=== PATIENT | male | born 1950 | race American Indian/Alaskan Native ===

== ENCOUNTER 2016-08-15 10:45 | Outpatient (CLI) | payer MEDICAID ==
[2016-08-15] MEDS ORDERED: XYLOCAINE TOPICAL 2% TP ONE ×2 (11:12→14:16)
[2016-08-15] MEDS ORDERED: DAKIN'S FULL STRENGTH ONE (11:12)
[2016-08-15] MEDS ORDERED: AD OINTMENT TP ONE (12:04)
[2016-08-15] MEDS ORDERED: DAKIN'S FULL STRENGTH TP ONE (14:17)
[2016-08-16] MEDS ORDERED: AD OINTMENT TP SCH (10:00)
== END 2016-08-15 10:46 | disposition home or self-care (01) ==
LOC: WOUND 10:45
PROVIDERS: ATTEND Orthopaedic Surgery
DX: I87.313 Chronic venous hypertension (idiopathic) with ulcer of bilateral lower extremity (principal); L97.912 Non-pressure chronic ulcer of unspecified part of right lower leg with fat layer exposed; L97.922 Non-pressure chronic ulcer of unspecified part of left lower leg with fat layer exposed; I89.0 Lymphedema, not elsewhere classified; I87.2 Venous insufficiency (chronic) (peripheral); I10 Essential (primary) hypertension; Z86.718 Personal history of other venous thrombosis and embolism; Z87.891 Personal history of nicotine dependence
CPT/HCPCS: 29581; 87075; 87116; A6250

== ENCOUNTER 2016-08-25 10:57 | Outpatient (CLI) | payer MEDICAID | END 2016-08-25 10:58 | disposition home or self-care (01) | LOC: WOUND 10:57 | PROVIDERS: ATTEND Orthopaedic Surgery | DX: I87.313 Chronic venous hypertension (idiopathic) with ulcer of bilateral lower extremity (principal); L97.912 Non-pressure chronic ulcer of unspecified part of right lower leg with fat layer exposed; L97.922 Non-pressure chronic ulcer of unspecified part of left lower leg with fat layer exposed; G62.9 Polyneuropathy, unspecified; Z86.718 Personal history of other venous thrombosis and embolism; Z87.891 Personal history of nicotine dependence ==

== ENCOUNTER 2016-08-30 11:59 | Outpatient (CLI) | payer MEDICAID | END 2016-08-30 12:00 | disposition home or self-care (01) | LOC: WOUND 11:59 | PROVIDERS: ATTEND Podiatrist | DX: I89.0 Lymphedema, not elsewhere classified (principal); I87.2 Venous insufficiency (chronic) (peripheral); I10 Essential (primary) hypertension; G62.9 Polyneuropathy, unspecified; Z86.718 Personal history of other venous thrombosis and embolism; Z87.891 Personal history of nicotine dependence | CPT/HCPCS: 29581 ==

== ENCOUNTER 2016-09-20 10:53 | Outpatient (CLI) | payer MEDICAID ==
[~2016-09-20 10:53] MED LIST: XYLOCAINE TOPICAL 4% TP ONE
[2016-09-20] MEDS ORDERED: AD OINTMENT TP ONE (12:08)
[2016-09-20] MEDS ORDERED: XYLOCAINE TOPICAL 4% TP ONE (14:48)
[2016-09-21] MEDS ORDERED: AD OINTMENT TP SCH (10:00)
== END 2016-09-20 10:54 | disposition home or self-care (01) ==
LOC: WOUND 10:53
PROVIDERS: ATTEND Podiatrist
DX: I87.313 Chronic venous hypertension (idiopathic) with ulcer of bilateral lower extremity (principal); L97.812 Non-pressure chronic ulcer of other part of right lower leg with fat layer exposed; L97.822 Non-pressure chronic ulcer of other part of left lower leg with fat layer exposed; I89.0 Lymphedema, not elsewhere classified; G62.9 Polyneuropathy, unspecified; Z86.718 Personal history of other venous thrombosis and embolism; Z87.891 Personal history of nicotine dependence
CPT/HCPCS: A6250

== ENCOUNTER 2016-09-27 13:03 | Outpatient (CLI) | payer MEDICAID ==
[2016-09-27] MEDS ORDERED: XYLOCAINE TOPICAL 4% TP ONE (13:47)
[2016-09-29] MEDS ORDERED: XYLOCAINE TOPICAL 4% TP ONE (08:48)
== END 2016-09-27 13:04 | disposition home or self-care (01) ==
LOC: WOUND 13:03
PROVIDERS: ATTEND Podiatrist
DX: I87.311 Chronic venous hypertension (idiopathic) with ulcer of right lower extremity (principal); L97.811 Non-pressure chronic ulcer of other part of right lower leg limited to breakdown of skin; I89.0 Lymphedema, not elsewhere classified; G62.9 Polyneuropathy, unspecified; Z86.718 Personal history of other venous thrombosis and embolism; Z87.891 Personal history of nicotine dependence
CPT/HCPCS: 87075; 87116; 97605

== ENCOUNTER 2016-10-06 12:00 | Outpatient (CLI) | payer MEDICARE ==
[2016-10-06] MEDS ORDERED: DAKIN'S FULL STRENGTH ONE (13:22)
[2016-10-06] MEDS ORDERED: DAKIN'S HALF STRENGTH TP SCH (14:00)
[2016-10-06] MEDS ORDERED: DAKIN'S FULL STRENGTH TP ONE (16:13)
== END 2016-10-06 12:01 | disposition home or self-care (01) ==
LOC: WOUND 12:00
PROVIDERS: ATTEND Nurse Practitioner
DX: I87.311 Chronic venous hypertension (idiopathic) with ulcer of right lower extremity (principal); L97.911 Non-pressure chronic ulcer of unspecified part of right lower leg limited to breakdown of skin; E66.01 Morbid (severe) obesity due to excess calories; I89.0 Lymphedema, not elsewhere classified; I10 Essential (primary) hypertension; Z86.718 Personal history of other venous thrombosis and embolism; Z87.891 Personal history of nicotine dependence
CPT/HCPCS: 29581; A6260

== ENCOUNTER 2016-11-15 11:06 | Outpatient (CLI) | payer MEDICARE | END 2016-11-15 11:07 | disposition home or self-care (01) | LOC: WOUND 11:06 | PROVIDERS: ATTEND Podiatrist | DX: I87.313 Chronic venous hypertension (idiopathic) with ulcer of bilateral lower extremity (principal); L97.811 Non-pressure chronic ulcer of other part of right lower leg limited to breakdown of skin; L97.821 Non-pressure chronic ulcer of other part of left lower leg limited to breakdown of skin; I89.0 Lymphedema, not elsewhere classified; L03.115 Cellulitis of right lower limb; Z86.718 Personal history of other venous thrombosis and embolism; Z87.891 Personal history of nicotine dependence | CPT/HCPCS: 87075; 87076; 87116; 87186 ==

== ENCOUNTER 2016-12-07 13:21 | Outpatient (CLI) | payer MEDICARE | END 2016-12-07 13:22 | disposition home or self-care (01) | LOC: WOUND 13:21 | PROVIDERS: ATTEND Internal Medicine | DX: I87.313 Chronic venous hypertension (idiopathic) with ulcer of bilateral lower extremity (principal); L97.821 Non-pressure chronic ulcer of other part of left lower leg limited to breakdown of skin; L97.813 Non-pressure chronic ulcer of other part of right lower leg with necrosis of muscle; I89.0 Lymphedema, not elsewhere classified; G62.9 Polyneuropathy, unspecified; K21.9 Gastro-esophageal reflux disease without esophagitis; I10 Essential (primary) hypertension; Z86.718 Personal history of other venous thrombosis and embolism; Z87.891 Personal history of nicotine dependence | CPT/HCPCS: 99215; G0463 ==

== ENCOUNTER 2016-12-07 14:38 | Inpatient (IN) | payer MEDICAID, MEDICARE ==
[2016-12-07] MEDS ORDERED: ROXICODONE PO PRN (23:26)
--- NOTE | 2016-12-07 23:26 | Event Note ---
Date: 12/07/16 See H/p in reports Fabian LE Cellulitis Sepsis Htn
[2016-12-07] MEDS ORDERED: ZOFRAN IV PRN ×2 (23:31→23:32)
[2016-12-07] MEDS ORDERED: MILK OF MAGNESIA PO PRN (23:31)
[2016-12-07] MEDS ORDERED: DULCOLAX PR PRN (23:31)
[2016-12-07] MEDS ORDERED: TYLENOL PO PRN (23:31)
[2016-12-07] MEDS ORDERED: DILAUDID IV PRN (23:31)
[2016-12-07] MEDS: NEURONTIN PO SCH (23:41)
[2016-12-07] MEDS: PERCOCET 5/325 PO PRN (23:41)
[2016-12-07] MEDS ORDERED: VANCOMYCIN 2,000 MG in NACL 0.9% 500 ML 500 ML IV ONE (23:45)
[2016-12-07] MEDS ORDERED: VANCOMYCIN PHARMACY TO DOSE IV SCH (23:45)
[2016-12-08 00:22] LABS: Basophils % (Auto) 0.6 % (0.0-1.8); Eosinophils % (Auto) 2.8 % (0.0-4.3); Hematocrit 26.6 % (35.5-45.6); Hemoglobin 9.1 gm/dl (11.8-15.2); Mean Corpuscular HGB Conc 34 % (32-34); Mean Corpuscular Hemoglobin 34 pg (28-32); Mean Corpuscular Volume 98 fl (84-94); Red Blood Count 2.73 M/mm3 (3.65-5.03); White Blood Count 4.1 K/mm3 (4.5-11.0)
[2016-12-08 00:33] LABS: Alanine Aminotransferase 23 units/L (7-56); Albumin 2.2 g/dL (3.9-5); Albumin/Globulin Ratio 0.4 %; Alkaline Phosphatase 63 units/L (35-129); Anion Gap 17 mmol/L; BUN/Creatinine Ratio 8.18; Blood Urea Nitrogen 9 mg/dL (9-20); Calcium 7.9 mg/dL (8.4-10.2); Carbon Dioxide 21 mmol/L (22-30); Glucose 109 mg/dL (75-100); Potassium 3.7 mmol/L (3.6-5.0); Sodium 138 mmol/L (137-145); Total Protein 7.3 g/dL (6.3-8.2)
[2016-12-08 01:04] LABS: Platelet Count 115 K/mm3 (140-440)
--- NOTE | 2016-12-08 01:32 | History and Physical Report ---
CHIEF COMPLAINT: Foul smelling wounds on the right lower extremity and also left lower extremity. HISTORY OF PRESENT ILLNESS: This is a 66-year-old -Italian man with a history of lipodermatosclerosis and chronic lymphedema and open ulcers for the last 3 to 5 months, sent by Dr. Mayorga, wound care physician from [facility] [place] for direct admission. The patient apparently has been having foul smelling ulcerative wounds on the right lower extremity for the last 3 to 5 months and not healing with foul smelling drainage present in the wounds. The patient is not responding to wound care as outpatient. The patient has chronic lymphedema and lipodermatosclerosis. PAST MEDICAL HISTORY: Significant for hypertension, peripheral neuropathy, history of DVTs, chronic lymphedema, chronic venous insufficiency. PAST SURGICAL HISTORY: The patient has extra toe removal from the left foot in 1951, Spring filter in 1979. PERSONAL HISTORY: The patient is a poor historian and does not want to answer the questions. FAMILY HISTORY: Significant for hypertension. REVIEW OF SYSTEMS: CONSTITUTIONAL: No weight loss, no weight gain. HEENT: No sore throat. No postnasal drip. CARDIOVASCULAR AND RESPIRATORY: No shortness of breath, no cough. No chest pain. GASTROINTESTINAL: No nausea, no vomiting, no diarrhea. GENITOURINARY: No dysuria. No flank pain. MUSCULOSKELETAL: Has swollen both lower extremities, hyperpigmented and chronic ulcers on the right lower extremity. CENTRAL NERVOUS SYSTEM: No syncope, no seizures. SKIN: Hyperpigmented and ulcers. Description to following the exam. PHYSICAL EXAMINATION: GENERAL: Elderly male lying in bed complaining of pain in both lower extremities. VITAL SIGNS: Blood pressure is 138/70, respirations are 20. Temperature is 98.8, pulse is 80. HEENT: Unremarkable. Pupils equal and reactive. NECK: Supple. No lymphadenopathy. No thyromegaly. LUNGS: Clear to auscultation and percussion. Good air entry. CARDIOVASCULAR: S1, S2 heard. No gallop, no murmur, no rub. Apical impulse in left fifth intercostal space and midclavicular line. ABDOMEN: Soft and benign. No hepatosplenomegaly. No guarding, no rigidity. Hernial orifices are normal. EXTREMITIES: Both lower extremities are hyperpigmented, severe swelling up to the inguinal region. Irregular skin. Full thickness lymphedema. A 6.5 x 4 x 1.7 cm depth with an area of 29.25 cm2 wound and volume of 49.725 cubic cm wound on the right lower extremity between the knee and leg noted. No sinus tract has been noted. No undermining has been noted. There is a moderate amount of green drainage noted which has a strong odor. The wound is deteriorating. The periwound skin moisture is normal. CENTRAL NERVOUS SYSTEM: Alert and oriented x 4. Nonfocal exam. LABORATORY DATA: His labs are pending. ASSESSMENT AND PLAN: 1. Right leg deep ulcer. May need debridement. Infectious Disease consult and Vascular Surgery consult requested. Also, arterial duplex scan ordered. Broad-spectrum IV antibiotics in the form of Zosyn and vancomycin have started. The patient may end up losing both the legs. We will defer to Vascular and Infectious Disease. Foul smelling drainage from both lower extremities present. 2. Hypertension. Continue lisinopril 20 mg daily. 3. Peripheral neuropathy. Continue gabapentin 600 mg 3 times a day. 4. History of DVT. Continue, Lovenox 40 mg subcutaneous daily. 5. Chronic venous insufficiency. The patient's both legs still swollen and and elevation may help though unlikely. 6. Very poor prognosis. 7. Surgical consult, Vascular Surgery consult and ID consult to be followed. In summary, the patient started on vancomycin, IV Zosyn. Wound care consultation is also requested. JOB# [id number] DUANE/LULY RONQUILLO
[2016-12-08] MEDS ORDERED: ZOSYN/NS 4.5GM/100ML 4.5 GM/100 ML VIAL IV SCH (02:00)
--- NOTE | 2016-12-08 09:18 | Admit Criteria Form ---
Admission Criteria Documentation: CELLULITIS Clinical Indications for Admission to Inpatient Care (Place 'X' for any and all applicable criteria): Admission is indicated for ANY ONE of the following(1)(2)(3)(4)(5): [X ]I. Limb-threatening infection [ ]II. High-risk comorbid condition as indicated by ANY ONE of the following: [ ]a) Uncontrolled diabetes (eg, HbA1c greater than 10% (0.1)) [ ]b) Cirrhosis [ ]c) Neutropenia [ ]d) Asplenia [ ]e) Immunosuppression [ ]f) Symptomatic heart failure [ ]III. Failure of outpatient therapy as indicated by ALL of the following: [ ]a) Progression or no improvement after adequate trial (minimum of 48 hours, with longer period for stable lower extremity infection) [ ]b) Adequate antibiotic regimen as indicated by use of ANY ONE of the following: [ ]i) First-generation cephalosporin (e.g., cephalexin) [ ]ii) Antistaphylococcal penicillin (e.g., dicloxacillin) [ ]iii) Penicillin-allergic patient regimen (clindamycin, extended-spectrum fluoroquinolone, or doxycycline) [ ]iv) Resistant organism (eg, methicillin-resistant Staphylococcus aureus) regimen (6) [ ]c) Outpatient intravenous therapy regimen is not appropriate due to ANY ONE of the following. (7)(8)(9)(10): [ ]i) It was tried and was not successful (eg, progression of infection). [ ]ii) It is not available or cannot be arranged in a clinically appropriate time frame (e.g., the next day). [ ]iii) Clinical presentation (eg, acuity of infection, rapidity of progression, confirmed or suspected bacteremia) is judged to require ALL of the following: [ ]1) Immediate initiation of intravenous therapy ( eg, cannot wait for next day) [ ]2) Intensity of patient monitoring and observation (eg, vital sign measurement, checks for infection progression) that cannot be provided at other than inpatient level of care [ ]IV. Mental status changes [ ]V. Bacteremia [ ]. Hemodynamic instability [ ]VII. Suspected necrotizing soft tissue infection (e.g., gas in tissue)(11)( 12) [ ]VIII. Orbital infection (13)(14) [ ]IX. Associated surgical procedure (e.g., abscess drainage, debridement) not amenable to outpatient, emergency department, or observation care [ ]X. Cutaneous gangrene [ ]XI. High fever (temperature greater than 39.5 degrees C (103.1 degrees F) (oral)) not responsive to outpatient, emergency department, or observation care therapy [ ]XIII. Inpatient admission required rather than observation care (Also use Cellulitis: Observation Care as appropriate) because of ANY ONE of the following : [ ]a) Periorbital or perineal infection that is severe or worsening [ ]b) Severe pain requiring acute inpatient management [ ]c) IV fluid to replace significant ongoing (e.g., for over 24 hours) losses (greater than 3L/m2 per day) [ ]d) Compartment syndrome monitoring (17) [ ]e) Strict or protective (eg, laminar flow) isolation [ ]f) Urgent debridement or skin grafting [ ]g) Bone or joint debridement [ ]h) Immediate inpatient surgery [ ]i) Other condition, treatment or monitoring requiring inpatient admission Extended stay beyond goal length of stay may be needed for (1)(18): [ ]a) Necrotizing soft tissue infection or fasciitis [ ]b) Gram-negative infection [ ]c) Methicillin-resistant Staphylococcal aureus (MRSA) infection [ ]d) Peripheral venous insufficiency with cellulitis [ ]e) Extensive edema [ ]f) Sepsis or continued Hemodynamic instability [ ]g) Continued high fever or mental status change [ ]h) Bacteremia [ ]i) Active serious comorbid conditions ( eg, heart failure, renal insufficiency) The original [employer] content created by [employer] has been revised. The portions of the content which have been revised are identified through the use of italic text or in bold, and [facility] has neither reviewed nor approved the modified material. All other unmodified content is copyright [facility] [employer] Please see references footnoted in the original [facility] [employer] edition 2016 Admission Criteria Met: Yes
[2016-12-08] MEDS: NEURONTIN PO SCH (09:23)
[2016-12-08] MEDS: ZESTRIL PO SCH (10:17)
[2016-12-08] MEDS: VANCOMYCIN 1,750 MG in NACL 0.9% 500 ML 500 ML IV SCH (10:49)
[2016-12-08] MEDS: ZOSYN/NS 4.5GM/100ML 4.5 GM/100 ML VIAL IV SCH ×2 (11:00→14:00)
--- NOTE | 2016-12-08 12:31 | Progress Note ---
Assessment and Plan Assessment and plan: Sepsis. Patient is criteria given the leukopenia and diagnosis of cellulitis. Place patient on the sepsis pathway and follow-up blood cultures and trend lactic acid levels. Right lower extremity abscess/cellulitis. Continue wound care and follow-up on cultures. ID and vascular consultation pending. Continue IV antibiotics. Hypertension. Resume antihypertensive medications of lisinopril. Peripheral neuropathy. Continue gabapentin 3 times a day. History of DVT. Continue prophylactic dose Lovenox daily. Chronic venous insufficiency. Continue supportive care and wound care. History Interval history: No new issues overnight. Hospitalist Physical - Constitutional Vitals: Temp Pulse Resp BP Pulse Ox 99.2 F 66 20 113/55 97 12/08/16 08:00 12/08/16 10:12/08/16 08:00 12/08/16:12/08/16 08:00 General appearance: Present: no acute distress, well-nourished - EENT Eyes: Present: PERRL, EOM intact ENT: hearing intact, clear oral mucosa, dentition normal - Neck Neck: Present: supple, normal ROM - Respiratory Respiratory effort: normal Respiratory: bilateral: CTA - Cardiovascular Rhythm: regular Heart Sounds: Present: S1 & S2. Absent: gallop, rub - Extremities Extremity abnormal: other (both lower extremities are hyperpigmented, severe swelling to the inguinal region. Patient with full thickness lymphedema. 6.5 x 4 x 1.7 cm ulcer wound on the right lower extremity. Moderate green purulent drainage with a strong odor.) - Abdominal General gastrointestinal: soft, non-tender, non-distended, normal bowel sounds - Integumentary Integumentary: Present: clear, warm, dry - Neurologic Neurologic: CNII-XII intact, moves all extremities Results - Labs CBC & Chem 7: 12/07/16 22:52 12/07/16 22:52 Labs: Laboratory Last Values WBC 4.1 K/mm3 (4.5-11.0) L 12/07/16 22:52 RBC 2.73 M/mm3 (3.65-5.03) L 12/07/16 22:52 Hgb 9.1 gm/dl (11.8-15.2) L 12/07/16 22:52 Hct 26.6 % (35.5-45.6) L 12/07/16 22:52 MCV 98 fl (84-94) H 12/07/16 22:52 MCH 34 pg (28-32) H 12/07/16 22:52 MCHC 34 % (32-34) 12/07/16 22:52 RDW 16.0 % (13.2-15.2) H 12/07/16 22:52 Plt Count 115 K/mm3 (140-440) L 12/07/16 22:52 Lymph % (Auto) 27.5 % (13.4-35.0) 12/07/16 22:52 [place] % (Auto) 9.7 % (0.0-7.3) H 12/07/16 22:52 Eos % (Auto) 2.8 % (0.0-4.3) 12/07/16 22:52 Baso % (Auto) 0.6 % (0.0-1.8) 12/07/16 22:52 Lymph # 1.1 K/mm3 (1.2-5.4) L 12/07/16 22:52 [place] # 0.4 K/mm3 (0.0-0.8) 12/07/16 22:52 Eos # 0.1 K/mm3 (0.0-0.4) 12/07/16 22:52 Baso # 0.0 K/mm3 (0.0-0.1) 12/07/16 22:52 Seg Neutrophils % 59.4 % (40.0-70.0) 12/07/16 22:52 Seg Neutrophils # 2.4 K/mm3 (1.8-7.7) 12/07/16 22:52 Sodium 138 mmol/L (137-145) 12/07/16 22:52 Potassium 3.7 mmol/L (3.6-5.0) 12/07/16 22:52 Chloride 104.0 mmol/L (98-107) 12/07/16 22:52 Carbon Dioxide 21 mmol/L (22-30) L 12/07/16 22:52 Anion Gap 17 mmol/L 12/07/16 22:52 BUN 9 mg/dL (9-20) 12/07/16 22:52 Creatinine 1.1 mg/dL (0.8-1.5) 12/07/16 22:52 Estimated GFR > 60 ml/min 12/07/16 22:52 BUN/Creatinine Ratio 8.18 % 12/07/16 22:52 Glucose 109 mg/dL (75-100) H 12/07/16 22:52 Calcium 7.9 mg/dL (8.4-10.2) L 12/07/16 22:52 Total Bilirubin 2.60 mg/dL (0.1-1.2) H 12/07/16 22:52 AST 65 units/L (5-40) H 12/07/16 22:52 ALT 23 units/L (7-56) 12/07/16 22:52 Alkaline Phosphatase 63 units/L (35-129) 12/07/16 22:52 Total Protein 7.3 g/dL (6.3-8.2) 12/07/16 22:52 Albumin 2.2 g/dL (3.9-5) L 12/07/16 22:52 Albumin/Globulin Ratio 0.4 % 12/07/16 22:52
--- NOTE | 2016-12-08 13:11 | Consultation ---
History of Present Illness - History of Present Illness Mr. Matos presented to the hospital yesterday with sequela of sepsis. The most likely source of sepsis was a malodorous, weeping wound in the right lower extremity. Antibiotics were initiated. The patient is very drowsy and a poor historian. He states that his legs have been swollen for the last 10-11 months, but is unable to tell me any other history regarding prior blood clots, venous interventions, edema, or any coagulation Medications and Allergies Allergies Allergy/AdvReac Type Severity Reaction Status Date / Time No Known Allergies Allergy Verified 05/07/15 04:31 Home Medications Medication Instructions Recorded Confirmed Last Taken Type Gabapentin [Neurontin] 600 mg PO BID 03/07/15 07/15/15 07/06/15 History Lisinopril [Zestril TAB] 20 mg PO QDAY 04/06/15 07/15/15 07/04/15 History Oxycodone HCl/Acetaminophen 1 each PO Q8HR PRN #60 tablet 05/19/15 07/15/1512/12 Rx [Percocet 10/325 mg] Active Meds: Active Medications Acetaminophen (Tylenol) 650 mg PO Q4H PRN PRN Reason: Pain MILD(1-3)/Fever >100.5/RUIZ Bisacodyl (Dulcolax) 10 mg [place] QDAY PRN PRN Reason: Constipation unrelieved by MOM Gabapentin (Neurontin) 600 mg PO BID [facility] Last Admin: 12/08/16 09:23 Dose: 600 mg Hydromorphone HCl (Dilaudid) 1 mg IV Q3H PRN PRN Reason: Pain , Severe (7-10) Vancomycin HCl 1,750 mg/ (Sodium Chloride) 535 mls @ 333.333 mls/hr IV Q12HR [facility] Last Admin: 12/08/16 10:49 Dose: 333.333 mls/hr Piperacillin Sod/Tazobactam Sod (Zosyn/Ns 4.5gm/100ml) 4.5 gm in 100 mls @ 200 mls/hr IV Q8HR [facility] Lisinopril (Zestril) 20 mg PO QDAY [facility] Last Admin: 12/08/16 10:17 Dose: 20 mg Magnesium Hydroxide (Milk Of Magnesia) 30 ml PO Q4H PRN PRN Reason: Constipation Ondansetron HCl (Zofran) 4 mg IV Q3H PRN PRN Reason: Nausea And Vomiting Oxycodone HCl (Roxicodone) 5 mg PO Q8H PRN PRN Reason: Pain Last Admin: 12/07/16 23:42 Dose: 5 mg Oxycodone/Acetaminophen (Percocet 5/325) 1 tab PO Q8H PRN PRN Reason: Pain, Moderate (4-6) Last Admin: 12/07/16 23:41 Dose: 1 tab Vancomycin HCl (Vancomycin Pharmacy To Dose) 1 each IV PKCONSULT [place]SCAR PRN Reason: Protocol Exam - Constitutional Vitals: Temp Pulse Resp BP Pulse Ox 99.2 F 66 20 113/55 97 12/08/16 08:00 12/08/16 10:12/08/16 08:00 12/08/16 10:12/08/16 08:00 General appearance: Present: other (drowsy) - Extremities Extremity abnormal: edema, ulceration Results - Labs CBC & Chem 7: 12/07/16 22:52 12/07/16 22:52 Labs: Abnormal lab results 12/07/16 12/07/16 Range/Units 22:52 22:52 WBC 4.1 L (4.5-11.0) K/mm3 RBC 2.73 L (3.65-5.03) M/mm3 Hgb 9.1 L (11.8-15.2) gm/dl Hct 26.6 L (35.5-45.6) % MCV 98 H (84-94) fl MCH 34 H (28-32) pg RDW 16.0 H (13.2-15.2) % Plt Count 115 L (140-440) K/mm3 [place] % (Auto) 9.7 H (0.0-7.3) % Lymph # 1.1 L (1.2-5.4) K/mm3 Carbon Dioxide 21 L (22-30) mmol/L Glucose 109 H (75-100) mg/dL Calcium 7.9 L (8.4-10.2) mg/dL Total Bilirubin 2.60 H (0.1-1.2) mg/dL AST 65 H (5-40) units/L Albumin 2.2 L (3.9-5) g/dL Assessment and Plan Mr. Matos was admitted with what is most likely infected wounds related to venous stasis. His legs have the appearance of brawny edema. Both legs have been recently dressed by the wound care team. If surgical debridement is necessary, a general surgery consult can be obtained. Otherwise an ultrasound to rule out deep vein thrombosis is recommended. Should the DVT study be negative, he can follow-up with me as an outpatient to evaluate for both peripheral and central venous insufficiency. In the meantime, continue antibiotics, supportive care, and wound care.
[2016-12-09] MEDS: NEURONTIN PO SCH ×2 (00:48→09:48)
[2016-12-09] MEDS: VANCOMYCIN 1,750 MG in NACL 0.9% 500 ML 500 ML IV SCH (01:10)
[2016-12-09] MEDS: ZOSYN/NS 4.5GM/100ML 4.5 GM/100 ML VIAL IV SCH ×2 (01:11→06:25)
--- NOTE | 2016-12-09 06:46 | Vascular Lab Report ---
LOWER EXTREMITY ARTERIAL DUPLEX: REASON FOR EXAM: Peripheral arterial disease. COMMENTS ON THE RIGHT: Monophasic waveforms are seen proximally. Monophasic waveforms are seen distally. No significant velocity gradients are identified. No focal significant plaque is identified. Findings are consistent with abnormal perfusion. Findings are inconclusive with the ability to heal distal wounds. COMMENTS ON THE LEFT: Monophasic waveforms are seen proximally. Monophasic waveforms are seen distally. No significant velocity gradients are identified. No focal significant plaque is identified. Findings are consistent with abnormal perfusion. Findings are inconclusive with the ability to heal distal wounds. IMPRESSION: RIGHT: No evidence of arterial occlusive disease in the arteries examined.. LEFT:No evidence of arterial occlusive disease in arteries examined. The monophasic waveforms throughout the extremities suggest a higher level inflow stenosis. Clinical correlation recommended..
[2016-12-09 07:32] LABS: Anion Gap 17 mmol/L; BUN/Creatinine Ratio 9.09; Blood Urea Nitrogen 10 mg/dL (9-20); Calcium 7.6 mg/dL (8.4-10.2); Carbon Dioxide 21 mmol/L (22-30); Chloride 105.2 mmol/L (98-107); Glucose 118 mg/dL (75-100); Sodium 139 mmol/L (137-145)
--- NOTE | 2016-12-09 08:03 | Consultation ---
History of Present Illness - Reason for Consult Consult date: 12/09/16 Infected Leg Ulcers Requesting physician: CIRA MATHUR - History of Present Illness Mr. Matos is a 66-year-old man with peripheral vascular disease complicated by bilateral lipodermatosclerosis who was directly admitted from the wound clinic for evaluation and possible treatment of infected leg ulcers. He has chronic bilateral lymphedema and has been having malodorous drainage more recently. He describes no other new systemic issue other than chronic pain in both legs. He is started empirically on Vancomycin and Zosyn. ID is consulted for further treatment recommendations. Past History Past Medical History: hypertension, other (chronic lymphedema bilaterally; obesity) Social history: , lives with family Family history: hypertension Medications and Allergies Allergies Allergy/AdvReac Type Severity Reaction Status Date / Time No Known Allergies Allergy Verified 05/07/15 04:31 Home Medications Medication Instructions Recorded Confirmed Last Taken Type Gabapentin [Neurontin] 600 mg PO BID #60 tablet 12/09/16 Unknown Rx HYDROmorphone [Dilaudid] 1 mg PO Q4HR #10 tablet 12/09/16 Unknown Rx Lisinopril [Zestril TAB] 20 mg PO QDAY #30 tablet 12/09/16 Unknown Rx Neomy/Baci/Polymyx Oint [Triple 10 applic TP BID #1 tube 12/09/16 Unknown Rx Antibiotic] Oxycodone HCl/Acetaminophen 1 each PO Q8HR PRN #60 tablet 12/09/16 Unknown Rx [Percocet 10/325 mg] Active Meds: Active Medications Acetaminophen (Tylenol) 650 mg PO Q4H PRN PRN Reason: Pain MILD(1-3)/Fever >100.5/RUIZ Bisacodyl (Dulcolax) 10 mg [place] QDAY PRN PRN Reason: Constipation unrelieved by MOM Gabapentin (Neurontin) 600 mg PO BID [facility] Last Admin: 12/09/16 00:48 Dose: 600 mg Hydromorphone HCl (Dilaudid) 1 mg IV Q3H PRN PRN Reason: Pain , Severe (7-10) Vancomycin HCl 1,750 mg/ (Sodium Chloride) 535 mls @ 333.333 mls/hr IV Q12HR [facility] Last Admin: 12/09/16 01:10 Dose: Not Given Piperacillin Sod/Tazobactam Sod (Zosyn/Ns 4.5gm/100ml) 4.5 gm in 100 mls @ 200 mls/hr IV Q8HR [facility] Last Admin: 12/09/16 06:25 Dose: Not Given Lisinopril (Zestril) 20 mg PO QDAY [facility] Last Admin: 12/08/16 10:17 Dose: 20 mg Magnesium Hydroxide (Milk Of Magnesia) 30 ml PO Q4H PRN PRN Reason: Constipation Ondansetron HCl (Zofran) 4 mg IV Q3H PRN PRN Reason: Nausea And Vomiting Oxycodone HCl (Roxicodone) 5 mg PO Q8H PRN PRN Reason: Pain Last Admin: 12/07/16 23:42 Dose: 5 mg Oxycodone/Acetaminophen (Percocet 5/325) 1 tab PO Q8H PRN PRN Reason: Pain, Moderate (4-6) Last Admin: 12/07/16 23:41 Dose: 1 tab Vancomycin HCl (Vancomycin Pharmacy To Dose) 1 each IV PKCONSULT [facility] PRN Reason: Protocol Review of Systems All systems: negative ((except as noted below):) Constitutional: no fever, no chills, no sweats Cardiovascular: no chest pain Respiratory: no cough Gastrointestinal: constipation, no abdominal pain, no nausea, no vomiting, no diarrhea Musculoskeletal: shooting leg pain Integumentary: sores, darkening of skin, no rash Hematologic/Lymphatic: lymphedema (bilateral) Physical Examination - Constitutional Vitals: Vital Signs Temp Pulse Resp BP Pulse Ox 97.6 F 72 16 102/60 97 12/08/16 20:00 12/08/16 20:00 12/08/16 22:00 12/08/16 20:00 12/08/16 08:00 Temperature -Last 24 Hours Temperature 97.6 F General appearance: Present: no acute distress, obese - Neck Neck: Present: supple - Respiratory Respiratory effort: normal Respiratory: bilateral: CTA, negative: rales - Cardiovascular Rhythm: regular Heart Sounds: Present: S1 & S2 - Extremities Extremity abnormal: edema (marked bilateral edema with a shallow, clean-based ulcer at posterior right calf; drainage with no significant open wound left leg) , other (extensive lymphedema and sclerotic changes; malodorous serous discharge from left > right leg) - Abdominal General gastrointestinal: Present: soft, non-distended - Integumentary Integumentary: Absent: rash - Neurologic Neurologic: no focal deficits, moves all extremities Results - Labs CBC & Chem 7: 12/09/16 09:05 12/09/16 05:34 Labs: Abnormal lab results 12/09/16 Range/Units 05:34 Carbon Dioxide 21 L (22-30) mmol/L Glucose 118 H (75-100) mg/dL Calcium 7.6 L (8.4-10.2) mg/dL Microbiology 12/07/16 04:00 Leg - Right Wound Culture - Preliminary Assessment and Plan - Patient Problems (1) Lymphedema of both lower extremities Current Visit: Yes Status: Acute Plan to address problem: 1. Open wound is clean-based with no signs of infection. Gram stain showed no active inflammation. 2. Recommend continued local wound care without systemic antibiotics. 3. May apply topical antibiotic to open wounds/ skin breakdown with frequent wound/ leg cleaning.
[2016-12-09 09:26] LABS: Hematocrit 24.5 % (35.5-45.6); Hemoglobin 8.2 gm/dl (11.8-15.2); Mean Corpuscular HGB Conc 34 % (32-34); Mean Corpuscular Hemoglobin 32 pg (28-32); Mean Corpuscular Volume 96 fl (84-94); Red Blood Count 2.56 M/mm3 (3.65-5.03); Red Cell Distribution Width 15.9 % (13.2-15.2); White Blood Count 2.9 K/mm3 (4.5-11.0)
[2016-12-09 09:36] LABS: Platelet Count 43 K/mm3 (140-440)
[2016-12-09] MEDS: PERCOCET 5/325 PO PRN (09:48)
[2016-12-09] MEDS: ZESTRIL PO SCH (09:49)
[2016-12-09 09:50] VITALS: BP 112/56
--- NOTE | 2016-12-09 10:08 | Discharge Summary ---
Providers - Providers Date of Admission: 12/07/16 18:35 Date of discharge: 12/09/16 Attending physician: SANDIE PASTRANA 12/07/16 23:33 Consult to Physician [CONS] Routine Consulting Provider: RAZIA MALDONADO Reason For Exam: cellulitis both lower extremities Place consult to:: Dr Maldonado Notified:: yes Phone number called:: [phone] Was contact made?: Yes Consult to Wound/ET Nurse [CONS] Routine Reason For Exam: wound eval 12/07/16 23:34 Consult to Physician [CONS] Routine Consulting Provider: ROLF PETIT Reason For Exam: Pad Place consult to:: yes Notified:: yes Phone number called:: [phone] Was contact made?: Yes Time called:: 11:16 12/08/16 11:22 Consult to PICC Line RN [CONS] Routine Reason For Exam: Unable to get iv access Type Line:: PICC Primary care physician: IGOR ARBOLEDA Hospitalization Reason for admission: infected leg wounds Hospital course: Mr. Matos is a 66-year-old man with peripheral vascular disease complicated by bilateral lipodermatosclerosis who was directly admitted from the wound clinic for treatment of infected leg ulcers. He has been having malodorous drainage. He was started empirically on Vancomycin and Zosyn. Patient underwent bilateral lower extremity arterial duplex which was technically difficult due to lower extremity edema and bandages but revealed monophasic waveforms. I D saw the patient in consultation and felt that there was no evidence of infection or abscess or need of IV or by mouth antibiotics. ID felt the patient could be treated with topical antibiotics. Patient is felt to proceed maximal hospital benefit. Therefore, patient will be discharged home. Dedicated discharge time 31 minutes. Disposition: DISCHARGED TO HOME OR SELFCARE Time spent for discharge: 31 - Discharge Diagnoses (1) Cellulitis Status: Acute Qualifiers: Site of cellulitis: S Site of cellulitis of extremity: lower extremity Site of cellulitis of trunk: S Laterality: right Qualified Code(s): L03.115 - Cellulitis of right lower limb (2) Chronic leg pain Status: Acute Qualifiers: Laterality: L (3) Peripheral vascular disease Status: Acute (4) HTN (hypertension), benign Status: Chronic (5) Neuropathy Status: Chronic (6) Sepsis Status: Acute Qualifiers: Sepsis type: S Core Measure Documentation - Palliative Care Palliative Care/ Comfort Measures: Not Applicable - Core Measures Any of the following diagnoses?: none Exam - Constitutional Vitals: Temp Pulse Resp BP Pulse Ox 99.7 F H 71 18 112/56 97 12/09/16 09:01 12/09/16 09:49 12/09/16 09:01 12/09/16 09:49 12/08/16 08:00 General appearance: Present: no acute distress, well-nourished - EENT Eyes: Present: PERRL ENT: hearing intact, clear oral mucosa - Neck Neck: Present: supple, normal ROM - Respiratory Respiratory effort: normal Respiratory: bilateral: CTA - Cardiovascular Heart Sounds: Present: S1 & S2. Absent: rub, click - Extremities Extremities: pulses symmetrical, No edema Peripheral Pulses: within normal limits - Abdominal General gastrointestinal: Present: soft, non-tender, non-distended, normal bowel sounds Male genitourinary: Present: normal - Integumentary Integumentary: Present: clear, warm, dry - Musculoskeletal Musculoskeletal: gait normal, strength equal bilaterally - Psychiatric Psychiatric: appropriate mood/affect, intact judgment & insight - Neurologic Neurologic: CNII-XII intact, moves all extremities Plan Activity: no restrictions Weight Bearing Status: Full Weight Bearing Diet: regular Follow up with: IGOR ARBOLEDA MD [Primary Care Provider] - 7 Days RAZIA MALDONADO MD [Staff Physician] - 7 Days Prescriptions: Gabapentin [Neurontin] 600 mg PO BID #60 tablet HYDROmorphone [Dilaudid] 1 mg PO Q4HR #10 tablet Lisinopril [Zestril TAB] 20 mg PO QDAY #30 tablet Neomy/Baci/Polymyx Oint [Triple Antibiotic] 10 applic TP BID #1 tube Oxycodone HCl/Acetaminophen [Percocet 10/325 mg] 1 each PO Q8HR PRN #60 tablet PRN Reason: Pain
[2016-12-09 11:37] LABS: Blastocytes % (Manual) 0 %
[2016-12-09 11:38] LABS: Anisocytosis 1+; Diff Status Complete; Platelet Estimate Appe; Smudge Cells Few
== END 2016-12-09 16:44 | disposition home health service (06) | DRG 872 ==
LOC: UNDOADMIN 14:38 → 3A 14:38 → CC2 18:35
PROVIDERS: ADMIT Internal Medicine; ATTEND Hospitalist
DX: A41.9 Sepsis, unspecified organism (principal); L97.919 Non-pressure chronic ulcer of unspecified part of right lower leg with unspecified severity; I10 Essential (primary) hypertension; G62.9 Polyneuropathy, unspecified; L03.115 Cellulitis of right lower limb; I89.0 Lymphedema, not elsewhere classified; Z82.49 Family history of ischemic heart disease and other diseases of the circulatory system
CPT/HCPCS: 36415; 80048; 80053; 82140; 85007; 85025; 87076; 87116; 87186; 93925; J2543; J3370; J7040

== ENCOUNTER 2016-12-13 13:45 | Outpatient (CLI) | payer MEDICAID, MEDICARE ==
[2016-12-13] MEDS ORDERED: XYLOCAINE TOPICAL 4% TP ONE ×2 (14:09→15:00)
[2016-12-13] MEDS ORDERED: DAKIN'S FULL STRENGTH ONE (14:28)
[2016-12-13] MEDS ORDERED: DAKIN'S HALF STRENGTH TP PRN (14:58)
== END 2016-12-13 13:46 | disposition home or self-care (01) ==
LOC: WOUND 13:45
PROVIDERS: ATTEND Surgery
DX: I87.313 Chronic venous hypertension (idiopathic) with ulcer of bilateral lower extremity (principal); L97.813 Non-pressure chronic ulcer of other part of right lower leg with necrosis of muscle; I89.0 Lymphedema, not elsewhere classified; Z86.718 Personal history of other venous thrombosis and embolism; Z87.891 Personal history of nicotine dependence
CPT/HCPCS: A6260

== ENCOUNTER 2016-12-20 13:29 | Outpatient (CLI) | payer MEDICARE ==
[2016-12-20] MEDS ORDERED: XYLOCAINE TOPICAL 4% TP ONE (13:52)
[2016-12-20] MEDS ORDERED: DAKIN'S FULL STRENGTH TP ONE (14:00)
== END 2016-12-20 13:30 | disposition home or self-care (01) ==
LOC: WOUND 13:29
PROVIDERS: ATTEND Surgery
DX: I87.313 Chronic venous hypertension (idiopathic) with ulcer of bilateral lower extremity (principal); L97.813 Non-pressure chronic ulcer of other part of right lower leg with necrosis of muscle; L97.821 Non-pressure chronic ulcer of other part of left lower leg limited to breakdown of skin; I89.0 Lymphedema, not elsewhere classified; I87.2 Venous insufficiency (chronic) (peripheral); G62.9 Polyneuropathy, unspecified; Z86.718 Personal history of other venous thrombosis and embolism; Z87.891 Personal history of nicotine dependence

== ENCOUNTER 2017-03-30 12:31 | Outpatient (CLI) | payer MEDICARE ==
[~2017-03-30 12:31] MED LIST changes: +NACL 0.9% 1000 ML 1,000 ML ONE; -XYLOCAINE TOPICAL 4% TP ONE
[2017-03-30] MEDS ORDERED: XYLOCAINE TOPICAL 4% TP ONE (13:36)
== END 2017-03-30 12:32 | disposition home or self-care (01) ==
LOC: WOUND 12:31
PROVIDERS: ATTEND Nurse Practitioner
DX: I87.313 Chronic venous hypertension (idiopathic) with ulcer of bilateral lower extremity (principal); L97.821 Non-pressure chronic ulcer of other part of left lower leg limited to breakdown of skin; L97.811 Non-pressure chronic ulcer of other part of right lower leg limited to breakdown of skin; Q82.0 Hereditary lymphedema; I89.0 Lymphedema, not elsewhere classified; G62.9 Polyneuropathy, unspecified; K21.9 Gastro-esophageal reflux disease without esophagitis; Z86.718 Personal history of other venous thrombosis and embolism; Z87.891 Personal history of nicotine dependence
CPT/HCPCS: J7030

== ENCOUNTER 2017-05-18 09:44 | Outpatient (CLI) | payer MEDICARE ==
[~2017-05-18 09:44] MED LIST changes: -NACL 0.9% 1000 ML 1,000 ML ONE; +XYLOCAINE TOPICAL 4% TP ONE
[2017-05-18] MEDS ORDERED: XYLOCAINE TOPICAL 4% TP ONE (09:49)
== END 2017-05-18 09:45 | disposition home or self-care (01) ==
LOC: WOUND 09:44
PROVIDERS: ATTEND Surgery
DX: I87.313 Chronic venous hypertension (idiopathic) with ulcer of bilateral lower extremity (principal); L97.821 Non-pressure chronic ulcer of other part of left lower leg limited to breakdown of skin; L97.811 Non-pressure chronic ulcer of other part of right lower leg limited to breakdown of skin; B35.1 Tinea unguium; Q82.0 Hereditary lymphedema; I89.0 Lymphedema, not elsewhere classified; G62.9 Polyneuropathy, unspecified; Z86.718 Personal history of other venous thrombosis and embolism; Z87.891 Personal history of nicotine dependence

== ENCOUNTER 2017-06-15 12:53 | Outpatient (CLI) | payer MEDICARE ==
[2017-06-15] MEDS ORDERED: XYLOCAINE TOPICAL 4% TP ONE (13:06)
== END 2017-06-15 12:54 | disposition home or self-care (01) ==
LOC: WOUND 12:53
PROVIDERS: ATTEND Nurse Practitioner
DX: I87.313 Chronic venous hypertension (idiopathic) with ulcer of bilateral lower extremity (principal); E11.40 Type 2 diabetes mellitus with diabetic neuropathy, unspecified; L97.821 Non-pressure chronic ulcer of other part of left lower leg limited to breakdown of skin; L97.811 Non-pressure chronic ulcer of other part of right lower leg limited to breakdown of skin; Q82.0 Hereditary lymphedema; K21.9 Gastro-esophageal reflux disease without esophagitis; L84 Corns and callosities; Z86.718 Personal history of other venous thrombosis and embolism; Z87.891 Personal history of nicotine dependence
CPT/HCPCS: 11055

== ENCOUNTER 2017-07-06 11:43 | Outpatient (CLI) | payer MEDICARE ==
[2017-07-06] MEDS ORDERED: XYLOCAINE TOPICAL 4% TP ONE (13:14)
== END 2017-07-06 11:44 | disposition home or self-care (01) ==
LOC: WOUND 11:43
PROVIDERS: ATTEND Podiatrist
DX: I87.313 Chronic venous hypertension (idiopathic) with ulcer of bilateral lower extremity (principal); L97.812 Non-pressure chronic ulcer of other part of right lower leg with fat layer exposed; L97.822 Non-pressure chronic ulcer of other part of left lower leg with fat layer exposed; E11.40 Type 2 diabetes mellitus with diabetic neuropathy, unspecified; I89.0 Lymphedema, not elsewhere classified; Q82.0 Hereditary lymphedema; Z86.718 Personal history of other venous thrombosis and embolism; Z87.891 Personal history of nicotine dependence

== ENCOUNTER 2017-07-20 13:05 | Outpatient (CLI) | payer MEDICARE | END 2017-07-20 13:06 | disposition home or self-care (01) | LOC: WOUND 13:05 | PROVIDERS: ATTEND Nurse Practitioner | DX: I87.313 Chronic venous hypertension (idiopathic) with ulcer of bilateral lower extremity (principal); L97.822 Non-pressure chronic ulcer of other part of left lower leg with fat layer exposed; L97.812 Non-pressure chronic ulcer of other part of right lower leg with fat layer exposed; G62.9 Polyneuropathy, unspecified; Q82.0 Hereditary lymphedema; Z86.718 Personal history of other venous thrombosis and embolism; Z87.891 Personal history of nicotine dependence | CPT/HCPCS: 99214; G0463 ==

== ENCOUNTER 2017-07-20 13:37 | Inpatient (IN) | payer MEDICARE, MEDICAID ==
[2017-07-20] MEDS ORDERED: ZOFRAN IV PRN (16:01)
[2017-07-20] MEDS ORDERED: PROVENTIL IH PRN (16:01)
[2017-07-20] MEDS ORDERED: VANCOMYCIN/NS 1 GM/250 ML 1 GM/250 ML BAG IV ONE (16:11)
--- NOTE | 2017-07-20 16:12 | History and Physical Report ---
History of Present Illness Date of admission: 07/20/17 15:12 Chief complaint: They said my leg was infected History of present illness: 66 YO Male with Lymphedema, HTN, Neuropathy, Chronic Pain, PVD, History of DVT S /P IVC Filter Placment admitted directly to hospitalist service from the wound clinic for LLE cellulitis. Pt seen and evaluated upon arrival. Pt denies fever, chills, CP, Palpitation, NVD, Syncope, recent ill contacts. Pt seen and evaluated upon arrival and found to be in no acute distress. Pt acknowledges chronic pain, but no acute changes. Pt treated with empiric antibiotics, CT scan of LLE ordered. Past History Past Medical History: DVT, hypertension Past Surgical History: Other (IVC Filter) Social history: , lives with family. denies: smoking, alcohol abuse, prescription drug abuse Family history: hypertension Medications and Allergies Allergies Allergy/AdvReac Type Severity Reaction Status Date / Time No Known Allergies Allergy Verified 05/07/15 04:31 Home Medications Medication Instructions Recorded Confirmed Last Taken Type Gabapentin [Neurontin] 600 mg PO BID #60 tablet 12/09/16 07/20/17 07/20/17 Rx Lisinopril 10 mg PO QDAY 07/20/17 07/20/17 07/19/17 History Oxycodone HCl/Acetaminophen 2 each PO Q4HR PRN 07/20/17 07/20/17 07/20/17 History [Percocet 10/325 mg] Active Meds: Active Medications Albuterol (Proventil) 2.5 mg IH Q4HRT PRN PRN Reason: Shortness Of Breath Hydromorphone HCl (Dilaudid) 1 mg PO Q4HR OSCAR Sodium Chloride (Nacl 0.45%) 500 mls @ 50 mls/hr IV DIRECT OSCAR Vancomycin HCl (Vancomycin/Ns 1 Gm/250 Ml) 1 gm in 250 mls @ 167.007 mls/hr IV ONCE ONE PRN Reason: Protocol Stop: 07/20/17 17:40 Lisinopril (Zestril) 20 mg PO QDAY OSCAR Miscellaneous Medication (Gabapentin [Neurontin]) 600 mg PO BID OSCAR Neomycin/Polymyxin/Bacitracin (Triple Antibiotic) 10 applic TP BID OSCAR Ondansetron HCl (Zofran) 4 mg IV Q8H PRN PRN Reason: N/V unrelieved by Reglan Oxycodone/Acetaminophen (Percocet 5/325) 1 tab PO Q6H PRN PRN Reason: Pain, Moderate (4-6) Review of Systems Constitutional: no weight loss, no weight gain, no fever, no chills Ears, nose, mouth and throat: no ear pain, no ear discharge, no tinnitis, no decreased hearing Cardiovascular: no chest pain, no orthopnea, no palpitations, no rapid/ irregular heart beat, no edema Respiratory: no cough, no cough with sputum, no excessive sputum, no hemoptysis Gastrointestinal: no abdominal pain, no nausea, no vomiting, no diarrhea Genitourinary Male: no dysuria, no hematuria, no flank pain, no discharge, no urinary frequency Rectal: no pain, no incontinence Musculoskeletal: no neck stiffness, no neck pain, no shooting arm pain, no arm numbness/tingling Integumentary: redness, sores, wounds, no rash, no pruritis Neurological: no head injury, no transient paralysis, no paralysis, no weakness , no parathesias, no numbness Psychiatric: no anxiety, no memory loss, no change in sleep habits, no sleep disturbances Endocrine: no cold intolerance, no heat intolerance, no polyphagia, no excessive thirst Hematologic/Lymphatic: no easy bruising, no easy bleeding Allergic/Immunologic: no urticaria, no allergic rhinitis, no wheezing Exam - Constitutional General appearance: Present: mild distress - EENT Eyes: Present: PERRL ENT: hearing intact, clear oral mucosa - Neck Neck: Present: supple, normal ROM - Respiratory Respiratory effort: normal Respiratory: bilateral: CTA - Cardiovascular Heart Sounds: Present: S1 & S2. Absent: rub, click - Extremities Extremity abnormal: ulceration, pulses diminished, tenderness Peripheral Pulses: within normal limits - Abdominal General gastrointestinal: Present: soft, non-tender, non-distended, normal bowel sounds Male genitourinary: Present: normal - Integumentary Integumentary: Present: clear, warm, dry - Musculoskeletal Musculoskeletal: gait normal, strength equal bilaterally - Psychiatric Psychiatric: appropriate mood/affect, intact judgment & insight - Neurologic Neurologic: CNII-XII intact, moves all extremities Results - Labs CBC & Chem 7: 07/20/17 16:16 07/20/17 16:16 Assessment and Plan - Patient Problems (1) Cellulitis of left lower extremity Current Visit: Yes Status: Acute Plan to address problem: IV abx, CT LLE, wound care, CBC, CMP, blood cultures, wound cultures (2) Lymphedema of both lower extremities Current Visit: No Status: Acute (3) Peripheral vascular disease Current Visit: No Status: Chronic Plan to address problem: Elevate BLE, wound care, treat cellulitis (4) HTN (hypertension), benign Current Visit: No Status: Chronic Plan to address problem: monitor bp q shift, continue medical management. (5) DVT prophylaxis Current Visit: No Status: Acute
[2017-07-20 16:47] LABS: Basophils % (Auto) 0.3 % (0.0-1.8); Eosinophils % (Auto) 0.5 % (0.0-4.3); Hematocrit 26.4 % (35.5-45.6); Hemoglobin 8.7 gm/dl (11.8-15.2); Mean Corpuscular HGB Conc 33 % (32-34); Mean Corpuscular Hemoglobin 28 pg (28-32); Mean Corpuscular Volume 85 fl (84-94); Red Blood Count 3.12 M/mm3 (3.65-5.03); Red Cell Distribution Width 18.7 % (13.2-15.2); White Blood Count 5.4 K/mm3 (4.5-11.0)
[2017-07-20 16:53] LABS: Alanine Aminotransferase 15 units/L (7-56); Albumin 1.7 g/dL (3.9-5); Albumin/Globulin Ratio 0.3 %; BUN/Creatinine Ratio 14; Blood Urea Nitrogen 14 mg/dL (9-20); Calcium 7.4 mg/dL (8.4-10.2); Carbon Dioxide 21 mmol/L (22-30); Cholesterol 81 mg/dL (50-199); Glucose 105 mg/dL (75-100); Total Protein 7.4 g/dL (6.3-8.2); Triglycerides 71 mg/dL (2-149)
[2017-07-20 16:54] LABS: Alkaline Phosphatase 50 units/L (35-129); Anion Gap 16 mmol/L; Chloride 103.7 mmol/L (98-107); HDL Cholesterol 14 mg/dL (40-59); LDL Cholesterol,Direct 53 mg/dL (50-130); Potassium 3.9 mmol/L (3.6-5.0); Sodium 137 mmol/L (137-145)
[2017-07-20] MEDS ORDERED: NACL 0.45% 500 ML IV SCH (17:00)
[2017-07-20] MEDS: DILAUDID PO SCH ×3 (17:30→23:07)
[2017-07-20] MEDS ORDERED: VANCOMYCIN 2,000 MG in NACL 0.9% 500 ML 500 ML IV ONE (17:30)
[2017-07-20 17:39] LABS: Platelet Count 61 K/mm3 (140-440)
--- NOTE | 2017-07-20 17:58 | Cat Scan Report ---
FINAL REPORT EXAM: CT LOWER EXTREMITY LT WO CON HISTORY: leg pain, visible ulcers on his legs TECHNIQUE: CT examination of the left leg PRIORS: None. FINDINGS: Nonspecific diffuse skin thickening and subcutaneous fat stranding may reflect edema, inflammation, or infection from cellulitis. Small pretibial skin defects may correspond with history of ulcers. Degenerative change of the knee, ankle, and foot. There is no bone rarefaction, periosteal elevation, focal medullary sclerosis, or cortical erosion to suggest CT evidence of osteomyelitis. No definite acute fracture or dislocation. IMPRESSION: No acute skeletal pathology or definite CT evidence of osteomyelitis Diffuse skin thickening and subcutaneous fat stranding may reflect cellulitis Pretibial skin defects may correspond with history of ulcers
--- NOTE | 2017-07-20 18:37 | XRay Report ---
FINAL REPORT PROCEDURE: XR CHEST 1V AP TECHNIQUE: Chest radiograph anteroposterior view. CPT 40861 HISTORY: dypsnea COMPARISON: No prior studies are available for comparison. FINDINGS: Heart: Normal. Mediastinum/Vessels: Normal. Lungs/Pleural space: Mild diffuse COPD. No infiltrate effusion or pneumothorax. Bony thorax: No acute osseous abnormality. Life support devices: None. IMPRESSION: No acute cardiopulmonary abnormality.
[2017-07-20] MEDS ORDERED: VANCOMYCIN 1,750 MG in NACL 0.9% 500 ML 500 ML IV SCH (22:00)
[2017-07-20] MEDS ORDERED: NON-FORMULARY (Gabapentin [Neurontin] 600 MG) PO SCH (22:00)
[2017-07-20] MEDS ORDERED: LEVAQUIN PO NR (22:00)
[2017-07-20] MEDS: TRIPLE ANTIBIOTIC TP SCH (23:06)
[2017-07-20] MEDS: NEURONTIN PO SCH (23:06)
[2017-07-20 23:29] LABS: Bacteria,Urine 4+ /HPF (Negative); Bilirubin,Urine NEG (Negative); Blood,Urine SM (Negative); Ketones,Urine NEG (Negative); Leukocyte Esterase,Urine MOD (Negative); Mucus,Urine FEW /HPF; Nitrite,Urine POS (Negative); Protein,Urine <15 mg/dL mg/dL (Negative)
[2017-07-21] MEDS: DILAUDID PO SCH ×8 (01:20→22:31)
[2017-07-21] MEDS: PERCOCET 5/325 PO PRN ×3 (02:51→16:42)
[2017-07-21] MEDS: ZESTRIL PO SCH (09:02)
[2017-07-21] MEDS: NEURONTIN PO SCH ×2 (09:02→22:31)
[2017-07-21] MEDS: TRIPLE ANTIBIOTIC TP SCH ×2 (09:04→23:34)
--- NOTE | 2017-07-21 14:20 | Progress Note ---
<BETSEY DECKER - Last Filed: 07/21/17 14:14> Assessment and Plan Assessment and plan: 66 YO Male with Lymphedema, HTN, Neuropathy, Chronic Pain, PVD, History of DVT S /P IVC Filter Placement admitted directly to hospitalist service from the wound clinic for LLE cellulitis. Pt seen and evaluated upon arrival. Pt denies fever, chills, CP, Palpitation, NVD, Syncope, recent ill contacts. Pt seen and evaluated upon arrival and found to be in no acute distress. Pt acknowledges chronic pain, but no acute changes. Cellulitis of left lower extremity CT LLE negative for osteomyelitis Wound care and Dr Aponte consulted Blood cultures ordered, IV Zosyn and Levaquin initiated Lymphedema of both lower extremities Chronic Peripheral vascular disease Elevate BLE, wound care, Abx for cellulitis HTN (hypertension), benign monitor bp q shift, continue medical management. UTI Pt on Levaquin Urine cultures ordered Malnutrition Consult Nutrition Anemia Likely of chronic disease Will monitor, if <7 will transfuse Bicytopenia Chronic DVT prophylaxis SCDs History Interval history: Patient was seen and examined. He was very drowsy and only mumbled responses to questions asked. Hospitalist Physical - Constitutional Vitals: Temp Pulse Resp BP Pulse Ox 98.8 F 62 16 116/66 95 07/21/17 07:26 07/21/17 09:02 07/21/17 10:00 07/21/17 09:02 07/21/17 14:06 General appearance: Present: no acute distress - EENT Eyes: Present: PERRL, EOM intact ENT: hearing intact, clear oral mucosa - Neck Neck: Present: supple, normal ROM - Respiratory Respiratory effort: normal Respiratory: bilateral: CTA - Cardiovascular Rhythm: regular Heart Sounds: Present: S1 & S2 - Extremities Extremities: No edema Extremity abnormal: edema, ulceration, pulses diminished, tenderness, other ( cellulitis) - Abdominal General gastrointestinal: soft, non-tender - Integumentary Integumentary: Present: warm, dry - Neurologic Neurologic: CNII-XII intact - Allied Health Allied health notes reviewed: nursing Results - Labs CBC & Chem 7: 07/20/17 16:16 07/20/17 16:16 Labs: Laboratory Last Values WBC 5.4 K/mm3 (4.5-11.0) 07/20/17 16:16 RBC 3.12 M/mm3 (3.65-5.03) L 07/20/17 16:16 Hgb 8.7 gm/dl (11.8-15.2) L 07/20/17 16:16 Hct 26.4 % (35.5-45.6) L 07/20/17 16:16 MCV 85 fl (84-94) 07/20/17 16:16 MCH 28 pg (28-32) 07/20/17 16:16 MCHC 33 % (32-34) 07/20/17 16:16 RDW 18.7 % (13.2-15.2) H 07/20/17 16:16 Plt Count 61 K/mm3 (140-440) L 07/20/17 16:16 Lymph % (Auto) 12.5 % (13.4-35.0) L 07/20/17 16:16 [place] % (Auto) 5.9 % (0.0-7.3) 07/20/17 16:16 Eos % (Auto) 0.5 % (0.0-4.3) 07/20/17 16:16 Baso % (Auto) 0.3 % (0.0-1.8) 07/20/17 16:16 Lymph # 0.7 K/mm3 (1.2-5.4) L 07/20/17 16:16 [place] # 0.3 K/mm3 (0.0-0.8) 07/20/17 16:16 Eos # 0.0 K/mm3 (0.0-0.4) 07/20/17 16:16 Baso # 0.0 K/mm3 (0.0-0.1) 07/20/17 16:16 Seg Neutrophils % 80.8 % (40.0-70.0) H 07/20/17 16:16 Seg Neutrophils # 4.4 K/mm3 (1.8-7.7) 07/20/17 16:16 Sodium 137 mmol/L (137-145) 07/20/17 16:16 Potassium 3.9 mmol/L (3.6-5.0) 07/20/17 16:16 Chloride 103.7 mmol/L (98-107) 07/20/17 16:16 Carbon Dioxide 21 mmol/L (22-30) L 07/20/17 16:16 Anion Gap 16 mmol/L 07/20/17 16:16 BUN 14 mg/dL (9-20) 07/20/17 16:16 Creatinine 1.0 mg/dL (0.8-1.5) 07/20/17 16:16 Estimated GFR > 60 ml/min 07/20/17 16:16 BUN/Creatinine Ratio 14 % 07/20/17 16:16 Glucose 105 mg/dL (75-100) H 07/20/17 16:16 Calcium 7.4 mg/dL (8.4-10.2) L 07/20/17 16:16 Total Bilirubin 1.60 mg/dL (0.1-1.2) H 07/20/17 16:16 AST 45 units/L (5-40) H 07/20/17 16:16 ALT 15 units/L (7-56) 07/20/17 16:16 Alkaline Phosphatase 50 units/L (35-129) 07/20/17 16:16 Total Protein 7.4 g/dL (6.3-8.2) 07/20/17 16:16 Albumin 1.7 g/dL (3.9-5) L 07/20/17 16:16 Albumin/Globulin Ratio 0.3 % 07/20/17 16:16 Triglycerides 71 mg/dL (2-149) 07/20/17 16:16 Cholesterol 81 mg/dL (50-199) 07/20/17 16:16 LDL Cholesterol Direct 53 mg/dL (50-130) 07/20/17 16:16 HDL Cholesterol 14 mg/dL (40-59) L 07/20/17 16:16 Cholesterol/HDL Ratio 5.78 % 07/20/17 16:16 Urine Color [place] (Yellow) 07/20/17 Unknown Urine Turbidity Clear (Clear) 07/20/17 Unknown Urine pH 5.0 (5.0-7.0) 07/20/17 Unknown Ur Specific [place] 1.020 (1.003-1.030) 07/20/17 Unknown Urine Protein <15 mg/dl mg/dL (Negative) 07/20/17 Unknown Urine Glucose (UA) Neg mg/dL (Negative) 07/20/17 Unknown Urine Ketones Neg mg/dL (Negative) 07/20/17 Unknown Urine Blood Sm (Negative) 07/20/17 Unknown Urine Nitrite Pos (Negative) 07/20/17 Unknown Urine Bilirubin Neg (Negative) 07/20/17 Unknown Urine Urobilinogen 4.0 mg/dL (<2.0) 07/20/17 Unknown Ur Leukocyte Esterase Mod (Negative) 07/20/17 Unknown Urine WBC (Auto) 78.0 /HPF (0.0-6.0) H 07/20/17 Unknown Urine RBC (Auto) 4.0 /HPF (0.0-6.0) 07/20/17 Unknown U Epithel Cells (Auto) < 1.0 /HPF (0-13.0) 07/20/17 Unknown Urine Bacteria (Auto) 4+ /HPF (Negative) 07/20/17 Unknown Amorphous Crystals 2+ 07/20/17 Unknown Hyaline Casts 1 /LPF 07/20/17 Unknown Urine Mucus Few /HPF 07/20/17 Unknown - Imaging and Cardiology Chest x-ray: report reviewed Imaging and Cardiology: Reviewed lower extremity CT no evidence of osteomyelitis <IGOR GIRON O - Last Filed: 07/21/17 22:22> Assessment and Plan Assessment and plan: I saw and evaluated the patient. I agree with the findings and the plan of care as documented in the Nurse Practitioner's~note, with the following corrections and additions. Patient with lower extremity chronic ulcer, cellulitis. Consult Dr. Aponte Hospitalist Physical - Constitutional Vitals: Temp Pulse Resp BP Pulse Ox 98.8 F 66 20 122/67 100 07/21/17 15:12 07/21/17 15:12 07/21/17 15:12 07/21/17 15:12 07/21/17 15:12 Results - Labs CBC & Chem 7: 07/20/17 16:16 07/20/17 16:16 Labs: Laboratory Last Values WBC 5.4 K/mm3 (4.5-11.0) 07/20/17 16:16 RBC 3.12 M/mm3 (3.65-5.03) L 07/20/17 16:16 Hgb 8.7 gm/dl (11.8-15.2) L 07/20/17 16:16 Hct 26.4 % (35.5-45.6) L 07/20/17 16:16 MCV 85 fl (84-94) 07/20/17 16:16 MCH 28 pg (28-32) 07/20/17 16:16 MCHC 33 % (32-34) 07/20/17 16:16 RDW 18.7 % (13.2-15.2) H 07/20/17 16:16 Plt Count 61 K/mm3 (140-440) L 07/20/17 16:16 Lymph % (Auto) 12.5 % (13.4-35.0) L 07/20/17 16:16 [place] % (Auto) 5.9 % (0.0-7.3) 07/20/17 16:16 Eos % (Auto) 0.5 % (0.0-4.3) 07/20/17 16:16 Baso % (Auto) 0.3 % (0.0-1.8) 07/20/17 16:16 Lymph # 0.7 K/mm3 (1.2-5.4) L 07/20/17 16:16 [place] # 0.3 K/mm3 (0.0-0.8) 07/20/17 16:16 Eos # 0.0 K/mm3 (0.0-0.4) 07/20/17 16:16 Baso # 0.0 K/mm3 (0.0-0.1) 07/20/17 16:16 Seg Neutrophils % 80.8 % (40.0-70.0) H 07/20/17 16:16 Seg Neutrophils # 4.4 K/mm3 (1.8-7.7) 07/20/17 16:16 Sodium 137 mmol/L (137-145) 07/20/17 16:16 Potassium 3.9 mmol/L (3.6-5.0) 07/20/17 16:16 Chloride 103.7 mmol/L (98-107) 07/20/17 16:16 Carbon Dioxide 21 mmol/L (22-30) L 07/20/17 16:16 Anion Gap 16 mmol/L 07/20/17 16:16 BUN 14 mg/dL (9-20) 07/20/17 16:16 Creatinine 1.0 mg/dL (0.8-1.5) 07/20/17 16:16 Estimated GFR > 60 ml/min 07/20/17 16:16 BUN/Creatinine Ratio 14 % 07/20/17 16:16 Glucose 105 mg/dL (75-100) H 07/20/17 16:16 Calcium 7.4 mg/dL (8.4-10.2) L 07/20/17 16:16 Total Bilirubin 1.60 mg/dL (0.1-1.2) H 07/20/17 16:16 AST 45 units/L (5-40) H 07/20/17 16:16 ALT 15 units/L (7-56) 07/20/17 16:16 Alkaline Phosphatase 50 units/L (35-129) 07/20/17 16:16 Total Protein 7.4 g/dL (6.3-8.2) 07/20/17 16:16 Albumin 1.7 g/dL (3.9-5) L 07/20/17 16:16 Albumin/Globulin Ratio 0.3 % 07/20/17 16:16 Triglycerides 71 mg/dL (2-149) 07/20/17 16:16 Cholesterol 81 mg/dL (50-199) 07/20/17 16:16 LDL Cholesterol Direct 53 mg/dL (50-130) 07/20/17 16:16 HDL Cholesterol 14 mg/dL (40-59) L 07/20/17 16:16 Cholesterol/HDL Ratio 5.78 % 07/20/17 16:16 Urine Color [place] (Yellow) 07/20/17 Unknown Urine Turbidity Clear (Clear) 07/20/17 Unknown Urine pH 5.0 (5.0-7.0) 07/20/17 Unknown Ur Specific [place] 1.020 (1.003-1.030) 07/20/17 Unknown Urine Protein <15 mg/dl mg/dL (Negative) 07/20/17 Unknown Urine Glucose (UA) Neg mg/dL (Negative) 07/20/17 Unknown Urine Ketones Neg mg/dL (Negative) 07/20/17 Unknown Urine Blood Sm (Negative) 07/20/17 Unknown Urine Nitrite Pos (Negative) 07/20/17 Unknown Urine Bilirubin Neg (Negative) 07/20/17 Unknown Urine Urobilinogen 4.0 mg/dL (<2.0) 07/20/17 Unknown Ur Leukocyte Esterase Mod (Negative) 07/20/17 Unknown Urine WBC (Auto) 78.0 /HPF (0.0-6.0) H 07/20/17 Unknown Urine RBC (Auto) 4.0 /HPF (0.0-6.0) 07/20/17 Unknown U Epithel Cells (Auto) < 1.0 /HPF (0-13.0) 07/20/17 Unknown Urine Bacteria (Auto) 4+ /HPF (Negative) 07/20/17 Unknown Amorphous Crystals 2+ 07/20/17 Unknown Hyaline Casts 1 /LPF 07/20/17 Unknown Urine Mucus Few /HPF 07/20/17 Unknown
[2017-07-21] MEDS ORDERED: VANCOMYCIN 2,000 MG in NACL 0.9% 500 ML 500 ML IV ONE (14:45)
[2017-07-21] MEDS: LEVAQUIN 750MG/150ML 750 MG/150 ML BAG IV SCH (14:58)
[2017-07-21] MEDS ORDERED: VANCOMYCIN 2,000 MG in NACL 0.9% 500 ML 500 ML IV NR ×2 (15:00→18:00)
[2017-07-21] MEDS ORDERED: VANCOMYCIN PHARMACY TO DOSE IV SCH (15:00)
[2017-07-22] MEDS: DILAUDID PO SCH ×6 (03:21→22:31)
[2017-07-22 08:15] LABS: Hematocrit 24.3 % (35.5-45.6); Mean Corpuscular HGB Conc 33 % (32-34); Mean Corpuscular Hemoglobin 28 pg (28-32); Mean Corpuscular Volume 84 fl (84-94); Red Blood Count 2.88 M/mm3 (3.65-5.03); Red Cell Distribution Width 18.5 % (13.2-15.2); White Blood Count 3.2 K/mm3 (4.5-11.0)
[2017-07-22 08:16] LABS: Platelet Count 66 K/mm3 (140-440)
[2017-07-22] MEDS: VANCOMYCIN 1,500 MG in NACL 0.9% 500 ML 500 ML IV SCH (08:32)
[2017-07-22] MEDS: NEURONTIN PO SCH ×2 (09:40→22:29)
[2017-07-22] MEDS: ZESTRIL PO SCH (09:40)
[2017-07-22 10:47] LABS: Anion Gap 13 mmol/L; BUN/Creatinine Ratio 13; Blood Urea Nitrogen 12 mg/dL (9-20); Carbon Dioxide 21 mmol/L (22-30); Glucose 112 mg/dL (75-100); Potassium 3.8 mmol/L (3.6-5.0); Sodium 136 mmol/L (137-145)
--- NOTE | 2017-07-22 12:00 | Consultation ---
History of Present Illness - Reason for Consult Consult date: 07/22/17 legs wound infection Requesting physician: IGOR GIRON - History of Present Illness 66 years old male with history of bilateral leg lymphedema, HTN, Neuropathy, Chronic Pain, PVD, History of DVT S/P IVC Filter Placement, admitted directly on 07/22/17 from the wound clinic for LLE cellulitis from chronic wounds. Patient reports bilateral leg wounds have been on / off for last 5 years. He has been seeing the Wound Care Clinic and last visit it was noted to have purulence for the left leg crater-type wounds. Denies fever, chills, N/V/D. In the emergency room, initial temperature was 98.7, heart rate 82, blood pressure 127/66. Initial white count 5.4. Hemoglobin 8.7. Platelets 61. Creat 1. UA showed 78 white blood cells and moderate leukocyte esterase. CT of the leg showed diffuse skin thickening and subcutaneous fat stranding in the pretibial area with skin defects. Microbiology: none Current Antimicrobials: levaquin Vancomycin Previous Antimicrobials: Past History Past Medical History: DVT, hypertension Past Surgical History: Other (IVC Filter) Social history: , lives with family. denies: smoking, alcohol abuse, prescription drug abuse Family history: hypertension Medications and Allergies Allergies Allergy/AdvReac Type Severity Reaction Status Date / Time No Known Allergies Allergy Verified 05/07/15 04:31 Home Medications Medication Instructions Recorded Confirmed Last Taken Type Gabapentin [Neurontin] 600 mg PO BID #60 tablet 12/09/16 07/20/17 07/20/17 Rx Lisinopril 10 mg PO QDAY 07/20/17 07/20/17 07/19/17 History Oxycodone HCl/Acetaminophen 2 each PO Q4HR PRN 07/20/17 07/20/17 07/20/17 History [Percocet 10/325 mg] Active Meds: Active Medications Albuterol (Proventil) 2.5 mg IH Q4HRT PRN PRN Reason: Shortness Of Breath Gabapentin (Neurontin) 600 mg PO BID [facility] Last Admin: 07/22/17 09:40 Dose: 600 mg Hydromorphone HCl (Dilaudid) 1 mg PO Q4HR [facility] Last Admin: 07/22/17 03:21 Dose: 1 mg Sodium Chloride (Nacl 0.45%) 500 mls @ 50 mls/hr IV DIRECT OSCAR Levofloxacin/Dextrose (Levaquin 750mg/150ml) 750 mg in 150 mls @ 100 mls/hr IV Q24HR OSCAR PRN Reason: Protocol Last Admin: 07/21/17 14:58 Dose: 100 mls/hr Vancomycin HCl 1,500 mg/ (Sodium Chloride) 515 mls @ 333.333 mls/hr IV Q12H [facility] Last Admin: 07/22/17 08:32 Dose: 333.333 mls/hr Lisinopril (Zestril) 20 mg PO QDAY [facility] Last Admin: 07/22/17 09:40 Dose: 20 mg Neomycin/Polymyxin/Bacitracin (Triple Antibiotic) 10 applic TP BID [facility] Last Admin: 07/21/17 23:34 Dose: 10 applic Ondansetron HCl (Zofran) 4 mg IV Q8H PRN PRN Reason: N/V unrelieved by Reglan Oxycodone/Acetaminophen (Percocet 5/325) 1 tab PO Q6H PRN PRN Reason: Pain, Moderate (4-6) Last Admin: 07/21/17 16:42 Dose: 1 tab Vancomycin HCl (Vancomycin Pharmacy To Dose) 1 each IV PKCONSULT OSCAR PRN Reason: Protocol Review of Systems All systems: negative (as per HPI rest neg) Physical Examination - Physical Exam Narrative exam: General appearance: Alert in NAD, conversant Eyes: anicteric sclerae, moist conjunctivae; no lid-lag; PERRLA HENT: Atraumatic; oropharynx clear Neck: Trachea midline; supple, no thyromegaly or lymphadenopathy Lungs: CTA, with normal respiratory effort and no intercostal retractions CV: RRR Abdomen: Soft, non-tender; no masses or hepatosplenomegaly Extremities: +marked bilateral chronic indurated calf edema with multiple skin tears and LLL crates like ulcers with purulence. Skin: Normal temperature, turgor and texture; no rash, ulcers or subcutaneous nodules Psych: Appropriate affect, alert and oriented to person, place and time. Neuro: alert and oriented x 3. Moving all extermities Lines: No CVL / PICC - Constitutional Vitals: Vital Signs Temp Pulse Resp BP Pulse Ox 98.5 F 69 20 120/63 100 07/22/17 07:58 07/22/17 09:40 07/22/17 07:58 07/22/17 09:40 07/22/17 07:58 Temperature -Last 24 Hours Temperature 98.5 F Temperature 98.2 F Temperature 98.5 F Temperature 98.8 F Results - Labs CBC & Chem 7: 07/22/17 07:46 07/22/17 07:46 Labs: Abnormal lab results 07/22/17 07/22/17 Range/Units 07:46 07:46 WBC 3.2 L (4.5-11.0) K/mm3 RBC 2.88 L (3.65-5.03) M/mm3 Hgb 8.0 L (11.8-15.2) gm/dl Hct 24.3 L (35.5-45.6) % RDW 18.5 H (13.2-15.2) % Plt Count 66 L (140-440) K/mm3 Sodium 136 L (137-145) mmol/L Carbon Dioxide 21 L (22-30) mmol/L Glucose 112 H (75-100) mg/dL Calcium 7.0 L (8.4-10.2) mg/dL Assessment and Plan Assessment: 1) LLL venous stasis infected ulcers: CT of the leg showed diffuse skin thickening and subcutaneous fat stranding in the pretibial area with skin defects. 2) Bilateral leg lymphedema 3) UTI 4) Thrombocytopenia ? Plan: -obtain deep cultures or tissue cultures -obtain C-reactive protein (CRP) -viral hepatitis panel -continue levaquin and vancomycin -contact precautions until MRSA is r/o -Wound doctor consult Thank you Dr Giron for your consultation, will follow up with you. Tina Maciel MD Infectious Diseases Specialist [facility] ([facility] M [phone] O [phone]
[2017-07-22] MEDS: PERCOCET 5/325 PO PRN ×2 (12:54→18:51)
--- NOTE | 2017-07-22 12:54 | Progress Note ---
Assessment and Plan Assessment and plan: 66 YO Male with Lymphedema, HTN, Neuropathy, Chronic Pain, PVD, History of DVT S /P IVC Filter Placement admitted directly to hospitalist service from the wound clinic for LLE cellulitis. Cellulitis of left lower extremity CT LLE negative for osteomyelitis Wound care and Dr Aponte consulted Blood cultures ordered, IV Zosyn and Levaquin initiated Lymphedema of both lower extremities Chronic Peripheral vascular disease Elevate BLE, wound care, Abx for cellulitis HTN (hypertension), benign monitor bp q shift, continue medical management. UTI Pt on Levaquin Urine cultures ordered Malnutrition Consult Nutrition Anemia Likely of chronic disease Will monitor, if <7 will transfuse ThromBicytopenia Chronic DVT prophylaxis with SCDs only because of thrombocytopenia. Addendum: was later called by Nurse that patient lost iv access and they could not get after multiple attempts. I asked Dr. Landry, ED Physician nd he could not get a line in. Discussed with Dr. Garcia, ID Physician and she recommends oral Levaquin and Doxycycline until iv access restored. History Interval history: Leg ulcers with infection no fever Hospitalist Physical - Physical exam Narrative exam: GEN APPEARANCE : Not in acute distress, HEENT: Normocephalic, atraumatic NECK : supple, no JVD LUNGS: Clear to auscultation bilaterally, no rales, no wheeze HEART: S1 and S2 regular, no murmurs, rubs or gallop, ABD: Soft, non tender, non distended, normal bowel sounds EXT: Bilateral leg lymphedema, infected ulcers left leg NEURO: Awake,alert, oriented x 3, no facial asymmetry,no focal signs - Constitutional Vitals: Temp Pulse Resp BP Pulse Ox 98.5 F 69 20 120/63 100 07/22/17 07:58 07/22/17 09:40 07/22/17 07:58 07/22/17 09:40 07/22/17 07:58 Results - Labs CBC & Chem 7: 07/22/17 07:46 07/22/17 07:46 Labs: Laboratory Last Values WBC 3.2 K/mm3 (4.5-11.0) L 07/22/17 07:46 RBC 2.88 M/mm3 (3.65-5.03) L 07/22/17 07:46 Hgb 8.0 gm/dl (11.8-15.2) L 07/22/17 07:46 Hct 24.3 % (35.5-45.6) L 07/22/17 07:46 MCV 84 fl (84-94) 07/22/17 07:46 MCH 28 pg (28-32) 07/22/17 07:46 MCHC 33 % (32-34) 07/22/17 07:46 RDW 18.5 % (13.2-15.2) H 07/22/17 07:46 Plt Count 66 K/mm3 (140-440) L 07/22/17 07:46 Lymph % (Auto) 12.5 % (13.4-35.0) L 07/20/17 16:16 [place] % (Auto) 5.9 % (0.0-7.3) 07/20/17 16:16 Eos % (Auto) 0.5 % (0.0-4.3) 07/20/17 16:16 Baso % (Auto) 0.3 % (0.0-1.8) 07/20/17 16:16 Lymph # 0.7 K/mm3 (1.2-5.4) L 07/20/17 16:16 [place] # 0.3 K/mm3 (0.0-0.8) 07/20/17 16:16 Eos # 0.0 K/mm3 (0.0-0.4) 07/20/17 16:16 Baso # 0.0 K/mm3 (0.0-0.1) 07/20/17 16:16 Seg Neutrophils % 80.8 % (40.0-70.0) H 07/20/17 16:16 Seg Neutrophils # 4.4 K/mm3 (1.8-7.7) 07/20/17 16:16 Sodium 136 mmol/L (137-145) L 07/22/17 07:46 Potassium 3.8 mmol/L (3.6-5.0) 07/22/17 07:46 Chloride 106.0 mmol/L (98-107) 07/22/17 07:46 Carbon Dioxide 21 mmol/L (22-30) L 07/22/17 07:46 Anion Gap 13 mmol/L 07/22/17 07:46 BUN 12 mg/dL (9-20) 07/22/17 07:46 Creatinine 0.9 mg/dL (0.8-1.5) 07/22/17 07:46 Estimated GFR > 60 ml/min 07/22/17 07:46 BUN/Creatinine Ratio 13 % 07/22/17 07:46 Glucose 112 mg/dL (75-100) H 07/22/17 07:46 Calcium 7.0 mg/dL (8.4-10.2) L 07/22/17 07:46 Total Bilirubin 1.60 mg/dL (0.1-1.2) H 07/20/17 16:16 AST 45 units/L (5-40) H 07/20/17 16:16 ALT 15 units/L (7-56) 07/20/17 16:16 Alkaline Phosphatase 50 units/L (35-129) 07/20/17 16:16 Total Protein 7.4 g/dL (6.3-8.2) 07/20/17 16:16 Albumin 1.7 g/dL (3.9-5) L 07/20/17 16:16 Albumin/Globulin Ratio 0.3 % 07/20/17 16:16 Triglycerides 71 mg/dL (2-149) 07/20/17 16:16 Cholesterol 81 mg/dL (50-199) 07/20/17 16:16 LDL Cholesterol Direct 53 mg/dL (50-130) 07/20/17 16:16 HDL Cholesterol 14 mg/dL (40-59) L 07/20/17 16:16 Cholesterol/HDL Ratio 5.78 % 07/20/17 16:16 Urine Color Marcy (Yellow) 07/20/17 Unknown Urine Turbidity Clear (Clear) 07/20/17 Unknown Urine pH 5.0 (5.0-7.0) 07/20/17 Unknown Ur Specific [place] 1.020 (1.003-1.030) 07/20/17 Unknown Urine Protein <15 mg/dl mg/dL (Negative) 07/20/17 Unknown Urine Glucose (UA) Neg mg/dL (Negative) 07/20/17 Unknown Urine Ketones Neg mg/dL (Negative) 07/20/17 Unknown Urine Blood Sm (Negative) 07/20/17 Unknown Urine Nitrite Pos (Negative) 07/20/17 Unknown Urine Bilirubin Neg (Negative) 07/20/17 Unknown Urine Urobilinogen 4.0 mg/dL (<2.0) 07/20/17 Unknown Ur Leukocyte Esterase Mod (Negative) 07/20/17 Unknown Urine WBC (Auto) 78.0 /HPF (0.0-6.0) H 07/20/17 Unknown Urine RBC (Auto) 4.0 /HPF (0.0-6.0) 07/20/17 Unknown U Epithel Cells (Auto) < 1.0 /HPF (0-13.0) 07/20/17 Unknown Urine Bacteria (Auto) 4+ /HPF (Negative) 07/20/17 Unknown Amorphous Crystals 2+ 07/20/17 Unknown Hyaline Casts 1 /LPF 07/20/17 Unknown Urine Mucus Few /HPF 07/20/17 Unknown
[2017-07-22] MEDS: LEVAQUIN 750MG/150ML 750 MG/150 ML BAG IV SCH (16:22)
[2017-07-22] MEDS: TRIPLE ANTIBIOTIC TP SCH (18:53)
--- NOTE | 2017-07-22 18:54 | Consultation ---
History of Present Illness Consult date: 07/22/17 Reason for consult: other (Left leg wound/infection) - History of present illness History of present illness: Followed in Wound Clinic. Admitted for treatment of left leg wounds/infection. He is not diabetic. Past History Past Medical History: DVT, hypertension Past Surgical History: Other (IVC Filter) Social history: , lives with family. denies: smoking, alcohol abuse, prescription drug abuse Family history: hypertension Medications and Allergies Allergies Allergy/AdvReac Type Severity Reaction Status Date / Time No Known Allergies Allergy Verified 05/07/15 04:31 Home Medications Medication Instructions Recorded Confirmed Last Taken Type Gabapentin [Neurontin] 600 mg PO BID #60 tablet 12/09/16 07/20/17 07/20/17 Rx Lisinopril 10 mg PO QDAY 07/20/17 07/20/17 07/19/17 History Oxycodone HCl/Acetaminophen 2 each PO Q4HR PRN 07/20/17 07/20/17 07/20/17 History [Percocet 10/325 mg] Active Meds: Active Medications Albuterol (Proventil) 2.5 mg IH Q4HRT PRN PRN Reason: Shortness Of Breath Doxycycline Hyclate (Vibramycin) 100 mg PO BID [facility] Gabapentin (Neurontin) 600 mg PO BID [facility] Last Admin: 07/22/17 09:40 Dose: 600 mg Hydromorphone HCl (Dilaudid) 1 mg PO Q4HR [facility] Last Admin: 07/22/17 16:52 Dose: Not Given Sodium Chloride (Nacl 0.45%) 500 mls @ 50 mls/hr IV DIRECT [facility] Levofloxacin (Levaquin) 750 mg PO Q24H [facility] Lisinopril (Zestril) 20 mg PO QDAY [facility] Last Admin: 07/22/17 09:40 Dose: 20 mg Ondansetron HCl (Zofran) 4 mg IV Q8H PRN PRN Reason: N/V unrelieved by Reglan Oxycodone/Acetaminophen (Percocet 5/325) 1 tab PO Q6H PRN PRN Reason: Pain, Moderate (4-6) Last Admin: 07/22/17 12:54 Dose: 1 tab Vancomycin HCl (Vancomycin Pharmacy To Dose) 1 each IV PKCONSULT [facility] PRN Reason: Protocol Review of Systems All systems: negative Exam Vital Signs Temp Pulse Resp BP Pulse Ox 98.7 F 82 20 127/66 100 07/20/17 15:41 07/20/17 15:41 07/20/17 15:41 07/20/17 15:41 07/20/17 15:41 - Extremities Extremities: abnormal (The anterior left leg has several 5-9 mm open wounds which are draining only a minimal amount of slightly purulent fluid. There is no obvious abscess.) Results - Labs 07/22/17 07:46 07/22/17 07:46 Abnormal lab results 07/22/17 07/22/17 07/22/17 Range/Units 07:46 07:46 07:46 WBC 3.2 L (4.5-11.0) K/mm3 RBC 2.88 L (3.65-5.03) M/mm3 Hgb 8.0 L (11.8-15.2) gm/dl Hct 24.3 L (35.5-45.6) % RDW 18.5 H (13.2-15.2) % Plt Count 66 L (140-440) K/mm3 Sodium 136 L (137-145) mmol/L Carbon Dioxide 21 L (22-30) mmol/L Glucose 112 H (75-100) mg/dL Calcium 7.0 L (8.4-10.2) mg/dL C-Reactive Protein 3.60 H (0.00-1.30) mg/dL Hepatitis C Antibody (NonReactive) 07/22/17 Range/Units 17:29 WBC (4.5-11.0) K/mm3 RBC (3.65-5.03) M/mm3 Hgb (11.8-15.2) gm/dl Hct (35.5-45.6) % RDW (13.2-15.2) % Plt Count (140-440) K/mm3 Sodium (137-145) mmol/L Carbon Dioxide (22-30) mmol/L Glucose (75-100) mg/dL Calcium (8.4-10.2) mg/dL C-Reactive Protein (0.00-1.30) mg/dL Hepatitis C Antibody Reactive A (NonReactive) Diabetes panel 07/22/17 Range/Units 07:46 Sodium 136 L (137-145) mmol/L Potassium 3.8 (3.6-5.0) mmol/L Chloride 106.0 (98-107) mmol/L Carbon Dioxide 21 L (22-30) mmol/L BUN 12 (9-20) mg/dL Creatinine 0.9 (0.8-1.5) mg/dL Glucose 112 H (75-100) mg/dL Calcium 7.0 L (8.4-10.2) mg/dL Calcium panel 07/22/17 Range/Units 07:46 Calcium 7.0 L (8.4-10.2) mg/dL Pituitary panel 07/22/17 Range/Units 07:46 Sodium 136 L (137-145) mmol/L Potassium 3.8 (3.6-5.0) mmol/L Chloride 106.0 (98-107) mmol/L Carbon Dioxide 21 L (22-30) mmol/L BUN 12 (9-20) mg/dL Creatinine 0.9 (0.8-1.5) mg/dL Glucose 112 H (75-100) mg/dL Calcium 7.0 L (8.4-10.2) mg/dL Adrenal panel 07/22/17 Range/Units 07:46 Sodium 136 L (137-145) mmol/L Potassium 3.8 (3.6-5.0) mmol/L Chloride 106.0 (98-107) mmol/L Carbon Dioxide 21 L (22-30) mmol/L BUN 12 (9-20) mg/dL Creatinine 0.9 (0.8-1.5) mg/dL Glucose 112 H (75-100) mg/dL Calcium 7.0 L (8.4-10.2) mg/dL Assessment and Plan - Patient Problems (1) Cellulitis of left lower extremity Current Visit: Yes Status: Acute Plan to address problem: 1) Keep left leg elevated at all times 2) Continue antibiotics 3) Operative intervention is not indicated.
[2017-07-22] MEDS ORDERED: LEVAQUIN PO SCH ×2 (19:00→22:00)
[2017-07-22] MEDS: LEVAQUIN PO SCH (20:00)
[2017-07-22] MEDS ORDERED: VIBRAMYCIN PO SCH (22:00)
[2017-07-22] MEDS: VIBRAMYCIN PO SCH (22:29)
[2017-07-23] MEDS: VIBRAMYCIN PO SCH ×4 (01:05→22:00)
[2017-07-23] MEDS: VANCOMYCIN 1,500 MG in NACL 0.9% 500 ML 500 ML IV SCH (01:06)
[2017-07-23] MEDS: DILAUDID PO SCH ×7 (03:31→22:01)
[2017-07-23] MEDS: ZESTRIL PO SCH ×2 (10:16→10:23)
[2017-07-23] MEDS: NEURONTIN PO SCH ×2 (10:17→22:00)
--- NOTE | 2017-07-23 14:17 | Progress Note ---
Assessment and Plan Assessment and plan: Cellulitis of left lower extremity CT LLE negative for osteomyelitis Wound care and Dr Aponte consulted Blood cultures NGTD cont. levaquin and doxycycline PO due to lack of IV access for PICC line on monday Lymphedema of both lower extremities Chronic Peripheral vascular disease Elevate BLE, wound care, Abx for cellulitis HTN (hypertension), benign monitor bp q shift, continue medical management. UTI Pt on Levaquin Urine cultures positive for gram-negative rods Isolation and sensitivity results pending Malnutrition Consult Nutrition Anemia Likely of chronic disease Will monitor, if <7 will transfuse Thrombocytopenia: Likely secondary to chronic hepatitis C Chronic Chronic pain: Continue pain control Hepatitis C: Results reviewed DVT prophylaxis with SCDs only because of thrombocytopenia. Subjective Date of service: 07/23/17 Interval history: Resting in bed Alert and oriented Not in any distress Complains of pain in the legs- which is chronic Denies any chest pain nausea or vomitings or abdominal pain Objective - Constitutional Vitals: Vital Signs - 12hr 07/23/17 07/23/17 07/23/17 03:40 04:38 04:40 Temperature 98.6 F Pulse Rate 65 Respiratory 16 20 16 Rate Respiratory 20 Rate [B/L Legs] Blood Pressure 121/66 O2 Sat by Pulse 100 100 Oximetry 07/23/17 07/23/17 07/23/17 07:34 07:47 08:34 Temperature 98.5 F Pulse Rate 65 Respiratory 16 20 18 Rate Respiratory Rate [B/L Legs] Blood Pressure 130/76 O2 Sat by Pulse 100 100 Oximetry 07/23/17 07/23/17 10:00 10:23 Temperature Pulse Rate 65 Respiratory Rate Respiratory 18 Rate [B/L Legs] Blood Pressure 130/76 O2 Sat by Pulse Oximetry General appearance: Present: no acute distress - EENT Eyes: PERRL, EOM intact ENT: hearing intact, clear oral mucosa - Neck Neck: supple, normal ROM - Respiratory Respiratory effort: normal Respiratory: bilateral: CTA - Cardiovascular Rhythm: regular Heart Sounds: Present: S1 & S2 Extremities: abnormal (both legs covered with dressings chronic skin changes) Extremity abnormal: edema (chronic bilateral lymphedema lower extremities) - Gastrointestinal General gastrointestinal: Present: soft, non-tender Rectal Exam: deferred - Musculoskeletal Musculoskeletal: strength equal bilaterally - Neurologic Neurologic: CNII-XII intact, no focal deficits, moves all extremities - Labs CBC & Chem 7: 07/22/17 07:46 07/22/17 07:46 Labs: Abnormal lab results 07/22/17 07/22/17 Range/Units 07:46 17:29 C-Reactive Protein 3.60 H (0.00-1.30) mg/dL Hepatitis C Antibody Reactive A (NonReactive)
[2017-07-23] MEDS: LEVAQUIN PO SCH (22:01)
[2017-07-24] MEDS: DILAUDID PO SCH ×2 (01:40→06:23)
[2017-07-24] MEDS: PERCOCET 5/325 PO PRN ×4 (02:52→23:53)
--- NOTE | 2017-07-24 09:27 | Progress Note ---
Assessment and Plan Assessment and plan: Cellulitis of left lower extremity CT LLE negative for osteomyelitis Wound care and Dr Aponte consulted Blood cultures NGTD cont. levaquin and doxycycline PO due to lack of IV access for PICC line on monday Lymphedema of both lower extremities Chronic Peripheral vascular disease Elevate BLE, wound care, Abx for cellulitis HTN (hypertension), benign monitor bp q shift, continue medical management. UTI Pt on Levaquin Urine cultures positive for gram-negative rods Isolation and sensitivity results pending Malnutrition Consult Nutrition Pancytopenia: check B12 levels. hematology consult monitor CBC Chronic pain: Continue pain control. Had a bg discussiomn with the patient and also discussed with RN. Apparently he asks for Percocet every 4 hours and also asks for Dilaudid. He wants Dilaudid dose increased I discussed the pain management with the patient. We will stop the Dilaudid and increase the Percocet to 2 tablets every 6 hours when necessary Patient has a long history of narcotic dependence. To me he does not appear to be in any pain or in any distress from pain Hepatitis C: Results reviewed DVT prophylaxis with SCDs only because of thrombocytopenia. Subjective Date of service: 07/24/17 Interval history: Resting in bed Alert and oriented Not in any distress Complains of pain in the legs- which is chronic Wants Dilaudid dose increased and also increase the Percocet dose Denies any chest pain nausea or vomitings or abdominal pain Objective - Constitutional Vitals: Vital Signs - 12hr 07/23/17 07/23/17 07/23/17 22:00 22:01 23:01 Temperature Pulse Rate Respiratory 16 16 Rate Respiratory 16 Rate [B/L Legs] Blood Pressure O2 Sat by Pulse Oximetry 07/24/17 07/24/17 07/24/17 01:40 02:30 02:40 Temperature Pulse Rate Respiratory 16 16 16 Rate Respiratory Rate [B/L Legs] Blood Pressure O2 Sat by Pulse 99 Oximetry 07/24/17 07/24/17 07/24/17 02:52 03:52 06:23 Temperature Pulse Rate Respiratory 16 16 16 Rate Respiratory Rate [B/L Legs] Blood Pressure O2 Sat by Pulse Oximetry 07/24/17 07:58 Temperature 98.7 F Pulse Rate 71 Respiratory 18 Rate Respiratory Rate [B/L Legs] Blood Pressure 114/63 O2 Sat by Pulse 100 Oximetry General appearance: Present: no acute distress - EENT Eyes: PERRL, EOM intact ENT: hearing intact, clear oral mucosa - Neck Neck: supple, normal ROM, no masses or JVD - Respiratory Respiratory effort: normal Respiratory: bilateral: CTA - Cardiovascular Rhythm: regular Heart Sounds: Present: S1 & S2 Extremity abnormal: edema (bilateral chronic nonpitting lymphedema of lower extremities with chronic skin changes. Both legs covered with dressings) - Gastrointestinal General gastrointestinal: Present: soft, non-tender - Musculoskeletal Musculoskeletal: strength equal bilaterally - Neurologic Neurologic: no focal deficits - Psychiatric Psychiatric: appropriate mood/affect - Labs CBC & Chem 7: 07/22/17 07:46 07/22/17 07:46
[2017-07-24] MEDS: ZESTRIL PO SCH (11:00)
[2017-07-24] MEDS: VIBRAMYCIN PO SCH ×2 (11:47→22:26)
[2017-07-24] MEDS: NEURONTIN PO SCH ×2 (14:25→19:54)
--- NOTE | 2017-07-24 16:55 | Progress Note ---
Assessment and Plan Assessment: 1) LLL venous stasis infected ulcers: CT of the leg showed diffuse skin thickening and subcutaneous fat stranding in the pretibial area with skin defects. 2) Bilateral leg lymphedema 3) UTI 4) Thrombocytopenia ? from hepatitis 5) Hepatitis C ? unknown treatment status Plan: -obtain deep cultures or tissue cultures - pending -obtain C-reactive protein (CRP) -pending -continue levaquin and doxycycline PO since he lost his PIV -contact precautions until MRSA is r/o -Wound doctor consult Thank you Dr Vazquez for your consultation, will follow up with you. Tina Maciel MD Infectious Diseases Specialist [facility] ([facility]) M [phone] O [phone] Subjective Date of service: 07/24/17 Principal diagnosis: left leg ulcer infection Interval history: Feels ok, c/o left leg pain, frustrated because he wants more pain meds. lost his IV line Microbiology: urine cx 07/01 Serratia blood cx 07/21 ngtd Current Antimicrobials: levaquin doxycicline Previous Antimicrobials: Vancomycin Objective - Exam Narrative Exam: General appearance: Alert in NAD, conversant Eyes: anicteric sclerae, moist conjunctivae; no lid-lag; PERRLA HENT: Atraumatic; oropharynx clear Neck: Trachea midline; supple, no thyromegaly or lymphadenopathy Lungs: CTA CV: RRR Abdomen: Soft, non-tender; no masses or hepatosplenomegaly Extremities: +marked bilateral chronic indurated calf edema with multiple skin tears and LLL crates like ulcers with purulence. Skin: Normal temperature, turgor and texture; no rash, ulcers or subcutaneous nodules Psych: Appropriate affect, alert and oriented to person, place and time. Neuro: alert and oriented x 3. Moving all extermities Lines: No CVL / PICC - Constitutional Vitals: Vital Signs Temp Pulse Resp BP Pulse Ox 98.8 F 70 18 109/51 97 07/24/17 12:55 07/24/17 12:55 07/24/17 12:55 07/24/17 12:55 07/24/17 12:55 Temperature -Last 24 Hours Temperature 98.8 F Temperature 98.7 F Temperature 98.6 F - Labs CBC & Chem 7: 07/22/17 07:46 07/22/17 07:46
[2017-07-24] MEDS: LEVAQUIN PO SCH (19:54)
[2017-07-25 04:22] LABS: Hematocrit 26.6 % (35.5-45.6); Hemoglobin 8.5 gm/dl (11.8-15.2); Mean Corpuscular HGB Conc 32 % (32-34); Mean Corpuscular Hemoglobin 27 pg (28-32); Mean Corpuscular Volume 85 fl (84-94); Red Blood Count 3.13 M/mm3 (3.65-5.03); Red Cell Distribution Width 19.3 % (13.2-15.2); White Blood Count 3.5 K/mm3 (4.5-11.0)
[2017-07-25 05:02] LABS: Anion Gap 10 mmol/L; BUN/Creatinine Ratio 24; Blood Urea Nitrogen 17 mg/dL (9-20); Calcium 7.8 mg/dL (8.4-10.2); Carbon Dioxide 24 mmol/L (22-30); Chloride 103.8 mmol/L (98-107); Glucose 104 mg/dL (75-100); Potassium 4.2 mmol/L (3.6-5.0); Sodium 134 mmol/L (137-145)
[2017-07-25] MEDS: PERCOCET 5/325 PO PRN ×3 (05:46→18:38)
[2017-07-25 05:50] LABS: Platelet Count 72 K/mm3 (140-440)
[2017-07-25] MEDS: NEURONTIN PO SCH ×3 (08:40→19:35)
[2017-07-25] MEDS: VIBRAMYCIN PO SCH ×2 (10:32→21:03)
[2017-07-25] MEDS: ZESTRIL PO SCH (10:37)
--- NOTE | 2017-07-25 12:10 | Progress Note ---
Assessment and Plan Assessment: 1) LLL venous stasis infected ulcers: CT of the leg showed diffuse skin thickening and subcutaneous fat stranding in the pretibial area with skin defects. CRP=3.6. 2) Bilateral leg lymphedema 3) UTI 4) Thrombocytopenia ? from hepatitis 5) Hepatitis C ? unknown treatment status Plan: -obtain deep cultures or tissue cultures - pending -continue levaquin and doxycycline PO for now -contact precautions until MRSA is r/o -Wound doctor consult -upon discharge will do levaquin 750 mg po qday and doxycycline 100 mg po q12h total 21 days -cannot place a PICC in view of history of drug abuse Thank you Dr Vazquez for your consultation, will follow up with you. Tina Maciel MD Infectious Diseases Specialist [facility] ([facility]) M [phone] O [phone] Subjective Date of service: 07/25/17 Principal diagnosis: left leg ulcer infection Interval history: Feels ok, c/o left leg pain, still frustrated because he wants more pain meds. Microbiology: urine cx 07/01 Serratia blood cx 07/21 ngtd Current Antimicrobials: levaquin doxycicline Previous Antimicrobials: Vancomycin Objective - Exam Narrative Exam: General appearance: Alert in NAD, conversant Eyes: anicteric sclerae, moist conjunctivae; no lid-lag; PERRLA HENT: Atraumatic; oropharynx clear Neck: Trachea midline; supple, no thyromegaly or lymphadenopathy Lungs: CTA CV: RRR Abdomen: Soft, non-tender; no masses or hepatosplenomegaly Extremities: +marked bilateral chronic indurated calf edema with multiple skin tears and LLL crates like ulcers with no purulence. Skin: Normal temperature, turgor and texture; no rash, ulcers or subcutaneous nodules Psych: Appropriate affect, alert and oriented to person, place and time. Neuro: alert and oriented x 3. Moving all extermities Lines: No CVL / PICC - Constitutional Vitals: Vital Signs Temp Pulse Resp BP Pulse Ox 98.9 F 75 18 110/54 98 07/25/17 07:56 07/25/17 07:56 07/25/17 10:00 07/25/17 07:56 07/25/17 07:56 Temperature -Last 24 Hours Temperature 98.9 F Temperature 98.3 F Temperature 98.8 F - Labs CBC & Chem 7: 07/25/17 04:02 07/25/17 04:02 Labs: Abnormal lab results 07/25/17 07/25/17 07/25/17 Range/Units 04:02 04:02 04:02 WBC 3.5 L (4.5-11.0) K/mm3 RBC 3.13 L (3.65-5.03) M/mm3 Hgb 8.5 L (11.8-15.2) gm/dl Hct 26.6 L (35.5-45.6) % MCH 27 L (28-32) pg RDW 19.3 H (13.2-15.2) % Plt Count 72 L (140-440) K/mm3 Sodium 134 L (137-145) mmol/L Creatinine 0.7 L (0.8-1.5) mg/dL Glucose 104 H (75-100) mg/dL Calcium 7.8 L (8.4-10.2) mg/dL Vitamin B12 > 2000 H (211-911) pg/mL
--- NOTE | 2017-07-25 15:15 | Hem/Onc Consultation ---
History of Present Illness - Reason for Consult Consult date: 07/25/17 - History of Present Illness 66 year old male admitted with cellulitis with multiple comorbidities. Noted with pancytopenia and we are consulted for an opinion. Past History Past Medical History: DVT, hypertension Past Surgical History: Other (IVC Filter) Social history: , lives with family. denies: smoking, alcohol abuse, prescription drug abuse Family history: hypertension Medications and Allergies Allergies Allergy/AdvReac Type Severity Reaction Status Date / Time No Known Allergies Allergy Verified 05/07/15 04:31 Home Medications Medication Instructions Recorded Confirmed Last Taken Type Gabapentin [Neurontin] 600 mg PO BID #60 tablet 12/09/16 07/20/17 07/20/17 Rx Lisinopril 10 mg PO QDAY 07/20/17 07/20/17 07/19/17 History Oxycodone HCl/Acetaminophen 2 each PO Q4HR PRN 07/20/17 07/20/17 07/20/17 History [Percocet 10/325 mg] Active Meds: Active Medications Albuterol (Proventil) 2.5 mg IH Q4HRT PRN PRN Reason: Shortness Of Breath Doxycycline Hyclate (Vibramycin) 100 mg PO BID [facility] Last Admin: 07/25/17 10:32 Dose: 100 mg Gabapentin (Neurontin) 600 mg PO TID [facility] Last Admin: 07/25/17 13:30 Dose: 600 mg Sodium Chloride (Nacl 0.45%) 500 mls @ 50 mls/hr IV DIRECT [facility] Levofloxacin (Levaquin) 750 mg PO Q24H [facility] Last Admin: 07/24/17 19:54 Dose: 750 mg Lisinopril (Zestril) 20 mg PO QDAY [facility] Last Admin: 07/25/17 10:37 Dose: Not Given Ondansetron HCl (Zofran) 4 mg IV Q8H PRN PRN Reason: N/V unrelieved by Reglan Last Admin: 07/25/17 13:31 Dose: 4 mg Oxycodone/Acetaminophen (Percocet 5/325) 2 tab PO Q6H PRN PRN Reason: Pain, Moderate (4-6) Last Admin: 07/25/17 13:30 Dose: 2 tab Review of Systems All systems: negative (pain over the multiple ulcers) Exam - Constitutional Vitals: Last Vital Signs Temp 98.4 F 07/25/17 13:18 Pulse 75 07/25/17 13:18 Resp 18 07/25/17 13:30 BP 119/47 07/25/17 13:18 Pulse Ox 100 07/25/17 13:18 Pain Intensity (0-10): 2/10 General appearance: no acute distress - EENT Eyes: PERRL ENT: hearing intact Lymph node exam: bilateral cervical - Neck Neck: supple - Respiratory Respiratory: bilateral: CTA - Cardiovascular Rhythm: regular Heart Sounds: Present: S1 & S2 - Gastrointestinal General gastrointestinal: Present: soft - Musculoskeletal Musculoskeletal: strength equal bilaterally - Neurologic Neurologic: CNII-XII intact - Psychiatric Psychiatric: appropriate mood/affect Results - Labs lab Results: Laboratory Results - last 24 hr 07/25/17 07/25/17 07/25/17 04:02 04:02 04:02 WBC 3.5 L RBC 3.13 L Hgb 8.5 L Hct 26.6 L MCV 85 MCH 27 L MCHC 32 RDW 19.3 H Plt Count 72 L Sodium 134 L Potassium 4.2 Chloride 103.8 Carbon Dioxide 24 Anion Gap 10 BUN 17 Creatinine 0.7 L Estimated GFR > 60 BUN/Creatinine Ratio 24 Glucose 104 H Calcium 7.8 L Vitamin B12 > 2000 H Assessment and Plan - Patient Problems (1) Cellulitis of left lower extremity Current Visit: Yes Status: Acute Plan to address problem: On antibiotics. D/w Dr Garcia. He has Hep C and a questionably positive HIV test in 2014. ID will follow. (2) Pancytopenia Current Visit: Yes Status: Acute Plan to address problem: He has multiple causes including Hep C and possibly HIV, infection, drug abuse. Will resend HIV serologies. Stressed the importance of outpatient follow up. He agrees.
--- NOTE | 2017-07-25 16:43 | Progress Note ---
Assessment and Plan - Cellulitis of left lower extremity CT LLE negative for osteomyelitis Wound care and Dr Aponte consulted Blood cultures NGTD cont. levaquin and doxycycline PO due to lack of IV access for PICC line on Today - Lymphedema of both lower extremities Chronic. - Peripheral vascular disease Elevate BLE, wound care, Abx for cellulitis - HTN (hypertension), benign Controlled. monitor bp q shift, continue medical management. - UTI Pt on Levaquin Urine cultures positive for gram-negative rods Isolation and sensitivity results pending - Malnutrition Consult Nutrition - Pancytopenia: Hematology consult monitor CBC - Chronic pain: Has chronic painseeking behavior and had bg discussion with the patient. Apparently he asks for Percocet every 4 hours and also asks for Dilaudid. He wants Dilaudid dose increased I discussed the pain management with the patient. We will stop the Dilaudid and increase the Percocet to 2 tablets every 6 hours when necessary Patient has a long history of narcotic dependence. To me he does not appear to be in any pain or in any distress from pain - Hepatitis C: ID following DVT prophylaxis with SCDs only. No anticoagulation because of thrombocytopenia. Subjective Date of service: 07/25/17 Principal diagnosis: left leg ulcer infection Interval history: Pt seen and examined. complains of wound in both lEs. Denies any fever or rigors Objective - Constitutional Vitals: Vital Signs - 12hr 07/25/17 07/25/17 07/25/17 05:46 07:56 10:00 Temperature 98.9 F Pulse Rate 75 Pulse Rate [ 78 Apical] Respiratory 16 18 Rate Respiratory 18 Rate [B/L Legs] Blood Pressure 110/54 O2 Sat by Pulse 98 Oximetry 07/25/17 07/25/17 07/25/17 13:18 13:30 14:00 Temperature 98.4 F Pulse Rate 75 Pulse Rate [ 74 Apical] Respiratory 18 18 18 Rate Respiratory Rate [B/L Legs] Blood Pressure 119/47 O2 Sat by Pulse 100 Oximetry 07/25/17 15:00 Temperature Pulse Rate Pulse Rate [ Apical] Respiratory Rate Respiratory 16 Rate [B/L Legs] Blood Pressure O2 Sat by Pulse Oximetry General appearance: Present: no acute distress, well-nourished - EENT Eyes: PERRL, EOM intact - Neck Neck: supple, normal ROM - Respiratory Respiratory effort: normal Respiratory: bilateral: CTA - Cardiovascular Rhythm: regular Heart Sounds: Present: S1 & S2. Absent: gallop, rub Extremities: pulses intact, No edema, normal color, Full ROM - Gastrointestinal General gastrointestinal: Present: soft, non-tender, non-distended, normal bowel sounds - Integumentary Integumentary: clear, warm, dry, pale (Fabian LE stasis dermatitis and ulcer) - Musculoskeletal Musculoskeletal: 1, strength equal bilaterally - Neurologic Neurologic: moves all extremities - Psychiatric Psychiatric: memory intact, appropriate mood/affect, intact judgment & insight - Labs CBC & Chem 7: 07/25/17 04:02 07/25/17 04:02 Labs: Abnormal lab results 07/25/17 07/25/17 07/25/17 Range/Units 04:02 04:02 04:02 WBC 3.5 L (4.5-11.0) K/mm3 RBC 3.13 L (3.65-5.03) M/mm3 Hgb 8.5 L (11.8-15.2) gm/dl Hct 26.6 L (35.5-45.6) % MCH 27 L (28-32) pg RDW 19.3 H (13.2-15.2) % Plt Count 72 L (140-440) K/mm3 Sodium 134 L (137-145) mmol/L Creatinine 0.7 L (0.8-1.5) mg/dL Glucose 104 H (75-100) mg/dL Calcium 7.8 L (8.4-10.2) mg/dL Vitamin B12 > 2000 H (211-911) pg/mL
[2017-07-25 17:00] LABS: HIV-1 Antigen p24 Non React (Non React); HIVR-1/2 Ab Non React (Non React)
[2017-07-25] MEDS: LEVAQUIN PO SCH (19:36)
[2017-07-26] MEDS: PERCOCET 5/325 PO PRN ×2 (01:18→11:06)
[2017-07-26] MEDS: NEURONTIN PO SCH ×2 (08:50→15:59)
[2017-07-26] MEDS: VIBRAMYCIN PO SCH (10:55)
[2017-07-26] MEDS: ZESTRIL PO SCH (11:09)
--- NOTE | 2017-07-26 11:47 | Progress Note ---
Assessment and Plan Assessment: 1) LLL venous stasis infected ulcers: CT of the leg showed diffuse skin thickening and subcutaneous fat stranding in the pretibial area with skin defects. CRP=3.6. 2) Bilateral leg lymphedema 3) UTI 4) Thrombocytopenia ? from hepatitis 5) Hepatitis C ? unknown treatment status Plan: -obtain deep cultures or tissue cultures - pending -continue levaquin and doxycycline PO for now -contact precautions until MRSA is r/o -Wound doctor consult -upon discharge will do levaquin 750 mg po qday and doxycycline 100 mg po q12h total 21 days from 07/22 until 08/11 -cannot place a PICC in view of history of drug abuse I am signing off Thank you Dr Vazquez for your consultation, will follow up with you. Tina Maciel MD Infectious Diseases Specialist [facility] ([facility]) M [phone] O [phone] Subjective Date of service: 07/26/17 Principal diagnosis: left leg ulcer infection Interval history: Feels ok, c/o left leg pain Microbiology: urine cx 07/01 Serratia blood cx 07/21 ngtd Current Antimicrobials: levaquin doxycicline Previous Antimicrobials: Vancomycin Objective - Exam Narrative Exam: General appearance: Alert in NAD, conversant Eyes: anicteric sclerae, moist conjunctivae; no lid-lag; PERRLA HENT: Atraumatic; oropharynx clear Neck: Trachea midline; supple, no thyromegaly or lymphadenopathy Lungs: CTA CV: RRR Abdomen: Soft, non-tender; no masses or hepatosplenomegaly Extremities: +marked bilateral chronic indurated calf edema with multiple skin tears and LLL crates like ulcers with no purulence. Skin: Normal temperature, turgor and texture; no rash, ulcers or subcutaneous nodules Psych: Appropriate affect, alert and oriented to person, place and time. Neuro: alert and oriented x 3. Moving all extermities Lines: No CVL / PICC - Constitutional Vitals: Vital Signs Temp Pulse Resp BP Pulse Ox 98.9 F 69 20 113/61 96 07/26/17 07:32 07/26/17 11:09 07/26/17 11:06 07/26/17 11:09 07/26/17 07:32 Temperature -Last 24 Hours Temperature 98.9 F Temperature 98.6 F Temperature 97.8 F Temperature 98.4 F - Labs CBC & Chem 7: 07/25/17 04:02 07/25/17 04:02
[2017-07-26] MEDS ORDERED: PERCOCET 5/325 PO PRN (14:16)
--- NOTE | 2017-07-26 14:58 | Discharge Summary ---
Providers - Providers Date of Admission: 07/20/17 15:12 Date of discharge: 07/26/17 Attending physician: NILDA FAITH 07/21/17 07:00 Consult to Wound/ET Nurse [CONS] Routine Reason For Exam: wound eval (B/L LE ulcers) 07/21/17 07:29 Consult to Dietitian/Nutrition [CONS] Routine Physician Instructions: Reason For Exam: Multiple wounds, malnutrition Reason for Consult: Pt needs oral supplement 07/21/17 14:14 Consult to Physician [CONS] Routine Consulting Provider: BURKE CHRISTIANSON Reason For Exam: Infected leg ulcers Place consult to:: DR. CHRISTIANSON Notified:: YES Phone number called:: [phone] Was contact made?: Yes If yes, spoke with:: DR. CHRISTIANSON Time called:: 17:57 Comment:: YES 07/22/17 10:46 Consult to Physician [CONS] Routine Consulting Provider: MOLLY WOLFF Reason For Exam: Infected leg ulcers,cellulitis Place consult to:: dr. church Notified:: yes Was contact made?: Yes If yes, spoke with:: dr. church Time called:: 10:51 Comment:: nallely 07/24/17 09:31 Consult to Physician [CONS] Routine Consulting Provider: CODY GREER Reason For Exam: pancytopenia Notified:: please call Primary care physician: IGOR ARBOLEDA Hospitalization Reason for admission: cellulitis both Lower extremities Pertinent studies: blood and urine cultures Procedures: none Hospital course: 66 YO Male with multiple hospital admission with Lymphedema, HTN, Neuropathy, Chronic Pain, PVD, History of DVT S/P IVC Filter Placement admitted directly to hospitalist service from the wound clinic for LLE cellulitis. Pt seen and evaluated upon arrival. Pt denies fever, chills, CP, Palpitation, NVD, Syncope, recent ill contacts. Pt seen and evaluated upon arrival and found to be in no acute distress. Pt acknowledges chronic pain, but no acute changes. Pt treated with empiric antibiotics, CT scan of LLE ordered.Local wound care and ID consult obtained. ID chnges meds to po and recommenced discharge. Pt demanding Percocet 20 mg q 4 hrs. Does not seem to be in such pain on evaluation. CT studies showed no evidence of osteomyelitis. cellulitis imporving. Discheged today to f/u with wound careclinic for local woubnd care and po Levaquin and doxycycline x 21 days per ID recommnedation Disposition: DC-01 TO HOME OR SELFCARE Core Measure Documentation - Palliative Care Palliative Care/ Comfort Measures: Not Applicable - Core Measures Any of the following diagnoses?: none Exam - Constitutional Vitals: Temp Pulse Resp BP Pulse Ox 98.9 F 69 20 113/61 96 07/26/17 07:32 07/26/17 11:09 07/26/17 11:06 07/26/17 11:09 07/26/17 07:32 General appearance: Present: no acute distress, well-nourished - EENT Eyes: Present: PERRL - Neck Neck: Present: supple, normal ROM - Respiratory Respiratory effort: normal Respiratory: bilateral: CTA - Cardiovascular Heart Sounds: Present: S1 & S2. Absent: rub, click - Extremities Extremities: pulses symmetrical, No edema Extremity abnormal: other (cellulitis both LEs) Peripheral Pulses: within normal limits - Abdominal General gastrointestinal: Present: soft, non-tender, non-distended, normal bowel sounds - Integumentary Integumentary: Present: clear, warm, dry, erythema (cellulitis both LEs) - Musculoskeletal Musculoskeletal: gait normal, strength equal bilaterally - Psychiatric Psychiatric: appropriate mood/affect, intact judgment & insight - Neurologic Neurologic: CNII-XII intact, moves all extremities Plan Activity: advance as tolerated Diet: regular Follow up with: IGOR ARBOLEDA MD [Primary Care Provider] - 7 Days Prescriptions: Doxycycline [Vibramycin CAP] 100 mg PO BID #42 capsule Gabapentin [Neurontin] 600 mg PO BID #60 tablet Levofloxacin [Levaquin TAB] 750 mg PO Q24H #21 tablet Lisinopril 10 mg PO QDAY #30
--- NOTE | 2017-07-26 15:11 | Hem/Onc Progress Note ---
Assessment and Plan - Patient Problems (1) Cellulitis of left lower extremity Current Visit: Yes Status: Acute Plan to address problem: On antibiotics. Outpatient follow up stressed. he agrees. (2) Pancytopenia Current Visit: Yes Status: Acute Subjective Date of service: 07/26/17 Interval history: HE complains of pain due to his ulcers. Objective - Constitutional Vitals: Last Vital Signs Temp 98.9 F 07/26/17 07:32 Pulse 69 07/26/17 11:09 Resp 20 07/26/17 11:06 BP 113/61 07/26/17 11:09 Pulse Ox 96 07/26/17 07:32 - EENT Eyes: PERRL ENT: hearing intact Lymph node exam: bilateral cervical - Neck Neck: supple - Respiratory Respiratory: bilateral: CTA - Cardiovascular Rhythm: regular - Labs Lab Results: Laboratory Results - last 24 hr 07/25/17 15:18 HIV 1&2 Antibody Rapid Non react HIV P24 Antigen Non react
[2017-07-26 15:56] VITALS: BP 123/76
[2017-07-28 21:00] LABS: HIV-1 RNA QN PCR <1.30 Log cps/mL (<1.30); HIV-1 RNA QN PCR <20 copies/mL (<20)
== END 2017-07-26 16:45 | disposition home or self-care (01) | DRG 602 ==
LOC: UNDOADMIN 13:37 → 2B-ACE 13:37
PROVIDERS: ADMIT Internal Medicine; ATTEND Family Medicine
DX: L03.116 Cellulitis of left lower limb (principal); E43 Unspecified severe protein-calorie malnutrition; N39.0 Urinary tract infection, site not specified; D61.818 Other pancytopenia; I89.0 Lymphedema, not elsewhere classified; I73.9 Peripheral vascular disease, unspecified; I10 Essential (primary) hypertension; I83.028 Varicose veins of left lower extremity with ulcer other part of lower leg; G89.29 Other chronic pain; G62.9 Polyneuropathy, unspecified; D64.9 Anemia, unspecified; D69.6 Thrombocytopenia, unspecified; B19.20 Unspecified viral hepatitis C without hepatic coma; Z86.718 Personal history of other venous thrombosis and embolism; Z68.32 Body mass index [BMI] 32.0-32.9, adult; Z82.49 Family history of ischemic heart disease and other diseases of the circulatory system; Z79.899 Other long term (current) drug therapy
CPT/HCPCS: 36415; 71010; 80048; 80053; 80061; 80074; 81001; 82607; 85025; 85027; 86140; 87040; 87076; 87086; 87186; 87536; 87806; 99214; A6250; G0463; J1956; J2405; J3370; J7040

== ENCOUNTER 2017-07-27 13:02 | Outpatient (CLI) | payer MEDICARE ==
[2017-07-27] MEDS ORDERED: XYLOCAINE TOPICAL 4% TP ONE (14:18)
== END 2017-07-27 13:03 | disposition home or self-care (01) ==
LOC: WOUND 13:02
PROVIDERS: ATTEND Nurse Practitioner
DX: I87.313 Chronic venous hypertension (idiopathic) with ulcer of bilateral lower extremity (principal); L97.822 Non-pressure chronic ulcer of other part of left lower leg with fat layer exposed; L97.812 Non-pressure chronic ulcer of other part of right lower leg with fat layer exposed; Q82.0 Hereditary lymphedema; I10 Essential (primary) hypertension; G62.9 Polyneuropathy, unspecified; Z87.891 Personal history of nicotine dependence; Z86.718 Personal history of other venous thrombosis and embolism

== ENCOUNTER 2017-08-04 13:07 | Outpatient (CLI) | payer MEDICARE ==
[2017-08-04] MEDS ORDERED: XYLOCAINE TOPICAL 4% TP ONE ×2 (13:20→13:29)
== END 2017-08-04 13:08 | disposition home or self-care (01) ==
LOC: WOUND 13:07
PROVIDERS: ATTEND Podiatrist
DX: I87.313 Chronic venous hypertension (idiopathic) with ulcer of bilateral lower extremity (principal); L97.822 Non-pressure chronic ulcer of other part of left lower leg with fat layer exposed; L97.812 Non-pressure chronic ulcer of other part of right lower leg with fat layer exposed; I89.0 Lymphedema, not elsewhere classified; G62.9 Polyneuropathy, unspecified; Z86.718 Personal history of other venous thrombosis and embolism; Z87.891 Personal history of nicotine dependence

== ENCOUNTER 2017-08-10 13:34 | Outpatient (CLI) | payer MEDICARE ==
[2017-08-10] MEDS ORDERED: AD OINTMENT TP ONE (14:52)
[2017-08-10] MEDS ORDERED: XYLOCAINE TOPICAL 4% TP ONE ×2 (14:52→15:00)
[2017-08-11] MEDS ORDERED: AD OINTMENT TP SCH (10:00)
== END 2017-08-10 13:35 | disposition home or self-care (01) ==
LOC: WOUND 13:34
PROVIDERS: ATTEND Nurse Practitioner
DX: I87.313 Chronic venous hypertension (idiopathic) with ulcer of bilateral lower extremity (principal); L97.812 Non-pressure chronic ulcer of other part of right lower leg with fat layer exposed; L97.822 Non-pressure chronic ulcer of other part of left lower leg with fat layer exposed; Q82.0 Hereditary lymphedema; G62.9 Polyneuropathy, unspecified; Z86.718 Personal history of other venous thrombosis and embolism; Z87.891 Personal history of nicotine dependence
CPT/HCPCS: A6250

== ENCOUNTER 2017-08-24 10:16 | Outpatient (CLI) | payer MEDICARE ==
[2017-08-24] MEDS ORDERED: XYLOCAINE TOPICAL 4% TP ONE ×2 (10:51→11:14)
== END 2017-08-24 10:17 | disposition home or self-care (01) ==
LOC: WOUND 10:16
PROVIDERS: ATTEND Nurse Practitioner
DX: I87.313 Chronic venous hypertension (idiopathic) with ulcer of bilateral lower extremity (principal); L97.812 Non-pressure chronic ulcer of other part of right lower leg with fat layer exposed; L97.822 Non-pressure chronic ulcer of other part of left lower leg with fat layer exposed; Q82.0 Hereditary lymphedema; G62.9 Polyneuropathy, unspecified; I89.0 Lymphedema, not elsewhere classified; K21.9 Gastro-esophageal reflux disease without esophagitis; Z86.718 Personal history of other venous thrombosis and embolism; Z87.891 Personal history of nicotine dependence

== ENCOUNTER 2017-09-07 10:44 | Outpatient (CLI) | payer MEDICARE | END 2017-09-07 10:45 | disposition home or self-care (01) | LOC: WOUND 10:44 | PROVIDERS: ATTEND Nurse Practitioner | DX: I87.313 Chronic venous hypertension (idiopathic) with ulcer of bilateral lower extremity (principal); L97.812 Non-pressure chronic ulcer of other part of right lower leg with fat layer exposed; L97.822 Non-pressure chronic ulcer of other part of left lower leg with fat layer exposed; Q82.0 Hereditary lymphedema; G62.9 Polyneuropathy, unspecified; I89.0 Lymphedema, not elsewhere classified; Z86.718 Personal history of other venous thrombosis and embolism; Z87.891 Personal history of nicotine dependence ==

== ENCOUNTER 2017-09-08 12:22 | Outpatient (CLI) | payer MEDICARE ==
--- NOTE | 2017-09-08 14:25 | XRay Report ---
RIGHT SHOULDER: Pain Routine views demonstrate normal bony and soft tissue structures with normal joint alignment of the shoulder. IMPRESSION: Normal study.
--- NOTE | 2017-09-08 14:34 | XRay Report ---
Cervical spine: Cervicalgia. AP and lateral views demonstrates good alignment and preservation of C1-C4. C5 is angulated inferiorly into the superior mid body of C6. The C6 body is compressed to approximately 1/3 or one fourth of its normal height with apparently resorption of the superior body. There is distraction of the apophyseal joints between C5 and C6. C5 is somewhat posteriorly displaced and there may be significant narrowing of the spinal canal. C7 appears uninvolved. There is no prevertebral swelling currently noted. Impressions: The findings most likely are related to prior trauma although I have no particular history. Recommendation: CT scan should give improved detail.
== END 2017-09-08 12:23 | disposition home or self-care (01) ==
LOC: XRAY 12:22
PROVIDERS: ATTEND Orthopaedic Surgery
DX: M54.2 Cervicalgia (principal); M25.511 Pain in right shoulder
CPT/HCPCS: 72040

== ENCOUNTER 2017-09-14 12:31 | Emergency (ER) | payer MEDICARE ==
[2017-09-14 12:49] VITALS: BP 123/70
== END 2017-09-14 14:44 | disposition left against medical advice (07) ==
LOC: ED 12:31
DX: R41.82 Altered mental status, unspecified (principal); E11.9 Type 2 diabetes mellitus without complications; Z53.21 Procedure and treatment not carried out due to patient leaving prior to being seen by health care provider
CPT/HCPCS: 82962; G0480; 80320

== ENCOUNTER 2017-09-20 13:16 | Outpatient (CLI) | payer MEDICARE ==
--- NOTE | 2017-09-20 17:16 | Cat Scan Report ---
FINAL REPORT PROCEDURE: CT CERVICAL SPINE WO CON TECHNIQUE: Computerized tomography of the cervical spine was performed from the skull base to T1 without contrast material. HISTORY: DISPLACED FRACTURE OF SECOND CERV VERTEBRA COMPARISON: No prior studies are available for comparison. FINDINGS: There is retrolisthesis of C5 in relation to C6, approximately 4.4 millimeters. There is deformity of the superior endplate of C6 and inferior endplate of C5. Compression fractures appear to be present. There appear to be some bony reabsorption at the fracture site. These may not represent acute fractures. Posterior elements are intact. There is mild widening of the C5-C6 articular facet joint bilaterally. I do not see evidence of jumped or perched facets. Secondary to the subluxation the posterior endplate of C5 appears to be resting on the anterior surface of the cord. I cannot exclude mild cord compression secondary to the subluxed C5 vertebra. Disc spaces otherwise appear well preserved. Prevertebral soft tissues appear normal. No other fractures are seen, specifically no evidence of C2 fracture. IMPRESSION: Fracture subluxation C5-C6 level as described. The spinal canal at the C5 level is narrowed secondary to posterior subluxation C5 in relation to C6. The posterior endplate of C5 is resting on the anterior surface of the cervical cord. I cannot exclude mild compression of the cord secondary to the subluxation. There is mild widening of the C5-6 articular facet joints although I do not see jumped facet or perched facets.. No evidence of fracture at the C2 level.
== END 2017-09-20 13:17 | disposition home or self-care (01) ==
LOC: CT 13:16
PROVIDERS: ATTEND Orthopaedic Surgery
DX: S12.400A Unspecified displaced fracture of fifth cervical vertebra, initial encounter for closed fracture (principal); S12.500A Unspecified displaced fracture of sixth cervical vertebra, initial encounter for closed fracture; X58.XXXA Exposure to other specified factors, initial encounter; Y93.89 Activity, other specified; Y92.89 Other specified places as the place of occurrence of the external cause; Y99.8 Other external cause status
CPT/HCPCS: 72125

== ENCOUNTER 2017-09-21 11:10 | Outpatient (CLI) | payer MEDICARE ==
[2017-09-21] MEDS ORDERED: XYLOCAINE TOPICAL 4% TP ONE (12:32)
== END 2017-09-21 11:11 | disposition home or self-care (01) ==
LOC: WOUND 11:10
PROVIDERS: ATTEND Nurse Practitioner
DX: I87.313 Chronic venous hypertension (idiopathic) with ulcer of bilateral lower extremity (principal); L97.812 Non-pressure chronic ulcer of other part of right lower leg with fat layer exposed; L97.822 Non-pressure chronic ulcer of other part of left lower leg with fat layer exposed; Q82.0 Hereditary lymphedema; G62.9 Polyneuropathy, unspecified; Z86.718 Personal history of other venous thrombosis and embolism; Z87.891 Personal history of nicotine dependence

== ENCOUNTER 2017-09-28 11:35 | Outpatient (CLI) | payer MEDICARE ==
[2017-09-28] MEDS ORDERED: XYLOCAINE TOPICAL 4% TP ONE ×2 (12:18→16:05)
== END 2017-09-28 11:36 | disposition home or self-care (01) ==
LOC: WOUND 11:35
PROVIDERS: ATTEND Nurse Practitioner
DX: I87.313 Chronic venous hypertension (idiopathic) with ulcer of bilateral lower extremity (principal); L97.812 Non-pressure chronic ulcer of other part of right lower leg with fat layer exposed; L97.822 Non-pressure chronic ulcer of other part of left lower leg with fat layer exposed; Q82.0 Hereditary lymphedema; G62.9 Polyneuropathy, unspecified; Z86.718 Personal history of other venous thrombosis and embolism; Z87.891 Personal history of nicotine dependence
CPT/HCPCS: 29580

== ENCOUNTER 2017-10-05 11:17 | Outpatient (CLI) | payer MEDICARE ==
[2017-10-05] MEDS ORDERED: SILVER NITRATE TP ONE ×2 (12:34→12:36)
[2017-10-05] MEDS ORDERED: XYLOCAINE TOPICAL 4% TP ONE (13:00)
[2017-10-06] MEDS ORDERED: SILVER NITRATE TP ONE (10:31)
== END 2017-10-05 11:18 | disposition home or self-care (01) ==
LOC: WOUND 11:17
PROVIDERS: ATTEND Nurse Practitioner
DX: L97.812 Non-pressure chronic ulcer of other part of right lower leg with fat layer exposed (principal); L97.822 Non-pressure chronic ulcer of other part of left lower leg with fat layer exposed; I87.313 Chronic venous hypertension (idiopathic) with ulcer of bilateral lower extremity; Q82.0 Hereditary lymphedema; G62.9 Polyneuropathy, unspecified; Z86.718 Personal history of other venous thrombosis and embolism; Z87.891 Personal history of nicotine dependence
CPT/HCPCS: 17250; 29580

== ENCOUNTER 2017-10-12 10:24 | Outpatient (CLI) | payer MEDICARE ==
[2017-10-12] MEDS ORDERED: XYLOCAINE TOPICAL 4% TP ONE ×2 (11:40→15:51)
== END 2017-10-12 10:25 | disposition home or self-care (01) ==
LOC: WOUND 10:24
PROVIDERS: ATTEND Nurse Practitioner
DX: L97.812 Non-pressure chronic ulcer of other part of right lower leg with fat layer exposed (principal); L97.822 Non-pressure chronic ulcer of other part of left lower leg with fat layer exposed; I87.313 Chronic venous hypertension (idiopathic) with ulcer of bilateral lower extremity; Q82.0 Hereditary lymphedema; G62.9 Polyneuropathy, unspecified; Z86.718 Personal history of other venous thrombosis and embolism; Z87.891 Personal history of nicotine dependence
CPT/HCPCS: 29580

== ENCOUNTER 2017-10-19 13:07 | Outpatient (CLI) | payer MEDICARE ==
[2017-10-19] MEDS ORDERED: XYLOCAINE TOPICAL 4% TP ONE (13:50)
== END 2017-10-19 13:08 | disposition home or self-care (01) ==
LOC: WOUND 13:07
PROVIDERS: ATTEND Nurse Practitioner
DX: L97.812 Non-pressure chronic ulcer of other part of right lower leg with fat layer exposed (principal); L97.822 Non-pressure chronic ulcer of other part of left lower leg with fat layer exposed; I87.313 Chronic venous hypertension (idiopathic) with ulcer of bilateral lower extremity; Q82.0 Hereditary lymphedema; G62.9 Polyneuropathy, unspecified; Z86.718 Personal history of other venous thrombosis and embolism; Z87.891 Personal history of nicotine dependence
CPT/HCPCS: 29580

== ENCOUNTER 2017-10-20 10:42 | Outpatient (CLI) | payer MEDICARE ==
[2017-10-20 12:18] LABS: Blood Urea Nitrogen 11 mg/dL (9-20)
--- NOTE | 2017-10-21 13:57 | Magnetic Resonance Report ---
MRI CERVICAL SPINE WITHOUT AND WITH CONTRAST: 10/20/17 11:00:00 CLINICAL: Osteomyelitis of the cervical spine. COMPARISON: CT Cervical Spine 09/20/17 TECHNIQUE: Sagittal T1,T2 and STIR and axial gradient T2* sequences plus sagittal and axial postcontrast T1 fat sat sequences on a 1.5 Silvia magnet. 12 cc of Multihance was injected intravenously for the contrast portion of the exam and consent was obtained prior to administration of contrast. FINDINGS:Marked anterior compression of C6, loss of the C5-6 disc space and reversal of curvature at C5. Abnormal T2 hyperintense signal at the C5-6 endplates and disc space along with moderate enhancement of the C5 and C6 vertebral bodies. Marrow edema and inflammatory changes extend into the C5 and C6 pedicles and posterior elements. The C5 spinous process is hyperintense on T2 and demonstrates enhancement. Abnormal posterior paraspinous soft tissue enhancement extends from C3-C6. There is a small subdural fluid collection posterior at C4-C6 with abnormal enhancement at this fluid collection. Prevertebral fluid and abnormal enhancement is identified from C3-C6. This fluid collection measures approximately 5 mm in AP dimension. No air is identified within either anterior or posterior fluid collections. The spinal cord is normal size with normal signal. No cord lesion is identified. There is mild spinal canal stenosis from small disc protrusions at C2-3, C3-4 and C4-5. On axial images there appears to be more significant central and left paracentral spinal canal stenosis at C5-6. Multilevel left neural foraminal stenosis secondary to osteophytes and facet hypertrophy from C3-C6. IMPRESSION: 1. C5-6 vertebral osteomyelitis with collapse of the C6 vertebral body. 2. Prevertebral and posterior subdural fluid collections are probably abscesses. 3. Multilevel spinal canal stenosis which appears to be more significant at C5-6. 4. Multilevel left neural foraminal stenosis secondary to osteophytes and facet hypertrophy.
== END 2017-10-20 10:43 | disposition home or self-care (01) ==
LOC: MRI 10:42
PROVIDERS: ATTEND Neurological Surgery
DX: M48.02 Spinal stenosis, cervical region (principal); M46.22 Osteomyelitis of vertebra, cervical region
CPT/HCPCS: 36415; 72156; 82565; 84520; A9577

== ENCOUNTER 2017-10-26 13:25 | Outpatient (CLI) | payer MEDICARE ==
[2017-10-26] MEDS ORDERED: XYLOCAINE TOPICAL 4% TP ONE (14:00)
[2017-10-26] MEDS ORDERED: SILVER NITRATE TP ONE (15:00)
== END 2017-10-26 13:26 | disposition home or self-care (01) ==
LOC: WOUND 13:25
PROVIDERS: ATTEND Nurse Practitioner
DX: I87.313 Chronic venous hypertension (idiopathic) with ulcer of bilateral lower extremity (principal); L97.822 Non-pressure chronic ulcer of other part of left lower leg with fat layer exposed; L97.311 Non-pressure chronic ulcer of right ankle limited to breakdown of skin; Q82.0 Hereditary lymphedema; G62.9 Polyneuropathy, unspecified; Z86.718 Personal history of other venous thrombosis and embolism; Z87.891 Personal history of nicotine dependence
CPT/HCPCS: 29580

== ENCOUNTER 2017-11-02 12:51 | Outpatient (CLI) | payer MEDICARE ==
[2017-11-02] MEDS ORDERED: XYLOCAINE TOPICAL 4% TP ONE ×2 (12:54→12:55)
== END 2017-11-02 12:52 | disposition home or self-care (01) ==
LOC: WOUND 12:51
PROVIDERS: ATTEND Nurse Practitioner
DX: I87.313 Chronic venous hypertension (idiopathic) with ulcer of bilateral lower extremity (principal); L97.822 Non-pressure chronic ulcer of other part of left lower leg with fat layer exposed; L97.812 Non-pressure chronic ulcer of other part of right lower leg with fat layer exposed; Q82.0 Hereditary lymphedema; G62.9 Polyneuropathy, unspecified; Z86.718 Personal history of other venous thrombosis and embolism; Z87.891 Personal history of nicotine dependence
CPT/HCPCS: 29580

== ENCOUNTER 2017-11-10 10:52 | Outpatient (CLI) | payer MEDICARE ==
[2017-11-10] MEDS ORDERED: XYLOCAINE TOPICAL 4% TP ONE (11:47)
== END 2017-11-10 10:53 | disposition home or self-care (01) ==
LOC: WOUND 10:52
PROVIDERS: ATTEND Podiatrist
DX: I87.313 Chronic venous hypertension (idiopathic) with ulcer of bilateral lower extremity (principal); L97.822 Non-pressure chronic ulcer of other part of left lower leg with fat layer exposed; L97.812 Non-pressure chronic ulcer of other part of right lower leg with fat layer exposed; Q82.0 Hereditary lymphedema; G62.9 Polyneuropathy, unspecified; Z86.718 Personal history of other venous thrombosis and embolism; Z87.891 Personal history of nicotine dependence
CPT/HCPCS: 29580

== ENCOUNTER 2017-11-23 11:14 | Outpatient (CLI) | payer MEDICARE ==
[2017-11-23] MEDS ORDERED: XYLOCAINE TOPICAL 4% TP ONE ×2 (11:53→15:21)
== END 2017-11-23 11:15 | disposition home or self-care (01) ==
LOC: WOUND 11:14
PROVIDERS: ATTEND Nurse Practitioner
DX: I87.313 Chronic venous hypertension (idiopathic) with ulcer of bilateral lower extremity (principal); L97.812 Non-pressure chronic ulcer of other part of right lower leg with fat layer exposed; L97.822 Non-pressure chronic ulcer of other part of left lower leg with fat layer exposed; Q82.0 Hereditary lymphedema; G62.9 Polyneuropathy, unspecified; Z86.718 Personal history of other venous thrombosis and embolism; Z87.891 Personal history of nicotine dependence
CPT/HCPCS: 29580

== ENCOUNTER 2017-11-27 12:18 | Outpatient (CLI) | payer MEDICARE ==
--- NOTE | 2017-11-27 14:15 | XRay Report ---
ROUTINE CHEST, TWO VIEWS: HISTORY: Fever. The trachea, heart, mediastinal contour, lung shaver and bony thorax are unremarkable. IMPRESSION: Unremarkable chest x-ray. No significant change since 07/20/17.
== END 2017-11-27 12:19 | disposition home or self-care (01) ==
LOC: XRAY 12:18
PROVIDERS: ATTEND Nurse Practitioner
DX: R50.9 Fever, unspecified (principal)
CPT/HCPCS: 71046

== ENCOUNTER 2017-11-30 13:04 | Outpatient (CLI) | payer MEDICARE | END 2017-11-30 13:05 | disposition home or self-care (01) | LOC: WOUND 13:04 | PROVIDERS: ATTEND Nurse Practitioner | DX: I87.313 Chronic venous hypertension (idiopathic) with ulcer of bilateral lower extremity (principal); L97.812 Non-pressure chronic ulcer of other part of right lower leg with fat layer exposed; L97.822 Non-pressure chronic ulcer of other part of left lower leg with fat layer exposed; Q82.0 Hereditary lymphedema; G62.9 Polyneuropathy, unspecified; Z86.718 Personal history of other venous thrombosis and embolism; Z87.891 Personal history of nicotine dependence | CPT/HCPCS: 29580 ==

== ENCOUNTER 2017-12-07 11:22 | Outpatient (CLI) | payer MEDICARE | END 2017-12-07 11:23 | disposition home or self-care (01) | LOC: WOUND 11:22 | PROVIDERS: ATTEND Surgery | DX: I87.313 Chronic venous hypertension (idiopathic) with ulcer of bilateral lower extremity (principal); L97.812 Non-pressure chronic ulcer of other part of right lower leg with fat layer exposed; L97.822 Non-pressure chronic ulcer of other part of left lower leg with fat layer exposed; Q82.0 Hereditary lymphedema; G62.9 Polyneuropathy, unspecified; Z86.718 Personal history of other venous thrombosis and embolism; Z87.891 Personal history of nicotine dependence | CPT/HCPCS: 29580 ==

== ENCOUNTER 2017-12-14 11:19 | Outpatient (CLI) | payer MEDICARE ==
[2017-12-14] MEDS ORDERED: XYLOCAINE TOPICAL 4% TP ONE ×2 (11:35→11:45)
== END 2017-12-14 11:20 | disposition home or self-care (01) ==
LOC: WOUND 11:19
PROVIDERS: ATTEND Nurse Practitioner
DX: I87.313 Chronic venous hypertension (idiopathic) with ulcer of bilateral lower extremity (principal); L97.822 Non-pressure chronic ulcer of other part of left lower leg with fat layer exposed; L97.312 Non-pressure chronic ulcer of right ankle with fat layer exposed; Q82.0 Hereditary lymphedema; G62.9 Polyneuropathy, unspecified; Z86.718 Personal history of other venous thrombosis and embolism; Z87.891 Personal history of nicotine dependence
CPT/HCPCS: 29580; 29581

== ENCOUNTER 2017-12-21 12:59 | Outpatient (CLI) | payer MEDICARE ==
[2017-12-21] MEDS ORDERED: XYLOCAINE TOPICAL 4% TP ONE ×3 (13:23)
== END 2017-12-21 13:00 | disposition home or self-care (01) ==
LOC: WOUND 12:59
PROVIDERS: ATTEND Surgery
DX: I87.313 Chronic venous hypertension (idiopathic) with ulcer of bilateral lower extremity (principal); L97.812 Non-pressure chronic ulcer of other part of right lower leg with fat layer exposed; L97.822 Non-pressure chronic ulcer of other part of left lower leg with fat layer exposed; Q82.0 Hereditary lymphedema; I10 Essential (primary) hypertension; G62.9 Polyneuropathy, unspecified; B19.20 Unspecified viral hepatitis C without hepatic coma; Z86.718 Personal history of other venous thrombosis and embolism; Z87.891 Personal history of nicotine dependence
CPT/HCPCS: 29580

== ENCOUNTER 2018-01-01 19:11 | Emergency (ER) | payer MEDICARE ==
[2018-01-01] MEDS ORDERED: DILAUDID PO ONE (20:57)
--- NOTE | 2018-01-01 21:00 | Emergency Department Report ---
ED Neck Pain/Injury HPI - General Chief Complaint: Neck Pain/Injury Stated Complaint: NECK PAIN Time Seen by Provider: 01/01/18 20:14 Mode of arrival: Stretcher Limitations: Physical Limitation - History of Present Illness Initial Comments: 67-year-old man presents with intractable neck pain worse over the past several days, and is not controlled by his usual regimen of osteomyelitis. Patient with recent history of cervical osteomyelitis, felt to be secondary to chronic peripheral leg ulcers and venous insufficiency, with antibody treatment for several months, and just cleared by surgeon and infectious disease last week to have surgical correction of his chronic C5 vertebral collapse. He was initially diagnosed and June 2017, positive finding of osteomyelitis on CT scan and reactive to thousand 18, with extensive antibiotic treatment, and follow up by infectious disease and neurosurgeon. He has been maintained on routine Percocet at home, but while he was in the hospital he required both Percocet and hydromorphone for control of pain, and finds that his pain needs have increased, although he's had no additional symptoms. He has not had any fever or chills or diaphoresis, and he has no focal neurologic deficit or increase in weakness, but simply pain at rest with significant exacerbations with neck movement. MD Complaint: neck pain -: Gradual, days(s) Place: home Radiation: right lateral, left lateral, right shoulder, left shoulder Severity: severe Severity scale (0 -10): 10 Quality: dull, stabbing, aching Consistency: constant Improves With: none, other (oxycodone O longer provides relief) Worsens With: none Context: other (known history of cervical osteomyelitis) Associated Symptoms: denies: headache, fever, numbness Treatments Prior to Arrival: other (oxycodone) - Related Data Home Medications Medication Instructions Recorded Confirmed Last Taken Oxycodone HCl/Acetaminophen 2 each PO Q4HR PRN 07/20/17 07/20/17 07/20/17 [Percocet 10/325 mg] Previous Rx's Medication Instructions Recorded Last Taken Type Doxycycline [Vibramycin CAP] 100 mg PO BID #42 capsule 07/26/17 Unknown Rx Gabapentin [Neurontin] 600 mg PO BID #60 tablet 07/26/17 Unknown Rx Levofloxacin [Levaquin TAB] 750 mg PO Q24H #21 tablet 07/26/17 Unknown Rx Lisinopril 10 mg PO QDAY #30 07/26/17 Unknown Rx Oxycodone HCl/Acetaminophen 1 each PO Q6HR PRN #20 tablet 07/26/17 Unknown Rx [Percocet 10/325 mg] HYDROmorphone [Dilaudid] 2 mg PO Q6HR PRN #30 tablet 01/01/18 Unknown Rx Allergies Allergy/AdvReac Type Severity Reaction Status Date / Time No Known Allergies Allergy Verified 05/07/15 04:31 ED Review of Systems ROS: Stated complaint: NECK PAIN Other details as noted in HPI Constitutional: denies: chills, fever ENT: denies: ear pain, throat pain Respiratory: denies: cough, shortness of breath, wheezing Cardiovascular: denies: chest pain, palpitations Endocrine: no symptoms reported Gastrointestinal: denies: abdominal pain, nausea, diarrhea Musculoskeletal: denies: back pain, joint swelling, arthralgia Skin: denies: rash, lesions Neurological: denies: headache, weakness, paresthesias Psychiatric: denies: anxiety, depression ED Past Medical Hx - Past Medical History Hx Hypertension: Yes Hx Deep Vein Thrombosis: Yes (20 years ago) Hx HIV: No Additional medical history: Cervical osteomyelitis, C5,. peripheral vascular disease (b/l leg ulcers). leg edema. Chronic pain - Surgical History Hx Pacemaker: No Hx Internal Defibrillator: No Additional Surgical History: Spring filter - Social History Smoking Status: Never Smoker Substance Use Type: None - Medications Home Medications: Home Medications Medication Instructions Recorded Confirmed Last Taken Type Oxycodone HCl/Acetaminophen 2 each PO Q4HR PRN 07/20/17 07/20/17 07/20/17 History [Percocet 10/325 mg] Doxycycline [Vibramycin CAP] 100 mg PO BID #42 capsule 07/26/17 Unknown Rx Gabapentin [Neurontin] 600 mg PO BID #60 tablet 07/26/17 Unknown Rx Levofloxacin [Levaquin TAB] 750 mg PO Q24H #21 tablet 07/26/17 Unknown Rx Lisinopril 10 mg PO QDAY #30 07/26/17 Unknown Rx Oxycodone HCl/Acetaminophen 1 each PO Q6HR PRN #20 tablet 07/26/17 Unknown Rx [Percocet 10/325 mg] HYDROmorphone [Dilaudid] 2 mg PO Q6HR PRN #30 tablet 01/01/18 Unknown Rx ED Physical Exam - General Limitations: Physical Limitation General appearance: alert, in distress - Head Head exam: Present: atraumatic, normocephalic - Eye Eye exam: Present: PERRL, EOMI - ENT ENT exam: Present: normal exam, normal orophraynx, mucous membranes moist - Neck Neck exam: Present: tenderness (significant tenderness diffusely about neck, both bilateral paracervical soft tissue as well as centrally, without bony step- off.). Absent: meningismus, full ROM (limited by significant pain) - Respiratory Respiratory exam: Present: normal lung sounds bilaterally. Absent: respiratory distress - Cardiovascular Cardiovascular Exam: Present: regular rate, normal rhythm. Absent: systolic murmur, diastolic murmur, rubs, gallop - GI/Abdominal GI/Abdominal exam: Present: soft, normal bowel sounds - Back Exam Back exam: Present: muscle spasm (upper back, bilateral, across shoulders) - Neurological Exam Neurological exam: Present: alert, oriented X3, CN II-XII intact. Absent: motor sensory deficit - Psychiatric Psychiatric exam: Present: agitated (secondary to pain) - Skin Skin exam: Present: warm, dry ED Course Vital Signs 01/01/18 01/01/18 01/01/18 19:54 20:25 20:31 Temperature 98.9 F Pulse Rate 82 80 Respiratory 20 21 Rate Blood Pressure 185/92 170/87 170/87 Blood Pressure [Right] O2 Sat by Pulse 100 100 Oximetry 01/01/18 01/01/18 01/01/18 20:33 20:46 21:00 Temperature 98.6 F Pulse Rate 82 82 80 Respiratory 14 11 L 23 Rate Blood Pressure 170/87 152/78 Blood Pressure 170/87 [Right] O2 Sat by Pulse 98 100 100 Oximetry 01/01/18 01/01/18 01/01/18 21:16 21:35 21:50 Temperature Pulse Rate 81 Respiratory 12 18 18 Rate Blood Pressure 152/78 Blood Pressure [Right] O2 Sat by Pulse 100 98 Oximetry - Reevaluation(s) Reevaluation #1: 01/01/18 23:05 Patient significantly improved after medication with hydromorphone orally, and discussed results of CT scan, patient feels better. ED Medical Decision Making - Radiology Data Radiology results: report reviewed (CT scan per radiologist again shows findings of this collapse at C5, compatible with discitis, with other degenerative changes, retrolisthesis, and spinal stenosis, but no acute change from prior CT scan of August 2017.) - Medical Decision Making Patient has had no episode of intractable neck pain, with serious chronic illness and degenerative changes secondary to osteomyelitis. He was significantly improved with hydromorphone, and it appears that he will need this in order to achieve any measurable comfort at home while awaiting surgery in the coming 3 weeks. I will give him a prescription for hydromorphone to last for week, but he will need to contact his physician's office to obtain further medication beyond that. He is to continue other medications as before. - Differential Diagnosis intractable pain, recurrent cervical osteomyelitis, trauma, injury, fractur Critical Care Time: No Critical care attestation.: If time is entered above; I have spent that time in minutes in the direct care of this critically ill patient, excluding procedure time. ED Disposition Clinical Impression: Intractable cervical neuropathic pain, Chronic osteomyelitis of cervical spine Disposition: TO HOME OR SELFCARE Is pt being admited?: No Does the pt Need Aspirin: No Condition: Stable Instructions: Cervical Radiculopathy (ED) Additional Instructions: We have provided prescription for stronger pain medicine, Dilaudid, and you may take this along with the Percocet, as you have taken these in combination previously. You will need to contact your doctor's office tomorrow, in order to obtain additional medication to give you pain relief while you are awaiting surgery. Prescriptions: HYDROmorphone [Dilaudid] 2 mg PO Q6HR PRN #30 tablet PRN Reason: Pain , Severe (7-10) Referrals: PRIMARY CARE, [Referring] - 3-5 Days Time of Disposition: 22:30
--- NOTE | 2018-01-01 22:04 | Cat Scan Report ---
FINAL REPORT PROCEDURE: CT CERVICAL SPINE WO CON TECHNIQUE: Computerized tomography of the cervical spine was performed from the skull base to T1 without contrast material. HISTORY: neck pain, hx cervical osteomyelitis, COMPARISON: 09/20/2017 FINDINGS: There is increased interspinous distance at C5-6. Collapsed and sclerotic C5 and C6 vertebral bodies are again noted with moderate degree retrolisthesis and severe degree narrowing of the disc space. There is associated moderate degree spinal canal compromise. There is mild degree narrowing of the left neural foramina at C5-6. There is subluxation of the bilateral facet joints at this level. Prevertebral soft tissues are unremarkable. Mild degree of gross sclerotic calcification is noted involving left carotid bifurcation. IMPRESSION: Compression fracture deformities of C5-C6 are again noted with changes suspicious for discitis. There is associated moderate degree retrolisthesis with spinal canal compromise. There is bilateral facet subluxation at this level. Increased inter spinous distance is consistent with interspinous ligament tear. These findings are not significantly changed since the prior study except for interval decrease in the C5-6 disc space..
[2018-01-01 23:31] VITALS: BP 142/78
== END 2018-01-01 23:52 | disposition home or self-care (01) ==
LOC: ED 19:11
DX: M46.22 Osteomyelitis of vertebra, cervical region (principal); I10 Essential (primary) hypertension; Z86.718 Personal history of other venous thrombosis and embolism
CPT/HCPCS: 72125

== ENCOUNTER 2018-01-30 11:20 | Outpatient (CLI) | payer MEDICARE ==
--- NOTE | 2018-01-31 11:02 | Cat Scan Report ---
CT CHEST WITHOUT CONTRAST: HISTORY: Benign neoplasm of ribs, sternum and clavicle. COMPARISON: none. TECHNIQUE: Helical CT in 1.25mm intervals without IV contrast. Sagittal and coronal reformatted images. Please note that IV contrast could not be administered due to no IV access. FINDINGS: Thyroid gland: Normal. Tracheobronchial tree: Normal. Esophagus: Normal. Heart: Normal. Pericardium: Normal. Mediastinum: Normal. Lung [place]: Normal. Pleural Spaces: Normal. Musculoskeletal: There is subtle bony destruction involving the medial right clavicle and right side of the manubrium. There is no defined mass or fluid collection in this area. Radiographically this has the appearance of sternomanubrial joint osteomyelitis. The remaining bony structures are unremarkable. Comment: Limited images of the upper abdomen demonstrate cirrhotic changes in the liver, splenomegaly and numerous tiny gallstones within the gallbladder. IMPRESSION: Subtle bony destruction on both sides of the right sternomanubrial joint which is suggestive of osteomyelitis. Please correlate with the patient's clinical presentation. Cirrhosis, splenomegaly and cholelithiasis.
== END 2018-01-30 11:21 | disposition home or self-care (01) ==
LOC: CT 11:20
PROVIDERS: ATTEND Internal Medicine
DX: D16.7 Benign neoplasm of ribs, sternum and clavicle (principal); I70.25 Atherosclerosis of native arteries of other extremities with ulceration; K74.60 Unspecified cirrhosis of liver; R16.1 Splenomegaly, not elsewhere classified; I10 Essential (primary) hypertension; K80.20 Calculus of gallbladder without cholecystitis without obstruction; Z87.891 Personal history of nicotine dependence
CPT/HCPCS: 71250

== ENCOUNTER 2018-02-12 14:16 | Outpatient (CLI) | payer MEDICARE ==
[2018-02-12 14:52] LABS: Basophils % (Auto) 0.6 % (0.0-1.8); Eosinophils % (Auto) 1.3 % (0.0-4.3); Hematocrit 27.9 % (35.5-45.6); Hemoglobin 9.1 gm/dl (11.8-15.2); Lymphocytes % (Auto) 33.3 % (13.4-35.0); Mean Corpuscular HGB Conc 32 % (32-34); Mean Corpuscular Volume 80 fl (84-94); Monocytes # (Auto) 0.3 K/mm3 (0.0-0.8); Monocytes % (Auto) 8.9 % (0.0-7.3); Red Blood Count 3.51 M/mm3 (3.65-5.03)
[2018-02-12 15:08] LABS: Mean Corpuscular Hemoglobin 26 pg (28-32)
[2018-02-12 15:13] LABS: Alanine Aminotransferase 41 units/L (7-56); Albumin 2.1 g/dL (3.9-5); BUN/Creatinine Ratio 15; Blood Urea Nitrogen 16 mg/dL (9-20); Calcium 8.2 mg/dL (8.4-10.2); Hemolysis Index 1
[2018-02-12 16:06] LABS: Platelet Count 44 K/mm3 (140-440)
== END 2018-02-12 14:17 | disposition home or self-care (01) ==
LOC: LAB 14:16
PROVIDERS: ATTEND Internal Medicine Infectious Disease
DX: B18.2 Chronic viral hepatitis C (principal)
CPT/HCPCS: 36415; 80053; 82106; 85025; 86705; 86708; 87517; 87902

== ENCOUNTER 2018-03-15 13:16 | Outpatient (CLI) | payer MEDICARE ==
[2018-03-15] MEDS ORDERED: XYLOCAINE TOPICAL 4% TP ONE ×3 (13:18→15:21)
== END 2018-03-15 13:17 | disposition home or self-care (01) ==
LOC: WOUND 13:16
PROVIDERS: ATTEND Surgery
DX: S81.802D Unspecified open wound, left lower leg, subsequent encounter (principal); I89.0 Lymphedema, not elsewhere classified; I10 Essential (primary) hypertension; I87.2 Venous insufficiency (chronic) (peripheral); G62.9 Polyneuropathy, unspecified; B19.20 Unspecified viral hepatitis C without hepatic coma; Z87.891 Personal history of nicotine dependence; Z86.718 Personal history of other venous thrombosis and embolism; X58.XXXD Exposure to other specified factors, subsequent encounter
CPT/HCPCS: 11042; 11045; 29580; G0463

== ENCOUNTER 2018-03-19 09:58 | Outpatient (CLI) | payer MEDICARE | END 2018-03-19 09:59 | disposition home or self-care (01) | LOC: WOUND 09:58 | PROVIDERS: ATTEND Surgery | DX: S81.802D Unspecified open wound, left lower leg, subsequent encounter (principal); I89.0 Lymphedema, not elsewhere classified; I87.2 Venous insufficiency (chronic) (peripheral); I10 Essential (primary) hypertension; G62.9 Polyneuropathy, unspecified; B19.20 Unspecified viral hepatitis C without hepatic coma; Z86.718 Personal history of other venous thrombosis and embolism; Z87.891 Personal history of nicotine dependence; X58.XXXD Exposure to other specified factors, subsequent encounter | CPT/HCPCS: 29580 ==

== ENCOUNTER 2018-03-19 12:53 | Outpatient (CLI) | payer MEDICARE ==
[2018-03-19 13:40] LABS: Alanine Aminotransferase 27 units/L (7-56); Albumin 1.8 g/dL (3.9-5); BUN/Creatinine Ratio 12; Bilirubin,Direct 0.7 mg/dL (0-0.2); Blood Urea Nitrogen 13 mg/dL (9-20); Calcium 7.7 mg/dL (8.4-10.2); Hemolysis Index 22
== END 2018-03-19 12:54 | disposition home or self-care (01) ==
LOC: LAB 12:53
PROVIDERS: ATTEND Internal Medicine Infectious Disease
DX: B18.2 Chronic viral hepatitis C (principal); I73.9 Peripheral vascular disease, unspecified; I10 Essential (primary) hypertension
CPT/HCPCS: 36415; 80053; 82248

== ENCOUNTER 2018-04-11 12:49 | Outpatient (CLI) | payer MEDICARE ==
[2018-04-11] MEDS ORDERED: XYLOCAINE TOPICAL 4% TP ONE ×2 (12:55→13:00)
[2018-04-11] MEDS ORDERED: THERMAZENE 50 GRAM TP ONE (13:34)
[2018-04-11] MEDS ORDERED: DAKIN'S FULL STRENGTH TP ONE (13:35)
[2018-04-11] MEDS ORDERED: SILVER NITRATE TP ONE (13:35)
== END 2018-04-11 12:50 | disposition home or self-care (01) ==
LOC: WOUND 12:49
PROVIDERS: ATTEND Surgery
DX: I87.313 Chronic venous hypertension (idiopathic) with ulcer of bilateral lower extremity (principal); L97.822 Non-pressure chronic ulcer of other part of left lower leg with fat layer exposed; L97.511 Non-pressure chronic ulcer of other part of right foot limited to breakdown of skin; I89.0 Lymphedema, not elsewhere classified; G62.9 Polyneuropathy, unspecified; B19.20 Unspecified viral hepatitis C without hepatic coma; Z86.718 Personal history of other venous thrombosis and embolism; Z87.891 Personal history of nicotine dependence; X58.XXXD Exposure to other specified factors, subsequent encounter
CPT/HCPCS: 10060

== ENCOUNTER 2018-04-18 10:57 | Outpatient (CLI) | payer MEDICARE ==
[2018-04-18] MEDS ORDERED: XYLOCAINE TOPICAL 4% TP ONE (11:14)
[2018-04-18] MEDS ORDERED: DAKIN'S FULL STRENGTH ONE (11:50)
[2018-04-18] MEDS ORDERED: DAKIN'S FULL STRENGTH TP ONE (16:29)
== END 2018-04-18 10:58 | disposition home or self-care (01) ==
LOC: WOUND 10:57
PROVIDERS: ATTEND Surgery
DX: I87.313 Chronic venous hypertension (idiopathic) with ulcer of bilateral lower extremity (principal); L97.822 Non-pressure chronic ulcer of other part of left lower leg with fat layer exposed; L97.511 Non-pressure chronic ulcer of other part of right foot limited to breakdown of skin; I89.0 Lymphedema, not elsewhere classified; G62.9 Polyneuropathy, unspecified; B19.20 Unspecified viral hepatitis C without hepatic coma; Z86.718 Personal history of other venous thrombosis and embolism; Z87.891 Personal history of nicotine dependence; X58.XXXD Exposure to other specified factors, subsequent encounter

== ENCOUNTER 2018-05-08 11:01 | Outpatient (CLI) | payer MEDICARE ==
[2018-05-08] MEDS ORDERED: XYLOCAINE TOPICAL 4% TP ONE ×2 (11:15)
[2018-05-08] MEDS ORDERED: AD OINTMENT TP PRN (11:24)
[2018-05-08] MEDS ORDERED: AD OINTMENT TP ONE (11:26)
== END 2018-05-08 11:02 | disposition home or self-care (01) ==
LOC: WOUND 11:01
PROVIDERS: ATTEND Surgery
DX: I87.313 Chronic venous hypertension (idiopathic) with ulcer of bilateral lower extremity (principal); L97.822 Non-pressure chronic ulcer of other part of left lower leg with fat layer exposed; L97.511 Non-pressure chronic ulcer of other part of right foot limited to breakdown of skin; I89.0 Lymphedema, not elsewhere classified; G62.9 Polyneuropathy, unspecified; B19.20 Unspecified viral hepatitis C without hepatic coma; Z86.718 Personal history of other venous thrombosis and embolism; Z87.891 Personal history of nicotine dependence; X58.XXXD Exposure to other specified factors, subsequent encounter
CPT/HCPCS: 29580; A6250

== ENCOUNTER 2018-08-09 10:19 | Inpatient (IN) | payer MEDICARE, MEDICAID ==
--- NOTE | 2018-08-09 11:23 | Emergency Department Report ---
ED Abdominal Pain HPI - General Chief Complaint: Abdominal Pain Stated Complaint: ASCITES Time Seen by Provider: 08/09/18 11:13 Source: EMS Mode of arrival: Stretcher Limitations: Physical Limitation - History of Present Illness Initial Comments: States the child without history of Hep C and liver cirrhosis, end-stage renal disease presents to ED with complaint of abdominal distention and scrotal swelling. The patient says he underwent paracentesis 3 weeks ago, and now needs it again. Patient states it is difficult for him to walk due to the scrotal swelling. Patient denies shortness of breath. Patient reports he is on Monday//Monday dialysis schedule, and is scheduled for dialysis today. MD Complaint: other (abdominal and scrotal swelling) -: unknown Location: diffuse Radiation: none Migration to: no migration Severity: severe Quality: fullness Consistency: constant Improves With: nothing Worsens With: nothing Context: other (history of liver cirrhosis) Associated Symptoms: denies: nausea, vomiting, fever - Related Data Home Medications Medication Instructions Recorded Confirmed Last Taken Cholecalciferol (Vitamin D3) 1,000 unit PO QDAY 06/19/18 08/09/18 Unknown [Vitamin D3] Ferrous Sulfate [Feosol 325 MG tab] 325 mg PO QDAY 06/19/18 08/09/18 Unknown amLODIPine [Norvasc] 10 mg PO DAILY 06/19/18 08/09/18 Unknown Allopurinol [Zyloprim] 100 mg PO QDAY 08/09/18 08/09/18 Unknown Folic Acid [Folvite] 1 mg PO QDAY 08/09/18 08/09/18 Unknown Oxycodone HCl/Acetaminophen 1 each PO TID PRN 08/09/18 08/09/18 Unknown [Percocet 10/325 mg] Previous Rx's Medication Instructions Recorded Last Taken Type Nadolol [Corgard] 20 mg PO QDAY #30 tablet 07/13/18 Unknown Rx Allergies Allergy/AdvReac Type Severity Reaction Status Date / Time No Known Allergies Allergy Verified 05/07/15 04:31 ED Review of Systems ROS: Stated complaint: ASCITES Other details as noted in HPI Comment: All other systems reviewed and negative Constitutional: denies: chills, fever Gastrointestinal: abdominal pain. denies: nausea, vomiting Genitourinary: other (reports scrotal swelling) ED Past Medical Hx - Past Medical History Hx Hypertension: Yes Hx Diabetes: Yes Hx Deep Vein Thrombosis: No Hx Liver Disease: Yes Hx Renal Disease: Yes (Dialysis T/TH/S last dialysis 07/19) Hx HIV: Yes Additional medical history: Cervical osteomyelitis, C5,Hep C. peripheral v ascular disease (b/l leg ulcers). leg edema. Chronic pain. Patient states "my neck is broken in 2 places". Apparently this is being treated nonoperatively at this point. - Surgical History Hx Pacemaker: No Hx Internal Defibrillator: No Additional Surgical History: Spring filter. Right chest perm cath - Social History Smoking Status: Unknown if ever smoked - Medications Home Medications: Home Medications Medication Instructions Recorded Confirmed Last Taken Type Cholecalciferol (Vitamin D3) 1,000 unit PO QDAY 06/19/18 08/09/18 Unknown History [Vitamin D3] Ferrous Sulfate [Feosol 325 MG tab] 325 mg PO QDAY 06/19/18 08/09/18 Unknown History amLODIPine [Norvasc] 10 mg PO DAILY 06/19/18 08/09/18 Unknown History Nadolol [Corgard] 20 mg PO QDAY #30 tablet 07/13/18 08/09/18 Unknown Rx Allopurinol [Zyloprim] 100 mg PO QDAY 08/09/18 08/09/18 Unknown History Folic Acid [Folvite] 1 mg PO QDAY 08/09/18 08/09/18 Unknown History Oxycodone HCl/Acetaminophen 1 each PO TID PRN 08/09/18 08/09/18 Unknown History [Percocet 10/325 mg] ED Physical Exam - General Limitations: Physical Limitation General appearance: alert, in no apparent distress - Head Head exam: Present: atraumatic, normocephalic - Eye Eye exam: Present: normal appearance - ENT ENT exam: Present: mucous membranes dry - Neck Neck exam: Present: normal inspection - Respiratory Respiratory exam: Present: normal lung sounds bilaterally. Absent: respiratory distress - Cardiovascular Cardiovascular Exam: Present: regular rate, normal rhythm - GI/Abdominal GI/Abdominal exam: Present: distended (severe), other (fluid wave present). Absent: tenderness - exam: Present: scrotal swelling. Absent: testicular tenderness - Extremities Exam Extremities exam: Present: other (lymphedema to bilat lower extremities) - Neurological Exam Neurological exam: Present: alert, oriented X3, CN II-XII intact - Psychiatric Psychiatric exam: Present: normal affect, normal mood - Skin Skin exam: Present: warm, dry, intact, normal color ED Course Vital Signs 08/09/18 08/09/18 08/09/18 11:08 11:11 11:15 Temperature 97.7 F Pulse Rate 56 L 58 L Respiratory 10 L 19 12 Rate Blood Pressure 107/65 113/68 O2 Sat by Pulse 100 95 Oximetry 08/09/18 08/09/18 08/09/18 11:30 11:31 11:45 Temperature Pulse Rate 56 L 56 L Respiratory 8 L 19 7 L Rate Blood Pressure 95/59 99/58 O2 Sat by Pulse 98 100 100 Oximetry 08/09/18 08/09/18 08/09/18 12:00 12:15 12:30 Temperature Pulse Rate 55 L 57 L 57 L Respiratory 8 L 13 10 L Rate Blood Pressure 95/57 100/54 94/54 O2 Sat by Pulse 99 100 97 Oximetry 08/09/18 08/09/18 08/09/18 12:45 13:00 13:15 Temperature Pulse Rate 55 L 58 L 58 L Respiratory 10 L 9 L 11 L Rate Blood Pressure 97/52 95/55 111/66 O2 Sat by Pulse 95 99 98 Oximetry 08/09/18 08/09/18 08/09/18 13:30 13:46 14:00 Temperature Pulse Rate 61 55 L 55 L Respiratory 16 10 L 10 L Rate Blood Pressure 111/66 68/23 110/66 O2 Sat by Pulse 86 95 100 Oximetry 08/09/18 08/09/18 08/09/18 14:16 14:30 14:46 Temperature Pulse Rate 56 L 57 L 57 L Respiratory 10 L 10 L 9 L Rate Blood Pressure 110/66 110/66 110/66 O2 Sat by Pulse 99 83 L 98 Oximetry 08/09/18 08/09/18 08/09/18 15:00 15:16 15:30 Temperature Pulse Rate 57 L 56 L 55 L Respiratory 8 L 11 L 11 L Rate Blood Pressure 110/66 105/63 105/63 O2 Sat by Pulse 100 99 100 Oximetry ED Medical Decision Making - Lab Data Result diagrams: 08/09/18 11:37 08/09/18 11:44 - Medical Decision Making Potassium only minimally elevated at 5.1. Does not require dialysis emergently. Pt has severe ascites w/ abdominal distention and scrotal swelling. Will admit to hospitalist for paracentesis. Dr Stover, hospitalist, to admit. - Differential Diagnosis ascites Critical care attestation.: If time is entered above; I have spent that time in minutes in the direct care of this critically ill patient, excluding procedure time. ED Disposition Clinical Impression: Ascites, Scrotal edema Disposition: OP ADMIT IP TO THIS HOSP Is pt being admited?: Yes Condition: Stable Time of Disposition: 13:17
[2018-08-09] MEDS ORDERED: NACL 0.9% 500 ML 500 ML IV ONE (11:54)
[2018-08-09 11:57] LABS: Basophils # (Auto) 0.1 K/mm3 (0.0-0.1); Eosinophils # (Auto) 0.1 K/mm3 (0.0-0.4); Eosinophils % (Auto) 1.1 % (0.0-4.3); Hemoglobin 9.8 gm/dl (11.8-15.2); Lymphocytes # (Auto) 1.3 K/mm3 (1.2-5.4); Mean Corpuscular HGB Conc 33 % (32-34); Mean Corpuscular Volume 86 fl (84-94); Monocytes # (Auto) 0.5 K/mm3 (0.0-0.8); Monocytes % (Auto) 10.1 % (0.0-7.3); Red Cell Distribution Width 18.3 % (13.2-15.2)
[2018-08-09 12:01] LABS: Platelet Count 76 K/mm3 (140-440)
[2018-08-09 12:11] LABS: INR 1.77 (0.87-1.13)
[2018-08-09 12:12] LABS: Partial Thromboplastin Time 34.8 Sec. (24.2-36.6)
[2018-08-09 12:13] LABS: Albumin 1.5 g/dL (3.9-5); Calcium 7.2 mg/dL (8.4-10.2)
--- NOTE | 2018-08-09 12:53 | History and Physical Report ---
History of Present Illness Chief complaint: Im bloated, and my stomach hurts History of present illness: 67 YO Male with ESRD on HD(T,R,Sa), HTN, PVD, HCV, HIV, DVT S/P IVC Filter Placement, ESLD with Cirrhosis S/P serial Paracentesis, Prescription Drug Abuse, presents to ED for evaluation. Pt states that he has experienced abdominal pain and distention over the past 1 week. Pt states that he now has difficulty josselin athing, difficulty with ambulation, and scrotal swelling with worsening symptoms over the past 1 week. Pt seen and evaluated in ED and was found to have ESRD, Cirrhosis complicated by Ascites. Pt admitted to medical floor. Nephrology consulted in ED. IR consulted in ED for therapeutic paracentesis. Medications and Allergies Allergies Allergy/AdvReac Type Severity Reaction Status Date / Time No Known Allergies Allergy Verified 05/07/15 04:31 Home Medications Medication Instructions Recorded Confirmed Last Taken Type Cholecalciferol (Vitamin D3) 1,000 unit PO QDAY 06/19/18 08/09/18 Unknown History [Vitamin D3] Ferrous Sulfate [Feosol 325 MG tab] 325 mg PO QDAY 06/19/18 08/09/18 Unknown History amLODIPine [Norvasc] 10 mg PO DAILY 06/19/18 08/09/18 Unknown History Nadolol [Corgard] 20 mg PO QDAY #30 tablet 07/13/18 08/09/18 Unknown Rx Allopurinol [Zyloprim] 100 mg PO QDAY 08/09/18 08/09/18 Unknown History Folic Acid [Folvite] 1 mg PO QDAY 08/09/18 08/09/18 Unknown History Oxycodone HCl/Acetaminophen 1 each PO TID PRN 08/09/18 08/09/18 Unknown History [Percocet 10/325 mg] Review of Systems Constitutional: no weight loss, no weight gain, no fever, no chills Ears, nose, mouth and throat: no ear pain, no ear discharge, no tinnitis, no decreased hearing, no nasal congestion Cardiovascular: shortness of breath, no chest pain Respiratory: no cough, no cough with sputum, no excessive sputum, no hemoptysis Gastrointestinal: abdominal pain, no nausea, no vomiting, no diarrhea, no constipation Genitourinary Male: no dysuria, no hematuria, no flank pain, no discharge Rectal: no pain, no incontinence, no bleeding Musculoskeletal: no neck stiffness, no neck pain, no shooting arm pain Integumentary: no rash, no pruritis, no redness, no sores Neurological: no transient paralysis, no paralysis, no weakness, no parathesias, no numbness Psychiatric: no anxiety, no memory loss, no change in sleep habits, no sleep disturbances, no insomnia, no hypersomnia Endocrine: no cold intolerance, no heat intolerance, no polyphagia, no excessive thirst, no polydipsia, no polyuria Hematologic/Lymphatic: no easy bruising, no easy bleeding, no lymphadenopathy Allergic/Immunologic: no urticaria, no allergic rhinitis, no wheezing, no persistent infections, no anaphylaxis, no angioedema Exam - Constitutional Vitals: Temp Pulse Resp BP Pulse Ox 97.7 F 56 L 19 95/59 100 08/09/18 11:11 08/09/18 11:30 08/09/18 11:31 08/09/18 11:30 08/09/18 11:31 General appearance: Present: mild distress, obese - EENT Eyes: Present: PERRL ENT: hearing intact, clear oral mucosa - Neck Neck: Present: supple, normal ROM - Respiratory Respiratory effort: normal Respiratory: bilateral: CTA - Cardiovascular Heart Sounds: Present: S1 & S2. Absent: rub, click - Extremities Extremities: pulses symmetrical Extremity abnormal: edema Peripheral Pulses: within normal limits - Abdominal General gastrointestinal: Present: soft, non-tender, distended, normal bowel sounds. Absent: mass, hernia, other (Positive fluid wave, prominent ascites) Male genitourinary: Present: normal - Integumentary Integumentary: Present: clear, warm, dry - Musculoskeletal Musculoskeletal: gait normal, strength equal bilaterally - Psychiatric Psychiatric: appropriate mood/affect, intact judgment & insight - Neurologic Neurologic: CNII-XII intact, moves all extremities Results - Labs CBC & Chem 7: 08/09/18 11:37 08/09/18 11:44 Labs: Abnormal lab results 08/09/18 08/09/18 08/09/18 Range/Units 11:37 11:44 11:44 RBC 3.50 L (3.65-5.03) M/mm3 Hgb 9.8 L (11.8-15.2) gm/dl Hct 30.0 L (35.5-45.6) % RDW 18.3 H (13.2-15.2) % Plt Count 76 L (140-440) K/mm3 [place] % (Auto) 10.1 H (0.0-7.3) % PT 21.0 H (12.2-14.9) Sec. INR 1.77 H (0.87-1.13) Sodium 133 L (137-145) mmol/L Potassium 5.1 H (3.6-5.0) mmol/L Chloride 95.0 L (98-107) mmol/L BUN 23 H (9-20) mg/dL Creatinine 4.6 H (0.8-1.5) mg/dL Calcium 7.2 L (8.4-10.2) mg/dL Total Bilirubin 1.70 H (0.1-1.2) mg/dL AST 48 H (5-40) units/L Albumin 1.5 L (3.9-5) g/dL Assessment and Plan - Patient Problems (1) End stage renal disease on dialysis Current Visit: No Status: Chronic Plan to address problem: Nephrology consulted in ED, avoid nephrotoxic agents, dialysis as per renal team. (2) PVD (peripheral vascular disease) Current Visit: Yes Status: Acute Plan to address problem: wound care for lymphedema, supportive care. (3) HIV (human immunodeficiency virus infection) Current Visit: No Status: Chronic Plan to address problem: continue current therapy, outpatient ID F/u care. (4) Ascites Current Visit: Yes Status: Acute Qualifiers: Ascites type: other type Qualified Code(s): R18.8 - Other ascites Plan to address problem: Therapeutic paracentesis, IR consulted. (5) End stage liver disease Current Visit: Yes Status: Acute Plan to address problem: supportive care, avoid hepatotoxic agents. (6) DVT prophylaxis Current Visit: No Status: Acute Plan to address problem: SCD to ble while in bed.
[2018-08-09] MEDS ORDERED: PERCOCET 5/325 PO ONE (13:36)
[2018-08-09] MEDS ORDERED: TYLENOL PO PRN (14:27)
[2018-08-09] MEDS ORDERED: SODIUM CHLORIDE FLUSH SYRINGE 10 ML IV PRN (14:27)
[2018-08-09] MEDS ORDERED: ZOFRAN IV PRN (14:27)
[2018-08-09] MEDS ORDERED: PROVENTIL IH PRN (14:27)
[2018-08-09] MEDS ORDERED: NON-FORMULARY (Oxycodone Hcl/Acetaminophen [Percocet 10/325 Mg] 1 EACH) PO PRN (14:29)
[2018-08-09] MEDS: PERCOCET 5/325 PO PRN (18:22)
[2018-08-09] MEDS: LEVAQUIN 500MG/100ML 500 MG/100 ML BAG IV SCH (19:55)
[2018-08-09] MEDS: PEPCID PO SCH (21:38)
[2018-08-09] MEDS: SODIUM CHLORIDE FLUSH SYRINGE 10 ML IV SCH ×2 (21:39→21:46)
[2018-08-09] MEDS: ROXICODONE PO PRN (21:54)
[2018-08-10] MEDS: LEVAQUIN 500MG/100ML 500 MG/100 ML BAG IV SCH (00:34)
[2018-08-10] MEDS ORDERED: LEVAQUIN PO ONE (01:15)
[2018-08-10] MEDS: PERCOCET 5/325 PO PRN (02:50)
[2018-08-10] MEDS ORDERED: VITAMIN K (ADULT ONLY) 10 MG in NACL 0.9% 50 ML IV ONE (08:30)
--- NOTE | 2018-08-10 08:43 | Consultation ---
History of Present Illness - Reason for Consult Consult date: 08/10/18 end stage renal disease Requesting physician: ARMAAN CARMONA - History of Present Illness This is a 67 yo AAM with past medical history of HTN, PVD, HCV, HIV, liver cirrhosis with ascites with periodic paracentesis, DVT S/P IVC KAREN secondary to ATN and was initiated on HD in Jun 2018. Permcath was placed on 07/03 who now presents to [facility] ER with complaints of abdominal pain and distention over the past 1 week associated with difficulty breathing, difficulty with ambulation, and scrotal swelling with worsening. Pt seen and evaluated in ED and was found to have liver Cirrhosis complicated by Ascites. Pt admitted for therapeutic paracentesis. Renal consult requested for management of HD dependent KAREN, currently without signs of renal recovery. Past History Past Medical History: DVT, hepatitis, HIV/AIDS, hypertension, PVD, renal failure Past Surgical History: Other (permcath, paracentesis, IVC filter ) Social history: IV drug use Family history: hypertension Medications and Allergies Allergies Allergy/AdvReac Type Severity Reaction Status Date / Time No Known Allergies Allergy Verified 05/07/15 04:31 Home Medications Medication Instructions Recorded Confirmed Last Taken Type Cholecalciferol (Vitamin D3) 1,000 unit PO QDAY 06/19/18 08/09/18 Unknown History [Vitamin D3] Ferrous Sulfate [Feosol 325 MG tab] 325 mg PO QDAY 06/19/18 08/09/18 Unknown History amLODIPine [Norvasc] 10 mg PO DAILY 06/19/18 08/09/18 Unknown History Nadolol [Corgard] 20 mg PO QDAY #30 tablet 07/13/18 08/09/18 Unknown Rx Allopurinol [Zyloprim] 100 mg PO QDAY 08/09/18 08/09/18 Unknown History Folic Acid [Folvite] 1 mg PO QDAY 08/09/18 08/09/18 Unknown History Oxycodone HCl/Acetaminophen 1 each PO TID PRN 08/09/18 08/09/18 Unknown History [Percocet 10/325 mg] Active Meds: Active Medications Acetaminophen (Tylenol) 650 mg PO Q4H PRN PRN Reason: Pain MILD(1-3)/Fever >100.5/RUIZ Albuterol (Proventil) 2.5 mg IH Q4HRT PRN PRN Reason: Shortness Of Breath Allopurinol (Zyloprim) 100 mg PO QDAY [facility] Amlodipine Besylate (Norvasc) 10 mg PO DAILY [facility] Cholecalciferol (Vitamin D3) 1,000 unit PO QDAY [facility] Famotidine (Pepcid) 20 mg PO BID [facility] Last Admin: 08/09/18 21:38 Dose: 20 mg Documented by: Ferrous Sulfate (Feosol) 325 mg PO QDAY [facility] Folic Acid (Folvite) 1 mg PO QDAY [facility] Levofloxacin/Dextrose (Levaquin 500mg/100ml) 500 mg in 100 mls @ 100 mls/hr IV Q48H [facility]; Protocol Stop: 08/11/18 23:59 Last Admin: 08/10/18 00:34 Dose: Not Given Documented by: Phytonadione 10 mg/ Sodium (Chloride) 51 mls @ 100 mls/hr IV ONCE ONE Stop: 08/10/18 09:00 Nadolol (Corgard) 20 mg PO QDAY [facility] Ondansetron HCl (Zofran) 4 mg IV Q8H PRN PRN Reason: Nausea And Vomiting Oxycodone HCl (Roxicodone) 5 mg PO Q6H PRN PRN Reason: Pain, Moderate (4-6) Last Admin: 08/09/18 21:54 Dose: 5 mg Documented by: Oxycodone/Acetaminophen (Percocet 5/325) 1 tab PO TID PRN PRN Reason: Pain, Moderate (4-6) Last Admin: 08/10/18 02:50 Dose: 1 tab Documented by: Sodium Chloride (Sodium Chloride Flush Syringe 10 Ml) 10 ml IV BID [facility] Last Admin: 08/09/18 21:46 Dose: Not Given Documented by: Sodium Chloride (Sodium Chloride Flush Syringe 10 Ml) 10 ml IV PRN PRN PRN Reason: LINE FLUSH Review of Systems All systems: negative Constitutional: weight gain, weakness, malaise, lethargy, poor appetite Cardiovascular: shortness of breath, dyspnea on exertion Respiratory: shortness of breath Gastrointestinal: abdominal pain Exam - Vital Signs Vital signs: Vital Signs Resp 10 L 08/09/18 11:08 - General Appearance General appearance: appears stated age, chronically ill EENT: ATNC, PERRL, mucous membranes moist Neck: Present: neck supple Respiratory: Decreased Breath Sounds Heart: regular, S1S2 Gastrointestinal: Present: distended Integumentary: no rash, other (+ edema b/l LE ) Neurologic: no focal deficit, alert and oriented x3, strength 5/5, CN 3-12 intact Psychiatric: mood/affect appropriate, cooperative Results - Lab Results 08/09/18 11:37 08/09/18 11:44 Most recent lab results Calcium 7.2 mg/dL (8.4-10.2) L 08/09/18 11:44 Assessment and Plan - Patient Problems (1) End stage renal disease on dialysis Current Visit: No Status: Chronic Plan to address problem: pt missed his HD yesterday, HD arranged for today. To continue TTS schedule thereafter (2) Ascites Current Visit: Yes Status: Acute Qualifiers: Ascites type: other type Qualified Code(s): R18.8 - Other ascites Plan to address problem: IR was consulted for therapeutic paracentesis. (3) End stage liver disease Current Visit: Yes Status: Acute Plan to address problem: management as per primary attending/GI (4) Hyperkalemia Current Visit: Yes Status: Acute Plan to address problem: HD today with 2K bath. cont 2g K renal diet (5) Anemia in end-stage renal disease Current Visit: Yes Status: Acute Plan to address problem: cont EPO with HD
[2018-08-10] MEDS: FEOSOL PO SCH (09:53)
[2018-08-10] MEDS: FOLVITE PO SCH (09:53)
[2018-08-10] MEDS: ZYLOPRIM PO SCH (09:53)
[2018-08-10] MEDS: ROXICODONE PO PRN ×2 (09:53→20:29)
[2018-08-10] MEDS: PEPCID PO SCH (09:53)
[2018-08-10] MEDS: NORVASC PO SCH (09:54)
[2018-08-10] MEDS: CORGARD PO SCH (09:54)
[2018-08-10] MEDS: SODIUM CHLORIDE FLUSH SYRINGE 10 ML IV SCH (09:55)
[2018-08-10] MEDS: VITAMIN D3 PO SCH (09:55)
[2018-08-10] MEDS ORDERED: NON-FORMULARY (Cholecalciferol (Vitamin D3) [Vitamin D3] 1,000 UNIT) PO SCH (10:00)
[2018-08-10] MEDS ORDERED: XYLOCAINE 1% 20 mL ONE (11:26)
[2018-08-10] MEDS ORDERED: NACL 0.9% 100 ML IV PRN (12:05)
--- NOTE | 2018-08-10 12:29 | Procedure Note ---
Date of procedure: 08/10/18 Pre-op diagnosis: ascites Post-op diagnosis: same Procedure: paracentesis Findings: straw colored fluid Anesthesia: local Surgeon: LEATHA PETIT Estimated blood loss: none Pathology: none Specimen disposition: discarded Condition: stable Disposition: floor
--- NOTE | 2018-08-10 13:13 | Ultrasound Report ---
Ultrasound guided paracentesis: Imaging the abdomen demonstrate large volume of peritoneal fluid. An optimum for approach site identified in the left lower quadrant under ultrasound. The skin was marked, cleansed, and draped. 1% lidocaine used for local anesthesia. Through a small skin mikey a 5 [place] RADEUMeh catheter was successfully placed into the peritoneal fluid. 10.7 L of straw-colored fluid were successfully removed without complication and discarded.
--- NOTE | 2018-08-10 16:22 | Progress Note ---
Assessment and Plan Assessment and plan: 67 YO Male with ESRD on HD(T,R,Sa), HTN, PVD, HCV, HIV, DVT S/P IVC Filter Placement, ESLD with Cirrhosis S/P serial Paracentesis, Prescription Drug Abuse, presents to ED for evaluation. Pt states that he has experienced abdominal pain and distention over the past 1 week. Pt states that he now has difficulty breathing, difficulty with ambulation, and scrotal swelling with worsening symptoms over the past 1 week. Pt seen and evaluated in ED and was found to have ESRD, Cirrhosis complicated by Ascites. Pt admitted to medical floor. Nephrology consulted in ED. IR consulted in ED for therapeutic paracentesis. (1) End stage renal disease on dialysis Current Visit: No Status: Chronic Plan to address problem: Nephrology consulted in ED, avoid nephrotoxic agents, dialysis as per renal team. Patient normally gets dialyzed Monday we'll do dialysis today as he needs to yesterday's dialysis. (2) PVD (peripheral vascular disease) Current Visit: Yes Status: Acute Plan to address problem: wound care for lymphedema, supportive care. (3) HIV (human immunodeficiency virus infection) Current Visit: No Status: Chronic Plan to address problem: continue current therapy, outpatient ID F/u care. (4) Ascites Current Visit: Yes Status: Acute Qualifiers: Ascites type: other type Qualified Code(s): R18.8 - Other ascites Plan to address problem: Therapeutic paracentesis, IR consulted. Secondary to decompensated liver disease will obtain paracentesis today which was done with 10.7 L removed. Evaluate for possible repeat study in a.m. (5) End stage liver disease Current Visit: Yes Status: Acute Plan to address problem: supportive care, avoid hepatotoxic agents. (6) DVT prophylaxis Current Visit: No Status: Acute Plan to address problem: SCD to ble while in bed. Plan of care discussed with the patient and also with the daughter. History Interval history: Patient is seen today for: Abdominal pain and bloating Seen and examined at bedside; 24hour events reviewed; nursing staff ; no adverse overnight events reported to me; Denies any chest pain, nausea, vomiting, diarrhea Continues to report abdominal discomfort he missed dialysis yesterday denies any chest pain or shortness of breath today No fever noted Hospitalist Physical - Physical exam Narrative exam: VITAL SIGNS: Reviewed. GENERAL: The patient appeared well nourished and normally developed. Vital signs as documented. HEAD: No signs of head trauma. EYES: Pupils are equal. Extraocular motions intact. EARS: Hearing grossly intact. MOUTH: Oropharynx is normal. NECK: No adenopathy, no JVD. CHEST: Chest with clear breath sounds bilaterally. No wheezes, rales, or rhonchi. CARDIAC: Regular rate and rhythm. S1 and S2, without murmurs, gallops, or rubs. VASCULAR: +1 pitting Edema. Peripheral pulses normal and equal in all extremities. ABDOMEN: Soft, without detectable tenderness. Distended with positive fluid shift No rebound or guarding, and no masses palpated. Bowel Sounds normal. MUSCULOSKELETAL: Good range of motion of all major joints. Extremities without clubbing, cyanosis. plus 1 pitting edema. NEUROLOGIC EXAM: Alert and oriented x 3. No focal sensory or strength deficits. Speech normal. Follows commands. PSYCHIATRIC: Mood normal. SKIN: Generalized punctuated rash - Constitutional Vitals: Temp Pulse Resp BP Pulse Ox 98.3 F 56 L 20 86/52 100 08/10/18 15:30 08/10/18 16:11 08/10/18 15:30 08/10/18 16:11 08/10/18 13:53 General appearance: Present: mild distress, obese Results - Labs CBC & Chem 7: 08/09/18 11:37 08/09/18 11:44 Labs: Laboratory Last Values WBC 4.8 K/mm3 (4.5-11.0) 08/09/18 11:37 RBC 3.50 M/mm3 (3.65-5.03) L 08/09/18 11:37 Hgb 9.8 gm/dl (11.8-15.2) L 08/09/18 11:37 Hct 30.0 % (35.5-45.6) L 08/09/18 11:37 MCV 86 fl (84-94) 08/09/18 11:37 MCH 28 pg (28-32) 08/09/18 11:37 MCHC 33 % (32-34) 08/09/18 11:37 RDW 18.3 % (13.2-15.2) H 08/09/18 11:37 Plt Count 76 K/mm3 (140-440) L 08/09/18 11:37 Lymph % (Auto) 27.0 % (13.4-35.0) 08/09/18 11:37 Ford % (Auto) 10.1 % (0.0-7.3) H 08/09/18 11:37 Eos % (Auto) 1.1 % (0.0-4.3) 08/09/18 11:37 Baso % (Auto) 1.0 % (0.0-1.8) 08/09/18 11:37 Lymph # 1.3 K/mm3 (1.2-5.4) 08/09/18 11:37 Ford # 0.5 K/mm3 (0.0-0.8) 08/09/18 11:37 Eos # 0.1 K/mm3 (0.0-0.4) 08/09/18 11:37 Baso # 0.1 K/mm3 (0.0-0.1) 08/09/18 11:37 Seg Neutrophils % 60.8 % (40.0-70.0) 08/09/18 11:37 Seg Neutrophils # 2.9 K/mm3 (1.8-7.7) 08/09/18 11:37 PT 21.0 Sec. (12.2-14.9) H 08/09/18 11:44 INR 1.77 (0.87-1.13) H 08/09/18 11:44 APTT 34.8 Sec. (24.2-36.6) 08/09/18 11:44 Sodium 133 mmol/L (137-145) L 08/09/18 11:44 Potassium 5.1 mmol/L (3.6-5.0) H 08/09/18 11:44 Chloride 95.0 mmol/L (98-107) L 08/09/18 11:44 Carbon Dioxide 26 mmol/L (22-30) 08/09/18 11:44 Anion Gap 17 mmol/L 08/09/18 11:44 BUN 23 mg/dL (9-20) H 08/09/18 11:44 Creatinine 4.6 mg/dL (0.8-1.5) H 08/09/18 11:44 Estimated GFR 16 ml/min 08/09/18 11:44 BUN/Creatinine Ratio 5 % 08/09/18 11:44 Glucose 86 mg/dL (75-100) 08/09/18 11:44 Calcium 7.2 mg/dL (8.4-10.2) L 08/09/18 11:44 Total Bilirubin 1.70 mg/dL (0.1-1.2) H 08/09/18 11:44 AST 48 units/L (5-40) H 08/09/18 11:44 ALT 11 units/L (7-56) 08/09/18 11:44 Alkaline Phosphatase 65 units/L (35-129) 08/09/18 11:44 Total Protein 7.9 g/dL (6.3-8.2) 08/09/18 11:44 Albumin 1.5 g/dL (3.9-5) L 08/09/18 11:44 Albumin/Globulin Ratio 0.2 % 08/09/18 11:44
[2018-08-11] MEDS: SODIUM CHLORIDE FLUSH SYRINGE 10 ML IV SCH ×2 (00:12→10:41)
[2018-08-11] MEDS: ROXICODONE PO PRN ×4 (01:47→22:10)
[2018-08-11] MEDS: BENADRYL PO PRN ×2 (03:08→22:10)
--- NOTE | 2018-08-11 09:53 | Progress Note ---
Assessment and Plan - Patient Problems (1) End stage renal disease on dialysis Current Visit: No Status: Chronic Plan to address problem: cont HD on TTS schedule (2) Ascites Current Visit: Yes Status: Acute Qualifiers: Ascites type: other type Qualified Code(s): R18.8 - Other ascites Plan to address problem: s/p therapeutic paracentesis. (3) End stage liver disease Current Visit: Yes Status: Acute Plan to address problem: management as per primary attending/GI (4) Hyperkalemia Current Visit: Yes Status: Acute Plan to address problem: cont 2g K renal diet (5) Anemia in end-stage renal disease Current Visit: Yes Status: Acute Plan to address problem: cont EPO with HD Subjective Date of service: 08/11/18 Principal diagnosis: ESRD, ESLD Interval history: pt awake alert, in no acute respiratory distress Objective - Vital Signs Vital signs: Vital Signs - 12hr 08/10/18 08/11/18 08/11/18 22:00 01:38 06:33 Temperature 98.2 F Pulse Rate 64 62 Respiratory 18 Rate Blood Pressure 90/46 Blood Pressure [Left] O2 Sat by Pulse 98 100 Oximetry 08/11/18 08/11/18 08/11/18 07:56 08:02 08:17 Temperature 98.0 F 98.0 F Pulse Rate 63 65 Respiratory 18 18 Rate Blood Pressure 77/39 Blood Pressure 85/45 [Left] O2 Sat by Pulse 99 95 92 Oximetry - General Appearance General appearance: appears stated age, chronically ill EENT: ATNC, PERRL, mucous membranes moist Neck: no JVD Respiratory: Present: Decreased Breath Sounds Cardiology: regular, S1S2 Gastrointestinal: distended Integumentary: no rash, other (+ 2 edema b/l LE ) Neurologic: no focal deficit, alert and oriented x3, strength 5/5, CN 3-12 intact Psychiatric: mood/affect appropriate, cooperative - Lab 08/09/18 11:37 08/09/18 11:44 Most recent lab results Calcium 7.2 mg/dL (8.4-10.2) L 08/09/18 11:44 Medications & Allergies - Medications Allergies/Adverse Reactions: Allergies No Known Allergies Allergy (Verified 05/07/15 04:31) Home Medications: Home Medications Medication Instructions Recorded Confirmed Last Taken Type Cholecalciferol (Vitamin D3) 1,000 unit PO QDAY 06/19/18 08/09/18 Unknown Histor y [Vitamin D3] Ferrous Sulfate [Feosol 325 MG tab] 325 mg PO QDAY 06/19/18 08/09/18 Unknown History amLODIPine [Norvasc] 10 mg PO DAILY 06/19/18 08/09/18 Unknown History Nadolol [Corgard] 20 mg PO QDAY #30 tablet 07/13/18 08/09/18 Unknown Rx Allopurinol [Zyloprim] 100 mg PO QDAY 08/09/18 08/09/18 Unknown History Folic Acid [Folvite] 1 mg PO QDAY 08/09/18 08/09/18 Unknown History Oxycodone HCl/Acetaminophen 1 each PO TID PRN 08/09/18 08/09/18 Unknown History [Percocet 10/325 mg] Active Medications: Generic Name Dose Route Start Last Admin Trade Name Freq PRN Reason Stop Dose Admin Acetaminophen 650 mg 08/09/18 14:27 Tylenol PO Q4H PRN Pain MILD(1-3)/Fever >100.5/RUIZ Albuterol 2.5 mg 08/09/18 14:27 Proventil IH Q4HRT PRN Shortness Of Breath Allopurinol 100 mg 08/10/18 10:00 08/10/18 09:53 Zyloprim PO 100 mg QDAY OSCAR Administration Amlodipine Besylate 10 mg 08/10/18 10:00 08/10/18 09:54 Norvasc PO Not Given DAILY OSCAR Cholecalciferol 1,000 unit 08/10/18 10:00 08/10/18 09:55 Vitamin D3 PO 1,000 unit QDAY OSCAR Administration Diphenhydramine HCl 25 mg 08/11/18 02:09 08/11/18 03:08 Benadryl PO 25 mg Q8H PRN Administration Itching Epoetin Jose 10,000 unit 08/11/18 09:00 Procrit SUB-Q 08/18/18 08:59 NANCY OSCAR Famotidine 20 mg 08/11/18 10:00 Pepcid PO DAILY OSCAR Ferrous Sulfate 325 mg 08/10/18 10:00 08/10/18 09:53 Feosol PO 325 mg QDAY OSCAR Administration Folic Acid 1 mg 08/10/18 10:00 08/10/18 09:53 Folvite PO 1 mg QDAY [facility] Administration Levofloxacin/Dextrose 500 mg in 100 mls @ 100 mls/hr 08/09/18 19:00 08/10/18 00:34 Levaquin 500mg/100ml IV 08/11/18 23:59 Not Given Q48H [facility] Protocol Sodium Chloride 100 mls @ 999 mls/hr 08/10/18 12:05 Nacl 0.9% IV NANCY PRN Hypotension Nadolol 20 mg 08/10/18 10:00 08/10/18 09:54 Corgard PO Not Given QDAY [facility] Ondansetron HCl 4 mg 08/09/18 14:27 Zofran IV Q8H PRN Nausea And Vomiting Oxycodone HCl 5 mg 08/09/18 15:20 08/11/18 08:47 Roxicodone PO 5 mg Q6H PRN Administration Pain, Moderate (4-6) Oxycodone/Acetaminophen 1 tab 08/09/18 15:19 08/10/18 02:50 Percocet 5/325 PO 1 tab TID PRN Administration Pain, Moderate (4-6) Sodium Chloride 10 ml 08/09/18 22:00 08/11/18 00:12 Sodium Chloride Flush Syringe 10 Ml IV Not Given BID OSCAR Sodium Chloride 10 ml 08/09/18 14:27 Sodium Chloride Flush Syringe 10 Ml IV PRN PRN LINE FLUSH
[2018-08-11] MEDS ORDERED: NACL 0.9% 100 ML IV PRN (09:54)
[2018-08-11] MEDS: FEOSOL PO SCH (10:40)
[2018-08-11] MEDS: PEPCID PO SCH (10:40)
[2018-08-11] MEDS: FOLVITE PO SCH (10:40)
[2018-08-11] MEDS: NORVASC PO SCH (10:40)
[2018-08-11] MEDS: CORGARD PO SCH (10:40)
[2018-08-11] MEDS: ZYLOPRIM PO SCH (10:41)
[2018-08-11] MEDS: VITAMIN D3 PO SCH (10:41)
[2018-08-11] MEDS ORDERED: ALBURX 25% (ALBUMIN) IV ONE (11:09)
[2018-08-11 11:18] LABS: Calcium 6.7 mg/dL (8.4-10.2)
--- NOTE | 2018-08-11 12:37 | Progress Note ---
Assessment and Plan Assessment and plan: 67 YO Male with ESRD on HD(T,R,Sa), HTN, PVD, HCV, HIV, DVT S/P IVC Filter Placement, ESLD with Cirrhosis S/P serial Paracentesis, Prescription Drug Abuse, presents to ED for evaluation. Pt states that he has experienced abdominal pain and distention over the past 1 week. Pt states that he now has difficulty breathing, difficulty with ambulation, and scrotal swelling with worsening symptoms over the past 1 week. Pt seen and evaluated in ED and was found to have ESRD, Cirrhosis complicated by Ascites. Pt admitted to medical floor. Nephrology consulted in ED. IR consulted in ED for therapeutic paracentesis. (1) End stage renal disease on dialysis Current Visit: No Status: Chronic Plan to address problem: Nephrology consulted in ED, avoid nephrotoxic agents, dialysis as per renal team. Started back on dialysis per nephrology. We'll try to get back on Monday schedule. (2) hypotension Likely secondary to large volume paracentesis will give albumin during dialysis today. (3) HIV (human immunodeficiency virus infection) Current Visit: No Status: Chronic Plan to address problem: continue current therapy, outpatient ID F/u care. (4) Ascites Current Visit: Yes Status: Acute Qualifiers: Ascites type: other type Qualified Code(s): R18.8 - Other ascites Plan to address problem: Status post 10.7 L of fluid removed Secondary to decompensated liver disease will obtain paracentesis today which was done with 10.7 L removed. Still feels bloated Will monitor for the next 24-48 hours may need repeat parac entesis prior to discharge (5) End stage liver disease Current Visit: Yes Status: Acute Plan to address problem: supportive care, avoid hepatotoxic agents. (6) PVD (peripheral vascular disease) Current Visit: Yes Status: Acute Plan to address problem: wound care for lymphedema, supportive care. (7)DVT prophylaxis Current Visit: No Status: Acute Plan to address problem: SCD to ble while in bed. Plan of care discussed with the patient and also with the daughter. History Interval history: Patient is seen today for: Abdominal pain and bloating Seen and examined at bedside; 24hour events reviewed; nursing staff ; no adverse overnight events reported to me; Denies any chest pain, nausea, vomiting, diarrhea Patient reports improvement in abdominal pain or chest pain. Still feels bloated and tired. He is status post 10.7 L of fluid removed during paracentesis No fever noted Hospitalist Physical - Physical exam Narrative exam: VITAL SIGNS: Reviewed. GENERAL: The patient appeared well nourished and normally developed. Vital signs as documented. HEAD: No signs of head trauma. EYES: Pupils are equal. Extraocular motions intact. EARS: Hearing grossly intact. MOUTH: Oropharynx is normal. NECK: No adenopathy, no JVD. CHEST: Chest with clear breath sounds bilaterally. No wheezes, rales, or rhonchi. CARDIAC: Regular rate and rhythm. S1 and S2, without murmurs, gallops, or rubs. VASCULAR: +1 pitting Edema. Peripheral pulses normal and equal in all extremities. ABDOMEN: Soft, without detectable tenderness. Distended with positive fluid shift No rebound or guarding, and no masses palpated. Bowel Sounds normal. MUSCULOSKELETAL: Good range of motion of all major joints. Extremities without clubbing, cyanosis. plus 1 pitting edema. NEUROLOGIC EXAM: Alert and oriented x 3. No focal sensory or strength deficits. Speech normal. Follows commands. PSYCHIATRIC: Mood normal. SKIN: Generalized punctuated rash - Constitutional Vitals: Temp Pulse Resp BP Pulse Ox 98.0 F 65 18 85/45 92 08/11/18 08:17 08/11/18 08:17 08/11/18 08:17 08/11/18 08:17 08/11/18 08:17 General appearance: Present: mild distress, obese Results - Labs CBC & Chem 7: 08/09/18 11:37 08/11/18 10:50 Labs: Laboratory Last Values WBC 4.8 K/mm3 (4.5-11.0) 08/09/18 11:37 RBC 3.50 M/mm3 (3.65-5.03) L 08/09/18 11:37 Hgb 9.8 gm/dl (11.8-15.2) L 08/09/18 11:37 Hct 30.0 % (35.5-45.6) L 08/09/18 11:37 MCV 86 fl (84-94) 08/09/18 11:37 MCH 28 pg (28-32) 08/09/18 11:37 MCHC 33 % (32-34) 08/09/18 11:37 RDW 18.3 % (13.2-15.2) H 08/09/18 11:37 Plt Count 76 K/mm3 (140-440) L 08/09/18 11:37 Lymph % (Auto) 27.0 % (13.4-35.0) 08/09/18 11:37 Luna % (Auto) 10.1 % (0.0-7.3) H 08/09/18 11:37 Eos % (Auto) 1.1 % (0.0-4.3) 08/09/18 11:37 Baso % (Auto) 1.0 % (0.0-1.8) 08/09/18 11:37 Lymph # 1.3 K/mm3 (1.2-5.4) 08/09/18 11:37 Luna # 0.5 K/mm3 (0.0-0.8) 08/09/18 11:37 Eos # 0.1 K/mm3 (0.0-0.4) 08/09/18 11:37 Baso # 0.1 K/mm3 (0.0-0.1) 08/09/18 11:37 Seg Neutrophils % 60.8 % (40.0-70.0) 08/09/18 11:37 Seg Neutrophils # 2.9 K/mm3 (1.8-7.7) 08/09/18 11:37 PT 21.0 Sec. (12.2-14.9) H 08/09/18 11:44 INR 1.77 (0.87-1.13) H 08/09/18 11:44 APTT 34.8 Sec. (24.2-36.6) 08/09/18 11:44 Sodium 135 mmol/L (137-145) L 08/11/18 10:50 Potassium 4.0 mmol/L (3.6-5.0) D 08/11/18 10:50 Chloride 98.1 mmol/L (98-107) 08/11/18 10:50 Carbon Dioxide 26 mmol/L (22-30) 08/11/18 10:50 Anion Gap 15 mmol/L 08/11/18 10:50 BUN 16 mg/dL (9-20) 08/11/18 10:50 Creatinine 3.6 mg/dL (0.8-1.5) H 08/11/18 10:50 Estimated GFR 21 ml/min 08/11/18 10:50 BUN/Creatinine Ratio 4 % 08/11/18 10:50 Glucose 135 mg/dL (75-100) H 08/11/18 10:50 Calcium 6.7 mg/dL (8.4-10.2) L 08/11/18 10:50 Total Bilirubin 1.70 mg/dL (0.1-1.2) H 08/09/18 11:44 AST 48 units/L (5-40) H 08/09/18 11:44 ALT 11 units/L (7-56) 08/09/18 11:44 Alkaline Phosphatase 65 units/L (35-129) 08/09/18 11:44 Total Protein 7.9 g/dL (6.3-8.2) 08/09/18 11:44 Albumin 1.5 g/dL (3.9-5) L 08/09/18 11:44 Albumin/Globulin Ratio 0.2 % 08/09/18 11:44
[2018-08-11] MEDS ORDERED: NACL 0.9 (PRIMING MACHINE ONLY DIALYSIS) MC ONE (12:58)
[2018-08-11] MEDS: PROCRIT SUB-Q SCH (14:00)
[2018-08-11] MEDS ORDERED: LEVAQUIN PO ONE (21:37)
[2018-08-12] MEDS: SODIUM CHLORIDE FLUSH SYRINGE 10 ML IV SCH (00:34)
[2018-08-12 03:09] LABS: Albumin 1.4 g/dL (3.9-5); Calcium 6.6 mg/dL (8.4-10.2)
[2018-08-12] MEDS: ROXICODONE PO PRN ×3 (04:05→14:38)
[2018-08-12] MEDS: CORGARD PO SCH ×2 (09:24→09:27)
[2018-08-12] MEDS: FEOSOL PO SCH (09:24)
[2018-08-12] MEDS: FOLVITE PO SCH (09:24)
[2018-08-12] MEDS: VITAMIN D3 PO SCH (09:24)
[2018-08-12] MEDS: PEPCID PO SCH (09:25)
[2018-08-12] MEDS: NORVASC PO SCH ×2 (09:25→09:27)
[2018-08-12] MEDS: ZYLOPRIM PO SCH (09:25)
--- NOTE | 2018-08-12 09:59 | Progress Note ---
Assessment and Plan - Patient Problems (1) End stage renal disease on dialysis Current Visit: No Status: Chronic Plan to address problem: cont HD on TTS schedule (2) Ascites Current Visit: Yes Status: Acute Qualifiers: Ascites type: other type Qualified Code(s): R18.8 - Other ascites Plan to address problem: s/p therapeutic paracentesis. (3) End stage liver disease Current Visit: Yes Status: Acute Plan to address problem: management as per primary attending/GI (4) Hyperkalemia Current Visit: Yes Status: Acute Plan to address problem: resolved with HD, cont 2g K renal diet (5) Anemia in end-stage renal disease Current Visit: Yes Status: Acute Plan to address problem: cont EPO with HD Subjective Date of service: 08/12/18 Principal diagnosis: ESRD, ESLD Interval history: pt awake alert, in no acute respiratory distress Objective - Vital Signs Vital signs: Vital Signs - 12hr 08/12/18 08/12/18 08/12/18 02:25 02:26 06:30 Temperature 99.3 F Pulse Rate 67 69 Respiratory 20 Rate Blood Pressure 86/46 O2 Sat by Pulse 99 Oximetry 08/12/18 08/12/18 07:44 09:27 Temperature 98.5 F Pulse Rate 66 Respiratory 18 Rate Blood Pressure 73/44 73/44 O2 Sat by Pulse 97 Oximetry - General Appearance General appearance: appears stated age, chronically ill EENT: ATNC, PERRL, mucous membranes moist Neck: no JVD Respiratory: Present: Clear to Ascultation Cardiology: regular, S1S2 Gastrointestinal: normoactive bowel sounds, distended Integumentary: no rash, other (+ edema b/l LE ) Neurologic: no focal deficit, alert and oriented x3, strength 5/5, CN 3-12 intact Psychiatric: mood/affect appropriate, cooperative - Lab 08/09/18 11:37 08/12/18 02:10 Most recent lab results Calcium 6.6 mg/dL (8.4-10.2) L 08/12/18 02:10 Medications & Allergies - Medications Allergies/Adverse Reactions: Allergies No Known Allergies Allergy (Verified 05/07/15 04:31) Home Medications: Home Medications Medication Instructions Recorded Confirmed Last Taken Type Cholecalciferol (Vitamin D3) 1,000 unit PO QDAY 06/19/18 08/09/18 Unknown History [Vitamin D3] Ferrous Sulfate [Feosol 325 MG tab] 325 mg PO QDAY 06/19/18 08/09/18 Unknown History amLODIPine [Norvasc] 10 mg PO DAILY 06/19/18 08/09/18 Unknown History Nadolol [Corgard] 20 mg PO QDAY #30 tablet 07/13/18 08/09/18 Unknown Rx Allopurinol [Zyloprim] 100 mg PO QDAY 08/09/18 08/09/18 Unknown History Folic Acid [Folvite] 1 mg PO QDAY 08/09/18 08/09/18 Unknown History Oxycodone HCl/Acetaminophen 1 each PO TID PRN 08/09/18 08/09/18 Unknown History [Percocet 10/325 mg] Active Medications: Generic Name Dose Route Start Last Admin Trade Name Freq PRN Reason Stop Dose Admin Acetaminophen 650 mg 08/09/18 14:27 Tylenol PO Q4H PRN Pain MILD(1-3)/Fever >100.5/RUIZ Albuterol 2.5 mg 08/09/18 14:27 Proventil IH Q4HRT PRN Shortness Of Breath Allopurinol 100 mg 08/10/18 10:00 08/12/18 09:25 Zyloprim PO 100 mg QDAY OSCAR Administration Amlodipine Besylate 10 mg 08/10/18 10:00 08/12/18 09:27 Norvasc PO Not Given DAILY OSCAR Cholecalciferol 1,000 unit 08/10/18 10:00 08/12/18 09:24 Vitamin D3 PO 1,000 unit QDAY [facility]SCAR Administration Diphenhydramine HCl 25 mg 08/11/18 02:09 08/11/18 22:10 Benadryl PO 25 mg Q8H PRN Administration Itching Epoetin Jose 10,000 unit 08/11/18 09:00 08/11/18 14:00 Procrit SUB-Q 08/18/18 08:59 10,000 unit NANCY OSCAR Administration Famotidine 20 mg 08/11/18 10:00 08/12/18 09:25 Pepcid PO 20 mg DAILY OSCAR Administration Ferrous Sulfate 325 mg 08/10/18 10:00 08/12/18 09:24 Feosol PO 325 mg QDAY OSCAR Administration Folic Acid 1 mg 08/10/18 10:00 08/12/18 09:24 Folvite PO 1 mg QDAY [facility]SCAR Administration Sodium Chloride 100 mls @ 999 mls/hr 08/10/18 12:05 Nacl 0.9% IV NANCY PRN Hypotension Sodium Chloride 100 mls @ 999 mls/hr 08/11/18 09:54 Nacl 0.9% IV NACNY PRN Hypotension Nadolol 20 mg 08/10/18 10:00 08/12/18 09:27 Corgard PO Not Given QDAY [facility]SCAR Ondansetron HCl 4 mg 08/09/18 14:27 Zofran IV Q8H PRN Nausea And Vomiting Oxycodone HCl 5 mg 08/09/18 15:20 08/12/18 09:32 Roxicodone PO 5 mg Q6H PRN Administration Pain, Moderate (4-6) Oxycodone/Acetaminophen 1 tab 08/09/18 15:19 08/10/18 02:50 Percocet 5/325 PO 1 tab TID PRN Administration Pain, Moderate (4-6) Sodium Chloride 10 ml 08/09/18 22:00 08/12/18 00:34 Sodium Chloride Flush Syringe 10 Ml IV Not Given BID OSCAR Sodium Chloride 10 ml 08/09/18 14:27 Sodium Chloride Flush Syringe 10 Ml IV PRN PRN LINE FLUSH
--- NOTE | 2018-08-12 10:25 | Progress Note ---
Assessment and Plan Assessment and plan: 67 YO Male with ESRD on HD(T,R,Sa), HTN, PVD, HCV, HIV, DVT S/P IVC Filter Placement, ESLD with Cirrhosis S/P serial Paracentesis, Prescription Drug Abuse, presents to ED for evaluation. Pt states that he has experienced abdominal pain and distention over the past 1 week. Pt states that he now has difficulty breathing, difficulty with ambulation, and scrotal swelling with worsening symptoms over the past 1 week. Pt seen and evaluated in ED and was found to have ESRD, Cirrhosis complicated by Ascites. Pt admitted to medical floor. Nephrology consulted in ED. IR consulted in ED for therapeutic paracentesis. (1) End stage renal disease on dialysis Current Visit: No Status: Chronic Plan to address problem: Nephrology consulted in ED, avoid nephrotoxic agents, dialysis as per renal team. Started back on dialysis per nephrology. We'll try to get back on Monday schedule. (2) Vasogenic Shock state. Likely secondary to large volume paracentesis will give albumin during dialysis today. UNFORTUNATELY DID NOT RECEIVE IN DIALYSIS. Was unable to get access as patient refused. Will transfer to [facility]. If no improvement my need ED/Anesthesia/IR/Intensivit. if patient continues to refuse, will speak to him and family about hospice. (3) HIV (human immunodeficiency virus infection) Current Visit: No Status: Chronic Plan to address problem: continue current therapy, outpatient ID F/u care. (4) Ascites Current Visit: Yes Status: Acute Qualifiers: Ascites type: other type Qualified Code(s): R18.8 - Other ascites Plan to address problem: Status post 10.7 L of fluid removed Secondary to decompensated liver disease will obtain paracentesis which was done with 10.7 L removed. Still feels bloated Will monitor for the next 24-48 hours may need repeat paracentesis prior to discharge (5) End stage liver disease Current Visit: Yes Status: Acute Plan to address problem: supportive care, avoid hepatotoxic agents. (6) PVD (peripheral vascular disease) Current Visit: Yes Status: Acute Plan to address problem: wound care for lymphedema, supportive care. (7) Thrombocytopenia likely secondary to LIVER FAILURE (8) Severe Protein Calorie Malnutrition plant utility person consult (9)DVT prophylaxis Current Visit: No Status: Acute Plan to address problem: SCD to ble while in bed. Plan of care discussed with the patient and also with the daughter. CCT 45 MINS poor prognosis History Interval history: Patient is seen today for: Abdominal pain and bloating Seen and examined at bedside; 24hour events reviewed; nursing staff ; no adverse overnight events reported to me; Denies any chest pain, nausea, vomiting, diarrhea Patient reports RECURRENCE in abdominal pain or chest pain. Still feels bloated and tired. He is status post 10.7 L of fluid removed during paracentesis No fever noted Hospitalist Physical - Physical exam Narrative exam: VITAL SIGNS: Reviewed. GENERAL: The patient appeared well nourished and normally developed. Vital signs as documented. HEAD: No signs of head trauma. EYES: Pupils are equal. Extraocular motions intact. EARS: Hearing grossly intact. MOUTH: Oropharynx is normal. NECK: No adenopathy, no JVD. CHEST: Chest with clear breath sounds bilaterally. No wheezes, rales, or rhonchi. CARDIAC: Regular rate and rhythm. S1 and S2, without murmurs, gallops, or rubs. VASCULAR: +1 pitting Edema. Peripheral pulses normal and equal in all extremities. ABDOMEN: Soft, without detectable tenderness. Distended with positive fluid shift No rebound or guarding, and no masses palpated. Bowel Sounds normal. MUSCULOSKELETAL: Good range of motion of all major joints. Extremities without clubbing, cyanosis. plus 1 pitting edema with generalized lower ext edema. no clear open wound. NEUROLOGIC EXAM: Alert and oriented x 3. No focal sensory or strength deficits. Speech normal. Follows commands. PSYCHIATRIC: Mood normal. SKIN: Generalized punctuated rash - Constitutional Vitals: Temp Pulse Resp BP Pulse Ox 98.5 F 66 18 73/44 97 08/12/18 07:44 08/12/18 07:44 08/12/18 07:44 08/12/18 09:27 08/12/18 07:44 General appearance: Present: mild distress, obese Results - Labs CBC & Chem 7: 08/09/18 11:37 08/12/18 02:10 Labs: Laboratory Last Values WBC 4.8 K/mm3 (4.5-11.0) 08/09/18 11:37 RBC 3.50 M/mm3 (3.65-5.03) L 08/09/18 11:37 Hgb 9.8 gm/dl (11.8-15.2) L 08/09/18 11:37 Hct 30.0 % (35.5-45.6) L 08/09/18 11:37 MCV 86 fl (84-94) 08/09/18 11:37 MCH 28 pg (28-32) 08/09/18 11:37 MCHC 33 % (32-34) 08/09/18 11:37 RDW 18.3 % (13.2-15.2) H 08/09/18 11:37 Plt Count 76 K/mm3 (140-440) L 08/09/18 11:37 Lymph % (Auto) 27.0 % (13.4-35.0) 08/09/18 11:37 Pepin % (Auto) 10.1 % (0.0-7.3) H 08/09/18 11:37 Eos % (Auto) 1.1 % (0.0-4.3) 08/09/18 11:37 Baso % (Auto) 1.0 % (0.0-1.8) 08/09/18 11:37 Lymph # 1.3 K/mm3 (1.2-5.4) 08/09/18 11:37 Pepin # 0.5 K/mm3 (0.0-0.8) 08/09/18 11:37 Eos # 0.1 K/mm3 (0.0-0.4) 08/09/18 11:37 Baso # 0.1 K/mm3 (0.0-0.1) 08/09/18 11:37 Seg Neutrophils % 60.8 % (40.0-70.0) 08/09/18 11:37 Seg Neutrophils # 2.9 K/mm3 (1.8-7.7) 08/09/18 11:37 PT 21.0 Sec. (12.2-14.9) H 08/09/18 11:44 INR 1.77 (0.87-1.13) H 08/09/18 11:44 APTT 34.8 Sec. (24.2-36.6) 08/09/18 11:44 Sodium 134 mmol/L (137-145) L 08/12/18 02:10 Potassium 3.9 mmol/L (3.6-5.0) 08/12/18 02:10 Chloride 98.8 mmol/L (98-107) 08/12/18 02:10 Carbon Dioxide 27 mmol/L (22-30) 08/12/18 02:10 Anion Gap 12 mmol/L 08/12/18 02:10 BUN 12 mg/dL (9-20) 08/12/18 02:10 Creatinine 3.2 mg/dL (0.8-1.5) H 08/12/18 02:10 Estimated GFR 24 ml/min 08/12/18 02:10 BUN/Creatinine Ratio 4 % 08/12/18 02:10 Glucose 94 mg/dL (75-100) 08/12/18 02:10 Calcium 6.6 mg/dL (8.4-10.2) L 08/12/18 02:10 Total Bilirubin 1.00 mg/dL (0.1-1.2) 08/12/18 02:10 AST 23 units/L (5-40) 08/12/18 02:10 ALT 6 units/L (7-56) L 08/12/18 02:10 Alkaline Phosphatase 56 units/L (35-129) 08/12/18 02:10 Total Protein 5.8 g/dL (6.3-8.2) L D 08/12/18 02:10 Albumin 1.4 g/dL (3.9-5) L 08/12/18 02:10 Albumin/Globulin Ratio 0.3 % 08/12/18 02:10
--- NOTE | 2018-08-12 14:48 | Consultation ---
History of Present Illness Consult date: 08/12/18 Reason for consult: dyspnea History of present illness: PULMONARY AND CRITICAL CARE CONSULTATION DR. CARMONA THANK YOU FOR ASKING ME TO PARTICIPATE IN THE CARE OF THIS PATIENT. 67 YO Male with ESRD on HD(T,R,Sa), HTN, PVD, HCV, HIV, DVT S/P IVC Filter Placement, ESLD with Cirrhosis S/P serial Paracentesis, Prescription Drug Abuse, presents to ED for evaluation. Pt states that he has experienced abdominal pain and distention over the past 1 week. Pt states that he now has difficulty breathing, difficulty with ambulation, and scrotal swelling with worsening symptoms over the past 1 week. Pt seen and evaluated in ED and was found to have ESRD, Cirrhosis complicated by Ascites. Patient alert, awake and resting on room air. O2 saturation 100%. Patient denies cough, chest pain or shortness of breath. Patient has slight history of smoking. Stopped smoking 40 Years ago. H?O of alcohol and drug abuse. Stopped 5 years ago. Patient worked in [employer] before retired. and has five children. No known drug allergies. Past History Past Medical History: DVT, hepatitis, HIV/AIDS, hypertension, PVD, renal failure Past Surgical History: Other (permcath, paracentesis, IVC filter ) Social history: IV drug use Family history: hypertension Medications and Allergies Allergies Allergy/AdvReac Type Severity Reaction Status Date / Time No Known Allergies Allergy Verified 05/07/15 04:31 Home Medications Medication Instructions Recorded Confirmed Last Taken Type Cholecalciferol (Vitamin D3) 1,000 unit PO QDAY 06/19/18 08/09/18 Unknown History [Vitamin D3] Ferrous Sulfate [Feosol 325 MG tab] 325 mg PO QDAY 06/19/18 08/09/18 Unknown History amLODIPine [Norvasc] 10 mg PO DAILY 06/19/18 08/09/18 Unknown History Nadolol [Corgard] 20 mg PO QDAY #30 tablet 07/13/18 08/09/18 Unknown Rx Allopurinol [Zyloprim] 100 mg PO QDAY 08/09/18 08/09/18 Unknown History Folic Acid [Folvite] 1 mg PO QDAY 08/09/18 08/09/18 Unknown History Oxycodone HCl/Acetaminophen 1 each PO TID PRN 08/09/18 08/09/18 Unknown History [Percocet 10/325 mg] Active Meds: Active Medications Acetaminophen (Tylenol) 650 mg PO Q4H PRN PRN Reason: Pain MILD(1-3)/Fever >100.5/RUIZ Albuterol (Proventil) 2.5 mg IH Q4HRT PRN PRN Reason: Shortness Of Breath Allopurinol (Zyloprim) 100 mg PO QDAY REPLACED BY [facility] Last Admin: 08/12/18 09:25 Dose: 100 mg Documented by: Cholecalciferol (Vitamin D3) 1,000 unit PO QDAY REPLACED BY [facility] Last Admin: 08/12/18 09:24 Dose: 1,000 unit Documented by: Diphenhydramine HCl (Benadryl) 25 mg PO Q8H PRN PRN Reason: Itching Last Admin: 08/11/18 22:10 Dose: 25 mg Documented by: Epoetin Jose (Procrit) 10,000 unit SUB-Q NANCY REPLACED BY [facility] Stop: 08/18/18 08:59 Last Admin: 08/11/18 14:00 Dose: 10,000 unit Documented by: Famotidine (Pepcid) 20 mg PO DAILY REPLACED BY [facility] Last Admin: 08/12/18 09:25 Dose: 20 mg Documented by: Ferrous Sulfate (Feosol) 325 mg PO QDAY REPLACED BY [facility] Last Admin: 08/12/18 09:24 Dose: 325 mg Documented by: Folic Acid (Folvite) 1 mg PO QDAY REPLACED BY [facility] Last Admin: 08/12/18 09:24 Dose: 1 mg Documented by: Sodium Chloride (Nacl 0.9%) 100 mls @ 999 mls/hr IV NANCY PRN PRN Reason: Hypotension Sodium Chloride (Nacl 0.9%) 100 mls @ 999 mls/hr IV NANCY PRN PRN Reason: Hypotension Ondansetron HCl (Zofran) 4 mg IV Q8H PRN PRN Reason: Nausea And Vomiting Oxycodone HCl (Roxicodone) 5 mg PO Q6H PRN PRN Reason: Pain, Moderate (4-6) Last Admin: 08/12/18 14:38 Dose: 5 mg Documented by: Oxycodone/Acetaminophen (Percocet 5/325) 1 tab PO TID PRN PRN Reason: Pain, Moderate (4-6) Last Admin: 08/10/18 02:50 Dose: 1 tab Documented by: Sodium Chloride (Sodium Chloride Flush Syringe 10 Ml) 10 ml IV BID OSCAR Last Admin: 08/12/18 00:34 Dose: Not Given Documented by: Sodium Chloride (Sodium Chloride Flush Syringe 10 Ml) 10 ml IV PRN PRN PRN Reason: LINE FLUSH Review of Systems All systems: negative Physical Examination Vital signs: Vital Signs Resp 10 L 08/09/18 11:08 General appearance: no acute distress, alert, other (Weak.) Eyes: icteric ENT: oropharynx moist Neck: supple, no JVD Ascultation: Bilateral: diminished breath sounds Cardiovascular: regular rate and rhythm Gastrointestinal: normoactive bowel sounds, other (DIstended.) Integumentary: normal Extremities: no cyanosis, no edema Musculoskeletal: no deformities Gait: poor gait normal mental status, non-focal exam, pupils equal and round, CN II-XII normal mood appropriate Results - Laboratory Findings CBC and BMP: 08/09/18 11:37 08/12/18 02:10 PT/INR, D-dimer PT 21.0 Sec. (12.2-14.9) H 08/09/18 11:44 INR 1.77 (0.87-1.13) H 08/09/18 11:44 Abnormal lab findings: Abnormal Labs 08/09/18 08/09/18 08/09/18 11:37 11:44 11:44 RBC 3.50 L Hgb 9.8 L Hct 30.0 L RDW 18.3 H Plt Count 76 L [place] % (Auto) 10.1 H PT 21.0 H INR 1.77 H Sodium 133 L Potassium 5.1 H Chloride 95.0 L BUN 23 H Creatinine 4.6 H Glucose Calcium 7.2 L Total Bilirubin 1.70 H AST 48 H ALT Total Protein Albumin 1.5 L 08/11/18 08/12/18 10:50 02:10 RBC Hgb Hct RDW Plt Count [place] % (Auto) PT INR Sodium 135 L 134 L Potassium Chloride BUN Creatinine 3.6 H 3.2 H Glucose 135 H Calcium 6.7 L 6.6 L Total Bilirubin AST ALT 6 L Total Protein 5.8 L D Albumin 1.4 L Assessment and Plan 67 YO Male with ESRD on HD(T,R,Sa), HTN, PVD, HCV, HIV, DVT S/P IVC Filter Placement, ESLD with Cirrhosis S/P serial Paracentesis, Prescription Drug Abuse, presents to ED for evaluation. Pt states that he has experienced abdominal pain and distention over the past 1 week. Pt states that he now has difficulty breathing, difficulty with ambulation, and scrotal swelling with worsening symptoms over the past 1 week. Pt seen and evaluated in ED and was found to have ESRD, Cirrhosis complicated by Ascites. Patient alert, awake and resting on room air. O2 saturation 100%. Patient denies cough, chest pain or shortness of breath. Patient has slight history of smoking. Stopped smoking 40 Years ago. H?O of alcohol and drug abuse. Stopped 5 years ago. Patient worked in [employer] before retired. and has five children. No known drug allergies. - Patient Problems (1) Acute respiratory failure with hypoxia Current Visit: No Status: Acute Plan to address problem: Improved. Patients O2 saturation 100% on room air. (2) Anemia in end-stage renal disease Current Visit: Yes Status: Acute Plan to address problem: Management as per nephrology. (3) Ascites Current Visit: Yes Status: Acute Qualifiers: Ascites type: other type Qualified Code(s): R18.8 - Other ascites Plan to address problem: Patient undergone paracentesis. Fluid results pending. (4) End stage liver disease Current Visit: Yes Status: Acute Plan to address problem: Recommend to consult gastroenterology. (5) AIDS Current Visit: No Status: Acute Plan to address problem: Management as per infectious diseases. (6) Acute metabolic encephalopathy Current Visit: No Status: Acute Plan to address problem: Patient alert, awake. Oriented now. Management as per primary care.
[2018-08-13] MEDS: ROXICODONE PO PRN (00:22)
[2018-08-13] MEDS: BENADRYL PO PRN ×2 (01:15→23:05)
[2018-08-13] MEDS: SODIUM CHLORIDE FLUSH SYRINGE 10 ML IV SCH ×3 (04:14→15:22)
--- NOTE | 2018-08-13 07:17 | Progress Note ---
Assessment and Plan - Patient Problems (1) End stage renal disease on dialysis Current Visit: No Status: Chronic Plan to address problem: Continue on inpatient HD, on TTS schedule. (2) Hyperkalemia Current Visit: Yes Status: Acute Plan to address problem: Resolved with HD. (3) Anemia in end-stage renal disease Current Visit: Yes Status: Acute Plan to address problem: Epo with HD (4) Ascites Current Visit: Yes Status: Acute Qualifiers: Ascites type: other type Qualified Code(s): R18.8 - Other ascites Plan to address problem: s/p therapeutic paracentesis with removal of 10.7L (5) End stage liver disease Current Visit: Yes Status: Acute Plan to address problem: Management per GI team. Subjective Date of service: 08/13/18 Principal diagnosis: ESRD, ESLD Interval history: No acute issues overnight. Labs noted, Objective - Vital Signs Vital signs: Vital Signs - 12hr 08/12/18 08/12/18 08/12/18 19:20 19:30 19:40 Temperature Pulse Rate 61 62 66 Pulse Rate [ From Monitor] Respiratory 12 11 L 13 Rate Blood Pressure 94/57 94/57 94/57 O2 Sat by Pulse 100 100 100 Oximetry 08/12/18 08/12/18 08/12/18 19:50 20:00 20:10 Temperature 98.1 F Pulse Rate 63 61 60 Pulse Rate [ 60 From Monitor] Respiratory 9 L 12 14 Rate Blood Pressure 94/57 94/57 94/57 O2 Sat by Pulse 100 100 99 Oximetry 08/12/18 08/12/18 08/12/18 20:20 20:30 20:40 Temperature Pulse Rate 62 60 59 L Pulse Rate [ From Monitor] Respiratory 11 L 13 11 L Rate Blood Pressure 94/57 94/57 94/57 O2 Sat by Pulse 100 99 98 Oximetry 08/12/18 08/12/18 08/12/18 20:50 21:00 21:10 Temperature Pulse Rate 64 61 60 Pulse Rate [ From Monitor] Respiratory 13 14 13 Rate Blood Pressure 94/57 94/57 94/57 O2 Sat by Pulse 100 100 99 Oximetry 08/12/18 08/12/18 08/12/18 21:20 21:30 21:40 Temperature Pulse Rate 62 59 L 60 Pulse Rate [ From Monitor] Respiratory 15 8 L 13 Rate Blood Pressure 94/57 94/57 94/57 O2 Sat by Pulse 100 100 100 Oximetry 08/12/18 08/12/18 08/12/18 21:50 22:00 22:10 Temperature Pulse Rate 61 60 60 Pulse Rate [ From Monitor] Respiratory 13 12 10 L Rate Blood Pressure 94/57 94/57 94/57 O2 Sat by Pulse 100 100 100 Oximetry 08/12/18 08/12/18 08/12/18 22:20 22:30 22:40 Temperature Pulse Rate 60 61 61 Pulse Rate [ From Monitor] Respiratory 12 11 L 12 Rate Blood Pressure 94/57 94/57 94/57 O2 Sat by Pulse 100 100 100 Oximetry 08/12/18 08/12/18 08/12/18 22:50 23:00 23:10 Temperature Pulse Rate 63 65 67 Pulse Rate [ From Monitor] Respiratory 14 13 14 Rate Blood Pressure 94/57 94/57 94/57 O2 Sat by Pulse 100 99 99 Oximetry 08/12/18 08/12/18 08/12/18 23:20 23:30 23:40 Temperature Pulse Rate 64 63 63 Pulse Rate [ From Monitor] Respiratory 11 L 11 L 12 Rate Blood Pressure 94/57 94/57 94/57 O2 Sat by Pulse 99 100 100 Oximetry 08/12/18 08/13/18 08/13/18 23:50 00:00 00:10 Temperature 98.1 F Pulse Rate 63 64 63 Pulse Rate [ 63 From Monitor] Respiratory 11 L 11 L 12 Rate Blood Pressure 94/57 94/57 94/57 O2 Sat by Pulse 100 100 100 Oximetry 08/13/18 08/13/18 08/13/18 00:20 00:22 00:30 Temperature Pulse Rate 64 65 Pulse Rate [ From Monitor] Respiratory 11 L 15 17 Rate Blood Pressure 94/57 94/57 O2 Sat by Pulse 100 100 Oximetry 08/13/18 08/13/18 08/13/18 00:40 00:50 01:00 Temperature Pulse Rate 64 64 63 Pulse Rate [ From Monitor] Respiratory 13 13 13 Rate Blood Pressure 94/57 94/57 94/57 O2 Sat by Pulse 100 100 100 Oximetry 08/13/18 08/13/18 08/13/18 01:10 01:20 01:30 Temperature Pulse Rate 64 65 63 Pulse Rate [ From Monitor] Respiratory 16 14 13 Rate Blood Pressure 94/57 94/57 94/57 O2 Sat by Pulse 100 100 100 Oximetry - General Appearance General appearance: chronically ill, fatigue EENT: ATNC, PERRL Neck: no JVD, no thyromegaly Respiratory: Present: Clear to Ascultation Cardiology: regular, S1S2 Gastrointestinal: normoactive bowel sounds, distended Integumentary: no rash, warm and dry Neurologic: no focal deficit, no asterixis Musculoskeletal: other (+edema ) Psychiatric: mood/affect appropriate, cooperative - Lab 08/09/18 11:37 08/12/18 02:10 Most recent lab results Calcium 6.6 mg/dL (8.4-10.2) L 08/12/18 02:10 - Allied health notes Allied health notes reviewed: nursing Medications & Allergies - Medications Allergies/Adverse Reactions: Allergies No Known Allergies Allergy (Verified 05/07/15 04:31) Home Medications: Home Medications Medication Instructions Recorded Confirmed Last Taken Type Cholecalciferol (Vitamin D3) 1,000 unit PO QDAY 06/19/18 08/09/18 Unknown History [Vitamin D3] Ferrous Sulfate [Feosol 325 MG tab] 325 mg PO QDAY 06/19/18 08/09/18 Unknown History amLODIPine [Norvasc] 10 mg PO DAILY 06/19/18 08/09/18 Unknown History Nadolol [Corgard] 20 mg PO QDAY #30 tablet 07/13/18 08/09/18 Unknown Rx Allopurinol [Zyloprim] 100 mg PO QDAY 08/09/18 08/09/18 Unknown History Folic Acid [Folvite] 1 mg PO QDAY 08/09/18 08/09/18 Unknown History Oxycodone HCl/Acetaminophen 1 each PO TID PRN 08/09/18 08/09/18 Unknown History [Percocet 10/325 mg] Active Medications: Generic Name Dose Route Start Last Admin Trade Name Freq PRN Reason Stop Dose Admin Acetaminophen 650 mg 08/09/18 14:27 Tylenol PO Q4H PRN Pain MILD(1-3)/Fever >100.5/RUIZ Albuterol 2.5 mg 08/09/18 14:27 Proventil IH Q4HRT PRN Shortness Of Breath Allopurinol 100 mg 08/10/18 10:00 08/12/18 09:25 Zyloprim PO 100 mg QDAY OSCAR Administration Cholecalciferol 1,000 unit 08/10/18 10:00 08/12/18 09:24 Vitamin D3 PO 1,000 unit QDAY OSCAR Administration Diphenhydramine HCl 25 mg 08/11/18 02:09 08/13/18 01:15 Benadryl PO 25 mg Q8H PRN Administration Itching Epoetin Jose 10,000 unit 08/11/18 09:00 08/11/18 14:00 Procrit SUB-Q 08/18/18 08:59 10,000 unit NANCY OSCAR Administration Famotidine 20 mg 08/11/18 10:00 08/12/18 09:25 Pepcid PO 20 mg DAILY OSCAR Administration Ferrous Sulfate 325 mg 08/10/18 10:00 08/12/18 09:24 Feosol PO 325 mg QDAY OSCAR Administration Folic Acid 1 mg 08/10/18 10:00 08/12/18 09:24 Folvite PO 1 mg QDAY OSCAR Administration Sodium Chloride 100 mls @ 999 mls/hr 08/10/18 12:05 Nacl 0.9% IV NANCY PRN Hypotension Sodium Chloride 100 mls @ 999 mls/hr 08/11/18 09:54 Nacl 0.9% IV NANCY PRN Hypotension Ondansetron HCl 4 mg 08/09/18 14:27 Zofran IV Q8H PRN Nausea And Vomiting Oxycodone HCl 5 mg 08/09/18 15:20 08/13/18 00:22 Roxicodone PO 5 mg Q6H PRN Administration Pain, Moderate (4-6) Oxycodone/Acetaminophen 1 tab 08/09/18 15:19 08/10/18 02:50 Percocet 5/325 PO 1 tab TID PRN Administration Pain, Moderate (4-6) Sodium Chloride 10 ml 08/09/18 22:00 08/13/18 04:14 Sodium Chloride Flush Syringe 10 Ml IV Not Given BID OSCAR Sodium Chloride 10 ml 08/09/18 14:27 Sodium Chloride Flush Syringe 10 Ml IV PRN PRN LINE FLUSH
[2018-08-13] MEDS: VITAMIN D3 PO SCH (10:25)
[2018-08-13] MEDS: FEOSOL PO SCH (10:26)
[2018-08-13] MEDS: FOLVITE PO SCH (10:26)
[2018-08-13] MEDS: PEPCID PO SCH (10:26)
[2018-08-13] MEDS: ZYLOPRIM PO SCH (10:30)
--- NOTE | 2018-08-13 10:31 | XRay Report ---
ROUTINE CHEST, TWO VIEWS: HISTORY: Pleural effusion. Heart size and pulmonary vascularity are within normal limits. Small bilateral pleural effusions are identified on the lateral image. The lungs are clear otherwise. Hazy opacity in the lingula has resolved since 07/21/18. The right dual-lumen venous catheter remains in good position. IMPRESSION: Small bilateral layering pleural effusions as described.
--- NOTE | 2018-08-13 13:14 | Progress Note ---
Assessment and Plan 67 YO Male with ESRD on HD(T,R,Sa), HTN, PVD, HCV, HIV, DVT S/P IVC Filter Placement, ESLD with Cirrhosis S/P serial Paracentesis, Prescription Drug Abuse, presents to ED for evaluation. Pt states that he has experienced abdominal pain and distention over the past 1 week. Pt states that he now has difficulty breathing, difficulty with ambulation, and scrotal swelling with worsening symptoms over the past 1 week. Pt seen and evaluated in ED and was found to have ESRD, Cirrhosis complicated by Ascites. Patient alert, awake and resting on room air. O2 saturation 100%. Patient denies cough, chest pain or shortness of breath. Patient has slight history of smoking. Stopped smoking 40 Years ago. H?O of alcohol and drug abuse. Stopped 5 years ago. Patient worked in [employer] before retired. and has five children. No known drug allergies. 08/13/18 Patient alert, awake but weak. Resting on room air. O2 saturation 100%. No acute respiratory distress. - Patient Problems (1) Acute respiratory failure with hypoxia Current Visit: No Status: Acute Plan to address problem: Improved. Patients O2 saturation 100% on room air. (2) Anemia in end-stage renal disease Current Visit: Yes Status: Acute Plan to address problem: Management as per nephrology. (3) Ascites Current Visit: Yes Status: Acute Qualifiers: Ascites type: other type Qualified Code(s): R18.8 - Other ascites Plan to address problem: Patient undergone paracentesis. Fluid results pending. (4) End stage liver disease Current Visit: Yes Status: Acute Plan to address problem: Recommend to consult gastroenterology. (5) AIDS Current Visit: No Status: Acute Plan to address problem: Management as per infectious diseases. (6) Acute metabolic encephalopathy Current Visit: No Status: Acute Plan to address problem: Patient alert, awake. Oriented now. Management as per primary care. Subjective Date of service: 08/13/18 Principal diagnosis: ESRD, ESLD Interval history: Patient alert, awake but weak. Resting on room air. O2 saturation 100%. No acute respiratory distress. Objective Vital Signs - 12hr 08/13/18 08/13/18 08/13/18 01:20 01:30 01:40 Temperature Pulse Rate 65 63 64 Pulse Rate [ From Monitor] Respiratory 14 13 13 Rate Blood Pressure 94/57 94/57 94/57 O2 Sat by Pulse 100 100 99 Oximetry 08/13/18 08/13/18 08/13/18 01:50 02:00 02:10 Temperature Pulse Rate 63 63 63 Pulse Rate [ From Monitor] Respiratory 12 12 12 Rate Blood Pressure 94/57 94/57 94/57 O2 Sat by Pulse 100 100 99 Oximetry 08/13/18 08/13/18 08/13/18 02:20 02:30 02:40 Temperature Pulse Rate 64 64 63 Pulse Rate [ From Monitor] Respiratory 12 13 12 Rate Blood Pressure 94/57 94/57 O2 Sat by Pulse 99 99 98 Oximetry 08/13/18 08/13/18 08/13/18 02:50 03:00 03:10 Temperature Pulse Rate 63 63 64 Pulse Rate [ From Monitor] Respiratory 13 13 12 Rate Blood Pressure 94/57 94/57 94/57 O2 Sat by Pulse 98 97 97 Oximetry 08/13/18 08/13/18 08/13/18 03:20 03:30 03:40 Temperature Pulse Rate 67 67 62 Pulse Rate [ From Monitor] Respiratory 14 12 10 L Rate Blood Pressure 94/57 94/57 94/57 O2 Sat by Pulse 95 100 100 Oximetry 08/13/18 08/13/18 08/13/18 03:50 04:00 04:10 Temperature 98.1 F Pulse Rate 64 62 63 Pulse Rate [ 63 From Monitor] Respiratory 12 12 12 Rate Blood Pressure 94/57 93/50 93/50 O2 Sat by Pulse 97 99 100 Oximetry 08/13/18 08/13/18 08/13/18 04:20 04:30 04:40 Temperature Pulse Rate 65 62 63 Pulse Rate [ From Monitor] Respiratory 10 L 13 12 Rate Blood Pressure 93/50 93/50 93/50 O2 Sat by Pulse 92 98 98 Oximetry 08/13/18 08/13/18 08/13/18 04:50 05:00 05:10 Temperature Pulse Rate 63 63 63 Pulse Rate [ From Monitor] Respiratory 11 L 13 12 Rate Blood Pressure 93/50 93/51 93/51 O2 Sat by Pulse 98 98 98 Oximetry 08/13/18 08/13/18 08/13/18 05:20 05:30 05:40 Temperature Pulse Rate 63 64 61 Pulse Rate [ From Monitor] Respiratory 12 17 15 Rate Blood Pressure 93/51 93/51 93/51 O2 Sat by Pulse 97 98 96 Oximetry 08/13/18 08/13/18 08/13/18 05:50 06:00 06:10 Temperature Pulse Rate 62 62 62 Pulse Rate [ From Monitor] Respiratory 11 L 13 12 Rate Blood Pressure 93/51 91/47 91/47 O2 Sat by Pulse 99 98 98 Oximetry 08/13/18 08/13/18 08/13/18 06:20 06:30 06:40 Temperature Pulse Rate 61 67 62 Pulse Rate [ From Monitor] Respiratory 11 L 11 L 12 Rate Blood Pressure 91/47 91/47 91/47 O2 Sat by Pulse 98 97 98 Oximetry 08/13/18 08/13/18 08/13/18 06:50 07:00 07:10 Temperature Pulse Rate 62 62 64 Pulse Rate [ From Monitor] Respiratory 13 12 11 L Rate Blood Pressure 91/47 94/49 94/49 O2 Sat by Pulse 97 98 99 Oximetry 08/13/18 08/13/18 08/13/18 07:20 07:30 07:40 Temperature Pulse Rate 62 63 61 Pulse Rate [ From Monitor] Respiratory 13 14 11 L Rate Blood Pressure 95/53 95/53 95/53 O2 Sat by Pulse 99 100 99 Oximetry 08/13/18 08/13/18 08/13/18 07:50 08:00 08:10 Temperature 98.9 F Pulse Rate 62 64 63 Pulse Rate [ 64 From Monitor] Respiratory 12 13 12 Rate Blood Pressure 95/53 93/52 95/53 O2 Sat by Pulse 100 100 100 Oximetry 08/13/18 08/13/18 08/13/18 08:20 08:30 08:40 Temperature Pulse Rate 63 63 65 Pulse Rate [ From Monitor] Respiratory 15 13 11 L Rate Blood Pressure 95/53 95/53 95/53 O2 Sat by Pulse 100 99 88 Oximetry 08/13/18 08/13/18 08/13/18 08:50 09:00 09:10 Temperature Pulse Rate 65 65 65 Pulse Rate [ From Monitor] Respiratory 13 15 13 Rate Blood Pressure 95/53 96/59 96/59 O2 Sat by Pulse 100 100 100 Oximetry 08/13/18 08/13/18 08/13/18 09:20 09:30 10:00 Temperature Pulse Rate 62 63 64 Pulse Rate [ From Monitor] Respiratory 14 15 13 Rate Blood Pressure 96/59 96/59 96/59 O2 Sat by Pulse 100 100 100 Oximetry 08/13/18 08/13/18 08/13/18 10:10 10:20 10:30 Temperature Pulse Rate 63 64 63 Pulse Rate [ From Monitor] Respiratory 14 15 16 Rate Blood Pressure 95/52 95/52 95/52 O2 Sat by Pulse 94 95 100 Oximetry 08/13/18 08/13/18 08/13/18 10:40 10:50 11:00 Temperature Pulse Rate 62 63 63 Pulse Rate [ From Monitor] Respiratory 14 13 13 Rate Blood Pressure 95/52 96/59 95/53 O2 Sat by Pulse 100 100 99 Oximetry 08/13/18 08/13/18 08/13/18 11:10 11:20 11:30 Temperature Pulse Rate 63 62 63 Pulse Rate [ From Monitor] Respiratory 14 14 14 Rate Blood Pressure 95/53 95/53 95/53 O2 Sat by Pulse 100 100 98 Oximetry 08/13/18 08/13/18 08/13/18 11:40 11:50 12:00 Temperature 98.4 F Pulse Rate 64 63 63 Pulse Rate [ 63 From Monitor] Respiratory 12 14 11 L Rate Blood Pressure 95/53 95/53 95/53 O2 Sat by Pulse 99 99 100 Oximetry 08/13/18 12:10 Temperature Pulse Rate 62 Pulse Rate [ From Monitor] Respiratory 13 Rate Blood Pressure 90/52 O2 Sat by Pulse 99 Oximetry Constitutional: no acute distress, alert, other (Weak.) Eyes: icteric ENT: oropharynx moist Neck: supple, no JVD Ascultation: Bilateral: diminished breath sounds Cardiovascular: regular rate and rhythm Gastrointestinal: normoactive bowel sounds, other (DIstended.) Integumentary: normal Extremities: no cyanosis, no edema Neurologic: normal mental status, non-focal exam, pupils equal and round, CN II- XII normal Psychiatric: mood appropriate CBC and BMP: 08/09/18 11:37 08/12/18 02:10 ABG, PT/INR, D-dimer: PT/INR, D-dimer PT 21.0 Sec. (12.2-14.9) H 08/09/18 11:44 INR 1.77 (0.87-1.13) H 08/09/18 11:44 Abnormal lab findings: Abnormal Labs 08/09/18 08/09/18 08/09/18 11:37 11:44 11:44 RBC 3.50 L Hgb 9.8 L Hct 30.0 L RDW 18.3 H Plt Count 76 L Davidson % (Auto) 10.1 H PT 21.0 H INR 1.77 H Sodium 133 L Potassium 5.1 H Chloride 95.0 L BUN 23 H Creatinine 4.6 H Glucose Calcium 7.2 L Total Bilirubin 1.70 H AST 48 H ALT Total Protein Albumin 1.5 L 08/11/18 08/12/18 10:50 02:10 RBC Hgb Hct RDW Plt Count Davidson % (Auto) PT INR Sodium 135 L 134 L Potassium Chloride BUN Creatinine 3.6 H 3.2 H Glucose 135 H Calcium 6.7 L 6.6 L Total Bilirubin AST ALT 6 L Total Protein 5.8 L D Albumin 1.4 L Chest x-ray: report reviewed (Small bilateral pleural effusions.), image reviewed Allied health notes reviewed: nursing
--- NOTE | 2018-08-13 16:39 | Progress Note ---
Assessment and Plan Assessment and plan: 67 YO Male with ESRD on HD(T,R,Sa), HTN, PVD, HCV, HIV, DVT S/P IVC Filter Placement, ESLD with Cirrhosis S/P serial Paracentesis, Prescription Drug Abuse, presents to ED for evaluation. Pt states that he has experienced abdominal pain and distention over the past 1 week. Pt states that he now has difficulty breathing, difficulty with ambulation, and scrotal swelling with worsening symptoms over the past 1 week. Pt seen and evaluated in ED and was found to have ESRD, Cirrhosis complicated by Ascites. Pt admitted to medical floor. Nephrology consulted in ED. IR consulted in ED for therapeutic paracentesis. (1) Ascites Current Visit: Yes Status: Acute Qualifiers: Ascites type: other type Qualified Code(s): R18.8 - Other ascites Plan to address problem: Status post 10.7 L of fluid removed Secondary to decompensated liver disease will obtain paracentesis which was done with 10.7 L removed. Still feels bloated, Awaiting repeat paracentsis today or tomorrow then can be discharge (2) Vasogenic Shock state. Likely secondary to large volume paracentesis Stable at this time a baseline. Recommend Albumin with dialysis post the repeat paraceentesis (3) HIV (human immunodeficiency virus infection) Current Visit: No Status: Chronic Plan to address problem: continue current therapy, outpatient ID F/u care. (4) End stage renal disease on dialysis Current Visit: No Status: Chronic Plan to address problem: Nephrology consulted in ED, avoid nephrotoxic agents, dialysis as per renal team. Started back on dialysis per nephrology. We'll try to get back on Monday schedule. (5) End stage liver disease Current Visit: Yes Status: Acute Plan to address problem: supportive care, avoid hepatotoxic agents. (6) PVD (peripheral vascular disease) Current Visit: Yes Status: Acute Plan to address problem: wound care for lymphedema, supportive care. (7) Thrombocytopenia likely secondary to LIVER FAILURE (8) Severe Protein Calorie Malnutrition music minister consult (9)DVT prophylaxis Current Visit: No Status: Acute Plan to address problem: SCD to ble while in bed. Plan of care discussed with the patient and also with the daughter. History Interval history: Patient is seen today for: Abdominal pain and bloating Seen and examined at bedside; 24hour events reviewed; nursing staff ; no adverse overnight events reported to me; Denies any chest pain, nausea, vomiting, diarrhea Patient reports improvement in chest pain still feels bloated and tired. He is status post 10.7 L of fluid removed during paracentesis No fever noted Hospitalist Physical - Physical exam Narrative exam: VITAL SIGNS: Reviewed. GENERAL: The patient appeared well nourished and normally developed. Vital signs as documented. HEAD: No signs of head trauma. EYES: Pupils are equal. Extraocular motions intact. EARS: Hearing grossly intact. MOUTH: Oropharynx is normal. NECK: No adenopathy, no JVD. CHEST: Chest with clear breath sounds bilaterally. No wheezes, rales, or rhonchi. CARDIAC: Regular rate and rhythm. S1 and S2, without murmurs, gallops, or rubs. VASCULAR: +1 pitting Edema. Peripheral pulses normal and equal in all ex tremities. ABDOMEN: Soft, without detectable tenderness. Distended with positive fluid shift No rebound or guarding, and no masses palpated. Bowel Sounds normal. MUSCULOSKELETAL: Good range of motion of all major joints. Extremities without clubbing, cyanosis. plus 1 pitting edema with generalized lower ext edema. no clear open wound. NEUROLOGIC EXAM: Alert and oriented x 3. No focal sensory or strength deficits. Speech normal. Follows commands. PSYCHIATRIC: Mood normal. SKIN: Generalized punctuated rash - Constitutional Vitals: Temp Pulse Resp BP Pulse Ox 98.4 F 64 16 95/45 96 08/13/18 16:00 08/13/18 16:00 08/13/18 16:00 08/13/18 14:40 08/13/18 16:00 General appearance: Present: mild distress, obese Results - Labs CBC & Chem 7: 08/09/18 11:37 08/12/18 02:10 Labs: Laboratory Last Values WBC 4.8 K/mm3 (4.5-11.0) 08/09/18 11:37 RBC 3.50 M/mm3 (3.65-5.03) L 08/09/18 11:37 Hgb 9.8 gm/dl (11.8-15.2) L 08/09/18 11:37 Hct 30.0 % (35.5-45.6) L 08/09/18 11:37 MCV 86 fl (84-94) 08/09/18 11:37 MCH 28 pg (28-32) 08/09/18 11:37 MCHC 33 % (32-34) 08/09/18 11:37 RDW 18.3 % (13.2-15.2) H 08/09/18 11:37 Plt Count 76 K/mm3 (140-440) L 08/09/18 11:37 Lymph % (Auto) 27.0 % (13.4-35.0) 08/09/18 11:37 Norton % (Auto) 10.1 % (0.0-7.3) H 08/09/18 11:37 Eos % (Auto) 1.1 % (0.0-4.3) 08/09/18 11:37 Baso % (Auto) 1.0 % (0.0-1.8) 08/09/18 11:37 Lymph # 1.3 K/mm3 (1.2-5.4) 08/09/18 11:37 Norton # 0.5 K/mm3 (0.0-0.8) 08/09/18 11:37 Eos # 0.1 K/mm3 (0.0-0.4) 08/09/18 11:37 Baso # 0.1 K/mm3 (0.0-0.1) 08/09/18 11:37 Seg Neutrophils % 60.8 % (40.0-70.0) 08/09/18 11:37 Seg Neutrophils # 2.9 K/mm3 (1.8-7.7) 08/09/18 11:37 PT 21.0 Sec. (12.2-14.9) H 08/09/18 11:44 INR 1.77 (0.87-1.13) H 08/09/18 11:44 APTT 34.8 Sec. (24.2-36.6) 08/09/18 11:44 Sodium 134 mmol/L (137-145) L 08/12/18 02:10 Potassium 3.9 mmol/L (3.6-5.0) 08/12/18 02:10 Chloride 98.8 mmol/L (98-107) 08/12/18 02:10 Carbon Dioxide 27 mmol/L (22-30) 08/12/18 02:10 Anion Gap 12 mmol/L 08/12/18 02:10 BUN 12 mg/dL (9-20) 08/12/18 02:10 Creatinine 3.2 mg/dL (0.8-1.5) H 08/12/18 02:10 Estimated GFR 24 ml/min 08/12/18 02:10 BUN/Creatinine Ratio 4 % 08/12/18 02:10 Glucose 94 mg/dL (75-100) 08/12/18 02:10 Calcium 6.6 mg/dL (8.4-10.2) L 08/12/18 02:10 Total Bilirubin 1.00 mg/dL (0.1-1.2) 08/12/18 02:10 AST 23 units/L (5-40) 08/12/18 02:10 ALT 6 units/L (7-56) L 08/12/18 02:10 Alkaline Phosphatase 56 units/L (35-129) 08/12/18 02:10 Total Protein 5.8 g/dL (6.3-8.2) L D 08/12/18 02:10 Albumin 1.4 g/dL (3.9-5) L 08/12/18 02:10 Albumin/Globulin Ratio 0.3 % 08/12/18 02:10
[2018-08-13] MEDS: PERCOCET 5/325 PO PRN (22:44)
[2018-08-14] MEDS: ROXICODONE PO PRN ×2 (06:05→15:43)
[2018-08-14] MEDS ORDERED: ALBURX 25% (ALBUMIN) IV ONE (06:54)
--- NOTE | 2018-08-14 07:25 | Progress Note ---
Assessment and Plan - Patient Problems (1) End stage renal disease on dialysis Current Visit: No Status: Chronic Plan to address problem: Continue on inpatient HD, on TTS schedule. (2) Hyperkalemia Current Visit: Yes Status: Acute Plan to address problem: Resolved with HD. (3) Anemia in end-stage renal disease Current Visit: Yes Status: Acute Plan to address problem: Epo with HD (4) Ascites Current Visit: Yes Status: Acute Qualifiers: Ascites type: other type Qualified Code(s): R18.8 - Other ascites Plan to address problem: s/p therapeutic paracentesis with removal of 10.7L Plan for repeat paracentesis today. Discussed with RN that would prefer that he goes to HD session first, (5) End stage liver disease Current Visit: Yes Status: Acute Plan to address problem: Management per GI team. Subjective Date of service: 08/14/18 Principal diagnosis: ESRD, ESLD Interval history: No acute issues overnight. Plan for paracentesis today. Plan for HD today. Objective - Vital Signs Vital signs: Vital Signs - 12hr 08/13/18 08/14/18 19:48 02:40 Temperature 98.8 F 97.9 F Pulse Rate 63 64 Respiratory 18 18 Rate Blood Pressure 88/49 Blood Pressure 88/50 [Left] O2 Sat by Pulse 97 100 Oximetry - General Appearance General appearance: appears stated age EENT: ATNC, PERRL Neck: no JVD, no thyromegaly Respiratory: Present: Clear to Ascultation Cardiology: regular, S1S2 Gastrointestinal: distended Integumentary: no rash, chronic venous stasis Neurologic: no focal deficit, no asterixis Musculoskeletal: other (+edema ) Psychiatric: mood/affect appropriate, cooperative - Lab 08/09/18 11:37 08/12/18 02:10 Most recent lab results Calcium 6.6 mg/dL (8.4-10.2) L 08/12/18 02:10 - Imaging Chest x-ray: report reviewed, image reviewed - Allied health notes Allied health notes reviewed: nursing Medications & Allergies - Medications Allergies/Adverse Reactions: Allergies No Known Allergies Allergy (Verified 05/07/15 04:31) Home Medications: Home Medications Medication Instructions Recorded Confirmed Last Taken Type Cholecalciferol (Vitamin D3) 1,000 unit PO QDAY 06/19/18 08/09/18 Unknown History [Vitamin D3] Ferrous Sulfate [Feosol 325 MG tab] 325 mg PO QDAY 06/19/18 08/09/18 Unknown History amLODIPine [Norvasc] 10 mg PO DAILY 06/19/18 08/09/18 Unknown History Nadolol [Corgard] 20 mg PO QDAY #30 tablet 07/13/18 08/09/18 Unknown Rx Allopurinol [Zyloprim] 100 mg PO QDAY 08/09/18 08/09/18 Unknown History Folic Acid [Folvite] 1 mg PO QDAY 08/09/18 08/09/18 Unknown History Oxycodone HCl/Acetaminophen 1 each PO TID PRN 08/09/18 08/09/18 Unknown History [Percocet 10/325 mg] Active Medications: Generic Name Dose Route Start Last Admin Trade Name Freq PRN Reason Stop Dose Admin Acetaminophen 650 mg 08/09/18 14:27 Tylenol PO Q4H PRN Pain MILD(1-3)/Fever >100.5/RUIZ Albuterol 2.5 mg 08/09/18 14:27 Proventil IH Q4HRT PRN Shortness Of Breath Allopurinol 100 mg 08/10/18 10:00 08/13/18 10:30 Zyloprim PO 100 mg QDAY OSCAR Administration Cholecalciferol 1,000 unit 08/10/18 10:00 08/13/18 10:25 Vitamin D3 PO 1,000 unit QDAY OSCAR Administration Diphenhydramine HCl 25 mg 08/11/18 02:09 08/13/18 23:05 Benadryl PO 25 mg Q8H PRN Administration Itching Epoetin Jose 10,000 unit 08/11/18 09:00 08/11/18 14:00 Procrit SUB-Q 08/18/18 08:59 10,000 unit NANCY OSCAR Administration Famotidine 20 mg 08/11/18 10:00 08/13/18 10:26 Pepcid PO 20 mg DAILY OSCAR Administration Ferrous Sulfate 325 mg 08/10/18 10:00 08/13/18 10:26 Feosol PO 325 mg QDAY OSCAR Administration Folic Acid 1 mg 08/10/18 10:00 08/13/18 10:26 Folvite PO 1 mg QDAY OSCAR Administration Sodium Chloride 100 mls @ 999 mls/hr 08/10/18 12:05 Nacl 0.9% IV NANCY PRN Hypotension Sodium Chloride 100 mls @ 999 mls/hr 08/11/18 09:54 Nacl 0.9% IV NANCY PRN Hypotension Ondansetron HCl 4 mg 08/09/18 14:27 Zofran IV Q8H PRN Nausea And Vomiting Oxycodone HCl 5 mg 08/09/18 15:20 08/14/18 06:05 Roxicodone PO 5 mg Q6H PRN Administration Pain, Moderate (4-6) Oxycodone/Acetaminophen 1 tab 08/09/18 15:19 08/13/18 22:44 Percocet 5/325 PO 1 tab TID PRN Administration Pain, Moderate (4-6) Sodium Chloride 10 ml 08/09/18 22:00 08/13/18 15:22 Sodium Chloride Flush Syringe 10 Ml IV Not Given BID OSCAR Sodium Chloride 10 ml 08/09/18 14:27 Sodium Chloride Flush Syringe 10 Ml IV PRN PRN LINE FLUSH
[2018-08-14] MEDS ORDERED: XYLOCAINE 1% 20 mL ONE (09:07)
--- NOTE | 2018-08-14 09:24 | Procedure Note ---
Date of procedure: 08/14/18 Pre-op diagnosis: ascites Post-op diagnosis: same Procedure: us paracentesis Findings: moderate to large ascites Anesthesia: local Litigation Associate: NICOLE ANDREWS Estimated blood loss: none Pathology: none Specimen disposition: discarded Condition: stable Disposition: floor
--- NOTE | 2018-08-14 10:22 | Ultrasound Report ---
ULTRASOUND PARACENTESIS HISTORY: Ascites. DESCRIPTION OF PROCEDURE: A time out was performed. Informed consent was obtained. Sterile technique was utilized. Using ultrasound guidance, a 5 Vietnamese centesis needle was advanced into the peritoneal space. There was spontaneous return of clear yellow fluid. 7.5 L of fluid was drained. No complications. IMPRESSION: Successful ultrasound-guided paracentesis.
[2018-08-14] MEDS ORDERED: NACL 0.9 (PRIMING MACHINE ONLY DIALYSIS) MC ONE (10:55)
[2018-08-14] MEDS: PROCRIT SUB-Q SCH (12:06)
--- NOTE | 2018-08-14 13:47 | Progress Note ---
Assessment and Plan Patient alert, awake but weak. Resting on room air. O2 saturation 100%. No acute respiratory distress.Patient undergoing hemodialysis.Patient undergone repeat paracentesis under ultrasound. - Patient Problems (1) Acute respiratory failure with hypoxia Current Visit: No Status: Acute Plan to address problem: Improved. Patients O2 saturation 100% on room air. (2) Anemia in end-stage renal disease Current Visit: Yes Status: Acute Plan to address problem: Management as per nephrology. (3) Ascites Current Visit: Yes Status: Acute Qualifiers: Ascites type: other type Qualified Code(s): R18.8 - Other ascites Plan to address problem: Patient undergone repeat paracentesis. (4) End stage liver disease Current Visit: Yes Status: Acute Plan to address problem: Recommend to consult gastroenterology. (5) AIDS Current Visit: No Status: Acute Plan to address problem: Management as per infectious diseases. (6) Acute metabolic encephalopathy Current Visit: No Status: Acute Plan to address problem: Patient alert, awake. Oriented now. Management as per primary care. Subjective Date of service: 08/14/18 Principal diagnosis: ESRD, ESLD Interval history: Patient alert, awake but weak. Resting on room air. O2 saturation 100%. No acute respiratory distress.Patient undergoing hemodialysis.Patient undergone repeat paracentesis under ultrasound. Objective Vital Signs - 12hr 08/14/18 08/14/18 08/14/18 02:39 02:40 02:41 Temperature 97.9 F Pulse Rate 63 63 64 Respiratory 18 Rate Blood Pressure 88/50 Blood Pressure 88/50 [Left] O2 Sat by Pulse 99 99 100 Oximetry 08/14/18 08/14/18 08/14/18 07:43 08:00 10:40 Temperature 97.2 F L Pulse Rate 74 66 Respiratory 18 18 Rate Blood Pressure 88/55 84/42 Blood Pressure [Left] O2 Sat by Pulse 72 L Oximetry 08/14/18 08/14/18 08/14/18 10:45 11:00 11:15 Temperature Pulse Rate 63 63 63 Respiratory Rate Blood Pressure 83/45 88/43 88/47 Blood Pressure [Left] O2 Sat by Pulse Oximetry 08/14/18 08/14/18 08/14/18 11:30 11:45 12:00 Temperature Pulse Rate 62 64 63 Respiratory Rate Blood Pressure 91/44 91/48 90/44 Blood Pressure [Left] O2 Sat by Pulse Oximetry 08/14/18 08/14/18 08/14/18 12:15 12:30 12:45 Temperature Pulse Rate 62 63 6 L Respiratory Rate Blood Pressure 84/40 87/43 99/48 Blood Pressure [Left] O2 Sat by Pulse Oximetry Constitutional: no acute distress, alert, other (Weak.) Eyes: icteric ENT: oropharynx moist Neck: supple, no JVD Ascultation: Bilateral: diminished breath sounds Cardiovascular: regular rate and rhythm Gastrointestinal: normoactive bowel sounds, other (DIstended.) Integumentary: normal Extremities: no cyanosis, no edema Neurologic: normal mental status, non-focal exam, pupils equal and round, CN II- XII normal Psychiatric: mood appropriate CBC and BMP: 08/09/18 11:37 08/12/18 02:10 ABG, PT/INR, D-dimer: PT/INR, D-dimer PT 21.0 Sec. (12.2-14.9) H 08/09/18 11:44 INR 1.77 (0.87-1.13) H 08/09/18 11:44 Abnormal lab findings: Abnormal Labs 08/09/18 08/09/18 08/09/18 11:37 11:44 11:44 RBC 3.50 L Hgb 9.8 L Hct 30.0 L RDW 18.3 H Plt Count 76 L Hendricks % (Auto) 10.1 H PT 21.0 H INR 1.77 H Sodium 133 L Potassium 5.1 H Chloride 95.0 L BUN 23 H Creatinine 4.6 H Glucose Calcium 7.2 L Total Bilirubin 1.70 H AST 48 H ALT Total Protein Albumin 1.5 L 08/11/18 08/12/18 10:50 02:10 RBC Hgb Hct RDW Plt Count Hendricks % (Auto) PT INR Sodium 135 L 134 L Potassium Chloride BUN Creatinine 3.6 H 3.2 H Glucose 135 H Calcium 6.7 L 6.6 L Total Bilirubin AST ALT 6 L Total Protein 5.8 L D Albumin 1.4 L Allied health notes reviewed: nursing
[2018-08-14] MEDS: FOLVITE PO SCH (15:43)
[2018-08-14] MEDS: FEOSOL PO SCH (15:44)
[2018-08-14] MEDS: ZYLOPRIM PO SCH (15:44)
[2018-08-14] MEDS: VITAMIN D3 PO SCH (15:44)
[2018-08-14] MEDS: PEPCID PO SCH (15:44)
--- NOTE | 2018-08-14 15:45 | Discharge Summary ---
Providers - Providers Date of Admission: 08/09/18 14:27 Attending physician: DENISE GARCIA MD 08/09/18 14:30 Consult to Interventional Radiology [CONS] Routine Consulting Provider: DRAKE HODGE Reason For Exam: therapeutic paracentesis Place consult to:: angie haider Notified:: yes Was contact made?: Yes If yes, spoke with:: angie Time called:: 16:10 Comment:: nallely Consult to Physician [CONS] Routine Comment: called ans. serv/ nallely Consulting Provider: ARACELI WARD Physician Instructions: Reason For Exam: ESRD 08/12/18 10:39 Consult to Physician [CONS] Routine Comment: Consulting Provider: JUDY STINSON Physician Instructions: Reason For Exam: shock syndrome Primary care physician: PEDIATRIC NURSE Hospitalization Reason for admission: ESRD onHD, massive ascites Condition: Stable Procedures: Paracentesis Hospital course: 67 YO Male with ESRD on HD(T,R,Sa), HTN, PVD, HCV, HIV, DVT S/P IVC Filter Placement, ESLD with Cirrhosis S/P serial Paracentesis, Prescription Drug Abuse, presents to ED for evaluation. Pt states that he has experienced abdominal pain and distention over the past 1 week. Pt states that he now has difficulty breathing, difficulty with ambulation, and scrotal swelling with worsening symptoms over the past 1 week. Pt seen and evaluated in ED and was found to have ESRD, Cirrhosis complicated by Ascites. Pt admitted to medical floor. Nephrology consulted in ED. IR consulted in ED for therapeutic paracentesis. Ascites; Status post 10.7 L of fluid removed on the first time and 7.5 on the second times. Albumin was given. patient has an appointment with information technology advisor for possible liver transplant. Secondary to decompensated liver disease. Vasogenic Shock state. Likely secondary to large volume paracentesis and improved after albumin HIV (human immunodeficiency virus infection); continue current therapy, outpatient ID F/u care. End stage renal disease on dialysis; nephrology consulted, continue HD as needed. PVD (peripheral vascular disease); wound care for lymphedema, supportive care. Thrombocytopenia; likely secondary to LIVER FAILURE Severe Protein Calorie Malnutrition; taxi truck driver input appreciated. Plan of care discussed with the patient and also with the daughter. Patient was hemodynamically stable and discharged home. Disposition: [id number]/TX-06 HOME UNDER HOME HLTH - Discharge Diagnoses (1) ESRD (end stage renal disease) on dialysis Status: Acute (2) Anemia in end-stage renal disease Status: Acute (3) Ascites Status: Acute Qualifiers: Ascites type: other type Qualified Code(s): R18.8 - Other ascites (4) End stage liver disease Status: Acute Core Measure Documentation - Palliative Care Palliative Care/ Comfort Measures: Not Applicable - Core Measures Any of the following diagnoses?: none Exam - Physical Exam Narrative exam: Not in cardiopulmonary distress. The patient is obese. Vital signs as documented. Head exam is unremarkable. No scleral icterus . Neck is without jugular venous distension, thyromegaly, or carotid bruits. Lungs are clear to auscultation. Cardiac exam reveals regular rate and Rhythm. First and second heart sounds normal. No murmurs, rubs or gallops. Abdominal exam reveals ascites. Extremities mild edema. BRICK WASHER: Alert and oriented 3. No focal weakness. - Constitutional Vitals: Temp Pulse Resp BP Pulse Ox 97.2 F L 6 L 18 99/48 72 L 08/14/18 10:40 08/14/18 12:45 08/14/18 10:40 08/14/18 12:45 08/14/18 07:43 Plan Activity: no restrictions Weight Bearing Status: Full Weight Bearing Diet: low salt Additional Instructions: Keep the appointments with information technology advisor, [facility]. F/U at [facility] in 1-2 weeks if no established PCP. Follow up with: PRIMARY CAREMD [Primary Care Provider] - 3-5 Days Prescriptions: Allopurinol [Zyloprim] 100 mg PO QDAY #30 tablet Cholecalciferol (Vitamin D3) [Vitamin D3] 1,000 unit PO QDAY #30 capsule Ferrous Sulfate [Feosol 325 MG tab] 325 mg PO QDAY #30 tablet Folic Acid [Folvite] 1 mg PO QDAY #30 tablet Furosemide [Lasix TAB] 40 mg PO QDAY #30 tablet Nadolol [Corgard] 20 mg PO QDAY #30 tablet oxyCODONE [Roxicodone TAB] 5 mg PO Q6H PRN #12 tablet PRN Reason: Pain, Moderate (4-6) Spironolactone 25 mg PO DAILY #30 tablet
[2018-08-14 16:07] VITALS: BP 99/47
== END 2018-08-14 19:20 | disposition home health service (06) | DRG 441 ==
LOC: ED 10:19 → 2B-ACE 14:27 → IMCU 08-12 12:59 → 2B-ACE 08-13 15:06
PROVIDERS: ADMIT Internal Medicine; ATTEND Internal Medicine
PROC: 0W9G3ZZ Drainage of Peritoneal Cavity, Percutaneous Approach (ICD-10-PCS; principal; 2018-08-10)
PROC: 5A1D70Z Performance of Urinary Filtration, Intermittent, Less than 6 Hours Per Day (ICD-10-PCS; 2018-08-10)
PROC: 5A1D70Z Performance of Urinary Filtration, Intermittent, Less than 6 Hours Per Day (ICD-10-PCS; 2018-08-11)
PROC: 5A1D70Z Performance of Urinary Filtration, Intermittent, Less than 6 Hours Per Day (ICD-10-PCS; 2018-08-14)
PROC: 0W9G3ZZ Drainage of Peritoneal Cavity, Percutaneous Approach (ICD-10-PCS; 2018-08-14)
DX: K72.90 Hepatic failure, unspecified without coma (principal); G93.41 Metabolic encephalopathy; N18.6 End stage renal disease; J96.01 Acute respiratory failure with hypoxia; E43 Unspecified severe protein-calorie malnutrition; R57.8 Other shock; B20 Human immunodeficiency virus [HIV] disease; R18.8 Other ascites; N17.9 Acute kidney failure, unspecified; I12.0 Hypertensive chronic kidney disease with stage 5 chronic kidney disease or end stage renal disease; K74.60 Unspecified cirrhosis of liver; E87.5 Hyperkalemia; B19.20 Unspecified viral hepatitis C without hepatic coma; E11.22 Type 2 diabetes mellitus with diabetic chronic kidney disease; E11.51 Type 2 diabetes mellitus with diabetic peripheral angiopathy without gangrene; G89.29 Other chronic pain; N50.89 Other specified disorders of the male genital organs; F19.10 Other psychoactive substance abuse, uncomplicated; D63.1 Anemia in chronic kidney disease; D69.6 Thrombocytopenia, unspecified; Z68.35 Body mass index [BMI] 35.0-35.9, adult; Z82.49 Family history of ischemic heart disease and other diseases of the circulatory system; Z99.2 Dependence on renal dialysis; Z79.899 Other long term (current) drug therapy; Z86.718 Personal history of other venous thrombosis and embolism
CPT/HCPCS: 36415; 49083; 71046; 80048; 80053; 82962; 85025; 85610; 85730; 94760; G0378; J0885; J1956; J3430; J7030; J7040; P9047

== ENCOUNTER 2018-10-02 18:48 | Inpatient (IN) | payer MEDICARE, MEDICAID ==
--- NOTE | 2018-10-02 19:41 | Emergency Department Report ---
HPI - General Time Seen by Provider: 10/02/18 19:02 - HPI HPI: 67-year-old -[place] male presents to the emergency department via EMS from home with altered mental status. The patient's daughters bedside and says that he has been having some decreased responsiveness and some delirium since this morning. The patient has a past medical history of hepatitis C, liver cirr hosis, end-stage renal disease on hemodialysis on Monday//Monday. The daughter says that he had dialysis today but allegedly was just moaning or making an Irritable sounds during it. They're concerned that the patient's ammonia level is elevated. He has had this happen in the past. They gave him a few tablespoons of lactulose without any change or response. Patient was here for most of July and some of August. He last had a paracentesis on 09/14 and had 10.3 L removed at that time. ED Past Medical Hx - Past Medical History Hx Hypertension: Yes Hx Diabetes: Yes Hx Deep Vein Thrombosis: No Hx Liver Disease: Yes Hx Renal Disease: Yes (Dialysis //S last dialysis 07/19) Hx HIV: Yes Additional medical history: Cervical osteomyelitis, C5,Hep C. peripheral vascular disease (b/l leg ulcers). leg edema. Chronic pain. Patient states "my neck is broken in 2 places". Apparently this is being treated nonoperatively at this point. - Surgical History Hx Pacemaker: No Hx Internal Defibrillator: No Additional Surgical History: [place] filter. Right chest perm cath - Social History Smoking Status: Never Smoker - Medications Home Medications: Home Medications Medication Instructions Recorded Confirmed Last Taken Type Allopurinol [Zyloprim] 100 mg PO QDAY #30 tablet 08/14/18 09/14/18 09/13/18 Rx 1 tab Cholecalciferol (Vitamin D3) 1,000 unit PO QDAY #30 capsule 08/14/18 09/14/18 09/13/18 Rx [Vitamin D3] 1 tab Ferrous Sulfate [Feosol 325 MG tab] 325 mg PO QDAY #30 tablet 08/14/18 09/14/18 09/13/18 Rx 1 tab Folic Acid [Folvite] 1 mg PO QDAY #30 tablet 08/14/18 09/14/18 09/13/18 Rx 1 tab Furosemide [Lasix TAB] 40 mg PO QDAY #30 tablet 08/14/18 09/14/18 09/13/18 Rx 1 tab Nadolol [Corgard] 20 mg PO QDAY #30 tablet 08/14/18 09/14/18 09/13/18 Rx 1 tab Spironolactone 25 mg PO DAILY #30 tablet 08/14/18 09/14/18 09/13/18 Rx 1 tab oxyCODONE [Roxicodone TAB] 5 mg PO Q6H PRN #12 tablet 08/14/18 09/14/18 09/13/18 Rx 1 tab ED Review of Systems ROS: Stated complaint: SHORTNESS OF BREATH Other details as noted in HPI Comment: Unobtainable due to pts medical conditions Physical Exam - Physical Exam Physical Exam: GENERAL: The patient is well-developed well-nourished. HEENT: Normocephalic. Atraumatic. Patient has moist mucous membranes. EYES: Extraocular motions are intact. Pupils are equal and reactive to light bilaterally. NECK: Supple. Trachea is midline. CHEST/LUNGS: Clear to auscultation. There is no respiratory distress noted. HEART/CARDIOVASCULAR: Regular. There is no tachycardia. There is no obvious murmur. ABDOMEN: Abdomen is soft, nontender. Patient has normal bowel sounds. There is mild to moderate abdominal distention with underlying ascites auscultated. SKIN: Skin is warm and dry. NEURO: Patient is awake but mostly nonverbal. He is not following many commands. Withdraws from painful stimuli. MUSCULOSKELETAL: There is no tenderness or deformity. There is no evidence of acute injury. - EJ/Peripheral Line Arm R Time Out Performed: Yes Indications: nurses unable to establis Skin Cleansed in Sterile Fashion: Yes Size: 22 Dressing Placed: Tegaderm Patient Tolerated Procedure: well ED Medical Decision Making - Lab Data Result diagrams: 10/02/18 20:05 10/02/18 20:05 - EKG Data -: EKG Interpreted by Me EKG shows normal: sinus rhythm, axis, intervals (prolonged QTC), QRS complexes (nonspecific intraventricular conduction delay), ST-T waves (nonspecific ST T waves) Rate: normal - EKG Data When compared to previous EKG there are: no significant change Interpretation: unchanged when compared t (07/06/18) - Radiology Data Radiology results: report reviewed PROCEDURE: CT head without contrast. TECHNIQUE: Computerized tomography of the head was performed without contrast material. CT DOSE LENGTH PRODUCT: 1049.18 mGycm HISTORY: Altered mental status. COMPARISONS: None. FINDINGS: The ventricles are normal in size. The samaniego matter and white matter appear nor mal. There is probably a dilated perivascular space of Virchow Andre in the right basal ganglia. There are no mass lesions. There is no intracranial hemorrhage. The calvarium appears intact. The mastoid air cells and paranasal sinuses are clear as far as visualized. IMPRESSION: No significant abnormality. This document is electronically signed by Medardo Nelson MD., October 02 2018 08:00:29 PM ET Transcribed By: MRM Dictated By: MEDARDO NELSON MD Electronically Authenticated By: MEDARDO NELSON MD Signed Date/Time: 10/02/182001 - Medical Decision Making This patient was brought in secondary to some altered mental status. Patient has history of hepatitis C and liver cirrhosis and hyperammonemia. CT scan of the head did not show any bleed, shift, mass, ischemia or any other acute process. Labs do show hypokalemia and hyponatremia. Potassium is 2.9 and the ammonia level is 158. He was started on potassium chloride supplementation and given lactulose. The patient has been altered since at least this morning. He will be a 7 on the NIH stroke scale but he will be outside the TPA window and His altered mental status is most likely secondary to the hyperammonemia. There are no obvious lateralizing deficits. Patient will be admitted to the hospital for further evaluation and treatment and was accepted for admission by the hosp italist, Dr. Cooney. - Differential Diagnosis hyperammonemia, CVA, Brain Bleed, Hypoglycemia, Dysrythmia Critical Care Time: No Critical care attestation.: If time is entered above; I have spent that time in minutes in the direct care of this critically ill patient, excluding procedure time. ED Disposition Clinical Impression: Hyperammonemia, Hypokalemia, Chronic liver disease Altered mental status Qualifiers: Altered mental status type: unspecified Qualified Code(s): R41.82 - Altered mental status, unspecified Ascites Qualifiers: Ascites type: other type Qualified Code(s): R18.8 - Other ascites Disposition: -09 OP ADMIT IP TO THIS HOSP Is pt being admited?: Yes Condition: Serious Referrals: DELBERT HAYWOODMANITO MD JULIANA [Primary Care Provider] - 3-5 Days Time of Disposition: 22:23 - Assessment Assessment Interval: Baseline - Level of Consciousness 1a. Level of Consciousness: alert/keenly responsive - LOC Questions 1b. LOC Questions: answers no questions correctly - LOC Command 1c. LOC Commands: performs no tasks correctly - Best Gaze 2. Best Gaze: normal - Visual 3. Visual: no visual loss - Facial Palsy 4. Facial Palsy: normal symmetrical movement - Motor Arm 5b. Motor Arm Right: no drift 5a. Motor Arm Left: no drift - Motor Leg 6b. Motor Leg Right: no drift 6a. Motor Leg Left: no drift - Limb Ataxia 7. Limb Ataxia: absent - Sensory 8. Sensory: normal - Best Language 9. Best Language: severe aphasia - Dysarthria 10. Dysarthria: mild/moderate dysarthria - Extinction and Inattention 11. Extinction/Inattention: no abnormality - Scoring Total Score: 7 Stroke Severity: Moderate Stroke
--- NOTE | 2018-10-02 20:02 | Cat Scan Report ---
PROCEDURE: CT head without contrast. TECHNIQUE: Computerized tomography of the head was performed without contrast material. CT DOSE LENGTH PRODUCT: 1049.18 mGycm HISTORY: Altered mental status. COMPARISONS: None. FINDINGS: The ventricles are normal in size. The samaniego matter and white matter appear normal. There is probably a dilated perivascular space of Virchow Andre in the right basal ganglia. There are no mass lesions. There is no intracranial hemorrhage. The calvarium appears intact. The mastoid air cells and paranasa l sinuses are clear as far as visualized. IMPRESSION: No significant abnormality. This document is electronically signed by Medardo Thapa MD., October 02 2018 08:00:29 PM ET
[2018-10-02 20:24] LABS: Basophils % (Auto) 0.5 % (0.0-1.8); Eosinophils % (Auto) 0.4 % (0.0-4.3); Hematocrit 31.1 % (35.5-45.6); Hemoglobin 10.6 gm/dl (11.8-15.2); Mean Corpuscular HGB Conc 34 % (32-34); Mean Corpuscular Volume 84 fl (84-94); Monocytes # (Auto) 0.4 K/mm3 (0.0-0.8); Red Blood Count 3.72 M/mm3 (3.65-5.03); Red Cell Distribution Width 19.6 % (13.2-15.2)
[2018-10-02 20:37] LABS: INR 1.66 (0.87-1.13)
[2018-10-02 20:38] LABS: Partial Thromboplastin Time 35.8 Sec. (24.2-36.6)
[2018-10-02 21:11] LABS: Albumin 1.9 g/dL (3.9-5)
[2018-10-02 21:36] LABS: Platelet Count 49 K/mm3 (140-440)
[2018-10-02] MEDS ORDERED: CEPHULAC PR SCH (22:00)
[2018-10-02] MEDS ORDERED: KCL 10MEQ/100ML 10 MEQ/100 ML BAG IV SCH (22:00)
[2018-10-02] MEDS ORDERED: ZOFRAN IV PRN (22:04)
[2018-10-02] MEDS ORDERED: D50W (25GM) Syringe IV PRN (22:06)
[2018-10-02] MEDS ORDERED: KCL 10MEQ/100ML 10 MEQ/100 ML BAG IV ONE (23:17)
[2018-10-02 23:21] LABS: Calcium 8.2 mg/dL (8.4-10.2)
[2018-10-02] MEDS: HumuLIN R SUB-Q SCH (23:24)
[2018-10-03] MEDS ORDERED: K-DUR PO ONE (01:57)
[2018-10-03] MEDS: HumuLIN R SUB-Q SCH ×3 (02:15→09:17)
--- NOTE | 2018-10-03 08:40 | History and Physical Report ---
CHIEF COMPLAINT: Altered mental status. HISTORY OF PRESENT ILLNESS: The patient is a 67-year-old male with past medical history of liver cirrhosis, end-stage renal disease, on dialysis, presenting with change in mental status. Also, the patient has history of abdominal distention and was brought to the Emergency Room where he was found to have elevated ammonia level, altered mental status and ascitis PAST MEDICAL HISTORY: Pertinent for hypertension, diabetes mellitus, liver cirrhosis, end-stage renal disease, on dialysis; HIV infection, hepatitis C virus infection, peripheral vascular disease, and leg edema. PAST SURGICAL HISTORY: Pertinent for green filter placement, right chest Permcath placement. FAMILY HISTORY: Noncontributory. SOCIAL HISTORY: The patient does not smoke, does not drink alcohol, and does not use illicit drugs. MEDICATIONS: The patient is on allopurinol 100 mg daily, vitamin D3 1000 mg by mouth daily, ferrous 325 mg by mouth daily, folic acid 1 mg by mouth daily, Lasix 40 mg by mouth daily, nadolol 20 mg by mouth daily, spironolactone 25 mg by mouth daily, Roxicodone 5 mg by mouth every 6 hours. ALLERGIES: There are no known drug allergies. REVIEW OF SYSTEMS: CONSTITUTIONAL: There is no fever, no chills, no diaphoresis. HEENT: There is no headache or sore throat. CARDIOVASCULAR SYSTEM: There is no chest pain or orthopnea. RESPIRATORY SYSTEM: There is no shortness of breath or cough. GASTROINTESTINAL SYSTEM: There is no abdominal pain, but there is abdominal distention. There is no nausea, no vomiting, no diarrhea or constipation. NEUROLOGICAL SYSTEM: Altered mental status noted. No dizziness, no numbness. MUSCULOSKELETAL SYSTEM: There is no joint pain, but there is swelling on both lower extremities. DERMATOLOGIC SYSTEM: There are chronic skin excoriation in the legs. No itching. GENITOURINARY SYSTEM: There is dysuria, but no hematuria or flank pain. Rest of system review is normal. PHYSICAL EXAMINATION: GENERAL: At the time of exam, the patient was found to be lethargic, but arousable and not in acute distress. VITAL SIGNS: Shows temperature of 98.6 degrees Fahrenheit, pulse of 65, respiration of about 5, blood pressure 138/75, O2 sat of 100% on room air. HEENT: Showed pupils to be equal, round, reactive to light and accommodating. Extraocular muscles are intact. NECK: Neck is supple with no JVD or carotid bruit. CARDIOVASCULAR: Showed normal first and second heart sounds with no gallops or murmurs. RESPIRATORY SYSTEM: Show good air entry on both sides of the lungs with no abnormal breath sounds. GASTROINTESTINAL SYSTEM: Show abdomen to be enlarged, soft, nontender with no organomegaly elicited, but there is presence of fluid thrill. NEUROLOGICAL SYSTEM: Showed no focal deficit. MUSCULOSKELETAL SYSTEM: Shows swelling of both lower extremities. DERMATOLOGICAL SYSTEM: Show hyperpigmentation of both legs with skin excoriation. GENITOURINARY SYSTEM: Show no costovertebral angle tenderness. PERTINENT LABORATORY AND IMAGING STUDIES: The patient had CT of the head done that shows no acute abnormality intracranially. The patient's lab results show CBC with normal white count, low hemoglobin of 10.6 and low hematocrit of 31.1 with low platelet count of 49,000. The patient's CBC differential shows high monocyte count of 9%. Coagulation studies show high INR of 1.6. The patient's chemistry was low with a value of 3.0 and the ammonia level is high with a value of 158. DIAGNOSES: 1. Hepatic encephalopathy, 2. End-stage renal disease, on dialysis. 3. Ascites. 4. Hypokalemia. PLAN OF CARE: 1. The patient will be admitted to medical floor on telemetry. 2. The patient will have Nephrology consult with Dr. Dalton for end-stage renal disease. 3. The patient will be on lactulose 20 mg by mouth twice daily and will be on IV Zofran 4 mg every 8 hours for nausea and vomiting. 4. The patient will have potassium chloride by mouth 40 mEq and will be on Accu-Chek before meals and at bedtime, followed by low dose sliding scale coverage using regular insulin. 5. The patient will have ammonia level checked this morning and will have ultrasound-guided paracentesis this morning. JOB# [id number] [facility]/LULY RONQUILLO
[2018-10-03] MEDS: CEPHULAC PO SCH ×2 (09:17→20:59)
--- NOTE | 2018-10-03 11:14 | Consultation ---
History of Present Illness - Reason for Consult Consult date: 10/03/18 end stage renal disease Requesting physician: JESSE CHEN - History of Present Illness This is a 67 yo AAM with past medical history of HTN, PVD, HCV, HIV, liver cirrhosis with ascites with periodic paracentesis, DVT S/P IVC, ESRD, who now presents to [facility] ER via EMS with complaints of altered mental status. as per family pt was showing some decreased responsiveness and some delirium since AM of admission. Also during last HD treatment on Mon, pt was observed to be moaning or making an irritable sounds. Labs showed increased ammonia level > 158 and pt is admitted for management of hepatic encephalopathy. Renal consult is requested for management of ESRD Past History Past Medical History: DVT, ESRD, hypertension, liver disease, PVD, other (HIV) Past Surgical History: Other (permcath placement, multiple paracentesis ) Social history: lives with family. denies: smoking, alcohol abuse, prescription drug abuse, IV drug use Family history: hypertension Medications and Allergies Allergies Allergy/AdvReac Type Severity Reaction Status Date / Time No Known Allergies Allergy Verified 05/07/15 04:31 Home Medications Medication Instructions Recorded Confirmed Last Taken Type Allopurinol [Zyloprim] 100 mg PO QDAY #30 tablet 08/14/18 10/02/18 09/13/18 Rx 1 tab Cholecalciferol (Vitamin D3) 1,000 unit PO QDAY #30 capsule 08/14/18 10/02/18 09/13/18 Rx [Vitamin D3] 1 tab Ferrous Sulfate [Feosol 325 MG tab] 325 mg PO QDAY #30 tablet 08/14/18 10/02/18 09/13/18 Rx 1 tab Folic Acid [Folvite] 1 mg PO QDAY #30 tablet 08/14/18 10/02/18 09/13/18 Rx 1 tab Furosemide [Lasix TAB] 40 mg PO QDAY #30 tablet 08/14/18 10/02/18 09/13/18 Rx 1 tab Nadolol [Corgard] 20 mg PO QDAY #30 tablet 08/14/18 10/02/18 09/13/18 Rx 1 tab Spironolactone 25 mg PO DAILY #30 tablet 08/14/18 10/02/18 09/13/18 Rx 1 tab oxyCODONE [Roxicodone TAB] 5 mg PO Q6H PRN #12 tablet 08/14/18 10/02/18 09/13/18 Rx 1 tab Active Meds: Active Medications Dextrose (D50w (25gm) Syringe) 50 ml IV PRN PRN PRN Reason: Hypoglycemia Insulin Human Regular (Humulin R) 0 units SUB-Q Q4HR [facility]; Protocol Last Admin: 10/03/18 09:17 Dose: Not Given Documented by: Lactulose (Cephulac) 20 gm PO BID [facility] Last Admin: 10/03/18 09:17 Dose: 20 gm Documented by: Ondansetron HCl (Zofran) 4 mg IV Q8H PRN PRN Reason: Nausea And Vomiting Review of Systems Constitutional: fatigue, weakness Cardiovascular: edema, dyspnea on exertion Gastrointestinal: nausea Exam - Vital Signs Vital signs: Vital Signs Pulse Resp BP Pulse Ox 65 7 L 139/79 100 10/02/18 19:15 10/02/18 19:15 10/02/18 19:15 10/02/18 19:15 - General Appearance General appearance: appears stated age, chronically ill EENT: ATNC, PERRL, mucous membranes moist Neck: Present: neck supple Respiratory: Decreased Breath Sounds Gastrointestinal: Present: normoactive bowel sounds, distended Integumentary: no rash, other (2+ edema b/l LE ) Neurologic: no focal deficit, confused, disoriented, CN 3-12 intact Results - Lab Results 10/02/18 20:05 10/02/18 22:55 Most recent lab results Calcium 8.2 mg/dL (8.4-10.2) L 10/02/18 22:55 Assessment and Plan - Patient Problems (1) Hepatic encephalopathy Current Visit: No Status: Acute Plan to address problem: cont treatment with lactulose, f/u GI recs (2) ESRD (end stage renal disease) on dialysis Current Visit: No Status: Acute Plan to address problem: cont HD on TTS schedule, use 4K bath (3) Hepatic cirrhosis due to chronic hepatitis C infection Current Visit: No Status: Acute (4) Hypokalemia Current Visit: Yes Status: Acute Plan to address problem: supplementation with K Dur. use 4K bath with HD (5) Anemia in chronic illness Current Visit: No Status: Acute Plan to address problem: Hb at target, no need for further EPO
[2018-10-03] MEDS ORDERED: NACL 0.9% 100 ML IV PRN (11:35)
--- NOTE | 2018-10-03 15:03 | Progress Note ---
Assessment and Plan /Acute encephalopathy likely heaptic/metabolic with high ammonia level cont treatment with lactulose, /ESRD (end stage renal disease) on dialysis cont HD on TTS schedule, renal following / Hepatic cirrhosis due to chronic hepatitis C infection presented with ascitis, ordered for therapeutic paracentesis / Hypokalemia supplementation with K Dur. should get adjusted with HD / Anemia in chronic disease Hb at target, no need for further EPO /Dvt Px, heparin Brief History: This is a 67 yo AAM with past medical history of HTN, PVD, HCV, liver cirrhosis with ascites with periodic paracentesis, DVT S/P IVC, ESRD, who now presents to [facility] ER via EMS with complaints of altered mental status and delirium. Labs showed increased ammonia level > 158 and pt was admitted for management of hepatic encephalopathy. Paracentesis ordered and placed on lactulose. s/p HD by renal Subjective Date of service: 10/03/18 Interval history: pt seen and examined appears alert and awake tolerating diet, s/p HD paracentesis pending has no reported h/o HIV Objective - Constitutional Vitals: Vital Signs - 12hr 10/03/18 10/03/18 10/03/18 03:26 08:26 08:30 Temperature 97.8 F Pulse Rate 63 Respiratory 22 20 Rate Blood Pressure 101/56 98/62 O2 Sat by Pulse 100 Oximetry General appearance: Present: no acute distress - EENT Eyes: PERRL, EOM intact ENT: hearing intact, clear oral mucosa Ears: bilateral: normal - Neck Neck: supple, normal ROM - Respiratory Respiratory effort: normal Respiratory: bilateral: CTA - Cardiovascular Rhythm: regular Heart Sounds: Present: S1 & S2. Absent: gallop, rub Extremities: pulses intact, No edema, normal color, Full ROM - Gastrointestinal General gastrointestinal: Present: soft, non-tender, distended, normal bowel sounds - Integumentary Integumentary: clear, warm, dry - Musculoskeletal Musculoskeletal: 1, strength equal bilaterally - Neurologic Neurologic: moves all extremities - Psychiatric Psychiatric: memory intact, appropriate mood/affect, intact judgment & insight - Labs CBC & Chem 7: 10/02/18 20:05 10/04/18 05:22 Labs: Abnormal lab results 10/02/18 10/02/18 10/02/18 Range/Units 20:05 20:05 20:05 Hgb 10.6 L (11.8-15.2) gm/dl Hct 31.1 L (35.5-45.6) % RDW 19.6 H (13.2-15.2) % Plt Count 49 L (140-440) K/mm3 Keith % (Auto) 9.0 H (0.0-7.3) % Lymph # 1.0 L (1.2-5.4) K/mm3 PT 20.7 H (12.2-14.9) Sec. INR 1.66 H (0.87-1.13) Sodium 136 L (137-145) mmol/L Potassium 2.9 L* (3.6-5.0) mmol/L Creatinine 3.1 H (0.8-1.5) mg/dL Glucose 131 H (75-100) mg/dL Calcium 8.0 L (8.4-10.2) mg/dL Total Bilirubin 1.90 H (0.1-1.2) mg/dL Ammonia (25-60) umol/L Total Protein 8.3 H (6.3-8.2) g/dL Albumin 1.9 L (3.9-5) g/dL 10/02/18 10/02/18 10/03/18 Range/Units 20:05 22:55 05:15 Hgb (11.8-15.2) gm/dl Hct (35.5-45.6) % RDW (13.2-15.2) % Plt Count (140-440) K/mm3 Keith % (Auto) (0.0-7.3) % Lymph # (1.2-5.4) K/mm3 PT (12.2-14.9) Sec. INR (0.87-1.13) Sodium (137-145) mmol/L Potassium 3.0 L (3.6-5.0) mmol/L Creatinine 3.3 H (0.8-1.5) mg/dL Glucose 116 H (75-100) mg/dL Calcium 8.2 L (8.4-10.2) mg/dL Total Bilirubin (0.1-1.2) mg/dL Ammonia 158.0 H 110.0 H (25-60) umol/L Total Protein (6.3-8.2) g/dL Albumin (3.9-5) g/dL
[2018-10-04 06:16] LABS: Calcium 7.2 mg/dL (8.4-10.2)
[2018-10-04] MEDS: CEPHULAC PO SCH ×2 (09:12→22:58)
[2018-10-04] MEDS: HumuLIN R SUB-Q SCH ×4 (09:13→22:57)
[2018-10-04] MEDS ORDERED: XYLOCAINE 1% 20 mL ONE (09:49)
--- NOTE | 2018-10-04 10:24 | Procedure Note ---
Date of procedure: 10/04/18 Pre-op diagnosis: ascites Post-op diagnosis: same Procedure: US paracentesis Findings: large ascites Anesthesia: local Surgeon: NICOLE ANDREWS Estimated blood loss: none Pathology: none Specimen disposition: discarded Condition: stable Disposition: floor
--- NOTE | 2018-10-04 11:22 | Ultrasound Report ---
ULTRASOUND PARACENTESIS HISTORY: Ascites. DESCRIPTION OF PROCEDURE: A time out was performed. Informed consent was obtained. Sterile technique was utilized. Using ultrasound guidance, a 5 Amharic centesis needle was advanced into the peritoneal space. There was spontaneous return of clear yellow fluid. 8.6 L of fluid was drained. The No complications. IMPRESSION: Successful ultrasound-guided paracentesis.
[2018-10-04] MEDS ORDERED: NACL 0.9 (PRIMING MACHINE ONLY DIALYSIS) MC ONE (12:54)
--- NOTE | 2018-10-04 13:28 | Progress Note ---
Assessment and Plan - Patient Problems (1) ESRD (end stage renal disease) on dialysis Current Visit: No Status: Acute Plan to address problem: cont HD on TTS schedule, use 4K bath (2) Hepatic encephalopathy Current Visit: No Status: Acute Plan to address problem: cont treatment with lactulose, f/u GI recs (3) Hepatic cirrhosis due to chronic hepatitis C infection Current Visit: No Status: Acute (4) Hypokalemia Current Visit: Yes Status: Acute Plan to address problem: supplementation with K Dur. use 4K bath with HD (5) Anemia in chronic illness Current Visit: No Status: Acute Plan to address problem: Hb at target, no need for further EPO Subjective Date of service: 10/04/18 Principal diagnosis: ESRD Interval history: Pt awake, alert, in NAD, s/p therapeutic paracentesis. BP 95/47 P 59 UF 1.5L Objective - Vital Signs Vital signs: Vital Signs - 12hr 10/04/18 10/04/18 10/04/18 04:00 04:12 07:32 Temperature 98.1 F 98.4 F Pulse Rate 62 Respiratory 20 18 Rate Blood Pressure 99/59 102/52 10/04/18 10/04/18 10/04/18 11:35 11:45 12:00 Temperature 98.0 F Pulse Rate 61 60 60 Respiratory 16 Rate Blood Pressure 90/42 88/44 93/47 10/04/18 10/04/18 12:15 12:30 Temperature Pulse Rate 60 60 Respiratory Rate Blood Pressure 91/45 91/44 - General Appearance General appearance: appears stated age, cachectic, chronically ill EENT: ATNC, PERRL, mucous membranes moist Neck: no JVD Respiratory: Present: Clear to Ascultation Cardiology: regular, S1S2 Gastrointestinal: normoactive bowel sounds, distended Integumentary: no rash, other (+ edema b/l LE ) Neurologic: no focal deficit, alert and oriented x3, strength 5/5, CN 3-12 intact Psychiatric: mood/affect appropriate, cooperative - Lab 10/02/18 20:05 10/04/18 05:22 Most recent lab results Calcium 7.2 mg/dL (8.4-10.2) L 10/04/18 05:22 Medications & Allergies - Medications Allergies/Adverse Reactions: Allergies No Known Allergies Allergy (Verified 05/07/15 04:31) Home Medications: Home Medications Medication Instructions Recorded Confirmed Last Taken Type Allopurinol [Zyloprim] 100 mg PO QDAY #30 tablet 08/14/18 10/02/18 09/13/18 Rx 1 tab Cholecalciferol (Vitamin D3) 1,000 unit PO QDAY #30 capsule 08/14/18 10/02/18 09/13/18 Rx [Vitamin D3] 1 tab Ferrous Sulfate [Feosol 325 MG tab] 325 mg PO QDAY #30 tablet 08/14/18 10/02/18 09/13/18 Rx 1 tab Folic Acid [Folvite] 1 mg PO QDAY #30 tablet 08/14/18 10/02/18 09/13/18 Rx 1 tab Furosemide [Lasix TAB] 40 mg PO QDAY #30 tablet 08/14/18 10/02/18 09/13/18 Rx 1 tab Nadolol [Corgard] 20 mg PO QDAY #30 tablet 08/14/18 10/02/18 09/13/18 Rx 1 tab Spironolactone 25 mg PO DAILY #30 tablet 08/14/18 10/02/18 09/13/18 Rx 1 tab oxyCODONE [Roxicodone TAB] 5 mg PO Q6H PRN #12 tablet 08/14/18 10/02/18 09/13/18 Rx 1 tab Active Medications: Generic Name Dose Route Start Last Admin Trade Name Obdulio PRN Reason Stop Dose Admin Dextrose 50 ml 10/02/18 22:06 D50w (25gm) Syringe IV PRN PRN Hypoglycemia Sodium Chloride 100 mls @ 999 mls/hr 10/03/18 11:35 Nacl 0.9% IV NANCY PRN Hypotension Insulin Human Regular 0 units 10/02/18 23:00 10/04/18 09:13 Humulin R SUB-Q Not Given Q4HR [facility] Protocol Lactulose 20 gm 10/03/18 08:00 10/04/18 09:12 Cephulac PO 20 gm BID [facility] Administration Ondansetron HCl 4 mg 10/02/18 22:04 Zofran IV Q8H PRN Nausea And Vomiting
--- NOTE | 2018-10-04 15:19 | Progress Note ---
Assessment and Plan /Acute encephalopathy, improved likely heaptic/metabolic with high ammonia level cont treatment with lactulose, ammonia level still elevated /ESRD (end stage renal disease) on dialysis cont HD on TTS schedule, renal following / Hepatic cirrhosis due to chronic hepatitis C infection presented with ascitis, ordered for therapeutic paracentesis - s/p 8.9 L fluid drawn will consult GI for further recommendation / Hypokalemia supplementation with K Dur on admission. should get adjusted with HD will monitor / Anemia in chronic disease Hb at target, no need for further EPO /Dvt Px, heparin Brief History: This is a 67 yo AAM with past medical history of HTN, PVD, HCV, liver cirrhosis with ascites with periodic paracentesis, DVT S/P IVC, ESRD, who now presents to [facility] ER via EMS with complaints of altered mental status and delirium. Labs showed increased ammonia level > 158 and pt was admitted for management of hepatic encephalopathy. Paracentesis ordered and placed on lactulose. s/p HD by renal. off note patient had two negative titer for HIV 2016 and June 2018, also verified with ID that patient does not have h/o HIV. Physical exam: General appearance: Present: no acute distress - EENT Eyes: PERRL, EOM intact ENT: hearing intact, clear oral mucosa Ears: bilateral: normal - Neck Neck: supple, normal ROM - Respiratory Respiratory effort: normal Respiratory: bilateral: CTA - Cardiovascular Rhythm: regular Heart Sounds: Present: S1 & S2. Absent: gallop, rub Extremities: pulses intact, No edema, normal color, Full ROM - Gastrointestinal General gastrointestinal: Present: soft, non-tender, normal bowel sounds - Integumentary Integumentary: clear, warm, dry - Musculoskeletal Musculoskeletal: 1, strength equal bilaterally - Neurologic Neurologic: moves all extremities - Psychiatric Psychiatric: memory intact, appropriate mood/affect, intact judgment & insight Subjective Date of service: 10/04/18 Principal diagnosis: ESRD Interval history: pt seen and examined appears alert and awake tolerating diet, plan for HD today paracentesis done today drained 8.9 L of ascitic fluid has no reported h/o HIV Objective - Constitutional Vitals: Vital Signs - 12hr 10/04/18 10/04/18 10/04/18 04:00 04:12 07:32 Temperature 98.1 F 98.4 F Pulse Rate 62 Respiratory 20 18 Rate Blood Pressure 99/59 102/52 10/04/18 10/04/18 10/04/18 11:35 11:45 12:00 Temperature 98.0 F Pulse Rate 61 60 60 Respiratory 16 Rate Blood Pressure 90/42 88/44 93/47 10/04/18 10/04/18 10/04/18 12:15 12:30 12:45 Temperature Pulse Rate 60 60 59 L Respiratory Rate Blood Pressure 91/45 91/44 104/53 10/04/18 10/04/18 10/04/18 13:00 13:15 13:30 Temperature Pulse Rate 59 L 59 L 59 L Respiratory Rate Blood Pressure 92/50 95/47 97/50 10/04/18 10/04/18 10/04/18 13:45 14:00 14:15 Temperature Pulse Rate 60 59 L 59 L Respiratory Rate Blood Pressure 93/44 93/46 91/48 - Labs CBC & Chem 7: 10/02/18 20:05 10/05/18 04:52 Labs: Abnormal lab results 10/04/18 10/04/18 Range/Units 05:22 05:22 Potassium 3.0 L (3.6-5.0) mmol/L BUN 24 H (9-20) mg/dL Creatinine 3.8 H (0.8-1.5) mg/dL Calcium 7.2 L (8.4-10.2) mg/dL Ammonia 88.0 H (25-60) umol/L
[2018-10-04] MEDS ORDERED: ROXICODONE PO PRN (16:11)
--- NOTE | 2018-10-04 18:24 | Gastroenterology Consultation ---
History of Present Illness - Reason for Consult Consult date: 10/04/18 Requesting physician: SHELBY GORDON - History of Present Illness Mr Matos is a 67 yo with known cirrhosis who presents for altered mental status and abdominal pain/distension. S/p therapeutic paracentesis, negative for SBP today. He reports having intermittent hepatic encephalopathy with confusion. Is on lactulose at home does not think he is on xifaxan. He reports getting paracentesis monthly for the ascites. - Past Medical History Hx Hypertension: Yes Hx Diabetes: Yes Hx Liver Disease: Yes - cirrhosis Hx Renal Disease: ESRD Hx HIV: Yes Additional medical history: Cervical osteomyelitis, C5,Hep C (he reports this is no longer an active infection). peripheral vascular disease (b/l leg ulcers). leg edema. Chronic pain. Patient states "my neck is broken in 2 places". Apparently this is being treated nonoperatively at this point. - Surgical History Additional Surgical History: Spring filter. Right chest perm cath - Social History Smoking Status: Never Smoker Past History Past Medical History: DVT, ESRD, hypertension, liver disease, PVD, other (HIV) Past Surgical History: Other (permcath placement, multiple paracentesis ) Social history: lives with family. denies: smoking, alcohol abuse, prescription drug abuse, IV drug use Family history: hypertension Medications and Allergies Allergies Allergy/AdvReac Type Severity Reaction Status Date / Time No Known Allergies Allergy Verified 05/07/15 04:31 Home Medications Medication Instructions Recorded Confirmed Last Taken Type Allopurinol [Zyloprim] 100 mg PO QDAY #30 tablet 08/14/18 10/02/18 09/13/18 Rx 1 tab Cholecalciferol (Vitamin D3) 1,000 unit PO QDAY #30 capsule 08/14/18 10/02/18 09/13/18 Rx [Vitamin D3] 1 tab Ferrous Sulfate [Feosol 325 MG tab] 325 mg PO QDAY #30 tablet 08/14/18 10/02/18 09/13/18 Rx 1 tab Folic Acid [Folvite] 1 mg PO QDAY #30 tablet 08/14/18 10/02/18 09/13/18 Rx 1 tab Furosemide [Lasix TAB] 40 mg PO QDAY #30 tablet 08/14/18 10/02/18 09/13/18 Rx 1 tab Nadolol [Corgard] 20 mg PO QDAY #30 tablet 08/14/18 10/02/18 09/13/18 Rx 1 tab Spironolactone 25 mg PO DAILY #30 tablet 08/14/18 10/02/18 09/13/18 Rx 1 tab oxyCODONE [Roxicodone TAB] 5 mg PO Q6H PRN #12 tablet 08/14/18 10/02/18 09/13/18 Rx 1 tab Active Meds: Active Medications Allopurinol (Zyloprim) 100 mg PO QDAY [facility] Cholecalciferol (Vitamin D3) 1,000 unit PO QDAY [facility] Dextrose (D50w (25gm) Syringe) 50 ml IV PRN PRN PRN Reason: Hypoglycemia Ferrous Sulfate (Feosol) 325 mg PO QDAY [facility] Folic Acid (Folvite) 1 mg PO QDAY [facility] Furosemide (Lasix) 40 mg PO QDAY [facility] Heparin Sodium (Porcine) (Heparin) 5,000 unit SUB-Q Q12HR [facility] Sodium Chloride (Nacl 0.9%) 100 mls @ 999 mls/hr IV NANCY PRN PRN Reason: Hypotension Insulin Human Regular (Humulin R) 0 units SUB-Q Q4HR [facility]; Protocol Last Admin: 10/04/18 14:38 Dose: Not Given Documented by: Lactulose (Cephulac) 20 gm PO TID [facility] Nadolol (Corgard) 20 mg PO QDAY [facility] Ondansetron HCl (Zofran) 4 mg IV Q8H PRN PRN Reason: Nausea And Vomiting Oxycodone HCl (Roxicodone) 5 mg PO Q12H PRN PRN Reason: Pain, Moderate (4-6) Spironolactone (Aldactone) 25 mg PO DAILY [facility] Review of Systems - Review of Systems All systems: negative (fatigue, confusion, difficulty walking, abdominal distension) Exam - Constitutional Vital Signs: Temp Pulse Resp BP Pulse Ox 97.7 F 57 L 18 90/50 100 10/04/18 16:18 10/04/18 15:00 10/04/18 16:18 10/04/18 16:12 10/04/18 00:00 General appearance: no acute distress - EENT Eyes: PERRL ENT: hearing intact - Neck Neck: supple - Respiratory Respiratory: bilateral: CTA - Breasts Breasts: other (gynecomastia) - Cardiovascular Rhythm: regular - Gastrointestinal General gastrointestinal: Present: soft Rectal Exam: deferred - Integumentary Integumentary: Present: warm - Musculoskeletal Musculoskeletal: normal - Neurologic Neurological: other (oriented to self, location, day and month, but not year (thought it was 2019)) - Psychiatric Psychiatric: other (slow affect) - Labs CBC & Chem 7: 10/02/18 20:05 10/04/18 05:22 Lab Results: Laboratory Results - last 24 hr 10/04/18 10/04/18 05:22 05:22 Sodium 137 Potassium 3.0 L Chloride 101.1 Carbon Dioxide 25 Anion Gap 14 BUN 24 H Creatinine 3.8 H Estimated GFR 19 BUN/Creatinine Ratio 6 Glucose 83 Calcium 7.2 L Ammonia 88.0 H Assessment and Plan 1. ESRD 2. Cirrhosis 3. Hepatic encephalopathy 4. Ascites Encephalopathy - lactulose titrated to 3 soft but formed, BM/day, xifaxan 550mg PO BID (I added this now), both indefinitely. Ascites - low sodium diet, PRN paracentesis as an outpatient. Cirrhosis - patient reports he thinks he has outpatient liver specialist. If he does not, he may follow up with me as an outpatient Once mental status is safe for discharge with the above medications he may be discharged home with outpatient followup. If he has not had a liver/kidney t ransplant evaluation I could initiate that as an outpatient. Please feel free to call back with any questions or concerns.
[2018-10-04] MEDS: ROXICODONE PO PRN (18:40)
[2018-10-04] MEDS: XIFAXAN PO SCH (22:57)
[2018-10-04] MEDS: HEPARIN SUB-Q SCH (22:58)
[2018-10-05] MEDS ORDERED: NACL 0.9% 500 ML 250 ML IV ONE (01:23)
[2018-10-05] MEDS: HumuLIN R SUB-Q SCH ×4 (01:50→15:49)
[2018-10-05 06:04] LABS: Calcium 6.9 mg/dL (8.4-10.2)
[2018-10-05] MEDS: ROXICODONE PO PRN (08:44)
[2018-10-05] MEDS: CEPHULAC PO SCH ×2 (09:13→15:00)
[2018-10-05] MEDS: XIFAXAN PO SCH (09:13)
[2018-10-05] MEDS: HEPARIN SUB-Q SCH (09:22)
[2018-10-05] MEDS ORDERED: LASIX PO SCH (10:00)
[2018-10-05] MEDS ORDERED: ALDACTONE PO SCH (10:00)
[2018-10-05] MEDS ORDERED: ZYLOPRIM PO SCH (10:00)
[2018-10-05] MEDS ORDERED: FOLVITE PO SCH (10:00)
[2018-10-05] MEDS ORDERED: NON-FORMULARY (Cholecalciferol (Vitamin D3) [Vitamin D3] 1,000 UNIT) PO SCH (10:00)
[2018-10-05] MEDS ORDERED: FEOSOL PO SCH (10:00)
[2018-10-05] MEDS ORDERED: VITAMIN D3 PO SCH (10:00)
[2018-10-05] MEDS ORDERED: CORGARD PO SCH (10:00)
[2018-10-05] MEDS ORDERED: K-DUR PO ONE (10:00)
--- NOTE | 2018-10-05 11:12 | Progress Note ---
Assessment and Plan - Patient Problems (1) ESRD (end stage renal disease) on dialysis Current Visit: No Status: Acute Plan to address problem: cont HD on TTS schedule, use 4K bath (2) Hepatic encephalopathy Current Visit: No Status: Acute Plan to address problem: cont treatment with lactulose, rifaximin, f/u GI recs (3) Hepatic cirrhosis due to chronic hepatitis C infection Current Visit: No Status: Acute (4) Hypokalemia Current Visit: Yes Status: Acute Plan to address problem: supplementation with K Dur, started on spironolactone. use 4K bath with HD (5) Anemia in chronic illness Current Visit: No Status: Acute Plan to address problem: Hb at target, no need for further EPO Subjective Date of service: 10/05/18 Principal diagnosis: ESRD Interval history: Pt awake, alert, in NAD Objective - Vital Signs Vital signs: Vital Signs - 12hr 10/05/18 10/05/18 10/05/18 00:02 02:26 04:21 Temperature 98.3 F 98.2 F Pulse Rate 60 60 59 L Respiratory 20 20 20 Rate Blood Pressure 88/42 88/46 O2 Sat by Pulse 99 100 100 Oximetry 10/05/18 07:50 Temperature 98.6 F Pulse Rate 60 Respiratory 20 Rate Blood Pressure 86/42 O2 Sat by Pulse 98 Oximetry - General Appearance General appearance: appears stated age, cachectic, chronically ill EENT: ATNC, PERRL, mucous membranes moist Neck: no JVD Respiratory: Present: Decreased Breath Sounds Cardiology: regular, S1S2 Gastrointestinal: normoactive bowel sounds, distended Integumentary: no rash, other (+ edema b/l LE ) Neurologic: no focal deficit, alert and oriented x3, strength 5/5, CN 3-12 intact Psychiatric: mood/affect appropriate, cooperative - Lab 10/02/18 20:05 10/05/18 04:52 Most recent lab results Calcium 6.9 mg/dL (8.4-10.2) L 10/05/18 04:52 Medications & Allergies - Medications Allergies/Adverse Reactions: Allergies No Known Allergies Allergy (Verified 05/07/15 04:31) Home Medications: Home Medications Medication Instructions Recorded Confirmed Last Taken Type Allopurinol [Zyloprim] 100 mg PO QDAY #30 tablet 08/14/18 10/02/18 09/13/18 Rx 1 tab Cholecalciferol (Vitamin D3) 1,000 unit PO QDAY #30 capsule 08/14/18 10/02/18 09/13/18 Rx [Vitamin D3] 1 tab Ferrous Sulfate [Feosol 325 MG tab] 325 mg PO QDAY #30 tablet 08/14/18 10/02/18 09/13/18 Rx 1 tab Folic Acid [Folvite] 1 mg PO QDAY #30 tablet 08/14/18 10/02/18 09/13/18 Rx 1 tab Furosemide [Lasix TAB] 40 mg PO QDAY #30 tablet 08/14/18 10/02/18 09/13/18 Rx 1 tab Nadolol [Corgard] 20 mg PO QDAY #30 tablet 08/14/18 10/02/18 09/13/18 Rx 1 tab Spironolactone 25 mg PO DAILY #30 tablet 08/14/18 10/02/18 09/13/18 Rx 1 tab oxyCODONE [Roxicodone TAB] 5 mg PO Q6H PRN #12 tablet 08/14/18 10/02/18 09/13/18 Rx 1 tab Active Medications: Generic Name Dose Route Start Last Admin Trade Name Freq PRN Reason Stop Dose Admin Allopurinol 100 mg 10/05/18 10:00 10/05/18 09:12 Zyloprim PO 100 mg QDAY [facility] Administration Cholecalciferol 1,000 unit 10/05/18 10:00 10/05/18 09:10 Vitamin D3 PO 1,000 unit QDAY [facility] Administration Dextrose 50 ml 10/02/18 22:06 D50w (25gm) Syringe IV PRN PRN Hypoglycemia Ferrous Sulfate 325 mg 10/05/18 10:00 10/05/18 09:10 Feosol PO 325 mg QDAY [facility] Administration Folic Acid 1 mg 10/05/18 10:00 10/05/18 09:11 Folvite PO 1 mg QDAY [facility] Administration Furosemide 40 mg 10/05/18 10:00 10/05/18 09:11 Lasix PO 40 mg QDAY [facility] Administration Heparin Sodium (Porcine) 5,000 unit 10/04/18 22:00 10/05/18 09:22 Heparin SUB-Q 5,000 unit Q12HR [facility] Administration Sodium Chloride 100 mls @ 999 mls/hr 10/03/18 11:35 Nacl 0.9% IV NANCY PRN Hypotension Insulin Human Regular 0 units 10/02/18 23:00 10/05/18 01:50 Humulin R SUB-Q Not Given Q4HR [facility] [place] Protocol Lactulose 20 gm 10/04/18 20:00 10/05/18 09:13 Cephulac PO 20 gm TID [facility]SC[facility] Administration Nadolol 20 mg 10/05/18 10:00 10/05/18 09:12 Corgard PO 20 mg QDAY [facility] [place] Administration Ondansetron HCl 4 mg 10/02/18 22:04 Zofran IV Q8H PRN Nausea And Vomiting Oxycodone HCl 5 mg 10/04/18 16:13 10/05/18 08:44 Roxicodone PO 5 mg Q12H PRN Administration Pain, Moderate (4-6) Rifaximin 550 mg 10/04/18 22:00 10/05/18 09:13 Xifaxan PO 550 mg BID [facility] Administration Spironolactone 25 mg 10/05/18 10:00 10/05/18 09:11 Aldactone PO 25 mg DAILY [facility] Administration
[2018-10-05 11:55] VITALS: BP 90/49
--- NOTE | 2018-10-05 13:08 | Discharge Summary ---
Providers - Providers Date of Admission: 10/02/18 21:52 Date of discharge: 10/05/18 Attending physician: SHELBY GORDON 10/03/18 06:00 Consult to Physician [CONS] Routine Comment: Consulting Provider: STERLING GALAN Physician Instructions: Reason For Exam: ESRD ON DIALYSIS 10/04/18 15:18 Consult to Physician [CONS] Routine Comment: Consulting Provider: LEXUS BARFIELD Physician Instructions: Reason For Exam: cirrhosis 10/05/18 08:00 Physical Therapy Evaluation and Treat [CONS] Routine Comment: Reason For Exam: placement [facility] Condition: Serious Pertinent studies: CT head Paracentesis Hospital course: Brief History: This is a 67 yo AAM with past medical history of HTN, PVD, HCV, liver cirrhosis with ascites with periodic paracentesis, DVT S/P IVC, ESRD, who now presents to [facility] ER via EMS with complaints of altered mental status and delirium. Labs showed increased ammonia level > 158 and pt was admitted for management of hepatic encephalopathy. Paracentesis ordered and placed on lactulose. s/p HD by renal. off note patient had two negative serology for HIV on 06/2017 and 06/2018, also verified with ID that patient does not have h/o HIV. Discharge diagnosis and management: /Acute encephalopathy, improved CT head was unremarkable likely heaptic/metabolic with high ammonia level Treated with lactulose, monitored ammonia level /ESRD (end stage renal disease) on dialysis continued HD on TTS schedule, renal was following / Hepatic cirrhosis due to chronic hepatitis C infection presented with ascitis, ordered for therapeutic paracentesis - s/p 8.6 L fluid drawn Consulted GI for further recommendation- GI recommended to continue current Mx and to f/u outpt / Hypokalemia supplementation with K Dur on admission. Then adjusted with HD / Anemia in chronic disease Hb at target, no need for further EPO, continue outpt followup. /Dvt Px, heparin Physical exam: General appearance: Present: no acute distress - EENT Eyes: PERRL, EOM intact ENT: hearing intact, clear oral mucosa Ears: bilateral: normal - Neck Neck: supple, normal ROM - Respiratory Respiratory effort: normal Respiratory: bilateral: CTA - Cardiovascular Rhythm: regular Heart Sounds: Present: S1 & S2. Absent: gallop, rub Extremities: pulses intact, No edema, normal color, Full ROM - Gastrointestinal General gastrointestinal: Present: soft, non-tender, normal bowel sounds - Integumentary Integumentary: clear, warm, dry - Musculoskeletal Musculoskeletal: 1, strength equal bilaterally - Neurologic Neurologic: moves all extremities - Psychiatric Psychiatric: memory intact, appropriate mood/affect, intact judgment & insight Disposition: [id number] HOME [facility] Time spent for discharge: 34 minutes Core Measure Documentation - Palliative Care Palliative Care/ Comfort Measures: Not Applicable - Core Measures Any of the following diagnoses?: none Exam - Constitutional Vitals: Temp Pulse Resp BP Pulse Ox 98.0 F 59 L 20 90/49 100 10/05/18 11:38 10/05/18 11:38 10/05/18 11:38 10/05/18 11:38 10/05/18 11:38 Plan Activity: advance as tolerated Weight Bearing Status: Non-Weight Bearing Diet: renal Follow up with: MARANDA JESUS MD [Primary Care Provider] - 3-5 Days
== END 2018-10-05 16:10 | disposition home health service (06) | DRG 432 ==
LOC: ED 18:48 → 4A 21:52
PROVIDERS: ADMIT Internal Medicine; ATTEND Internal Medicine
PROC: 0W9G3ZZ Drainage of Peritoneal Cavity, Percutaneous Approach (ICD-10-PCS; principal; 2018-10-04)
PROC: 5A1D70Z Performance of Urinary Filtration, Intermittent, Less than 6 Hours Per Day (ICD-10-PCS; 2018-10-04)
DX: K74.60 Unspecified cirrhosis of liver (principal); N18.6 End stage renal disease; G93.41 Metabolic encephalopathy; R18.8 Other ascites; K72.90 Hepatic failure, unspecified without coma; E11.9 Type 2 diabetes mellitus without complications; B18.2 Chronic viral hepatitis C; D63.1 Anemia in chronic kidney disease; E87.6 Hypokalemia; Z99.2 Dependence on renal dialysis; Z86.718 Personal history of other venous thrombosis and embolism; Z82.49 Family history of ischemic heart disease and other diseases of the circulatory system; Z79.899 Other long term (current) drug therapy; Z79.84 Long term (current) use of oral hypoglycemic drugs
CPT/HCPCS: 36415; 49083; 70450; 80048; 80053; 80320; 82140; 82962; 84443; 85025; 85610; 85730; 93005; 93010; 99285; G0378; G0480; J1644; J3480; J7030; J7040

== ENCOUNTER 2018-10-17 17:52 | Inpatient (IN) | payer MEDICARE, MEDICAID ==
--- NOTE | 2018-10-17 18:57 | Emergency Department Report ---
<IGOR NAVARRO - Last Filed: 10/17/18 20:59> ED General Adult HPI - General Chief complaint: Altered Mental Status Stated complaint: AMS/WEAKNESS Time Seen by Provider: 10/17/18 17:55 Source: patient, EMS (ems notes not available at time of chart dictation), RN notes reviewed, old records reviewed Mode of arrival: Stretcher Limitations: Altered Mental Status - History of Present Illness Initial comments: This is a 67-year-old gentleman. His past medical history includes hypertension, peripheral vascular disease, hepatitis C, liver cirrhosis, ascites, DVT status post IVC, end-stage renal disease, right-sided thoracic vascular access catheter, hepatic encephalopathy, chronic lymphedema The patient was brought to the hospital by emergency medical services for altered mental status. His last known well time is not known. The patient is altered. He follows commands. He denies physical pain. There are no family members available for collateral information at this time. During her previous admission, patient had a paracentesis in August, had 10.3 L of fluid removed. During her recent hospitalization, he also received paracentesis and receive lactulose for hyperammonemia. He had 8.6 L of fluid drawn during a previous hospitalization. -: unknown Severity scale (0 -10): 0 Quality: other Improves with: other Worsens with: other - Related Data Previous Rx's Medication Instructions Recorded Last Taken Type Allopurinol [Zyloprim] 100 mg PO QDAY #30 tablet 08/14/18 09/13/18 Rx 1 tab Cholecalciferol (Vitamin D3) 1,000 unit PO QDAY #30 capsule 08/14/18 09/13/18 Rx [Vitamin D3] 1 tab Ferrous Sulfate [Feosol 325 MG tab] 325 mg PO QDAY #30 tablet 08/14/18 09/13/18 Rx 1 tab Folic Acid [Folvite] 1 mg PO QDAY #30 tablet 08/14/18 09/13/18 Rx 1 tab Furosemide [Lasix TAB] 40 mg PO QDAY #30 tablet 10/05/18 Unknown Rx Lactulose [Cephulac] 20 gm PO TID 30 Days oral.liqd 10/05/18 Unknown Rx Nadolol [Corgard] 20 mg PO QDAY #30 tablet 10/05/18 Unknown Rx Rifaximin [Xifaxan] 550 mg PO BID #60 tablet 10/05/18 Unknown Rx Spironolactone 25 mg PO DAILY #30 tablet 10/05/18 Unknown Rx Allergies Allergy/AdvReac Type Severity Reaction Status Date / Time No Known Allergies Allergy Verified 05/07/15 04:31 ED Review of Systems Comment: Unobtainable due to pts medical conditions Constitutional: malaise Cardiovascular: denies: chest pain Gastrointestinal: denies: vomiting Neurological: weakness, confusion ED Past Medical Hx - Past Medical History Previous Medical History?: Yes Hx Hypertension: Yes Hx Diabetes: Yes Hx Deep Vein Thrombosis: No Hx Liver Disease: Yes Hx Renal Disease: Yes (Dialysis T//S last dialysis 07/19) Hx HIV: Yes Additional medical history: Cervical osteomyelitis, C5,Hep C. peripheral vascular disease (b/l leg ulcers). leg edema. Chronic pain. Patient states "my neck is broken in 2 places". Apparently this is being treated nonoperatively at this point. - Surgical History Past Surgical History?: Yes Hx Pacemaker: No Hx Internal Defibrillator: No Additional Surgical History: [place] filter. Right chest perm cath - Social History Smoking Status: Former Smoker - Medications Home Medications: Home Medications Medication Instructions Recorded Confirmed Last Taken Type Allopurinol [Zyloprim] 100 mg PO QDAY #30 tablet 08/14/18 10/02/18 09/13/18 Rx 1 tab Cholecalciferol (Vitamin D3) 1,000 unit PO QDAY #30 capsule 08/14/18 10/02/18 09/13/18 Rx [Vitamin D3] 1 tab Ferrous Sulfate [Feosol 325 MG tab] 325 mg PO QDAY #30 tablet 08/14/18 10/02/18 09/13/18 Rx 1 tab Folic Acid [Folvite] 1 mg PO QDAY #30 tablet 08/14/18 10/02/18 09/13/18 Rx 1 tab Furosemide [Lasix TAB] 40 mg PO QDAY #30 tablet 10/05/18 Unknown Rx Lactulose [Cephulac] 20 gm PO TID 30 Days oral.liqd 10/05/18 Unknown Rx Nadolol [Corgard] 20 mg PO QDAY #30 tablet 10/05/18 Unknown Rx Rifaximin [Xifaxan] 550 mg PO BID #60 tablet 10/05/18 Unknown Rx Spironolactone 25 mg PO DAILY #30 tablet 10/05/18 Unknown Rx ED Physical Exam - General Limitations: Altered Mental Status General appearance: lethargic - Head Head exam: Present: atraumatic, normocephalic - Eye Eye exam: Present: normal appearance - ENT ENT exam: Present: normal exam, normal orophraynx, mucous membranes moist, normal external ear exam - Neck Neck exam: Present: normal inspection, full ROM. Absent: tenderness - Respiratory Respiratory exam: Present: decreased breath sounds, other (right-sided vascular access catheter noted, with no redness, pus, streaking). Absent: respiratory distress - Cardiovascular Cardiovascular Exam: Present: normal rhythm, bradycardia, normal heart sounds. Absent: systolic murmur, diastolic murmur, rubs, gallop - GI/Abdominal GI/Abdominal exam: Present: soft, distended, other (abdominal distention noted, no tenderness, positive fluid wave is noted). Absent: tenderness, guarding, rebound, rigid, pulsatile mass - Rectal Rectal exam: Present: deferred - Extremities Exam Extremities exam: Present: pedal edema, joint swelling, other (2+ pulses in the bilateral upper extremities. Lower extremity edema, lower extremity lymphedema noted, there is no lower extremity tenderness noted.). Absent: calf tenderness - Back Exam Back exam: Present: normal inspection, full ROM. Absent: tenderness, CVA tenderness (R), paraspinal tenderness, vertebral tenderness - Neurological Exam Neurological exam: Present: altered, other (there is no facial droop. The patient moves 4 extremities spontaneously, and to command. Light touch is intact in 4 extremities. Unable to complete detailed neurologic examination secondary to altered mental status.) - Psychiatric Psychiatric exam: Present: flat affect - Skin Skin exam: Present: warm, dry, intact, normal color. Absent: rash ED Course - Reevaluation(s) Reevaluation #1: 10/17/18 18:56 Differential diagnosis, including without limited to, intracranial hemorrhage, subacute stroke, pneumonia, urinary tract infection, hepatic encephalopathy, uremic encephalopathy, multifactorial encephalopathy Assessment and plan: 67-year-old gentleman with diminished mental status, awake, protecting airway, nonfocal motor examination, distended abdomen, most likely experiencing multi-factorial encephalopathy, likely hepatic, hyperammonemia, questionable azotemia, uremia. Screening laboratory studies, x-ray of the chest, urinalysis, noncontrast CT scan of the brain have been requested. 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 Reevaluation #2: 10/17/18 20:20 Phlebotomy time having a difficult time requiring blood samples. Multiple technologists have attempted and they are currently trying the patient's blood Care is transferred to the overnight physician, Dr. Ashby, to follow up on laboratory studies, CAT scan, contact nephrology if necessary for hyperkalemia or uremia, azotemia, and admitted patient to the medical service for presumed hepatic encephalopathy, and ascites. Reevaluation #3: 10/17/18 20:59 phlebotomy still attempting to obtain blood his right hand 22 g IV infiltrated no EJ veins noted on exam secondary to chronic distorted anatomy 4 attempts made ( 2 on right arm, 2 on left arm) using ultrasound guidance to obtain peripheral IV access, unsuccessful right leg IO line place using typical aseptic technique, inserted 15 g, 25 mm IO with one attempt. tolerated well - IO Right Tibia Consent Obtained: emergent situation Time Out Performed: Yes IO Instrument Used to Penetrate the Cortex: battery powered IO drill Patient Tolerated Procedure: well Complications: none ED Medical Decision Making - Lab Data Result diagrams: 10/17/18 20:30 Vital Signs 10/17/18 10/17/18 10/17/18 18:10 18:13 18:15 Temperature 98.4 F Pulse Rate 59 L 66 59 L Respiratory 11 L 18 6 L Rate O2 Sat by Pulse 97 99 98 Oximetry 10/17/18 18:31 Temperature Pulse Rate 58 L Respiratory 8 L Rate O2 Sat by Pulse 99 Oximetry - EKG Data -: EKG Interpreted by Me Rate: bradycardia - EKG Data 10/17/18 18:57 Bradycardia, 58 bpm, normal axis, QTC prolonged, low voltage, not having chest pain, abnormal EKG, not consistent with ST elevation myocardial infarction, appears unchanged from prior EKG from September 2014. - Radiology Data Radiology results: pending, image reviewed interpreted by me: X-ray of the chest shows elevation of the right-sided hemidiaphragm, pulmonary vascular congestion, poor inspiratory effort. ED Disposition Clinical Impression: Hepatic encephalopathy, Thrombocytopenia, Urinary tract infection Disposition: OP ADMIT IP TO THIS HOSP Condition: Fair Referrals: [facility] [Other] - 3-5 Days Print Language: MAORI <ASHBY,JIMSON O. - Last Filed: 10/18/18 01:35> ED Review of Systems ROS: Stated complaint: AMS/WEAKNESS Other details as noted in HPI ED Course Vital Signs 10/17/18 10/17/18 10/17/18 18:10 18:13 18:15 Temperature 98.4 F Pulse Rate 59 L 66 59 L Respiratory 11 L 18 6 L Rate Blood Pressure Blood Pressure [Left] O2 Sat by Pulse 97 99 98 Oximetry 10/17/18 10/17/18 10/17/18 18:31 18:53 19:01 Temperature Pulse Rate 58 L 59 L Respiratory 8 L 5 L 15 Rate Blood Pressure Blood Pressure [Left] O2 Sat by Pulse 99 Oximetry 10/17/18 10/17/18 10/17/18 19:15 19:57 20:00 Temperature Pulse Rate 58 L 59 L 61 Respiratory 6 L 8 L 8 L Rate Blood Pressure 141/81 148/84 Blood Pressure 111/69 [Left] O2 Sat by Pulse 100 100 Oximetry 10/17/18 10/17/18 10/17/18 20:15 20:31 20:45 Temperature Pulse Rate 61 62 62 Respiratory 7 L 5 L 7 L Rate Blood Pressure 148/84 148/84 148/84 Blood Pressure [Left] O2 Sat by Pulse 97 95 98 Oximetry 10/17/18 10/17/18 10/17/18 21:01 21:11 21:15 Temperature Pulse Rate 62 61 61 Respiratory 9 L 9 L 9 L Rate Blood Pressure 147/88 147/88 138/85 Blood Pressure [Left] O2 Sat by Pulse 99 98 98 Oximetry 10/17/18 10/17/18 10/17/18 21:30 21:45 22:00 Temperature Pulse Rate 62 62 62 Respiratory 6 L 9 L 8 L Rate Blood Pressure 144/81 149/83 145/76 Blood Pressure [Left] O2 Sat by Pulse 100 100 100 Oximetry 10/17/18 10/17/18 10/17/18 22:15 22:30 22:45 Temperature Pulse Rate 61 61 60 Respiratory 6 L 6 L 5 L Rate Blood Pressure 135/79 127/73 130/72 Blood Pressure [Left] O2 Sat by Pulse 64 L 92 90 Oximetry 10/17/18 10/17/18 10/17/18 23:00 23:15 23:30 Temperature Pulse Rate 59 L 58 L 58 L Respiratory 5 L 4 L 5 L Rate Blood Pressure 120/76 114/73 111/65 Blood Pressure [Left] O2 Sat by Pulse 96 98 93 Oximetry 10/17/18 10/18/18 10/18/18 23:45 00:00 00:15 Temperature Pulse Rate 58 L 60 58 L Respiratory 10 L 5 L 5 L Rate Blood Pressure 102/63 119/84 97/74 Blood Pressure [Left] O2 Sat by Pulse 98 99 96 Oximetry 10/18/18 00:31 Temperature Pulse Rate 58 L Respiratory 5 L Rate Blood Pressure 106/74 Blood Pressure [Left] O2 Sat by Pulse 99 Oximetry ED Medical Decision Making - Lab Data Result diagrams: 10/17/18 20:30 10/17/18 20:30 Critical care attestation.: If time is entered above; I have spent that time in minutes in the direct care of this critically ill patient, excluding procedure time. ED Disposition Is pt being admited?: Yes Does the pt Need Aspirin: No Time of Disposition: 01:35
[2018-10-17 19:16] LABS: Bacteria,Urine 2+ /HPF (Negative); Bilirubin,Urine NEG (Negative); Blood,Urine MOD (Negative); Color,Urine Amber (Yellow); Hyaline Casts,Urine 10 /LPF; Mucus,Urine FEW /HPF; Protein,Urine <15 mg/dL mg/dL (Negative)
[2018-10-17] MEDS ORDERED: ROCEPHIN/NS 1 GM/50 ML 1 GM/50 ML BAG IV ONE (19:44)
[2018-10-17 20:47] LABS: Hematocrit 29.7 % (35.5-45.6); Hemoglobin 9.2 gm/dl (11.8-15.2); Mean Corpuscular HGB Conc 31 % (32-34); Mean Corpuscular Volume 92 fl (84-94); Red Blood Count 3.24 M/mm3 (3.65-5.03)
[2018-10-17 20:50] LABS: Platelet Count 11 K/mm3 (140-440)
[2018-10-17 21:13] LABS: Albumin 1.9 g/dL (3.9-5)
[2018-10-17 21:53] LABS: Calcium 7.8 mg/dL (8.4-10.2)
--- NOTE | 2018-10-17 21:57 | XRay Report ---
PROCEDURE: XR CHEST 1V AP TECHNIQUE: Chest radiograph, single view. HISTORY: ams weak COMPARISONS: None currently available. FINDINGS: Hypoaerated lungs accentuate the pulmonary markings and cardiac silhouette. Cardiac silhouette is within normal limits. Aortic calcifications. Prominent bilateral pulmonary markings with patchy airspace opacities. No pneumothorax. No significan t effusion. No large consolidation. There are no suspicious osseous lesions. Right internal jugular dual-lumen dialysis catheter tip is near the cavoatrial junction. IMPRESSION: * Suspect pulmonary vascular congestion with mild edema. Differential diagnosis includes pneumonitis and pneumonia. This document is electronically signed by Talat Andrade MD., October 17 2018 09:55:15 PM ET
[2018-10-17 22:15] LABS: INR 1.64 (0.87-1.13); Partial Thromboplastin Time 35.4 Sec. (24.2-36.6)
[2018-10-17] MEDS ORDERED: CEPHULAC PO ONE (22:59)
--- NOTE | 2018-10-18 00:44 | Cat Scan Report ---
PROCEDURE: CT HEAD/BRAIN WO CON TECHNIQUE: Computerized tomography of the head was performed without contrast material. CT DOSE LENGTH PRODUCT: mGycm HISTORY: Altered mental status. COMPARISONS: October 02, 2018. FINDINGS: The ventricles are normal in size. The samaniego matter and white matter appear normal. There is probably a dilated perivascular space of Virchow Andre in the right basal ganglia. There are no mass lesions. There is no intracranial hemorrhage. The calvarium appears intact. The mastoid air cells and paranasa l sinuses are clear as far as visualized. IMPRESSION: No significant abnormality. This document is electronically signed by Gilberto Fox MD., October 18 2018 12:41:41 AM ET
[2018-10-18] MEDS ORDERED: ZOFRAN IV PRN (03:43)
[2018-10-18] MEDS ORDERED: SODIUM CHLORIDE FLUSH SYRINGE 10 ML IV PRN (03:43)
[2018-10-18] MEDS ORDERED: CEPHULAC PR SCH (04:00)
[2018-10-18] MEDS ORDERED: NACL 0.9% 500 ML 500 ML IV ONE (04:10)
--- NOTE | 2018-10-18 04:21 | History and Physical Report ---
History of Present Illness Date of examination: 10/18/18 History of present illness: 68-year-old man with a history of hypertension, chronic pain, peripheral vascular disease, cirrhosis, hepatitis C,hypertension, comes emergency room for evaluation of altered mental status Review of system is unobtainable, old records reviewed. Status post recent discharge from the hospital for altered mental status. PAST MEDICAL HISTORY: hypertension, chronic pain, peripheral vascular disease, hepatitis C, hypertension, DVT PAST SURGICAL HISTORY: IVC filter SOCIAL HISTORY:Unknown alcohol, drugs, tobacco FAMILY HISTORY: Hypertension Medications and Allergies Allergies Allergy/AdvReac Type Severity Reaction Status Date / Time No Known Allergies Allergy Verified 05/07/15 04:31 Home Medications Medication Instructions Recorded Confirmed Last Taken Type Allopurinol [Zyloprim] 100 mg PO QDAY #30 tablet 08/14/18 10/02/18 09/13/18 Rx 1 tab Cholecalciferol (Vitamin D3) 1,000 unit PO QDAY #30 capsule 08/14/18 10/02/18 09/13/18 Rx [Vitamin D3] 1 tab Ferrous Sulfate [Feosol 325 MG tab] 325 mg PO QDAY #30 tablet 08/14/18 10/02/18 09/13/18 Rx 1 tab Folic Acid [Folvite] 1 mg PO QDAY #30 tablet 08/14/18 10/02/18 09/13/18 Rx 1 tab Furosemide [Lasix TAB] 40 mg PO QDAY #30 tablet 10/05/18 Unknown Rx Lactulose [Cephulac] 20 gm PO TID 30 Days oral.liqd 10/05/18 Unknown Rx Nadolol [Corgard] 20 mg PO QDAY #30 tablet 10/05/18 Unknown Rx Rifaximin [Xifaxan] 550 mg PO BID #60 tablet 10/05/18 Unknown Rx Spironolactone 25 mg PO DAILY #30 tablet 10/05/18 Unknown Rx Active Meds: Active Medications Ceftriaxone Sodium (Rocephin/Ns 1 Gm/50 Ml) 1 gm in 50 mls @ 100 mls/hr IV Q24HR [facility]; Protocol Lactulose (Cephulac) 200 gm OH Q4H [facility] Ondansetron HCl (Zofran) 4 mg IV Q8H PRN PRN Reason: Nausea And Vomiting Sodium Chloride (Sodium Chloride Flush Syringe 10 Ml) 10 ml IV BID [facility] Sodium Chloride (Sodium Chloride Flush Syringe 10 Ml) 10 ml IV PRN PRN PRN Reason: LINE FLUSH Exam - Physical Exam Narrative exam: General Apperance: The patient lying in bed, breathing comfortable HEENT: Normocephalic, atraumatic. Pupils equally round and reactive to light, EOMI, no sclericterus or JVD or thyromegaly or nodule. , no carotid bruit, mucous membranes moist, no exudate or erythema Heart: S1-S2, regular is rhythm Lungs: Clear to auscultation bilaterally, breathing comfortable Abdomen: Heme-negative, Positive bowel sounds, soft, nontender, nondistended, no organomegaly Extremities: No edema cyanosis clubbing Skin: no rash, nodule, warm and dry Neuro: difficult to assess cranial nerves, speech is fluent but slow, moves all 4 extremities - Constitutional Vitals: Temp Pulse Resp BP Pulse Ox 98.4 F 58 L 5 L 106/74 99 10/17/18 18:13 10/18/18 00:31 10/18/18 00:31 10/18/18 00:31 10/18/18 00:31 Results - Labs CBC & Chem 7: 10/18/18 04:18 10/18/18 04:18 Labs: Abnormal lab results 10/17/18 10/17/18 10/17/18 Range/Units 19:00 20:30 20:30 WBC 2.5 L (4.5-11.0) K/mm3 RBC 3.24 L (3.65-5.03) M/mm3 Hgb 9.2 L (11.8-15.2) gm/dl Hct 29.7 L (35.5-45.6) % MCHC 31 L (32-34) % RDW 20.0 H (13.2-15.2) % Plt Count 11 L* (140-440) K/mm3 PT (12.2-14.9) Sec. INR (0.87-1.13) Sodium 134 L (137-145) mmol/L Potassium 3.5 L (3.6-5.0) mmol/L Carbon Dioxide 19 L (22-30) mmol/L Creatinine 4.0 H (0.8-1.5) mg/dL Calcium 7.8 L (8.4-10.2) mg/dL Total Bilirubin 1.40 H (0.1-1.2) mg/dL AST 46 H (5-40) units/L Ammonia (25-60) umol/L Total Protein 8.4 H (6.3-8.2) g/dL Albumin 1.9 L (3.9-5) g/dL Urine WBC (Auto) 128.0 H (0.0-6.0) /HPF Salicylates (2.8-20.0) mg/dL Acetaminophen (10.0-30.0) ug/mL 10/17/18 10/17/18 10/17/18 Range/Units 20:30 21:35 21:35 WBC (4.5-11.0) K/mm3 RBC (3.65-5.03) M/mm3 Hgb (11.8-15.2) gm/dl Hct (35.5-45.6) % MCHC (32-34) % RDW (13.2-15.2) % Plt Count (140-440) K/mm3 PT 20.5 H (12.2-14.9) Sec. INR 1.64 H (0.87-1.13) Sodium (137-145) mmol/L Potassium (3.6-5.0) mmol/L Carbon Dioxide (22-30) mmol/L Creatinine (0.8-1.5) mg/dL Calcium (8.4-10.2) mg/dL Total Bilirubin (0.1-1.2) mg/dL AST (5-40) units/L Ammonia 174.0 H (25-60) umol/L Total Protein (6.3-8.2) g/dL Albumin (3.9-5) g/dL Urine WBC (Auto) (0.0-6.0) /HPF Salicylates < 0.3 L (2.8-20.0) mg/dL Acetaminophen (10.0-30.0) ug/mL 10/17/18 Range/Units 21:35 WBC (4.5-11.0) K/mm3 RBC (3.65-5.03) M/mm3 Hgb (11.8-15.2) gm/dl Hct (35.5-45.6) % MCHC (32-34) % RDW (13.2-15.2) % Plt Count (140-440) K/mm3 PT (12.2-14.9) Sec. INR (0.87-1.13) Sodium (137-145) mmol/L Potassium (3.6-5.0) mmol/L Carbon Dioxide (22-30) mmol/L Creatinine (0.8-1.5) mg/dL Calcium (8.4-10.2) mg/dL Total Bilirubin (0.1-1.2) mg/dL AST (5-40) units/L Ammonia (25-60) umol/L Total Protein (6.3-8.2) g/dL Albumin (3.9-5) g/dL Urine WBC (Auto) (0.0-6.0) /HPF Salicylates (2.8-20.0) mg/dL Acetaminophen < 5.0 L (10.0-30.0) ug/mL - Imaging and Cardiology EKG: image reviewed CT Scan - head: report reviewed Assessment and Plan Assessment Hepatic encephalopathy Severe thrombocytopenia hypertension chronic pain peripheral vascular disease hepatitis C Plan Admit to medicine Start lactulose, follow ammonia level Consult renal, start IV Rocephin Transfuse platelets Resume home medications when able to reconcile Addendum please follow med rec, cancel plt transfusion, repeat plt 58
[2018-10-18 05:05] LABS: Calcium 7.7 mg/dL (8.4-10.2)
[2018-10-18 05:32] LABS: Basophils % (Auto) 0.7 % (0.0-1.8); Eosinophils # (Auto) 0.1 K/mm3 (0.0-0.4); Hematocrit 29.5 % (35.5-45.6); Hemoglobin 9.9 gm/dl (11.8-15.2); Lymphocytes # (Auto) 1.5 K/mm3 (1.2-5.4); Lymphocytes % (Auto) 46.1 % (13.4-35.0); Mean Corpuscular HGB Conc 34 % (32-34); Mean Corpuscular Volume 84 fl (84-94); Monocytes # (Auto) 0.3 K/mm3 (0.0-0.8); Monocytes % (Auto) 10.2 % (0.0-7.3); Red Cell Distribution Width 18.6 % (13.2-15.2)
[2018-10-18 05:38] LABS: Platelet Count 58 K/mm3 (140-440)
[2018-10-18] MEDS ORDERED: CEPHULAC PO SCH (06:30)
[2018-10-18] MEDS ORDERED: NACL 0.9% 500 ML 500 ML ONE (06:42)
[2018-10-18] MEDS ORDERED: NACL 0.9% 100 ML IV PRN (07:11)
--- NOTE | 2018-10-18 11:38 | Consultation ---
History of Present Illness - Reason for Consult end stage renal disease - History of Present Illness This is a very pleasant 68-year-old -[place] male well known to our clinic who presents to emergency Department secondary to altered mental status. He has a past medical history significant for end-stage renal disease as well as a history of hypertension, hep C, HIV, end-stage liver disease and cirrhosis, with periodic paracentesis procedures done in the past. Patient is dialyzed at [facility]. He dialyzes Monday schedule. He was brought in by his family secondary to altered mental status and confusion. He seems to be better this morning. Initial labs were concerning for possible underlying urinary tract infection which could've caused the confusion versus po ssible hepatic encephalopathy based on his ammonia levels. Nephrology is being consulted this time secondary to patient's chronic dialysis needs. Past History Past Medical History: dialysis, ESRD, hepatitis, HIV/AIDS, hypertension, hyperlipidemia, PVD Past Surgical History: Other (PermCath placement, paracentesis procedures in the past) Social history: , lives with family Family history: diabetes, hypertension Medications and Allergies Allergies Allergy/AdvReac Type Severity Reaction Status Date / Time No Known Allergies Allergy Verified 05/07/15 04:31 Home Medications Medication Instructions Recorded Confirmed Last Taken Type Allopurinol [Zyloprim] 100 mg PO QDAY #30 tablet 08/14/18 10/02/18 09/13/18 Rx 1 tab Cholecalciferol (Vitamin D3) 1,000 unit PO QDAY #30 capsule 08/14/18 10/02/18 09/13/18 Rx [Vitamin D3] 1 tab Ferrous Sulfate [Feosol 325 MG tab] 325 mg PO QDAY #30 tablet 08/14/18 10/02/18 09/13/18 Rx 1 tab Folic Acid [Folvite] 1 mg PO QDAY #30 tablet 08/14/18 10/02/18 09/13/18 Rx 1 tab Furosemide [Lasix TAB] 40 mg PO QDAY #30 tablet 10/05/18 Unknown Rx Lactulose [Cephulac] 20 gm PO TID 30 Days oral.liqd 10/05/18 Unknown Rx Nadolol [Corgard] 20 mg PO QDAY #30 tablet 10/05/18 Unknown Rx Rifaximin [Xifaxan] 550 mg PO BID #60 tablet 10/05/18 Unknown Rx Spironolactone 25 mg PO DAILY #30 tablet 10/05/18 Unknown Rx Active Meds: Active Medications Allopurinol (Zyloprim) 100 mg PO QDAY [facility] Cholecalciferol (Vitamin D3) 1,000 unit PO QDAY [facility] Ferrous Sulfate (Feosol) 325 mg PO QDAY [facility] Folic Acid (Folvite) 1 mg PO QDAY [facility] Furosemide (Lasix) 40 mg PO QDAY [facility] Ceftriaxone Sodium (Rocephin/Ns 1 Gm/50 Ml) 1 gm in 50 mls @ 100 mls/hr IV Q24HR@2200 [facility]; Protocol Sodium Chloride (Nacl 0.9%) 100 mls @ 999 mls/hr IV NANCY PRN PRN Reason: Hypotension Lactulose (Cephulac) 20 gm PO TID [facility] Nadolol (Corgard) 20 mg PO QDAY [facility] Ondansetron HCl (Zofran) 4 mg IV Q8H PRN PRN Reason: Nausea And Vomiting Rifaximin (Xifaxan) 550 mg PO BID [facility] Sodium Chloride (Sodium Chloride Flush Syringe 10 Ml) 10 ml IV BID [facility] Sodium Chloride (Sodium Chloride Flush Syringe 10 Ml) 10 ml IV PRN PRN PRN Reason: LINE FLUSH Spironolactone (Aldactone) 25 mg PO DAILY [facility] Review of Systems Constitutional: fatigue, weakness Exam - Vital Signs Vital signs: Vital Signs Pulse Resp Pulse Ox 59 L 11 L 97 10/17/18 18:10 10/17/18 18:10 10/17/18 18:10 - General Appearance General appearance: well-nourished, appears stated age EENT: ATNC, PERRL Neck: Present: neck supple, trachea midline Respiratory: Clear to Ascultation, Normal Exam Heart: regular, normal heart rate, S1S2 Gastrointestinal: Present: normal, normoactive bowel sounds Integumentary: no rash, warm and dry Neurologic: no focal deficit, no asterixis, alert and oriented x3 Musculoskeletal: Present: other (+edema) Psychiatric: mood/affect appropriate, cooperative Results - Lab Results 10/18/18 04:18 10/18/18 04:18 Most recent lab results Calcium 7.7 mg/dL (8.4-10.2) L 10/18/18 04:18 Assessment and Plan - Patient Problems (1) ESRD (end stage renal disease) on dialysis Current Visit: No Status: Chronic Plan to address problem: We'll plan for dialysis today. He is on a Monday outpatient schedule. (2) Altered mental state Current Visit: Yes Status: Acute Plan to address problem: May be multifactorial in the setting of UTI along with hyperammonemia and hepatic encephalopathy. Patient has been started on IV Rocephin and is ob taining lactulose. His overall mental status is improving and he is essentially back to baseline this morning upon my examination. We'll continue to monitor. (3) Urinary tract infection Current Visit: Yes Status: Acute Plan to address problem: Please ensure that antibiotics are dosed appropriately for his decreased renal clearance. His UTI may also be contributing to his altered mental status. His altered mental status is better at this time. We will continue to monitor. Cultures pending. (4) Hyperammonemia Current Visit: No Status: Acute Plan to address problem: Patient started on lactulose therapy here in the hospital. We will monitor follow-up levels. (5) Hypertensive chronic kidney disease with stage 5 chronic kidney disease or end stage renal disease Current Visit: Yes Status: Chronic Plan to address problem: We'll monitor on his current regimen.
[2018-10-18] MEDS: SODIUM CHLORIDE FLUSH SYRINGE 10 ML IV SCH (11:45)
--- NOTE | 2018-10-18 13:38 | Gastroenterology Consultation ---
<GENO HILLMAN - Last Filed: 10/18/18 15:21> History of Present Illness - Reason for Consult Consult date: 10/18/18 liver failure Requesting physician: VIKY RIVERA - History of Present Illness Patient is a 68 y/o male with PMH of HTN, HIV, ESRD on HD, chronic anemia, PVD, DVT s/p IVC filter, Hepatitis C (s/p treatment), and cirrhosis who presented to ED with AMS. He was admitted for encephalopathy 2/2 UTI in combination with elevated ammonia levels. Patient is well known to our service and is followed by Dr. Holman. He has a hx of decompansated cirrhosis with ascites and HE 2/2 remote history of ETOH abuse and Hepatitis C. He has not drank alcohol in 3-4 years and has received treatment for his Hep C with last HCV RNA undetectable last month (08/31/2018). His last EGD was 06/2018 that showed portal hypertensive gastropathy and mall nonbleeding distal esophageal varices. He requires PRN paracentesis for ascites with last LVP on 09/14/2018 with no evidence of SBP. This afternoon patient was sitting up in bed w/o acute distress. Noted to be oriented to person, place, and time. He c/o abdominal distention associated and "feeling full" but no abd pain, N/V, jaundice, fever, wt loss, signs of bleeding, or LGI symptoms. Tolerating diet. Past History Past Medical History: other (as per HPI) Past Surgical History: Other (PermCath placement, paracentesis procedures in the past, IVC filter) Social history: , lives with family Family history: diabetes, hypertension Medications and Allergies Allergies Allergy/AdvReac Type Severity Reaction Status Date / Time No Known Allergies Allergy Verified 05/07/15 04:31 Home Medications Medication Instructions Recorded Confirmed Last Taken Type Allopurinol [Zyloprim] 100 mg PO QDAY #30 tablet 08/14/18 10/02/18 09/13/18 Rx 1 tab Cholecalciferol (Vitamin D3) 1,000 unit PO QDAY #30 capsule 08/14/18 10/02/18 09/13/18 Rx [Vitamin D3] 1 tab Ferrous Sulfate [Feosol 325 MG tab] 325 mg PO QDAY #30 tablet 08/14/18 10/02/1819 Rx 1 tab Folic Acid [Folvite] 1 mg PO QDAY #30 tablet 08/14/18 10/02/18 09/13/18 Rx 1 tab Furosemide [Lasix TAB] 40 mg PO QDAY #30 tablet 10/05/18 Unknown Rx Lactulose [Cephulac] 20 gm PO TID 30 Days oral.liqd 10/05/18 Unknown Rx Nadolol [Corgard] 20 mg PO QDAY #30 tablet 10/05/18 Unknown Rx Rifaximin [Xifaxan] 550 mg PO BID #60 tablet 10/05/18 Unknown Rx Spironolactone 25 mg PO DAILY #30 tablet 10/05/18 Unknown Rx Active Meds: Active Medications Allopurinol (Zyloprim) 100 mg PO QDAY [facility] Cholecalciferol (Vitamin D3) 1,000 unit PO QDAY [facility] Ferrous Sulfate (Feosol) 325 mg PO QDAY [facility] Folic Acid (Folvite) 1 mg PO QDAY [facility] Furosemide (Lasix) 40 mg PO QDAY [facility] Ceftriaxone Sodium (Rocephin/Ns 1 Gm/50 Ml) 1 gm in 50 mls @ 100 mls/hr IV Q24HR@2200 [facility]; Protocol Sodium Chloride (Nacl 0.9%) 100 mls @ 999 mls/hr IV NANCY PRN PRN Reason: Hypotension Lactulose (Cephulac) 20 gm PO TID [facility] Nadolol (Corgard) 20 mg PO QDAY [facility] Ondansetron HCl (Zofran) 4 mg IV Q8H PRN PRN Reason: Nausea And Vomiting Rifaximin (Xifaxan) 550 mg PO BID [facility] Sodium Chloride (Sodium Chloride Flush Syringe 10 Ml) 10 ml IV BID [facility] Sodium Chloride (Sodium Chloride Flush Syringe 10 Ml) 10 ml IV PRN PRN PRN Reason: LINE FLUSH Spironolactone (Aldactone) 25 mg PO DAILY [facility] medications reviewed/updated as needed Review of Systems - Review of Systems All systems: negative Gastrointestinal: other (abdominal distention due to ascites) Exam - Constitutional Vital Signs: Temp Pulse Resp BP Pulse Ox 98.4 F 57 L 16 129/68 100 10/17/18 18:13 10/18/18 07:45 10/18/18 08:20 10/18/18 07:45 10/18/18 12:52 General appearance: no acute distress - EENT Eyes: PERRL, EOM intact ENT: hearing intact - Respiratory Respiratory: bilateral: CTA - Cardiovascular Rhythm: regular - Gastrointestinal General gastrointestinal: Present: soft, non-tender, distended (ascites), normal bowel sounds - Neurologic Neurological: alert and oriented x3 - Labs CBC & Chem 7: 10/18/18 04:18 10/18/18 04:18 Lab Results: Laboratory Results - last 24 hr 10/17/18 10/17/18 10/17/18 18:24 19:00 20:30 WBC 2.5 L RBC 3.24 L Hgb 9.2 L Hct 29.7 L MCV 92 MCH 28 MCHC 31 L RDW 20.0 H Plt Count 11 L* Lymph % (Auto) [place] % (Auto) Eos % (Auto) Baso % (Auto) Lymph # [place] # Eos # Baso # Seg Neutrophils % Seg Neutrophils # PT INR APTT Sodium Potassium Chloride Carbon Dioxide Anion Gap BUN Creatinine Estimated GFR BUN/Creatinine Ratio Glucose POC Glucose 78 Calcium Total Bilirubin AST ALT Alkaline Phosphatase Ammonia Total Protein Albumin Albumin/Globulin Ratio Urine Color [place] Urine Turbidity Slightly-cloudy Urine pH 5.0 Ur Specific [place] 1.013 Urine Protein <15 mg/dl Urine Glucose (UA) Neg Urine Ketones Neg Urine Blood Mod Urine Nitrite Neg Urine Bilirubin Neg Urine Urobilinogen 2.0 Ur Leukocyte Esterase Lg Urine WBC (Auto) 128.0 H Urine RBC (Auto) 119.0 U Epithel Cells (Auto) 1.0 Urine Bacteria (Auto) 2+ Urine WBC Clumps 3+ Hyaline Casts 10 Urine Mucus Few Urine Yeast (Budding) 3+ Salicylates Acetaminophen Blood Type Antibody Screen 10/17/18 10/17/18 10/17/18 20:30 20:30 21:35 WBC RBC Hgb Hct MCV MCH MCHC RDW Plt Count Lymph % (Auto) [place] % (Auto) Eos % (Auto) Baso % (Auto) Lymph # [place] # Eos # Baso # Seg Neutrophils % Seg Neutrophils # PT 20.5 H INR 1.64 H APTT 35.4 Sodium 134 L Potassium 3.5 L Chloride 98.1 Carbon Dioxide 19 L Anion Gap 20 BUN 20 Creatinine 4.0 H Estimated GFR 18 BUN/Creatinine Ratio 5 Glucose 89 POC Glucose Calcium 7.8 L Total Bilirubin 1.40 H AST 46 H ALT 17 Alkaline Phosphatase 56 Ammonia 174.0 H Total Protein 8.4 H Albumin 1.9 L Albumin/Globulin Ratio 0.3 Urine Color Urine Turbidity Urine pH Ur Specific [place] Urine Protein Urine Glucose (UA) Urine Ketones Urine Blood Urine Nitrite Urine Bilirubin Urine Urobilinogen Ur Leukocyte Esterase Urine WBC (Auto) Urine RBC (Auto) U Epithel Cells (Auto) Urine Bacteria (Auto) Urine WBC Clumps Hyaline Casts Urine Mucus Urine Yeast (Budding) Salicylates Acetaminophen Blood Type Antibody Screen 10/17/18 10/17/18 10/17/18 21:35 21:35 21:45 WBC RBC Hgb Hct MCV MCH MCHC RDW Plt Count Lymph % (Auto) [place] % (Auto) Eos % (Auto) Baso % (Auto) Lymph # [place] # Eos # Baso # Seg Neutrophils % Seg Neutrophils # PT INR APTT Sodium Potassium Chloride Carbon Dioxide Anion Gap BUN Creatinine Estimated GFR BUN/Creatinine Ratio Glucose POC Glucose Calcium Total Bilirubin AST ALT Alkaline Phosphatase Ammonia Total Protein Albumin Albumin/Globulin Ratio Urine Color Urine Turbidity Urine pH Ur Specific [place] Urine Protein Urine Glucose (UA) Urine Ketones Urine Blood Urine Nitrite Urine Bilirubin Urine Urobilinogen Ur Leukocyte Esterase Urine WBC (Auto) Urine RBC (Auto) U Epithel Cells (Auto) Urine Bacteria (Auto) Urine WBC Clumps Hyaline Casts Urine Mucus Urine Yeast (Budding) Salicylates < 0.3 L Acetaminophen < 5.0 L Blood Type A POSITIVE Antibody Screen Negative 10/18/18 10/18/18 10/18/18 04:15 04:18 04:18 WBC 3.2 L RBC 3.50 L Hgb 9.9 L Hct 29.5 L MCV 84 MCH 28 MCHC 34 RDW 18.6 H Plt Count 58 L D Lymph % (Auto) 46.1 H [place] % (Auto) 10.2 H Eos % (Auto) 2.0 Baso % (Auto) 0.7 Lymph # 1.5 [place] # 0.3 Eos # 0.1 Baso # 0.0 Seg Neutrophils % 41.0 Seg Neutrophils # 1.3 L PT INR APTT Sodium 136 L Potassium 3.1 L Chloride 98.0 Carbon Dioxide 24 Anion Gap 17 BUN 22 H Creatinine 4.2 H Estimated GFR 17 BUN/Creatinine Ratio 5 Glucose 101 H POC Glucose Calcium 7.7 L Total Bilirubin AST ALT Alkaline Phosphatase Ammonia Total Protein Albumin Albumin/Globulin Ratio Urine Color Urine Turbidity Urine pH Ur Specific [place] Urine Protein Urine Glucose (UA) Urine Ketones Urine Blood Urine Nitrite Urine Bilirubin Urine Urobilinogen Ur Leukocyte Esterase Urine WBC (Auto) Urine RBC (Auto) U Epithel Cells (Auto) Urine Bacteria (Auto) Urine WBC Clumps Hyaline Casts Urine Mucus Urine Yeast (Budding) Salicylates Acetaminophen Blood Type A POSITIVE Antibody Screen Negative 10/18/18 10/18/18 04:18 06:09 WBC RBC Hgb Hct MCV MCH MCHC RDW Plt Count Lymph % (Auto) [place] % (Auto) Eos % (Auto) Baso % (Auto) Lymph # [place] # Eos # Baso # Seg Neutrophils % Seg Neutrophils # PT INR APTT Sodium Potassium Chloride Carbon Dioxide Anion Gap BUN Creatinine Estimated GFR BUN/Creatinine Ratio Glucose POC Glucose 87 Calcium Total Bilirubin AST ALT Alkaline Phosphatase Ammonia 115.0 H Total Protein Albumin Albumin/Globulin Ratio Urine Color Urine Turbidity Urine pH Ur Specific [place] Urine Protein Urine Glucose (UA) Urine Ketones Urine Blood Urine Nitrite Urine Bilirubin Urine Urobilinogen Ur Leukocyte Esterase Urine WBC (Auto) Urine RBC (Auto) U Epithel Cells (Auto) Urine Bacteria (Auto) Urine WBC Clumps Hyaline Casts Urine Mucus Urine Yeast (Budding) Salicylates Acetaminophen Blood Type Antibody Screen Assessment and Plan 1.cirrhosis 2.hepatic encephalopathy 3.ascites 4.esophageal varices -afebrile -WBC 3.2 -H/H 9.9/29.5 -plt count 58 -INR 1.64 and LFTs (1.40, AST 46, ALT 17, alk phos 56) stable compared to previous -ammonia 115-trending down -abd U/S 06/2018 showed cirrhosis and ascites but no distinct lesions -last paracentesis 09/14/18 with no evidence of SBP -last EGD 06/2018 showed portal hypertensive gastropathy and small nonbleeding distal esophageal varices -etiology-patient has decompensated cirrhosis 2/2 remote hx of ETOH abuse (no alcohol in 3-4 years) and Hep C (s/p treatment; HCV RNA 08/31/18 undetectable) with ascites, HE, and varices -clinically, patient's encephalopathy is improving. Has c/o abdominal distention but denies abd pain, N/V, or signs of bleeding. Tolerating diet. -will order diagnostic/therapeutic paracentesis (r/o SBP) -continue antibiotics, xifaxan, lactulose (titrate dose to goal of BMs x 2- 3/day, diuretics per nephrology recommendations, and nadalol -low sodium diet -continue to trend labs and supportive care -will follow 5.chronic anemia 6.thrombocytopenia 7.ESRD on HD 8.HTN 9.HIV/AIDS <BECKY GRANT R - Last Filed: 10/19/18 12:51> Medications and Allergies Active Meds: Active Medications Allopurinol (Zyloprim) 100 mg PO QDAY [facility] Last Admin: 10/19/18 12:41 Dose: 100 mg Documented by: Cholecalciferol (Vitamin D3) 1,000 unit PO QDAY [facility] Last Admin: 10/19/18 12:41 Dose: 1,000 unit Documented by: Ferrous Sulfate (Feosol) 325 mg PO QDAY [facility] Last Admin: 10/19/18 12:40 Dose: 325 mg Documented by: Fluconazole (Diflucan) 100 mg PO QDAY [facility] Stop: 10/26/18 09:59 Folic Acid (Folvite) 1 mg PO QDAY [facility] Last Admin: 10/19/18 12:40 Dose: 1 mg Documented by: Furosemide (Lasix) 40 mg PO QDAY [facility] Last Admin: 10/19/18 12:40 Dose: 40 mg Documented by: Ceftriaxone Sodium (Rocephin/Ns 1 Gm/50 Ml) 1 gm in 50 mls @ 100 mls/hr IV Q24H R@2200 [facility]; Protocol Last Admin: 10/18/18 22:22 Dose: 100 mls/hr Documented by: Sodium Chloride (Nacl 0.9%) 100 mls @ 999 mls/hr IV NANCY PRN PRN Reason: Hypotension Phytonadione 10 mg/ Sodium (Chloride) 51 mls @ 100 mls/hr IV Q24H [facility] Stop: 10/21/18 10:31 Lactulose (Cephulac) 20 gm PO TID [facility] Last Admin: 10/19/18 12:41 Dose: 20 gm Documented by: Nadolol (Corgard) 20 mg PO QDAY [facility] Last Admin: 10/19/18 12:39 Dose: Not Given Documented by: Ondansetron HCl (Zofran) 4 mg IV Q8H PRN PRN Reason: Nausea And Vomiting Rifaximin (Xifaxan) 550 mg PO BID [facility] Last Admin: 10/19/18 12:40 Dose: 550 mg Documented by: Sodium Chloride (Sodium Chloride Flush Syringe 10 Ml) 10 ml IV BID [facility] Last Admin: 10/19/18 12:42 Dose: 10 ml Documented by: Sodium Chloride (Sodium Chloride Flush Syringe 10 Ml) 10 ml IV PRN PRN PRN Reason: LINE FLUSH Spironolactone (Aldactone) 25 mg PO DAILY [facility] Last Admin: 10/19/18 12:40 Dose: 25 mg Documented by: Exam - Constitutional Vital Signs: Temp Pulse Resp BP Pulse Ox 98.4 F 66 18 89/52 99 10/19/18 12:05 10/19/18 12:05 10/19/18 12:05 10/19/18 12:05 10/19/18 12:05 - Labs CBC & Chem 7: 10/19/18 06:10 10/19/18 06:10 Lab Results: Laboratory Results - last 24 hr 10/18/18 10/19/18 10/19/18 15:20 06:10 06:10 WBC 2.9 L RBC 2.94 L Hgb 8.1 L Hct 24.7 L MCV 84 MCH 28 MCHC 33 RDW 19.0 H Plt Count 42 L Lymph % (Auto) 45.0 H [place] % (Auto) 10.1 H Eos % (Auto) 1.1 Baso % (Auto) 0.3 Lymph # 1.3 [place] # 0.3 Eos # 0.0 Baso # 0.0 Seg Neutrophils % 43.5 Seg Neutrophils # 1.3 L PT 23.6 H INR 1.96 H Sodium Potassium Chloride Carbon Dioxide Anion Gap BUN Creatinine Estimated GFR BUN/Creatinine Ratio Glucose POC Glucose Calcium Total Bilirubin AST ALT Alkaline Phosphatase Ammonia 160.0 H Total Protein Albumin Albumin/Globulin Ratio Fluid Type Fluid Color Fluid Appearance Fluid WBC Fluid RBC 10/19/18 10/19/18 10/19/18 06:10 06:13 07:31 WBC RBC Hgb Hct MCV MCH MCHC RDW Plt Count Lymph % (Auto) [place] % (Auto) Eos % (Auto) Baso % (Auto) Lymph # [place] # Eos # Baso # Seg Neutrophils % Seg Neutrophils # PT INR Sodium 135 L Potassium 3.1 L Chloride 98.6 Carbon Dioxide 24 Anion Gap 16 BUN 16 Creatinine 3.5 H Estimated GFR 21 BUN/Creatinine Ratio 5 Glucose 111 H POC Glucose 86 103 Calcium 7.1 L Total Bilirubin 0.80 AST 28 ALT 13 Alkaline Phosphatase 46 Ammonia Total Protein 6.4 D Albumin 1.6 L Albumin/Globulin Ratio 0.3 Fluid Type Fluid Color Fluid Appearance Fluid WBC Fluid RBC 10/19/18 10/19/18 10:15 12:12 WBC RBC Hgb Hct MCV MCH MCHC RDW Plt Count Lymph % (Auto) [place] % (Auto) Eos % (Auto) Baso % (Auto) Lymph # [place] # Eos # Baso # Seg Neutrophils % Seg Neutrophils # PT INR Sodium Potassium Chloride Carbon Dioxide Anion Gap BUN Creatinine Estimated GFR BUN/Creatinine Ratio Glucose POC Glucose 91 Calcium Total Bilirubin AST ALT Alkaline Phosphatase Ammonia Total Protein Albumin Albumin/Globulin Ratio Fluid Type Paracentesis Fluid Color Yellow Fluid Appearance Hazy Fluid WBC 105 Fluid RBC 1050 Assessment and Plan Pt seen and examined. Plan as noted.
[2018-10-18] MEDS: CEPHULAC PO SCH ×2 (15:15→22:21)
[2018-10-18] MEDS ORDERED: NACL 0.9 (PRIMING MACHINE ONLY DIALYSIS) MC ONE (19:25)
[2018-10-18] MEDS ORDERED: ROCEPHIN/NS 1 GM/50 ML 1 GM/50 ML BAG IV SCH (20:00)
[2018-10-18] MEDS: XIFAXAN PO SCH (22:21)
[2018-10-19] MEDS ORDERED: NACL 0.9% 500 ML 500 ML IV ONE (05:20)
[2018-10-19 06:36] LABS: Basophils % (Auto) 0.3 % (0.0-1.8); Eosinophils % (Auto) 1.1 % (0.0-4.3); Hematocrit 24.7 % (35.5-45.6); Hemoglobin 8.1 gm/dl (11.8-15.2); Lymphocytes # (Auto) 1.3 K/mm3 (1.2-5.4); Mean Corpuscular HGB Conc 33 % (32-34); Mean Corpuscular Volume 84 fl (84-94); Monocytes # (Auto) 0.3 K/mm3 (0.0-0.8); Monocytes % (Auto) 10.1 % (0.0-7.3); Red Blood Count 2.94 M/mm3 (3.65-5.03)
[2018-10-19 06:43] LABS: Platelet Count 42 K/mm3 (140-440)
[2018-10-19 06:47] LABS: INR 1.96 (0.87-1.13)
[2018-10-19 07:05] LABS: Albumin 1.6 g/dL (3.9-5); Calcium 7.1 mg/dL (8.4-10.2)
--- NOTE | 2018-10-19 08:45 | Progress Note ---
Assessment and Plan - Patient Problems (1) ESRD (end stage renal disease) on dialysis Current Visit: No Status: Chronic Plan to address problem: Maintain on a Monday schedule. (2) Altered mental state Current Visit: Yes Status: Acute Plan to address problem: May be multifactorial in the setting of UTI along with hyperammonemia and hepa tic encephalopathy. Patient has been started on IV Rocephin and is obtaining lactulose. His overall mental status is improving and he is essentially back to baseline this morning upon my examination. We'll continue to monitor. (3) Urinary tract infection Current Visit: Yes Status: Acute Plan to address problem: Please ensure that antibiotics are dosed appropriately for his decreased renal clearance. His UTI may also be contributing to his altered mental status. His altered mental status is better at this time. We will continue to monitor. Cultures pending. (4) Hyperammonemia Current Visit: No Status: Acute Plan to address problem: Patient started on lactulose therapy here in the hospital. We will monitor follow-up levels. (5) Hypertensive chronic kidney disease with stage 5 chronic kidney disease or end stage renal disease Current Visit: Yes Status: Chronic Plan to address problem: We'll monitor on his current regimen. Subjective Date of service: 10/19/18 Interval history: no acute issues overnight. Pending paracentesis today per GI consult notes. Tolerated HD well without any issues. Objective - Vital Signs Vital signs: Vital Signs - 12hr 10/18/18 10/18/18 10/19/18 22:00 23:45 00:00 Temperature 98.0 F Pulse Rate 66 63 Respiratory 18 Rate Respiratory 17 Rate [Scrotum] Blood Pressure 87/47 Blood Pressure [Left] O2 Sat by Pulse 100 Oximetry 10/19/18 10/19/18 10/19/18 01:28 04:50 08:17 Temperature 98.0 F 98.3 F Pulse Rate 64 66 63 Respiratory 16 20 20 Rate Respiratory Rate [Scrotum] Blood Pressure 82/37 87/47 Blood Pressure 88/48 [Left] O2 Sat by Pulse 97 98 94 Oximetry - General Appearance General appearance: appears stated age, obese, chronically ill EENT: ATNC, PERRL Neck: no JVD, no thyromegaly Respiratory: Present: Clear to Ascultation Cardiology: regular, S1S2 Gastrointestinal: normal, distended, hepatomegaly Integumentary: warm and dry Neurologic: no focal deficit, no asterixis, alert and oriented x3 Musculoskeletal: other (+edema ) Psychiatric: mood/affect appropriate, cooperative - Lab 10/19/18 06:10 10/19/18 06:10 Most recent lab results Calcium 7.1 mg/dL (8.4-10.2) L 10/19/18 06:10 - Allied health notes Allied health notes reviewed: nursing Medications & Allergies - Medications Allergies/Adverse Reactions: Allergies No Known Allergies Allergy (Verified 05/07/15 04:31) Home Medications: Home Medications Medication Instructions Recorded Confirmed Last Taken Type Allopurinol [Zyloprim] 100 mg PO QDAY #30 tablet 08/14/18 10/02/18 09/13/18 Rx 1 tab Cholecalciferol (Vitamin D3) 1,000 unit PO QDAY #30 capsule 08/14/18 10/02/18 09/13/18 Rx [Vitamin D3] 1 tab Ferrous Sulfate [Feosol 325 MG tab] 325 mg PO QDAY #30 tablet 08/14/18 10/02/18 09/13/18 Rx 1 tab Folic Acid [Folvite] 1 mg PO QDAY #30 tablet 08/14/18 10/02/18 09/13/18 Rx 1 tab Furosemide [Lasix TAB] 40 mg PO QDAY #30 tablet 10/05/18 Unknown Rx Lactulose [Cephulac] 20 gm PO TID 30 Days oral.liqd 10/05/18 Unknown Rx Nadolol [Corgard] 20 mg PO QDAY #30 tablet 10/05/18 Unknown Rx Rifaximin [Xifaxan] 550 mg PO BID #60 tablet 10/05/18 Unknown Rx Spironolactone 25 mg PO DAILY #30 tablet 10/05/18 Unknown Rx Active Medications: Generic Name Dose Route Start Last Admin Trade Name Freq PRN Reason Stop Dose Admin Allopurinol 100 mg 10/19/18 10:00 Zyloprim PO QDAY [facility] Cholecalciferol 1,000 unit 10/19/18 10:00 Vitamin D3 PO QDAY [facility] Ferrous Sulfate 325 mg 10/19/18 10:00 Feosol PO QDAY [facility] Folic Acid 1 mg 10/19/18 10:00 Folvite PO QDAY [facility] Furosemide 40 mg 10/19/18 10:00 Lasix PO QDAY [facility] Ceftriaxone Sodium 1 gm in 50 mls @ 100 mls/hr 10/18/18 20:00 10/18/18 22:22 Rocephin/Ns 1 Gm/50 Ml IV 100 mls/hr Q24HR@2200 [facility] Administration Protocol Sodium Chloride 100 mls @ 999 mls/hr 10/18/18 07:11 Nacl 0.9% IV [facility] PRN Hypotension Lactulose 20 gm 10/18/18 14:00 10/18/18 22:21 Cephulac PO 20 gm TID [facility] Administration Nadolol 20 mg 10/19/18 10:00 Corgard PO QDAY [facility] Ondansetron HCl 4 mg 10/18/18 03:43 Zofran IV Q8H PRN Nausea And Vomiting Rifaximin 550 mg 10/18/18 22:00 10/18/18 22:21 Xifaxan PO 550 mg BID [facility] Administration Sodium Chloride 10 ml 10/18/18 10:00 10/18/18 11:45 Sodium Chloride Flush Syringe 10 Ml IV 10 ml BID [facility] Administration Sodium Chloride 10 ml 10/18/18 03:43 Sodium Chloride Flush Syringe 10 Ml IV PRN PRN LINE FLUSH Spironolactone 25 mg 10/19/18 10:00 Aldactone PO DAILY [facility]
[2018-10-19] MEDS: SODIUM CHLORIDE FLUSH SYRINGE 10 ML IV SCH ×2 (08:50→12:42)
--- NOTE | 2018-10-19 09:23 | Progress Note ---
Assessment and Plan Assessment and plan: 67-year-old man with past medical history of hypertension, peripheral vascular disease, hepatitis C, liver cirrhosis, ascites, DVT status post IVC filter, end- stage renal disease, chronic lymphedema, recurrent hepatic encephalopathy due to liver cirrhosis -He has had recurrent ascites, requiring large volume paracentesis, last paracentesis was done in August and at that time 10.3 L was removed -He presents during this admission for altered mental status Diagnoses Decompensated liver disease/cirrhosis with the following complications Hepatic encephalopathy Ascites End-stage renal disease on dialysis Hypoalbuminemia due to liver cirrhosis Thrombocytopenia Coagulopathy Hypokalemia esophageal varices Hep C status post treatments, HCV RNA undetectable in August Anemia of chronic disease Hyperammonemia UTI- dina on culture Sepsis Plan Continue lactulose, and GI input appreciated, continue home meds Xifaxan, lactulose, plan for therapeutic/diagnostic paracentesis -last EGD was in June 2018, showed portal hypertensive gastropathy, small nonbleeding distal esophageal varices -Very poor IV access, unable to obtain EJ , IO was placed but is not functional, l, PICC team unable to place a PICC line or midline, spoke to interventional radiology, the patient is well known to them, and it is also difficult for him to please access in him. At this time the plan is to use his permacath if there is any emergency requiring IV access. ICU has ability to clear heparin from a port and he can be used emergently if needed. -fluconazole for UTI -coagulopathy, trial of VIT k, recheck in am Continue dialysis per nephrology Hypokalemia is mild, cont to monitor given esrd -dvt ppx- scds, in light of anemia and thrombocytopenia History Interval history: mentation is improving Review of systems Constitutional: No fevers, no malaise, no joint pains CVS: No chest pain, no orthopnea, no dyspnea on exertion, no pedal edema GI: No abdominal pain, no diarrhea, no vomiting, no constipation, co abdominal distension Respiratory: No shortness of breath, no wheezing, no coughing Hospitalist Physical - Physical exam Narrative exam: General.: Appears chronically ill HEENT: Moist mucous membranes, extraocular muscles intact, no lymphadenopathy Neck: supple Cardiac: S1-S2 heard Lungs: clear to auscultation bilaterally Abdomen: distended, with shifting dullness Extremities: no edema clubbing or cyanosis Skin: no rash or lesions Neurologic: no gross focal deficits Psych: calm, and cooperative - Constitutional Vitals: Temp Pulse Resp BP Pulse Ox 98.3 F 63 20 87/47 94 10/19/18 08:17 10/19/18 08:17 10/19/18 08:17 10/19/18 08:17 10/19/18 08:17 Results - Labs CBC & Chem 7: 10/19/18 06:10 10/19/18 06:10 Labs: Laboratory Last Values WBC 2.9 K/mm3 (4.5-11.0) L 10/19/18 06:10 RBC 2.94 M/mm3 (3.65-5.03) L 10/19/18 06:10 Hgb 8.1 gm/dl (11.8-15.2) L 10/19/18 06:10 Hct 24.7 % (35.5-45.6) L 10/19/18 06:10 MCV 84 fl (84-94) 10/19/18 06:10 MCH 28 pg (28-32) 10/19/18 06:10 MCHC 33 % (32-34) 10/19/18 06:10 RDW 19.0 % (13.2-15.2) H 10/19/18 06:10 Plt Count 42 K/mm3 (140-440) L 10/19/18 06:10 Lymph % (Auto) 45.0 % (13.4-35.0) H 10/19/18 06:10 Hardy % (Auto) 10.1 % (0.0-7.3) H 10/19/18 06:10 Eos % (Auto) 1.1 % (0.0-4.3) 10/19/18 06:10 Baso % (Auto) 0.3 % (0.0-1.8) 10/19/18 06:10 Lymph # 1.3 K/mm3 (1.2-5.4) 10/19/18 06:10 Hardy # 0.3 K/mm3 (0.0-0.8) 10/19/18 06:10 Eos # 0.0 K/mm3 (0.0-0.4) 10/19/18 06:10 Baso # 0.0 K/mm3 (0.0-0.1) 10/19/18 06:10 Seg Neutrophils % 43.5 % (40.0-70.0) 10/19/18 06:10 Seg Neutrophils # 1.3 K/mm3 (1.8-7.7) L 10/19/18 06:10 PT 23.6 Sec. (12.2-14.9) H 10/19/18 06:10 INR 1.96 (0.87-1.13) H 10/19/18 06:10 APTT 35.4 Sec. (24.2-36.6) 10/17/18 21:35 Sodium 135 mmol/L (137-145) L 10/19/18 06:10 Potassium 3.1 mmol/L (3.6-5.0) L 10/19/18 06:10 Chloride 98.6 mmol/L (98-107) 10/19/18 06:10 Carbon Dioxide 24 mmol/L (22-30) 10/19/18 06:10 Anion Gap 16 mmol/L 10/19/18 06:10 BUN 16 mg/dL (9-20) 10/19/18 06:10 Creatinine 3.5 mg/dL (0.8-1.5) H 10/19/18 06:10 Estimated GFR 21 ml/min 10/19/18 06:10 BUN/Creatinine Ratio 5 % 10/19/18 06:10 Glucose 111 mg/dL (75-100) H 10/19/18 06:10 POC Glucose 103 (70-105) 10/19/18 07:31 Calcium 7.1 mg/dL (8.4-10.2) L 10/19/18 06:10 Total Bilirubin 0.80 mg/dL (0.1-1.2) 10/19/18 06:10 AST 28 units/L (5-40) 10/19/18 06:10 ALT 13 units/L (7-56) 10/19/18 06:10 Alkaline Phosphatase 46 units/L (35-129) 10/19/18 06:10 Ammonia 160.0 umol/L (25-60) H 10/18/18 15:20 Total Protein 6.4 g/dL (6.3-8.2) D 10/19/18 06:10 Albumin 1.6 g/dL (3.9-5) L 10/19/18 06:10 Albumin/Globulin Ratio 0.3 % 10/19/18 06:10 Urine Color Marcy (Yellow) 10/17/18 19:00 Urine Turbidity Slightly-cloudy (Clear) 10/17/18 19:00 Urine pH 5.0 (5.0-7.0) 10/17/18 19:00 Ur Specific Hawkins 1.013 (1.003-1.030) 10/17/18 19:00 Urine Protein <15 mg/dl mg/dL (Negative) 10/17/18 19:00 Urine Glucose (UA) Neg mg/dL (Negative) 10/17/18 19:00 Urine Ketones Neg mg/dL (Negative) 10/17/18 19:00 Urine Blood Mod (Negative) 10/17/18 19:00 Urine Nitrite Neg (Negative) 10/17/18 19:00 Urine Bilirubin Neg (Negative) 10/17/18 19:00 Urine Urobilinogen 2.0 mg/dL (<2.0) 10/17/18 19:00 Ur Leukocyte Esterase Lg (Negative) 10/17/18 19:00 Urine WBC (Auto) 128.0 /HPF (0.0-6.0) H 10/17/18 19:00 Urine RBC (Auto) 119.0 /HPF (0.0-6.0) 10/17/18 19:00 U Epithel Cells (Auto) 1.0 /HPF (0-13.0) 10/17/18 19:00 Urine Bacteria (Auto) 2+ /HPF (Negative) 10/17/18 19:00 Urine WBC Clumps 3+ /HPF 10/17/18 19:00 Hyaline Casts 10 /LPF 10/17/18 19:00 Urine Mucus Few /HPF 10/17/18 19:00 Urine Yeast (Budding) 3+ /HPF 10/17/18 19:00 Salicylates < 0.3 mg/dL (2.8-20.0) L 10/17/18 21:35 Acetaminophen < 5.0 ug/mL (10.0-30.0) L 10/17/18 21:35 Blood Type A POSITIVE 10/18/18 04:15 Antibody Screen Negative 10/18/18 04:15 Active Medications - Current Medications Current Medications: Generic Name Dose Route Start Last Admin Trade Name Freq PRN Reason Stop Dose Admin Allopurinol 100 mg 10/19/18 10:00 Zyloprim PO QDAY [facility] Cholecalciferol 1,000 unit 10/19/18 10:00 Vitamin D3 PO QDAY [facility] Ferrous Sulfate 325 mg 10/19/18 10:00 Feosol PO QDAY [facility] Folic Acid 1 mg 10/19/18 10:00 Folvite PO QDAY [facility] Furosemide 40 mg 10/19/18 10:00 Lasix PO QDAY [facility] Ceftriaxone Sodium 1 gm in 50 mls @ 100 mls/hr 10/18/18 20:00 10/18/18 22:22 Rocephin/Ns 1 Gm/50 Ml IV 100 mls/hr Q24HR@2200 [facility] Administration Protocol Sodium Chloride 100 mls @ 999 mls/hr 10/18/18 07:11 Nacl 0.9% IV NANCY PRN Hypotension Lactulose 20 gm 10/18/18 14:00 10/18/18 22:21 Cephulac PO 20 gm TID [facility] Administration Nadolol 20 mg 10/19/18 10:00 Corgard PO QDAY [facility] Ondansetron HCl 4 mg 10/18/18 03:43 Zofran IV Q8H PRN Nausea And Vomiting Rifaximin 550 mg 10/18/18 22:00 10/18/18 22:21 Xifaxan PO 550 mg BID [facility] Administration Sodium Chloride 10 ml 10/18/18 10:00 10/19/18 08:50 Sodium Chloride Flush Syringe 10 Ml IV Not Given BID [facility] Sodium Chloride 10 ml 10/18/18 03:43 Sodium Chloride Flush Syringe 10 Ml IV PRN PRN LINE FLUSH Spironolactone 25 mg 10/19/18 10:00 Aldactone PO DAILY [facility]
[2018-10-19] MEDS ORDERED: VITAMIN K (ADULT ONLY) 10 MG in NACL 0.9% 50 ML IV SCH (10:00)
[2018-10-19] MEDS ORDERED: DIFLUCAN PO SCH (10:00)
[2018-10-19] MEDS ORDERED: NON-FORMULARY (Cholecalciferol (Vitamin D3) [Vitamin D3] 1,000 UNIT) PO SCH (10:00)
[2018-10-19] MEDS ORDERED: XYLOCAINE 1% 20 mL ONE (10:02)
--- NOTE | 2018-10-19 10:58 | Gastroenterology Progress Note ---
<GENO HILLMAN - Last Filed: 10/19/18 10:58> Assessment and Plan 1.cirrhosis 2.hepatic encephalopathy 3.ascites 4.esophageal varices -afebrile -WBC 2.9 -H/H 8.1/24.7 -plt count 42 -INR 1.96-trending up -LFTs (0.80, AST 28, ALT 13, alk phos 46) trended down -ammonia 160 -abd U/S 06/2018 showed cirrhosis and ascites but no distinct lesions -last paracentesis 09/14/18 with no evidence of SBP -last EGD 06/2018 showed portal hypertensive gastropathy and small nonbleeding distal esophageal varices -etiology-patient has decompensated cirrhosis 2/2 remote hx of ETOH abuse (no alcohol in 3-4 years) and Hep C (s/p treatment; HCV RNA 08/31/18 undetectable) with ascites, HE, and varices -clinically, patient's encephalopathy is improving. Has c/o abdominal distention but denies abd pain, N/V, or signs of bleeding. Tolerating diet. -paracentesis pending for today (r/o SBP) -will given vitamin K challenge for increasing INR to check synthetic function -continue antibiotics, xifaxan, lactulose (titrate dose to goal of BMs x 2-3/d ay, diuretics per nephrology recommendations, and nadalol -low sodium diet -continue to trend labs and supportive care -will follow 5.chronic anemia 6.thrombocytopenia 7.ESRD on HD 8.HTN Subjective Date of service: 10/19/18 Principal diagnosis: liver failure Interval history: Patient sitting up in bed this am with acute distress eating breakfast. Denies abd pain, N/v, or signs of bleeding. Objective - Constitutional Vitals: Temp Pulse Resp BP Pulse Ox 98.3 F 63 20 87/47 94 10/19/18 08:17 10/19/18 08:17 10/19/18 08:17 10/19/18 08:17 10/19/18 08:17 General appearance: no acute distress - Respiratory Respiratory: bilateral: CTA (anterior) - Cardiovascular Rhythm: regular - Gastrointestinal General gastrointestinal: Present: soft, non-tender, distended (ascites), normal bowel sounds - Labs CBC & Chem 7: 10/19/18 06:10 10/19/18 06:10 Labs: Laboratory Results - last 24 hr 10/18/18 10/19/18 10/19/18 15:20 06:10 06:10 WBC 2.9 L RBC 2.94 L Hgb 8.1 L Hct 24.7 L MCV 84 MCH 28 MCHC 33 RDW 19.0 H Plt Count 42 L Lymph % (Auto) 45.0 H Desha % (Auto) 10.1 H Eos % (Auto) 1.1 Baso % (Auto) 0.3 Lymph # 1.3 Desha # 0.3 Eos # 0.0 Baso # 0.0 Seg Neutrophils % 43.5 Seg Neutrophils # 1.3 L PT 23.6 H INR 1.96 H Sodium Potassium Chloride Carbon Dioxide Anion Gap BUN Creatinine Estimated GFR BUN/Creatinine Ratio Glucose POC Glucose Calcium Total Bilirubin AST ALT Alkaline Phosphatase Ammonia 160.0 H Total Protein Albumin Albumin/Globulin Ratio 10/19/18 10/19/18 10/19/18 06:10 06:13 07:31 WBC RBC Hgb Hct MCV MCH MCHC RDW Plt Count Lymph % (Auto) Desha % (Auto) Eos % (Auto) Baso % (Auto) Lymph # Desha # Eos # Baso # Seg Neutrophils % Seg Neutrophils # PT INR Sodium 135 L Potassium 3.1 L Chloride 98.6 Carbon Dioxide 24 Anion Gap 16 BUN 16 Creatinine 3.5 H Estimated GFR 21 BUN/Creatinine Ratio 5 Glucose 111 H POC Glucose 86 103 Calcium 7.1 L Total Bilirubin 0.80 AST 28 ALT 13 Alkaline Phosphatase 46 Ammonia Total Protein 6.4 D Albumin 1.6 L Albumin/Globulin Ratio 0.3 <BECKY GRANT R - Last Filed: 10/19/18 12:42> Assessment and Plan Pt wants to go home. Cognitive function appears to be normal. Paracentesis of ~6 liters gone, and abd soft. NO SBP. Elevation in INR of uncertain etiology, but no indication otherwise of progressive liver failure. - give vit K - monitor INR - can be done as inpatient, or outpatient if being discharged today. Objective - Constitutional Vitals: Temp Pulse Resp BP Pulse Ox 98.4 F 66 18 89/52 99 10/19/18 12:05 10/19/18 12:05 10/19/18 12:05 10/19/18 12:05 10/19/18 12:05 - Labs CBC & Chem 7: 10/19/18 06:10 10/19/18 06:10 Labs: Laboratory Results - last 24 hr 10/18/18 10/19/18 10/19/18 15:20 06:10 06:10 WBC 2.9 L RBC 2.94 L Hgb 8.1 L Hct 24.7 L MCV 84 MCH 28 MCHC 33 RDW 19.0 H Plt Count 42 L Lymph % (Auto) 45.0 H Desha % (Auto) 10.1 H Eos % (Auto) 1.1 Baso % (Auto) 0.3 Lymph # 1.3 Desha # 0.3 Eos # 0.0 Baso # 0.0 Seg Neutrophils % 43.5 Seg Neutrophils # 1.3 L PT 23.6 H INR 1.96 H Sodium Potassium Chloride Carbon Dioxide Anion Gap BUN Creatinine Estimated GFR BUN/Creatinine Ratio Glucose POC Glucose Calcium Total Bilirubin AST ALT Alkaline Phosphatase Ammonia 160.0 H Total Protein Albumin Albumin/Globulin Ratio Fluid Type Fluid Color Fluid Appearance Fluid WBC Fluid RBC 10/19/18 10/19/18 10/19/18 06:10 06:13 07:31 WBC RBC Hgb Hct MCV MCH MCHC RDW Plt Count Lymph % (Auto) Desha % (Auto) Eos % (Auto) Baso % (Auto) Lymph # Desha # Eos # Baso # Seg Neutrophils % Seg Neutrophils # PT INR Sodium 135 L Potassium 3.1 L Chloride 98.6 Carbon Dioxide 24 Anion Gap 16 BUN 16 Creatinine 3.5 H Estimated GFR 21 BUN/Creatinine Ratio 5 Glucose 111 H POC Glucose 86 103 Calcium 7.1 L Total Bilirubin 0.80 AST 28 ALT 13 Alkaline Phosphatase 46 Ammonia Total Protein 6.4 D Albumin 1.6 L Albumin/Globulin Ratio 0.3 Fluid Type Fluid Color Fluid Appearance Fluid WBC Fluid RBC 10/19/18 10/19/18 10:15 12:12 WBC RBC Hgb Hct MCV MCH MCHC RDW Plt Count Lymph % (Auto) Desha % (Auto) Eos % (Auto) Baso % (Auto) Lymph # Desha # Eos # Baso # Seg Neutrophils % Seg Neutrophils # PT INR Sodium Potassium Chloride Carbon Dioxide Anion Gap BUN Creatinine Estimated GFR BUN/Creatinine Ratio Glucose POC Glucose 91 Calcium Total Bilirubin AST ALT Alkaline Phosphatase Ammonia Total Protein Albumin Albumin/Globulin Ratio Fluid Type Paracentesis Fluid Color Yellow Fluid Appearance Hazy Fluid WBC 105 Fluid RBC 1050
--- NOTE | 2018-10-19 11:52 | Ultrasound Report ---
ULTRASOUND PARACENTESIS HISTORY: Ascites. DESCRIPTION OF PROCEDURE: A time out was performed. Informed consent was obtained. Sterile technique was utilized. Using ultrasound guidance, a 5 Czech centesis needle was advanced into the peritoneal space. There was spontaneous return of clear yellow fluid. 6.3 L of fluid was drained. 120 cc of fluid was sent to laboratory for analysis. No complications. IMPRESSION: Successful ultrasound-guided paracentesis.
--- NOTE | 2018-10-19 12:11 | Procedure Note ---
Date of procedure: 10/19/18 Pre-op diagnosis: ascites Post-op diagnosis: same Procedure: US paracentesis Findings: large ascites Anesthesia: local Surgeon: NICOLE ANDREWS Estimated blood loss: none Pathology: list (120cc) Specimen disposition: to lab Condition: stable Disposition: floor
[2018-10-19] MEDS: CORGARD PO SCH (12:39)
[2018-10-19] MEDS: LASIX PO SCH (12:40)
[2018-10-19] MEDS: FOLVITE PO SCH (12:40)
[2018-10-19] MEDS: FEOSOL PO SCH (12:40)
[2018-10-19] MEDS: ALDACTONE PO SCH (12:40)
[2018-10-19] MEDS: XIFAXAN PO SCH (12:40)
[2018-10-19] MEDS: VITAMIN D3 PO SCH (12:41)
[2018-10-19] MEDS: ZYLOPRIM PO SCH (12:41)
[2018-10-19] MEDS: CEPHULAC PO SCH ×2 (12:41→14:37)
[2018-10-19 13:05] LABS: Total Cells Counted 100 /mm3
--- NOTE | 2018-10-19 13:13 | Event Note ---
Date: 10/19/18 Discussed case with the hospitalist and Dr. Levy. 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 Obtaining limited central access was incredibly difficult and resulted in a vertebral catheter being left in the vein due to limited venous access from ESRD and IV drug use. Concern is about hypotension that may require some pressor support. No support required currently. Discussed with Dr. Stauffer that if patient needs pressor support, recommmend contacting hemodialysis or ICU nurse to remove heparin from one of the lumens of the permcath and to temporarily use the permcath for access. Once access no longer needed, then will need to re-heparinize the port of the permcath. Please contact IR if further issues.
[2018-10-19] MEDS: DIFLUCAN PO SCH (17:55)
--- NOTE | 2018-10-20 07:29 | Progress Note ---
Hospitalist Physical - Constitutional Vitals: Temp Pulse Resp BP Pulse Ox 98.7 F 63 18 94/50 100 10/20/18 01:31 10/19/18 20:32 10/20/18 01:31 10/20/18 01:31 10/19/18 20:32 Results - Labs CBC & Chem 7: 10/19/18 06:10 10/19/18 06:10 Labs: Laboratory Last Values WBC 2.9 K/mm3 (4.5-11.0) L 10/19/18 06:10 RBC 2.94 M/mm3 (3.65-5.03) L 10/19/18 06:10 Hgb 8.1 gm/dl (11.8-15.2) L 10/19/18 06:10 Hct 24.7 % (35.5-45.6) L 10/19/18 06:10 MCV 84 fl (84-94) 10/19/18 06:10 MCH 28 pg (28-32) 10/19/18 06:10 MCHC 33 % (32-34) 10/19/18 06:10 RDW 19.0 % (13.2-15.2) H 10/19/18 06:10 Plt Count 42 K/mm3 (140-440) L 10/19/18 06:10 Lymph % (Auto) 45.0 % (13.4-35.0) H 10/19/18 06:10 Frederick % (Auto) 10.1 % (0.0-7.3) H 10/19/18 06:10 Eos % (Auto) 1.1 % (0.0-4.3) 10/19/18 06:10 Baso % (Auto) 0.3 % (0.0-1.8) 10/19/18 06:10 Lymph # 1.3 K/mm3 (1.2-5.4) 10/19/18 06:10 Frederick # 0.3 K/mm3 (0.0-0.8) 10/19/18 06:10 Eos # 0.0 K/mm3 (0.0-0.4) 10/19/18 06:10 Baso # 0.0 K/mm3 (0.0-0.1) 10/19/18 06:10 Seg Neutrophils % 43.5 % (40.0-70.0) 10/19/18 06:10 Seg Neutrophils # 1.3 K/mm3 (1.8-7.7) L 10/19/18 06:10 PT 23.6 Sec. (12.2-14.9) H 10/19/18 06:10 INR 1.96 (0.87-1.13) H 10/19/18 06:10 APTT 35.4 Sec. (24.2-36.6) 10/17/18 21:35 Sodium 135 mmol/L (137-145) L 10/19/18 06:10 Potassium 3.1 mmol/L (3.6-5.0) L 10/19/18 06:10 Chloride 98.6 mmol/L (98-107) 10/19/18 06:10 Carbon Dioxide 24 mmol/L (22-30) 10/19/18 06:10 Anion Gap 16 mmol/L 10/19/18 06:10 BUN 16 mg/dL (9-20) 10/19/18 06:10 Creatinine 3.5 mg/dL (0.8-1.5) H 10/19/18 06:10 Estimated GFR 21 ml/min 10/19/18 06:10 BUN/Creatinine Ratio 5 % 10/19/18 06:10 Glucose 111 mg/dL (75-100) H 10/19/18 06:10 POC Glucose 91 (70-105) 10/19/18 12:12 Calcium 7.1 mg/dL (8.4-10.2) L 10/19/18 06:10 Total Bilirubin 0.80 mg/dL (0.1-1.2) 10/19/18 06:10 AST 28 units/L (5-40) 10/19/18 06:10 ALT 13 units/L (7-56) 10/19/18 06:10 Alkaline Phosphatase 46 units/L (35-129) 10/19/18 06:10 Ammonia 160.0 umol/L (25-60) H 10/18/18 15:20 Total Protein 6.4 g/dL (6.3-8.2) D 10/19/18 06:10 Albumin 1.6 g/dL (3.9-5) L 10/19/18 06:10 Albumin/Globulin Ratio 0.3 % 10/19/18 06:10 Urine Color Marcy (Yellow) 10/17/18 19:00 Urine Turbidity Slightly-cloudy (Clear) 10/17/18 19:00 Urine pH 5.0 (5.0-7.0) 10/17/18 19:00 Ur Specific [place] 1.013 (1.003-1.030) 10/17/18 19:00 Urine Protein <15 mg/dl mg/dL (Negative) 10/17/18 19:00 Urine Glucose (UA) Neg mg/dL (Negative) 10/17/18 19:00 Urine Ketones Neg mg/dL (Negative) 10/17/18 19:00 Urine Blood Mod (Negative) 10/17/18 19:00 Urine Nitrite Neg (Negative) 10/17/18 19:00 Urine Bilirubin Neg (Negative) 10/17/18 19:00 Urine Urobilinogen 2.0 mg/dL (<2.0) 10/17/18 19:00 Ur Leukocyte Esterase Lg (Negative) 10/17/18 19:00 Urine WBC (Auto) 128.0 /HPF (0.0-6.0) H 10/17/18 19:00 Urine RBC (Auto) 119.0 /HPF (0.0-6.0) 10/17/18 19:00 U Epithel Cells (Auto) 1.0 /HPF (0-13.0) 10/17/18 19:00 Urine Bacteria (Auto) 2+ /HPF (Negative) 10/17/18 19:00 Urine WBC Clumps 3+ /HPF 10/17/18 19:00 Hyaline Casts 10 /LPF 10/17/18 19:00 Urine Mucus Few /HPF 10/17/18 19:00 Urine Yeast (Budding) 3+ /HPF 10/17/18 19:00 Fluid Type Paracentesis 10/19/18 10:15 Fluid Color Yellow 10/19/18 10:15 Fluid Appearance Hazy 10/19/18 10:15 Fluid WBC 105 /mm3 10/19/18 10:15 Fluid RBC 1050 /mm3 10/19/18 10:15 Fluid Seg Neutrophils 1.0 % 10/19/18 10:15 Fluid Lymphocytes 71.0 % 10/19/18 10:15 Fluid Reactive Lymphs Not Reportable 10/19/18 10:15 Fluid Monocytes 27.0 % 10/19/18 10:15 Fluid Eosinophils 1.0 % 10/19/18 10:15 Fluid Basophils Not Reportable 10/19/18 10:15 Salicylates < 0.3 mg/dL (2.8-20.0) L 10/17/18 21:35 Acetaminophen < 5.0 ug/mL (10.0-30.0) L 10/17/18 21:35 Blood Type A POSITIVE 10/18/18 04:15 Antibody Screen Negative 10/18/18 04:15 Active Medications - Current Medications Current Medications: Generic Name Dose Route Start Last Admin Trade Name Freq PRN Reason Stop Dose Admin Allopurinol 100 mg 10/19/18 10:00 10/19/18 12:41 Zyloprim PO 100 mg QDAY [facility] Administration Cholecalciferol 1,000 unit 10/19/18 10:00 10/19/18 12:41 Vitamin D3 PO 1,000 unit QDAY [facility] Administration Ferrous Sulfate 325 mg 10/19/18 10:00 10/19/18 12:40 Feosol PO 325 mg QDAY [facility] Administration Fluconazole 100 mg 10/19/18 18:00 10/19/18 17:55 Diflucan PO 10/26/18 17:59 100 mg QDAY [facility] Administration Folic Acid 1 mg 10/19/18 10:00 10/19/18 12:40 Folvite PO 1 mg QDAY [facility] Administration Furosemide 40 mg 10/19/18 10:00 10/19/18 12:40 Lasix PO 40 mg QDAY [facility] Administration Ceftriaxone Sodium 1 gm in 50 mls @ 100 mls/hr 10/18/18 20:00 10/18/18 22:22 Rocephin/Ns 1 Gm/50 Ml IV 100 mls/hr Q24HR@2200 [facility] Administration Protocol Sodium Chloride 100 mls @ 999 mls/hr 10/18/18 07:11 Nacl 0.9% IV NANCY PRN Hypotension Phytonadione 10 mg/ Sodium 51 mls @ 100 mls/hr 10/19/18 10:00 Chloride IV 10/21/18 10:31 Q24H [facility] Lactulose 20 gm 10/18/18 14:00 10/19/18 14:37 Cephulac PO Not Given TID [facility] Nadolol 20 mg 10/19/18 10:00 10/19/18 12:39 Corgard PO Not Given QDAY [facility] Ondansetron HCl 4 mg 10/18/18 03:43 Zofran IV Q8H PRN Nausea And Vomiting Rifaximin 550 mg 10/18/18 22:00 10/19/18 12:40 Xifaxan PO 550 mg BID [facility] Administration Sodium Chloride 10 ml 10/18/18 10:00 10/19/18 12:42 Sodium Chloride Flush Syringe 10 Ml IV 10 ml BID [facility] Administration Sodium Chloride 10 ml 10/18/18 03:43 Sodium Chloride Flush Syringe 10 Ml IV PRN PRN LINE FLUSH Spironolactone 25 mg 10/19/18 10:00 10/19/18 12:40 Aldactone PO 25 mg DAILY [facility] Administration
[2018-10-20 08:34] LABS: Basophils % (Auto) 0.4 % (0.0-1.8); Eosinophils % (Auto) 1.1 % (0.0-4.3); Hematocrit 28.3 % (35.5-45.6); Hemoglobin 9.4 gm/dl (11.8-15.2); Lymphocytes # (Auto) 1.2 K/mm3 (1.2-5.4); Lymphocytes % (Auto) 46.3 % (13.4-35.0); Mean Corpuscular HGB Conc 33 % (32-34); Mean Corpuscular Volume 83 fl (84-94); Monocytes # (Auto) 0.2 K/mm3 (0.0-0.8); Monocytes % (Auto) 7.6 % (0.0-7.3); Red Cell Distribution Width 19.4 % (13.2-15.2)
[2018-10-20 08:42] LABS: INR 1.85 (0.87-1.13); Platelet Count 43 K/mm3 (140-440)
[2018-10-20 08:43] LABS: Partial Thromboplastin Time 36.9 Sec. (24.2-36.6)
[2018-10-20 08:48] LABS: Calcium 6.6 mg/dL (8.4-10.2)
[2018-10-20] MEDS: VITAMIN D3 PO SCH (09:14)
[2018-10-20] MEDS: LASIX PO SCH (09:14)
[2018-10-20] MEDS: ZYLOPRIM PO SCH (09:14)
[2018-10-20] MEDS: DIFLUCAN PO SCH (09:14)
[2018-10-20] MEDS: FEOSOL PO SCH (09:14)
[2018-10-20] MEDS: FOLVITE PO SCH (09:15)
[2018-10-20] MEDS: CEPHULAC PO SCH ×2 (09:15→14:30)
[2018-10-20] MEDS: SODIUM CHLORIDE FLUSH SYRINGE 10 ML IV SCH (09:17)
[2018-10-20] MEDS: ALDACTONE PO SCH (09:22)
[2018-10-20] MEDS: XIFAXAN PO SCH (09:28)
[2018-10-20] MEDS: CORGARD PO SCH (09:29)
--- NOTE | 2018-10-20 10:05 | Discharge Summary ---
Providers - Providers Date of Admission: 10/18/18 03:43 Attending physician: VIKY RIVERA MD 10/17/18 17:58 Consult to Physician [CONS] Urgent Comment: Dr. India Ashby spoke with Dr. Ward @ [phone] Consulting Provider: ARACELI WARD Physician Instructions: Reason For Exam: esrd 10/18/18 04:09 PICC Line Insertion [Consult to PICC Line RN] [CONS] Routine Reason For Exam: Patient has an IO Type Line:: PICC 10/18/18 10:38 Consult to Physician [CONS] Routine Comment: Consulting Provider: LEXUS BARFIELD Physician Instructions: Reason For Exam: liver failure 10/19/18 13:02 Consult to Physician [CONS] Routine Comment: Consulting Provider: DRAKE TAVAREZ Physician Instructions: Reason For Exam: needs central line Hospitalization Condition: Fair Hospital course: 67-year-old man with past medical history of hypertension, peripheral vascular disease, hepatitis C, liver cirrhosis, ascites, DVT status post IVC filter, end- stage renal disease, chronic lymphedema, recurrent hepatic encephalopathy due to liver cirrhosis -He has had recurrent ascites, requiring large volume paracentesis, last paracentesis was done in August and at that time 10.3 L was removed -He presents during this admission for altered mental status Diagnoses Decompensated liver disease/cirrhosis with the following complications Hepatic encephalopathy Ascites End-stage renal disease on dialysis Hypoalbuminemia due to liver cirrhosis Thrombocytopenia Coagulopathy Hypokalemia esophageal varices Hep C status post treatments, HCV RNA undetectable in August Anemia of chronic disease Hyperammonemia UTI- dina on culture Sepsis Hospital course The patient received lactulose, and he also received paracentesis. 6.3 L was removed. The cell counts from the fluid was not consistent with infection -last EGD was in June 2018, showed portal hypertensive gastropathy, small nonbleeding distal esophageal varices - -He was treated with fluconazole for fungal UTI -coagulopathy was most likely due to liver failure, he was given a trial of vitamin K, with no improvements Continued dialysis per nephrology Hypokalemia is mild, cont to monitor given esrd -dvt ppx- scds, in light of anemia and thrombocytopenia Disposition: [id number] HOME UNDER HOME [facility] Time spent for discharge: 33 mins Core Measure Documentation - Palliative Care Palliative Care/ Comfort Measures: Not Applicable - Core Measures Any of the following diagnoses?: none Exam - Physical Exam Narrative exam: General.: Appears chronically ill HEENT: Moist mucous membranes, extraocular muscles intact, no lymphadenopathy Neck: supple Cardiac: S1-S2 heard Lungs: clear to auscultation bilaterally Abdomen: distended, with shifting dullness Extremities: no edema clubbing or cyanosis Skin: no rash or lesions Neurologic: no gross focal deficits Psych: calm, and cooperative - Constitutional Vitals: Temp Pulse Resp BP Pulse Ox 99.5 F 62 18 102/58 97 10/20/18 07:31 10/20/18 09:22 10/20/18 08:51 10/20/18 09:22 10/20/18 08:51 Plan Follow up with: [facility] [Other] - 3-5 Days Prescriptions: RX: Fluconazole [Diflucan TAB] 100 mg PO QDAY #6 tablet
--- NOTE | 2018-10-20 13:17 | Progress Note ---
Assessment and Plan - Patient Problems (1) ESRD (end stage renal disease) on dialysis Current Visit: No Status: Chronic Plan to address problem: Maintain on a Monday schedule. (2) Altered mental state Current Visit: Yes Status: Acute Plan to address problem: May be multifactorial in the setting of UTI along with hyperammonemia and he patic encephalopathy. Patient has been started on IV Rocephin and is obtaining lactulose. overall mental status improved (3) Urinary tract infection Current Visit: Yes Status: Acute Plan to address problem: dose ABXs appropriately for his decreased renal clearance. His UTI may also be contributing to his altered mental status. His altered mental status is better at this time. We will continue to monitor. Cultures pending (4) Hyperammonemia Current Visit: No Status: Acute Plan to address problem: Patient started on lactulose therapy here in the hospital. We will monitor follow-up levels. (5) Hypertensive chronic kidney disease with stage 5 chronic kidney disease or end stage renal disease Current Visit: Yes Status: Chronic Plan to address problem: We'll monitor on his current regimen Subjective Date of service: 10/20/18 Principal diagnosis: liver failure Interval history: pt awake, alert, in NAD. s/p paracentesis Objective - Vital Signs Vital signs: Vital Signs - 12hr 10/20/18 10/20/18 10/20/18 01:31 07:31 09:18 Temperature 98.7 F 99.5 F Pulse Rate 63 Pulse Rate [ Left Radial] Respiratory 18 18 Rate Blood Pressure 94/50 81/42 102/58 O2 Sat by Pulse 97 Oximetry 10/20/18 10/20/18 09:22 10:00 Temperature Pulse Rate 62 52 L Pulse Rate [ 63 Left Radial] Respiratory 18 Rate Blood Pressure 102/58 O2 Sat by Pulse 97 Oximetry - General Appearance General appearance: appears stated age, chronically ill EENT: ATNC, PERRL, mucous membranes moist Neck: no JVD Respiratory: Present: Decreased Breath Sounds Cardiology: regular, S1S2 Gastrointestinal: distended Integumentary: no rash, other (+ edema b/l LE ) Neurologic: no focal deficit, alert and oriented x3, strength 5/5, CN 3-12 intact Psychiatric: mood/affect appropriate, cooperative - Lab 10/20/18 08:05 10/20/18 08:05 Most recent lab results Calcium 6.6 mg/dL (8.4-10.2) L 10/20/18 08:05 Medications & Allergies - Medications Allergies/Adverse Reactions: Allergies No Known Allergies Allergy (Verified 05/07/15 04:31) Home Medications: Home Medications Medication Instructions Recorded Confirmed Last Taken Type Allopurinol [Zyloprim] 100 mg PO QDAY #30 tablet 08/14/18 10/19/18 09/13/18 Rx 1 tab Cholecalciferol (Vitamin D3) 1,000 unit PO QDAY #30 capsule 08/14/18 10/19/18 09/13/18 Rx [Vitamin D3] 1 tab Ferrous Sulfate [Feosol 325 MG tab] 325 mg PO QDAY #30 tablet 08/14/18 10/19/18 09/13/18 Rx 1 tab Folic Acid [Folvite] 1 mg PO QDAY #30 tablet 08/14/18 10/19/18 09/13/18 Rx 1 tab Furosemide [Lasix TAB] 40 mg PO QDAY #30 tablet 10/05/18 10/19/18 Unknown Rx Lactulose [Cephulac] 20 gm PO TID 30 Days oral.liqd 10/05/18 10/19/18 Unknown Rx Nadolol [Corgard] 20 mg PO QDAY #30 tablet 10/05/18 10/19/18 Unknown Rx Rifaximin [Xifaxan] 550 mg PO BID #60 tablet 10/05/18 10/19/18 Unknown Rx Spironolactone 25 mg PO DAILY #30 tablet 10/05/18 10/19/18 Unknown Rx Fluconazole [Diflucan TAB] 100 mg PO QDAY #6 tablet 10/20/18 Unknown Rx Active Medications: Generic Name Dose Route Start Last Admin Trade Name Freq PRN Reason Stop Dose Admin Allopurinol 100 mg 10/19/18 10:00 10/20/18 09:14 Zyloprim PO 100 mg QDAY OSCAR Administration Cholecalciferol 1,000 unit 10/19/18 10:00 10/20/18 09:14 Vitamin D3 PO 1,000 unit QDAY OSCAR Administration Ferrous Sulfate 325 mg 10/19/18 10:00 10/20/18 09:14 Feosol PO 325 mg QDAY OSCAR Administration Fluconazole 100 mg 10/19/18 18:00 10/20/18 09:14 Diflucan PO 10/26/18 17:59 100 mg QDAY OSCAR Administration Folic Acid 1 mg 10/19/18 10:00 10/20/18 09:15 Folvite PO 1 mg QDAY OSCAR Administration Furosemide 40 mg 10/19/18 10:00 10/20/18 09:14 Lasix PO 40 mg QDAY OSCAR Administration Ceftriaxone Sodium 1 gm in 50 mls @ 100 mls/hr 10/18/18 20:00 10/18/18 22:22 Rocephin/Ns 1 Gm/50 Ml IV 100 mls/hr Q24HR@2200 OSCAR Administration Protocol Sodium Chloride 100 mls @ 999 mls/hr 10/18/18 07:11 Nacl 0.9% IV NANCY PRN Hypotension Phytonadione 10 mg/ Sodium 51 mls @ 100 mls/hr 10/19/18 10:00 Chloride IV 10/21/18 10:31 Q24H OSCAR Lactulose 20 gm 10/18/18 14:00 10/20/18 09:15 Cephulac PO 20 gm TID OSCAR Administration Nadolol 20 mg 10/19/18 10:00 10/20/18 09:29 Corgard PO Not Given QDAY OSCAR Ondansetron HCl 4 mg 10/18/18 03:43 Zofran IV Q8H PRN Nausea And Vomiting Rifaximin 550 mg 10/18/18 22:00 10/20/18 09:28 Xifaxan PO 550 mg BID OSCAR Administration Sodium Chloride 10 ml 10/18/18 10:00 10/20/18 09:17 Sodium Chloride Flush Syringe 10 Ml IV 10 ml BID OSCAR Administration Sodium Chloride 10 ml 10/18/18 03:43 Sodium Chloride Flush Syringe 10 Ml IV PRN PRN LINE FLUSH Spironolactone 25 mg 10/19/18 10:00 10/20/18 09:22 Aldactone PO Not Given DAILY OSCAR
[2018-10-20] MEDS ORDERED: NACL 0.9 (PRIMING MACHINE ONLY DIALYSIS) MC ONE (19:45)
[2018-10-20 21:17] VITALS: BP 120/77
== END 2018-10-20 19:30 | disposition home health service (06) | DRG 974 ==
LOC: ED 17:52 → 4A 10-18 03:43 → 2B-ACE 10-19 17:04
PROVIDERS: ADMIT Internal Medicine; ATTEND Internal Medicine
PROC: 3E0A3GC Introduction of Other Therapeutic Substance into Bone Marrow, Percutaneous Approach (ICD-10-PCS; principal; 2018-10-18)
PROC: 5A1D70Z Performance of Urinary Filtration, Intermittent, Less than 6 Hours Per Day (ICD-10-PCS; 2018-10-18)
PROC: 0W9G3ZZ Drainage of Peritoneal Cavity, Percutaneous Approach (ICD-10-PCS; 2018-10-19)
PROC: 5A1D70Z Performance of Urinary Filtration, Intermittent, Less than 6 Hours Per Day (ICD-10-PCS; 2018-10-20)
DX: A41.9 Sepsis, unspecified organism (principal); N18.6 End stage renal disease; B20 Human immunodeficiency virus [HIV] disease; E72.20 Disorder of urea cycle metabolism, unspecified; I12.0 Hypertensive chronic kidney disease with stage 5 chronic kidney disease or end stage renal disease; I85.10 Secondary esophageal varices without bleeding; R18.8 Other ascites; D68.9 Coagulation defect, unspecified; B37.49 Other urogenital candidiasis; I85.00 Esophageal varices without bleeding; K72.90 Hepatic failure, unspecified without coma; D69.6 Thrombocytopenia, unspecified; G89.29 Other chronic pain; D63.8 Anemia in other chronic diseases classified elsewhere; I89.0 Lymphedema, not elsewhere classified; E87.6 Hypokalemia; E88.09 Other disorders of plasma-protein metabolism, not elsewhere classified; K74.60 Unspecified cirrhosis of liver; Z82.49 Family history of ischemic heart disease and other diseases of the circulatory system; Z79.899 Other long term (current) drug therapy; Z83.3 Family history of diabetes mellitus; Z99.2 Dependence on renal dialysis; Z86.718 Personal history of other venous thrombosis and embolism
CPT/HCPCS: 36415; 49083; 70450; 71045; 80048; 80053; 80320; 81001; 82040; 82140; 82962; 85025; 85027; 85610; 85730; 86850; 86900; 86901; 87086; 87116; 88112; 88305; 89051; 93005; 93010; G0378; G0480; J0696; J1450; J3430; J7030; J7040

== ENCOUNTER 2018-11-07 08:24 | Day surgery (SDC) | payer MEDICARE ==
[2018-11-07] MEDS ORDERED: ANCEF/STERILE WATER 2 GM/20 ML 2 GM/20 ML SYRINGE IV NR (10:00)
[2018-11-07] MEDS ORDERED: NACL 0.9% 1000 ML 1,000 ML IV SCH (10:00)
[2018-11-07] MEDS ORDERED: NACL 0.9% 500 ML 500 ML IV SCH (10:00)
[2018-11-07 11:43] LABS: Calcium 6.8 mg/dL (8.4-10.2)
[2018-11-07] MEDS ORDERED: XYLOCAINE 1% 20 mL ONE (12:02)
[2018-11-07] MEDS ORDERED: ALBURX 25% (ALBUMIN) IV PRN (12:40)
--- NOTE | 2018-11-07 12:40 | Short Stay Summary ---
Short Stay Documentation Date of service: 11/07/18 - History Principal diagnosis: ascites Past Medical History: dialysis, ESRD, liver disease - Allergies and Medications Current Medications: Allergies No Known Allergies Allergy (Verified 05/07/15 04:31) Home Medications Medication Instructions Recorded Confirmed Last Taken Type Ferrous Sulfate [Feosol 325 MG tab] 325 mg PO QDAY #30 tablet 08/14/18 11/07/18 11/07/18 Rx 325mg Folic Acid [Folvite] 1 mg PO QDAY #30 tablet 08/14/18 11/07/18 11/06/18 Rx 1mg Furosemide [Lasix TAB] 40 mg PO QDAY #30 tablet 10/05/18 11/07/18 11/07/18 Rx 40mg Lactulose [Cephulac] 20 gm PO TID 30 Days oral.liqd 10/05/18 11/07/18 11/06/18 Rx 20mg Nadolol [Corgard] 20 mg PO QDAY #30 tablet 10/05/18 11/07/18 11/07/18 Rx 20mg Rifaximin [Xifaxan] 550 mg PO BID #60 tablet 10/05/18 11/07/18 11/07/18 Rx 550mg Spironolactone 25 mg PO DAILY #30 tablet 10/05/18 11/07/18 11/06/18 Rx 25mg Active Medications Cefazolin Sodium (Ancef/Sterile Water 2 Gm/20 Ml) 2 gm in 20 mls @ 80 mls/hr IV PREOP NR; Protocol Stop: 11/07/18 18:00 Sodium Chloride (Nacl 0.9% 1000 Ml) 1,000 mls @ 42 mls/hr IV DIRECT OSCAR Sodium Chloride (Nacl 0.9% 500 Ml) 500 mls @ 50 mls/hr IV DIRECT OSCAR Stop: 11/07/18 19:59 - Physical exam General appearance: no acute distress Gastrointestinal: distended - Brief post op/procedure progress note Date of procedure: 11/07/18 Pre-op diagnosis: ascites Post-op diagnosis: same Procedure: US paracentesis Anesthesia: local Findings: large ascites Surgeon: NICOLE ANDREWS Estimated blood loss: none Pathology: none Specimen disposition: discarded Condition: stable - Hospital course Hospital course: uneventful - Disposition Condition at discharge: Good Disposition: [id number] TO HOME OR SELFCARE Short Stay Discharge Plan Follow up with: ERICK TOBIAS MD [Primary Care Provider] - 7 Days
--- NOTE | 2018-11-07 14:33 | Ultrasound Report ---
ULTRASOUND PARACENTESIS HISTORY: Ascites. DESCRIPTION OF PROCEDURE: A time out was performed. Informed consent was obtained. Sterile technique was utilized. Using ultrasound guidance, a 5 Vietnamese centesis needle was advanced into the peritoneal space. There was spontaneous return of clear yellow fluid. 9.3 L of fluid was drained. 120 cc of fluid was sent to laboratory for analysis. No complications. IMPRESSION: Successful ultrasound-guided paracentesis.
[2018-11-07] MEDS ORDERED: HEPARIN/NS 5000 UNIT/500ML(CATH LAB) 500 ML IR ONE (15:28)
[2018-11-07] MEDS ORDERED: HEPARIN 10,000 UNITS/10 ML ONE (15:28)
[2018-11-07] MEDS ORDERED: NACL 0.9% 250ML 0 ML ONE (15:29)
[2018-11-07] MEDS ORDERED: VERSED ONE (15:29)
[2018-11-07] MEDS ORDERED: ANCEF/STERILE WATER 2 GM/20 ML 0 GM/0 ML SYRINGE IV ONE (15:29)
[2018-11-07] MEDS ORDERED: SUBLIMAZE ONE (15:30)
[2018-11-07] MEDS: XYLOCAINE 1%/ EPI 1:100,000 INFILTRATI ONE ×2 (16:06→16:07)
--- NOTE | 2018-11-07 16:27 | Event Note ---
Date: 11/07/18 Patient has an existing right internal jugular vein permacath. The cuff is now come out from the skin. He needs the PermCath replaced. Risks and benefits were discussed with patient and he agrees to proceed.
--- NOTE | 2018-11-07 16:27 | Operative Report ---
Operative Report Operative Report: Date of procedure: 11/07/2018 Pre-operative diagnosis: Malfunctioning right jugular permacath Post-operative diagnosis: same Procedure name(s): Replacement of right jugular permacath using 23 cm glidepath catheter Surgeon: Aaron Fajardo MD, FACS [employer] Engine As[employer]er: none Anesthesia: local only EBL: minimal Operative indication: Patient is a 68 yo and who has an existing permacath with the cuff now sticking out of the skin. Findings: Good flow from both ports. Catheter located at the cavoatrial junction. Procedure: The patient was placed on the table in the supine position. The area over the right neck and chest was prepped with ChloraPrep solution and draped in usual sterile fashion. 2% lidocaine was used for local anesthesia. The existing catheter was removed over 2 stiff angle glide wires. The new catheter was then placed over the angled Glidewire into the central circulation. The catheter tip was placed at the cavoatrial junction. The catheters were aspirated with excellent flow from both ports. Both ports flushed easily. They were then filled to their stated volume with 1000 unit per milliliter heparin. Closure at the insertion site was done with 4-0 subcuticular PDS. The catheter was sewn to the skin with 2-0 Proline. Sterile dressings were applied. The patient tolerat ed the procedure well.
[2018-11-07 16:51] VITALS: BP 98/56
== END 2018-11-07 17:24 | disposition home or self-care (01) ==
LOC: CATHLABREC 08:24 → EDSTATUS 09:00 → CATHLABREC 17:24
PROVIDERS: ATTEND Internal Medicine Gastroenterology
DX: T82.898A Other specified complication of vascular prosthetic devices, implants and grafts, initial encounter (principal); R18.8 Other ascites; I12.0 Hypertensive chronic kidney disease with stage 5 chronic kidney disease or end stage renal disease; E11.22 Type 2 diabetes mellitus with diabetic chronic kidney disease; N18.6 End stage renal disease; E11.42 Type 2 diabetes mellitus with diabetic polyneuropathy; E11.51 Type 2 diabetes mellitus with diabetic peripheral angiopathy without gangrene; F32.9 Major depressive disorder, single episode, unspecified; F41.9 Anxiety disorder, unspecified; I70.25 Atherosclerosis of native arteries of other extremities with ulceration; D50.0 Iron deficiency anemia secondary to blood loss (chronic); B18.2 Chronic viral hepatitis C; Z87.440 Personal history of urinary (tract) infections; Z91.81 History of falling; Z87.891 Personal history of nicotine dependence; Z79.899 Other long term (current) drug therapy; Z98.890 Other specified postprocedural states
CPT/HCPCS: 36581; 49083; 77001; 80048; C1750; J1644; J0690; J2250; J3010; J7050

== ENCOUNTER 2018-11-13 15:23 | Emergency (ER) | payer MEDICARE ==
--- NOTE | 2018-11-13 16:54 | Emergency Department Report ---
ED General Adult HPI - General Chief complaint: Altered Mental Status Stated complaint: ALTERED MENTAL STATUS Time Seen by Provider: 11/13/18 16:36 Source: patient, EMS (ems notes not available at time of chart dictation), RN notes reviewed Mode of arrival: Stretcher Limitations: Physical Limitation, Other (patient is awake, alert, oriented and follows commands. He does not remember what happened to him today.) - History of Present Illness Initial comments: This is a 68-year-old gentleman. I have evaluated this patient in the past. His past medical history includes a distant history of cervical spine osteomyelitis, hypertension, peripheral vascular disease, hepatitis C, liver cirrhosis, DVT, IVC filter, end-stage renal disease, on dialysis, history of elevated ammonia level, hepatic encephalopathy, ascites, chronic lymphedema, chronic functional debility Patient also has a history of right-sided permacath placement, IV drug abuse, not currently with any port. The patient presents to the emergency room today with a complaint of resolved alteration in mental status during dialysis. Apparently, the patient was receiving his second hour dialysis when he became agitated and combative. This is now resolved. The patient has no complaints at this time. He has chronic weakness, chronic debility, chronic ascites, and is chronically i n a soft collar for his neck. However, he denies headache, chest pain, has chronic shortness of breath, reports that his abdominal distention appears to be at baseline, and he has chronic lower extremity wounds which also appeared to be at baseline. Nephrology: Dr. Ward Gastroenterology: Dr. Holman Patient typically receives dialysis Monday, , Monday. The patient typically goes for therapeutic paracenteses once a month. -: hour(s) Consistency: now resolved Improves with: none Worsens with: none Associated Symptoms: confusion (now resolved) - Related Data Previous Rx's Medication Instructions Recorded Last Taken Type Ferrous Sulfate [Feosol 325 MG tab] 325 mg PO QDAY #30 tablet 08/14/18 11/07/18 Rx 325mg Folic Acid [Folvite] 1 mg PO QDAY #30 tablet 08/14/18 11/06/18 Rx 1mg Furosemide [Lasix TAB] 40 mg PO QDAY #30 tablet 10/05/18 11/07/18 Rx 40mg Lactulose [Cephulac] 20 gm PO TID 30 Days oral.liqd 10/05/18 11/06/18 Rx 20mg Nadolol [Corgard] 20 mg PO QDAY #30 tablet 10/05/18 11/07/18 Rx 20mg Rifaximin [Xifaxan] 550 mg PO BID #60 tablet 10/05/18 11/07/18 Rx 550mg Spironolactone 25 mg PO DAILY #30 tablet 10/05/18 11/06/18 Rx 25mg Allergies Allergy/AdvReac Type Severity Reaction Status Date / Time No Known Allergies Allergy Verified 11/13/18 15:50 ED Review of Systems ROS: Stated complaint: ALTERED MENTAL STATUS Other details as noted in HPI Constitutional: denies: fever Eyes: denies: eye discharge ENT: denies: epistaxis Respiratory: shortness of breath (chronic) Cardiovascular: denies: chest pain Gastrointestinal: other (abdominal distention). denies: hematemesis, melena, hematochezia Genitourinary: other (chronic testicular/scrotal swelling. This is painless.). denies: urgency Musculoskeletal: other (chronic lower extremity lesion) Skin: lesions Neurological: weakness (chronic), confusion (now resolved) ED Past Medical Hx - Past Medical History Previous Medical History?: Yes Hx Hypertension: Yes Hx Diabetes: Yes Hx Deep Vein Thrombosis: No Hx Liver Disease: Yes Hx Renal Disease: Yes (Dialysis T//S last dialysis 11/06/18) Hx HIV: Yes Additional medical history: Cervical osteomyelitis, C5,Hep C. peripheral vascular disease (b/l leg ulcers). leg edema. Chronic pain. Patient states "my neck is broken in 2 places". Apparently this is being treated nonop eratively at this point. - Surgical History Hx Pacemaker: No Hx Internal Defibrillator: No Additional Surgical History: Mexican Hat filter. Right chest perm cath - Social History Smoking Status: Unknown if ever smoked - Medications Home Medications: Home Medications Medication Instructions Recorded Confirmed Last Taken Type Ferrous Sulfate [Feosol 325 MG tab] 325 mg PO QDAY #30 tablet 08/14/18 11/07/18 11/07/18 Rx 325mg Folic Acid [Folvite] 1 mg PO QDAY #30 tablet 08/14/18 11/07/18 11/06/18 Rx 1mg Furosemide [Lasix TAB] 40 mg PO QDAY #30 tablet 10/05/18 11/07/1811/07/19 Rx 40mg Lactulose [Cephulac] 20 gm PO TID 30 Days oral.liqd 10/05/18 11/07/18 11/06/18 Rx 20mg Nadolol [Corgard] 20 mg PO QDAY #30 tablet 10/05/18 11/07/18 11/07/18 Rx 20mg Rifaximin [Xifaxan] 550 mg PO BID #60 tablet 10/05/18 11/07/18 11/07/18 Rx 550mg Spironolactone 25 mg PO DAILY #30 tablet 10/05/18 11/07/18 11/06/18 Rx 25mg ED Physical Exam - General Limitations: Physical Limitation General appearance: alert, in no apparent distress - Head Head exam: Present: atraumatic, normocephalic - Eye Eye exam: Present: normal appearance, EOMI, other (visual acuity intact to finger counting, color perception, reading at a close distance). Absent: nystagmus - ENT ENT exam: Present: normal exam, normal orophraynx, mucous membranes moist, normal external ear exam - Neck Neck exam: Present: normal inspection, full ROM. Absent: tenderness, meningismus - Respiratory Respiratory exam: Present: rhonchi (very faint rales, rhonchi at the bases), other (there is a right-sided permacath noted, with no redness, pus or streaking). Absent: respiratory distress - Cardiovascular Cardiovascular Exam: Present: regular rate, normal rhythm, normal heart sounds. Absent: bradycardia, tachycardia, irregular rhythm, systolic murmur, diastolic murmur, rubs, gallop - GI/Abdominal GI/Abdominal exam: Present: soft, distended. Absent: tenderness, guarding, rebound, rigid, pulsatile mass - Rectal Rectal exam: Present: deferred - Extremities Exam Extremities exam: Present: full ROM, other (chronic lymphedema noted to the bilateral lower extremities. There is no pus, streaking or deformity of the lower extremities.) - Back Exam Back exam: Present: normal inspection, full ROM. Absent: paraspinal tenderness, vertebral tenderness - Neurological Exam Neurological exam: Present: alert, oriented X3, other (Extraocular movements intact. Tongue midline. No facial droop. Facial sensation intact to light touch in the V1, V2, V3 distribution bilaterally. 5 and 5 strength in 4 extremities.. Sensation is intact to light touch in 4 extremities.). Absent: motor sensory deficit - Psychiatric Psychiatric exam: Present: normal mood - Skin Skin exam: Present: warm ED Course Vital Signs 11/13/18 11/13/18 15:23 20:28 Temperature 97.9 F 97.7 F Pulse Rate 64 64 Respiratory 16 14 Rate Blood Pressure 119/65 Blood Pressure 125/65 [Right] O2 Sat by Pulse 98 100 Oximetry - Reevaluation(s) Reevaluation #1: 11/13/18 18:28 Differential diagnosis, including not limited to: Hepatic encephalopathy, chronic ascites, chronic end-stage renal disease, chronic liver disease, dialysis disequilibrium syndrome, pneumonia, urinary tract infection, azotemia, uremia, hyperkalemia Assessment and plan: 68-year-old gentleman with numerous chronic medical problems, whom I evaluated in the past, who had an alteration in mental status while receiving dialysis, now resolved. The patient is quite lucid, cogent and oriented, and his mental status today is much better than on previous evaluati ons. Most likely, the patient had overzealous dialysis. His renal function tests today are reviewed, and they are not consistent with profound uremia or azotemia. I have contacted his covering welder assembler, Dr. Pena, who agrees that patient's renal related labs do not require hospitalization, or emergent dialysis. The patient may continue his outpatient dialysis as scheduled. The patient has chronically elevated ammonia levels, however, his level of 82 today, is much decreased when compared to prior levels, and clinically the patient is not currently encephalopathic. He will be given lactulose, and he can follow up with his outpatient hydrogen power plant engineer for his chronic ascites, and chronic hyperammonemia. As a courtesy, his family wanted to know if the patient could gets paracenteses more often than once per month, and I contacted the covering hydrogen power plant engineer, Dr. Eckert, who indicated the patient's family or the patient could contact Dr. Holman's office tomorrow, and speak to her, or her medical or surgical instrument maker, to see if the patient could gets more frequent scheduling of outpatient paracentesis. The patient's family had questions about whether or not the patient would be a appropriate for port placement, and I reviewed his old medical records, including a documented history of IV drug abuse, end-stage renal disease, and liver disease. Family was informed that based off of his past history, especially with chronic underlying coagulopathy, it would be unlikely that the patient would qualify for a routine outpatient port. However, I did provide the family with the contact information of our vascular surgery, interventional radiology team, and I have counseled the family to follow up for this as an outpatient if they have a desire. So far, the patient has been observed in the ER for over 3-1/2 hours without clinical decompensation, and remains neurologically at his baseline. 11/13/18 18:31 Reevaluation #2: 11/13/18 20:28 Patient is observed in the emergency room for many hours without clinical decompensation. His mental status was unchanged on multiple repeat examinations, evaluations. Noncontrast CT scan of the brain is negative for acute disease. X-ray of the chest is negative for acute disease. Urinalysis does not demonstrate bacteria in the urine. However, patient and family were not in the room when I went to go do a final reassessment and discuss test results. I have asked nursing team to call patient's family to come back to discuss results and to perform a final reassessment. However, at this point time, given that they have left without telling anyone, they will be discharged in an uncertain condition, as a left AGAINST MEDICAL ADVICE. 11/13/18 20:36 Reevaluation #3: 11/13/18 21:23 Nursing team contacted the patient's family members and instructed them to return to the emergency room. family members verbalized understanding and stated they would come back, but thus far, have not come back yet. Therefore, the patient will be discharged as an elopement, left AGAINST MEDICAL ADVICE. ED Medical Decision Making - Lab Data Result diagrams: 11/13/18 17:00 11/13/18 17:00 Vital Signs 11/13/18 15:23 Temperature 97.9 F Pulse Rate 64 Respiratory 16 Rate Blood Pressure 119/65 O2 Sat by Pulse 98 Oximetry Lab Results 11/13/18 11/13/18 11/13/18 Range/Units 16:48 17:00 17:00 WBC 4.2 L (4.5-11.0) K/mm3 RBC 4.34 (3.65-5.03) M/mm3 Hgb 12.4 (11.8-15.2) gm/dl Hct 37.2 (35.5-45.6) % MCV 86 (84-94) fl MCH 29 (28-32) pg MCHC 34 (32-34) % RDW 19.7 H (13.2-15.2) % Plt Count 50 L (140-440) K/mm3 PT (12.2-14.9) Sec. INR (0.87-1.13) APTT (24.2-36.6) Sec. Sodium 134 L (137-145) mmol/L Potassium 3.8 (3.6-5.0) mmol/L Chloride 96.9 L (98-107) mmol/L Carbon Dioxide 25 (22-30) mmol/L Anion Gap 16 mmol/L BUN 24 H (9-20) mg/dL Creatinine 3.1 H (0.8-1.5) mg/dL Estimated GFR 24 ml/min BUN/Creatinine Ratio 8 % Glucose 89 (75-100) mg/dL POC Glucose 77 (70-105) Calcium 7.7 L (8.4-10.2) mg/dL Magnesium 1.90 (1.7-2.3) mg/dL Total Bilirubin 1.70 H (0.1-1.2) mg/dL AST 49 H (5-40) units/L ALT 21 (7-56) units/L Alkaline Phosphatase 65 (35-129) units/L Ammonia (25-60) umol/L Total Protein 8.5 H (6.3-8.2) g/dL Albumin 1.8 L (3.9-5) g/dL Albumin/Globulin Ratio 0.3 % Salicylates (2.8-20.0) mg/dL Acetaminophen (10.0-30.0) ug/mL 11/13/18 11/13/18 11/13/18 Range/Units 17:00 17:00 17:00 WBC (4.5-11.0) K/mm3 RBC (3.65-5.03) M/mm3 Hgb (11.8-15.2) gm/dl Hct (35.5-45.6) % MCV (84-94) fl MCH (28-32) pg MCHC (32-34) % RDW (13.2-15.2) % Plt Count (140-440) K/mm3 PT (12.2-14.9) Sec. INR (0.87-1.13) APTT (24.2-36.6) Sec. Sodium (137-145) mmol/L Potassium (3.6-5.0) mmol/L Chloride (98-107) mmol/L Carbon Dioxide (22-30) mmol/L Anion Gap mmol/L BUN (9-20) mg/dL Creatinine (0.8-1.5) mg/dL Estimated GFR ml/min BUN/Creatinine Ratio % Glucose (75-100) mg/dL POC Glucose (70-105) Calcium (8.4-10.2) mg/dL Magnesium (1.7-2.3) mg/dL Total Bilirubin (0.1-1.2) mg/dL AST (5-40) units/L ALT (7-56) units/L Alkaline Phosphatase (35-129) units/L Ammonia 82.0 H (25-60) umol/L Total Protein (6.3-8.2) g/dL Albumin (3.9-5) g/dL Albumin/Globulin Ratio % Salicylates < 0.3 L (2.8-20.0) mg/dL Acetaminophen < 5.0 L (10.0-30.0) ug/mL 11/13/18 Range/Units 17:00 WBC (4.5-11.0) K/mm3 RBC (3.65-5.03) M/mm3 Hgb (11.8-15.2) gm/dl Hct (35.5-45.6) % MCV (84-94) fl MCH (28-32) pg MCHC (32-34) % RDW (13.2-15.2) % Plt Count (140-440) K/mm3 PT 19.2 H (12.2-14.9) Sec. INR 1.51 H (0.87-1.13) APTT 30.9 (24.2-36.6) Sec. Sodium (137-145) mmol/L Potassium (3.6-5.0) mmol/L Chloride (98-107) mmol/L Carbon Dioxide (22-30) mmol/L Anion Gap mmol/L BUN (9-20) mg/dL Creatinine (0.8-1.5) mg/dL Estimated GFR ml/min BUN/Creatinine Ratio % Glucose (75-100) mg/dL POC Glucose (70-105) Calcium (8.4-10.2) mg/dL Magnesium (1.7-2.3) mg/dL Total Bilirubin (0.1-1.2) mg/dL AST (5-40) units/L ALT (7-56) units/L Alkaline Phosphatase (35-129) units/L Ammonia (25-60) umol/L Total Protein (6.3-8.2) g/dL Albumin (3.9-5) g/dL Albumin/Globulin Ratio % Salicylates (2.8-20.0) mg/dL Acetaminophen (10.0-30.0) ug/mL Laboratory studies demonstrate chronic renal, chronic hepatic insufficiency, and stigmata of thrombocytopenia, consistent with chronic sequelae of his aforementioned medical diseases. - EKG Data -: EKG Interpreted by [facility] EKG shows normal: sinus rhythm Rate: normal - EKG Data 11/13/18 18:34 EKG today shows sinus, 64 bpm, normal axis, QTC prolonged, low voltage, not having chest pain, this is an abnormal EKG, this EKG is not consistent with ST elevation myocardial infarction. - Radiology Data Radiology results: pending, image reviewed interpreted by me: X-ray of the chest shows mild pulmonary vascular congestion, otherwise unremarkable. Right-sided dialysis access catheter is reviewed and appreciated. Critical Care Time: Yes Critical care time in (mins) excluding proc time.: 60 Critical care attestation.: If time is entered above; I have spent that time in minutes in the direct care of this critically ill patient, excluding procedure time. Critical Care Time: Critical care time included multiple bedside evaluations, interpretation of laboratory studies, radiology studies, discussion with multiple consulting services, including nephrology, and gastroenterology, and extensive/lengthy di scussions had with the patient, and his family regarding his various medical conditions, and answering the family's individual questions about need for outpatient follow-up with vascular surgery, gastroenterology, and nephrology. ED Disposition Clinical Impression: End stage renal disease on dialysis, Chronic liver disease, Lymphedema of both lower extremities Disposition: LEFT AGAINST MED ADVICE Is pt being admited?: No Does the pt Need Aspirin: No Condition: Undetermined Instructions: Chronic Kidney Disease (ED) Additional Instructions: Cultures of the urine was sent today, and results will be available in the next 3-5 days. Have a primary care doctor or any of your specialty physicians contacted medical records department to obtain culture results. Continue current outpatient medications. Please contact gastroenterology tomorrow, and asked to speak to hydrogen power plant engineer, or her medical or surgical instrument maker, to see if your hydrogen power plant engineer can schedule expedited outpatient paracentesis. Patient may contact his hydrogen power plant engineer at their listed office phone number, or the following phone number: Contact the vascular surgeon at the listed phone number to obtain outpatient consultation regarding elective port placement. Please follow up in 2 days for scheduled dialysis. Please follow-up with your primary care doctor within the next week for repeat checkup, evaluation. Please return to the emergency room right away with new, worsening or different symptoms, projectile vomiting, change in mental status, confusion, inability to tolerate liquid feeds. Referrals: PRIMARY CAREMD [Primary Care Provider] - 3-5 Days DRAKE TAVAREZ MD [Staff Physician] - 3-5 Days ARACELI WARD MD [Staff Physician] - 3-5 Days CLYDE HOLMAN MD [Staff Physician] - 3-5 Days
[2018-11-13 17:28] LABS: Hematocrit 37.2 % (35.5-45.6); Hemoglobin 12.4 gm/dl (11.8-15.2); Mean Corpuscular HGB Conc 34 % (32-34); Mean Corpuscular Volume 86 fl (84-94); Red Blood Count 4.34 M/mm3 (3.65-5.03); Red Cell Distribution Width 19.7 % (13.2-15.2)
[2018-11-13 17:32] LABS: Platelet Count 50 K/mm3 (140-440)
[2018-11-13 17:38] LABS: INR 1.51 (0.87-1.13)
[2018-11-13 17:39] LABS: Partial Thromboplastin Time 30.9 Sec. (24.2-36.6)
[2018-11-13 17:44] LABS: Albumin 1.8 g/dL (3.9-5); Calcium 7.7 mg/dL (8.4-10.2)
--- NOTE | 2018-11-13 18:33 | Cat Scan Report ---
PROCEDURE: CT HEAD/BRAIN WO CON TECHNIQUE: CT images of the head were obtained without the use of IV contrast HISTORY: hx of ams COMPARISONS: 10/17/2018 FINDINGS: There is no CT evidence of intracranial mass, hemorrhage, acute territorial infarction, or hydrocepha andrae. The intracranial arteries are symmetric in density. Calvarium is intact. The visualized paranasa l sinuses and mastoids are aerated. IMPRESSION: No CT evidence of acute abnormality. This document is electronically signed by Maria L Edward MD., November 13 2018 06:31:50 PM ET
[2018-11-13] MEDS ORDERED: CEPHULAC PO ONE (18:35)
[2018-11-13 18:57] LABS: Bilirubin,Urine NEG (Negative); Blood,Urine MOD (Negative); Color,Urine Yellow (Yellow); Mucus,Urine FEW /HPF; Protein,Urine <15 mg/dL mg/dL (Negative); Urobilinogen,Urine < 2.0 mg/dL (<2.0)
[2018-11-13 19:02] LABS: Amphetamine Screen,Urine PRESUMPTIVE NEGATIVE; Benzodiazepines Screen,Urine PRESUMPTIVE NEGATIVE; Cannabinoid Screen,Urine PRESUMPTIVE NEGATIVE; Cocaine Screen,Urine PRESUMPTIVE NEGATIVE; Methadone Screen,Urine PRESUMPTIVE NEGATIVE; Opiate Screen,Urine PRESUMPTIVE NEGATIVE
--- NOTE | 2018-11-13 19:16 | XRay Report ---
PROCEDURE: Chest. TECHNIQUE: AP view. HISTORY: Crackles. COMPARISONS: Chest 10/17/2018. FINDINGS: The heart size is normal. There is faint calcification in the aortic arch. The lungs are clear and we ll expanded. There are no pleural effusions. There is a right subclavian dialysis type catheter that terminates in the right atrium. The regional skeleton appears intact. IMPRESSION: No evidence of acute disease. This document is electronically signed by Medardo Thapa MD., November 13 2018 07:14:59 PM ET
[2018-11-13 21:17] VITALS: BP 125/65
== END 2018-11-13 20:45 | disposition left against medical advice (07) ==
LOC: ED 15:23
DX: E11.22 Type 2 diabetes mellitus with diabetic chronic kidney disease (principal); I12.0 Hypertensive chronic kidney disease with stage 5 chronic kidney disease or end stage renal disease; N18.6 End stage renal disease; Z99.2 Dependence on renal dialysis; I73.9 Peripheral vascular disease, unspecified; K76.9 Liver disease, unspecified; I89.0 Lymphedema, not elsewhere classified
CPT/HCPCS: 36415; 70450; 71045; 80053; 80307; 81001; 82140; 82271; 82962; 83735; 85027; 85610; 85730; 87086; 93005; 93010; 99291; G0480; 80320; 87186

== ENCOUNTER 2018-11-28 08:51 | Day surgery (SDC) | payer MEDICARE ==
[2018-11-28] MEDS ORDERED: XYLOCAINE 1% 20 mL ONE (11:21)
[2018-11-28] MEDS ORDERED: ALBURX 25% (ALBUMIN) IV ONE ×2 (13:08→13:12)
--- NOTE | 2018-11-28 13:25 | Ultrasound Report ---
ULTRASOUND-GUIDED PARACENTESIS INDICATION: Ascites. COMPARISON: 11/07/2018. FINDINGS: After explaining the risk and benefits to the patient, written informed consent obtained. Using ultrasound guidance, an appropriate skin site in the left lower quadrant marked. Skin prepped and draped in the usual sterile fashion. 1% Xylocaine used for local anesthesia. Using ultrasound guidance, a 5 Irish Yueh catheter was placed into the fluid collection and 9600 cc of straw-colored fluid aspirated. No sample sent to laboratory. Catheter removed and hemostasis achieved. Patient tolerated the procedure well and left the radiology department in stable condition. CONCLUSION: Ultrasound guided paracentesis, as described above. IV albumin to be administered post procedure. Dr. Sandoval present for and performed the entire procedure. Thank you for the opportunity to participate in this patient's care.
--- NOTE | 2018-11-28 13:29 | Short Stay Summary ---
Short Stay Documentation - History Past Medical History: liver disease - Allergies and Medications Current Medications: Allergies No Known Allergies Allergy (Verified 11/13/18 15:50) Home Medications Medication Instructions Recorded Confirmed Last Taken Type Ferrous Sulfate [Feosol 325 MG tab] 325 mg PO QDAY #30 tablet 08/14/18 11/28/18 11/27/18 Rx 325mg Folic Acid [Folvite] 1 mg PO QDAY #30 tablet 08/14/18 11/28/18 11/27/18 Rx 1mg Furosemide [Lasix TAB] 40 mg PO QDAY #30 tablet 10/05/18 11/28/18 11/27/18 Rx 40mg Lactulose [Cephulac] 20 gm PO TID 30 Days oral.liqd 10/05/18 11/28/18 11/27/18 Rx 20GM Nadolol [Corgard] 20 mg PO QDAY #30 tablet 10/05/18 11/28/18 11/27/18 Rx 20mg Rifaximin [Xifaxan] 550 mg PO BID #60 tablet 10/05/18 11/28/18 11/27/18 Rx 530mg Spironolactone 25 mg PO DAILY #30 tablet 10/05/18 11/28/18 11/27/18 Rx 25mg Active Medications Albumin Human (Alburx 25% (Albumin)) 25 gm IV ONCE OSCAR Stop: 11/29/18 13:10 - Physical exam General appearance: no acute distress Gastrointestinal: distended - Brief post op/procedure progress note Date of procedure: 11/28/18 Pre-op diagnosis: Ascites Post-op diagnosis: same Procedure: US guided paracentesis. Anesthesia: local Findings: 9.6 liters of yellow, serous fluid removed. Surgeon: FELIX TERAN Estimated blood loss: none Specimen disposition: discarded Condition: stable - Disposition Condition at discharge: Good Disposition: [id number]-01 TO HOME OR SELFCARE Short Stay Discharge Plan Follow up with: ERICK TOBIAS MD [Primary Care Provider] - 7 Days
[2018-11-28] MEDS: ALBURX 25% (ALBUMIN) IV SCH ×2 (14:58→15:20)
[2018-11-28] MEDS ORDERED: ROXICODONE PO ONE (15:15)
[2018-11-28 16:20] VITALS: BP 105/58
== END 2018-11-28 16:35 | disposition home or self-care (01) ==
LOC: CATHLABREC 08:51 → EDSTATUS 09:00 → CATHLABREC 16:35
PROVIDERS: ATTEND Internal Medicine Gastroenterology
DX: R18.8 Other ascites (principal); I12.0 Hypertensive chronic kidney disease with stage 5 chronic kidney disease or end stage renal disease; E11.22 Type 2 diabetes mellitus with diabetic chronic kidney disease; N18.6 End stage renal disease; I70.25 Atherosclerosis of native arteries of other extremities with ulceration; E11.51 Type 2 diabetes mellitus with diabetic peripheral angiopathy without gangrene; B18.2 Chronic viral hepatitis C; D50.0 Iron deficiency anemia secondary to blood loss (chronic); M10.9 Gout, unspecified; E11.42 Type 2 diabetes mellitus with diabetic polyneuropathy; F32.9 Major depressive disorder, single episode, unspecified; F41.9 Anxiety disorder, unspecified; Z87.440 Personal history of urinary (tract) infections; Z91.81 History of falling; Z98.890 Other specified postprocedural states; Z79.899 Other long term (current) drug therapy; Z87.891 Personal history of nicotine dependence
CPT/HCPCS: 49083; 96365; P9047

== ENCOUNTER 2018-12-15 11:46 | Inpatient (IN) | payer MEDICARE, MEDICAID ==
--- NOTE | 2018-12-15 13:07 | Emergency Department Report ---
HPI - General Chief Complaint: Altered Mental Status Time Seen by Provider: 12/15/18 12:06 - HPI HPI: 68-year-old male presents to the emergency department by EMS with the complaint of multiple mental status. The patient was being driven /transported to dialysis today when the route cdl driver noticed that he appeared altered and then pulled over and called EMS. The patient has a past medical history of diabetes, HIV, hypertension, liver disease, end-stage renal disease, peripheral vascular disease and previous cervical osteomyelitis. He is currently a poor historian. The patient is awake and will answer some, but not all, questions but there is a delay. ED Past Medical Hx - Past Medical History Hx Hypertension: Yes Hx Diabetes: Yes Hx Deep Vein Thrombosis: No Hx Liver Disease: Yes Hx Renal Disease: Yes (Dialysis T// last dialysis 11/06/18) Hx HIV: Yes Additional medical history: Cervical osteomyelitis, C5,Hep C. peripheral vascular disease (b/l leg ulcers). leg edema. Chronic pain. Patient states "my neck is broken in 2 places". Apparently this is being treated nonoperatively at this point. - Surgical History Past Surgical History?: Yes Hx Pacemaker: No Hx Internal Defibrillator: No Additional Surgical History: Spring filter. Right chest perm cath - Social History Smoking Status: Never Smoker Substance Use Type: None - Medications Home Medications: Home Medications Medication Instructions Recorded Confirmed Last Taken Type Ferrous Sulfate [Feosol 325 MG tab] 325 mg PO QDAY #30 tablet 08/14/18 12/15/18 11/27/18 Rx 325mg Folic Acid [Folvite] 1 mg PO QDAY #30 tablet 08/14/18 12/15/18 11/27/18 Rx 1mg Furosemide [Lasix TAB] 40 mg PO QDAY #30 tablet 10/05/18 12/15/18 11/27/18 Rx 40mg Lactulose [Cephulac] 20 gm PO TID 30 Days oral.liqd 10/05/18 12/15/18 11/27/18 Rx 20GM Nadolol [Corgard] 20 mg PO QDAY #30 tablet 10/05/18 12/15/18 11/27/18 Rx 20mg Rifaximin [Xifaxan] 550 mg PO BID #60 tablet 10/05/18 12/15/18 11/27/18 Rx 530mg Spironolactone 25 mg PO DAILY #30 tablet 10/05/18 12/15/18 11/27/18 Rx 25mg ED Review of Systems ROS: Stated complaint: ALTERED MENTAL Other details as noted in HPI Comment: Unobtainable due to pts medical conditions Physical Exam - Physical Exam Vital Signs: Vital Signs 12/15/18 12:10 Temperature 98.6 F Pulse Rate 63 Respiratory 16 Rate Blood Pressure 104/67 O2 Sat by Pulse 100 Oximetry Physical Exam: GENERAL: The patient is well-developed well-nourished. HENT: Normocephalic. Atraumatic. Patient has moist mucous membranes. EYES: Extraocular motions are intact. Pupils equal reactive to light bilaterally. NECK: Supple. Trachea is midline. CHEST/LUNGS: Clear to auscultation. There is no respiratory distress noted. HEART/CARDIOVASCULAR: Regular. There is no tachycardia. There is no murmur. ABDOMEN: Abdomen is soft, nontender. Patient has normal bowel sounds. There is no abdominal distention. SKIN: Patient has bilateral lower extremity lymphedema. NEURO: The patient is awake and can answer some questions but otherwise appears confused. There is a delay between questions asked and his responses. Withdraws from painful stimuli. MUSCULOSKELETAL: There is no tenderness or deformity. There is no evidence of acute injury. ED Course Vital Signs 12/15/18 12:10 Temperature 98.6 F Pulse Rate 63 Respiratory 16 Rate Blood Pressure 104/67 O2 Sat by Pulse 100 Oximetry ED Medical Decision Making - Lab Data Result diagrams: 12/15/18 13:22 12/15/18 13:22 - EKG Data -: EKG Interpreted by Me EKG shows normal: sinus rhythm, axis, intervals (mild prolongation of QT QTC intervals), QRS complexes (low-voltage QRS), ST-T waves (there is some f lattening of the T waves) Rate: normal - EKG Data When compared to previous EKG there are: no significant change Interpretation: unchanged when compared t (10/17/18) - Radiology Data Radiology results: report reviewed PROCEDURE: CT HEAD/BRAIN WO CON TECHNIQUE: Computerized tomography of the head was performed without contrast material. HISTORY: Altered Mental Status COMPARISONS: 11/13/2018 . FINDINGS: Patient positioning limits the examination with axial sections demonstrate a relative coronal orientation. No acute air-fluid level visualized in the included air-filled sinuses. Bone windows demonstrate no acute fracture. There is ventricular and sulcal prominence compatible with global cerebrocortical atrophy. The brain contains no mass, mass effect, hemorrhage, or acute infarct. There is no extra-axial intracranial bleed, brain bleed, or midline shift. IMPRESSION: No acute CVA, intracranial bleed, or brain mass This document is electronically signed by Terrence Moses MD., Dec 15 2018 02:25:11 PM ET Transcribed By: NATA Dictated By: TERRENCE MOSES MD Electronically Authenticated By: TERRENCE MOSES MD Signed Date/Time: 12/15/18 1427 - Medical Decision Making Patient presents to the emergency department with a complaint of altered mental status. He is dialysis dependent and also has a history of liver disease. He is awake and answering some questions appropriately but otherwise he does appear altered/confused and there is a delay in his responses. CT of the head did not show any bleed, shift, mass, ischemia, or any other acute process. The patient's labs show an ammonia level of 233 which is most likely the cause of his altered mental status. I spoke with the patient's production team advisor is aware of the patient's admission and will be consult to evaluate for the need for dialysis. He does not appear to need dialysis acutely as there are no signs of any respiratory distress, a significant hypertensive emergencies, no hyperkalemia. He was given lactulose to start treatment of his hyperammonemia. The patient will be admitted to the hospital for further evaluation and treatment and was accepted for admission by the hospitalist, Dr. Stover. - Differential Diagnosis CVA, TIA, dementia, encephalopathy Critical Care Time: No Critical care attestation.: If time is entered above; I have spent that time in minutes in the direct care of this critically ill patient, excluding procedure time. ED Disposition Clinical Impression: Acute metabolic encephalopathy, Chronic liver disease, Hyperammonemia Chronic kidney disease Qualifiers: Chronic kidney disease stage: unspecified stage Qualified Code(s): N18.9 - Chronic kidney disease, unspecified Altered mental status Qualifiers: Altered mental status type: unspecified Qualified Code(s): R41.82 - Altered mental status, unspecified Disposition: -09 OP ADMIT IP TO THIS HOSP Is pt being admited?: Yes Condition: Serious Time of Disposition: 15:48
[2018-12-15 13:40] LABS: Basophils % (Auto) 0.6 % (0.0-1.8); Eosinophils # (Auto) 0.1 K/mm3 (0.0-0.4); Eosinophils % (Auto) 1.7 % (0.0-4.3); Hematocrit 32.4 % (35.5-45.6); Hemoglobin 10.9 gm/dl (11.8-15.2); Lymphocytes # (Auto) 0.9 K/mm3 (1.2-5.4); Lymphocytes % (Auto) 22.9 % (13.4-35.0); Mean Corpuscular HGB Conc 34 % (32-34); Mean Corpuscular Volume 84 fl (84-94); Monocytes # (Auto) 0.4 K/mm3 (0.0-0.8); Monocytes % (Auto) 10.9 % (0.0-7.3); Red Blood Count 3.85 M/mm3 (3.65-5.03); Red Cell Distribution Width 19.5 % (13.2-15.2)
[2018-12-15 13:52] LABS: INR 1.58 (0.87-1.13); Partial Thromboplastin Time 20.9 Sec. (24.2-36.6)
[2018-12-15 13:56] LABS: Platelet Count 57 K/mm3 (140-440)
[2018-12-15 13:59] LABS: Calcium 7.4 mg/dL (8.4-10.2)
--- NOTE | 2018-12-15 14:27 | Cat Scan Report ---
PROCEDURE: CT HEAD/BRAIN WO CON TECHNIQUE: Computerized tomography of the head was performed without contrast material. HISTORY: Altered Mental Status COMPARISONS: 11/13/2018 . FINDINGS: Patient positioning limits the examination with axial sections demonstrate a relative coronal orienta tion. No acute air-fluid level visualized in the included air-filled sinuses. Bone windows demonstrate no acute fracture. There is ventricular and sulcal prominence compatible with global cerebrocortical atrophy. The brain contains no mass, mass effect, hemorrhage, or acute infarct. There is no extra-axial intracranial bleed, brain bleed, or midline shift. IMPRESSION: No acute CVA, intracranial bleed, or brain mass This document is electronically signed by Terrence Moses MD., Dec 15 2018 02:25:11 PM ET
[2018-12-15] MEDS ORDERED: CEPHULAC PO ONE (14:30)
--- NOTE | 2018-12-15 14:37 | History and Physical Report ---
History of Present Illness Chief complaint: confused History of present illness: 68 YO Male with HTN, DM, ESRD on HD(T,R,Sa), Noncompliance with Dialysis, HIV, HCV, PVD, Cirrhosis presents to ED for evaluation. Pt is confused and lethargic and unable to provide history. Pt history taken from medical record, EMS, and ED staff. As per staff, the patient was being transported to his routine dialysis appointment when the four horse hitch driver noticed that the patient was confused. EMS was notified, and upon arrival the patient was found to be in distress. Pt transported to [facility]. Pt seen and evaluated in ED and found to have Encepha lopathy, Hyperammonemia, ESRD, and Fluid overload. Pt admitted to IM. Nephrology consulted in ED. Pt is confused and lethargic but has a positive gag reflex, and in able to protect his airway. Prior admission on 10/18/18 reviewed. All listed medication reconciled at time of admission. Past History Past Medical History: diabetes, ESRD, HIV/AIDS, hypertension, PVD, other (Cirrhosis) Past Surgical History: Other ([place] filter, dialysis access) Medications and Allergies Allergies Allergy/AdvReac Type Severity Reaction Status Date / Time No Known Allergies Allergy Verified 11/13/18 15:50 Home Medications Medication Instructions Recorded Confirmed Last Taken Type Ferrous Sulfate [Feosol 325 MG tab] 325 mg PO QDAY #30 tablet 08/14/18 12/15/18 11/27/18 Rx 325mg Folic Acid [Folvite] 1 mg PO QDAY #30 tablet 08/14/18 12/15/18 11/27/18 Rx 1mg Furosemide [Lasix TAB] 40 mg PO QDAY #30 tablet 10/05/18 12/15/18 11/27/18 Rx 40mg Lactulose [Cephulac] 20 gm PO TID 30 Days oral.liqd 10/05/18 12/15/18 11/27/18 Rx 20GM Nadolol [Corgard] 20 mg PO QDAY #30 tablet 10/05/18 12/15/18 11/27/18 Rx 20mg Rifaximin [Xifaxan] 550 mg PO BID #60 tablet 10/05/18 12/15/18 11/27/18 Rx 530mg Spironolactone 25 mg PO DAILY #30 tablet 0312/15/18 11/27/18 Rx 25mg Review of Systems ROS unobtainable: due to mental status Exam - Constitutional Vitals: Temp Pulse Resp BP Pulse Ox 98.6 F 63 16 104/67 100 12/15/18 12:10 12/15/18 12:10 12/15/18 12:10 12/15/18 12:10 12/15/18 12:10 General appearance: Present: mild distress - EENT Eyes: Present: PERRL, miosis ENT: hearing intact, clear oral mucosa, poor dentition - Neck Neck: Present: supple, normal ROM - Respiratory Respiratory: bilateral: diminished, rhonchi - Cardiovascular Heart Sounds: Present: S1 & S2. Absent: rub, click - Extremities Extremities: pulses symmetrical, No edema Extremity abnormal: edema Peripheral Pulses: within normal limits - Abdominal General gastrointestinal: Present: soft, non-tender, non-distended, normal bowel sounds Male genitourinary: Present: normal - Integumentary Integumentary: Present: pale - Musculoskeletal Musculoskeletal: generalized weakness - Psychiatric Psychiatric: no appropriate mood/affect, no intact judgment & insight, no memory intact - Neurologic Neurologic: CNII-XII intact, moves all extremities, no gait normal Results - Labs CBC & Chem 7: 12/15/18 13:22 12/15/18 13:22 Labs: Abnormal lab results 12/15/18 12/15/18 12/15/18 Range/Units 12:12 13:22 13:22 WBC 4.0 L (4.5-11.0) K/mm3 Hgb 10.9 L (11.8-15.2) gm/dl Hct 32.4 L (35.5-45.6) % RDW 19.5 H (13.2-15.2) % Plt Count 57 L (140-440) K/mm3 [place] % (Auto) 10.9 H (0.0-7.3) % Lymph # 0.9 L (1.2-5.4) K/mm3 PT 19.9 H (12.2-14.9) Sec. INR 1.58 H (0.87-1.13) APTT 20.9 L (24.2-36.6) Sec. VBG pH (7.320-7.420) Sodium (137-145) mmol/L BUN (9-20) mg/dL Creatinine (0.8-1.5) mg/dL POC Glucose 64 L (70-105) Calcium (8.4-10.2) mg/dL Total Bilirubin (0.1-1.2) mg/dL AST (5-40) units/L Ammonia (25-60) umol/L Albumin (3.9-5) g/dL Salicylates (2.8-20.0) mg/dL Acetaminophen (10.0-30.0) ug/mL 12/15/18 12/15/18 12/15/18 Range/Units 13:22 13:22 13:22 WBC (4.5-11.0) K/mm3 Hgb (11.8-15.2) gm/dl Hct (35.5-45.6) % RDW (13.2-15.2) % Plt Count (140-440) K/mm3 [place] % (Auto) (0.0-7.3) % Lymph # (1.2-5.4) K/mm3 PT (12.2-14.9) Sec. INR (0.87-1.13) APTT (24.2-36.6) Sec. VBG pH (7.320-7.420) Sodium 135 L (137-145) mmol/L BUN 27 H (9-20) mg/dL Creatinine 3.6 H (0.8-1.5) mg/dL POC Glucose (70-105) Calcium 7.4 L (8.4-10.2) mg/dL Total Bilirubin 1.60 H (0.1-1.2) mg/dL AST 41 H (5-40) units/L Ammonia 230.0 H (25-60) umol/L Albumin 2.0 L (3.9-5) g/dL Salicylates < 0.3 L (2.8-20.0) mg/dL Acetaminophen (10.0-30.0) ug/mL 12/15/18 12/15/18 Range/Units 13:22 13:22 WBC (4.5-11.0) K/mm3 Hgb (11.8-15.2) gm/dl Hct (35.5-45.6) % RDW (13.2-15.2) % Plt Count (140-440) K/mm3 [place] % (Auto) (0.0-7.3) % Lymph # (1.2-5.4) K/mm3 PT (12.2-14.9) Sec. INR (0.87-1.13) APTT (24.2-36.6) Sec. VBG pH 7.469 H (7.320-7.420) Sodium (137-145) mmol/L BUN (9-20) mg/dL Creatinine (0.8-1.5) mg/dL POC Glucose (70-105) Calcium (8.4-10.2) mg/dL Total Bilirubin (0.1-1.2) mg/dL AST (5-40) units/L Ammonia (25-60) umol/L Albumin (3.9-5) g/dL Salicylates (2.8-20.0) mg/dL Acetaminophen < 5.0 L (10.0-30.0) ug/mL Assessment and Plan - Patient Problems (1) Acute metabolic encephalopathy Current Visit: Yes Status: Acute Plan to address problem: Neuro checks, supportive care, seizure precautions, aspiration precautions, dialysis as per renal team. Suspect symptoms are multifactorial in nature due to the combination of multi system disease:AIDS, ESRD, End stage Liver disease with cirrhosis. (2) End stage renal disease Current Visit: Yes Status: Chronic Plan to address problem: Nephrology consulted for dialysis, strict I/O, daily weight, monitor uop q shift, supportive care, dialysis as per renal team. (3) Chronic liver disease Current Visit: Yes Status: Acute Plan to address problem: Supportive care, repeat ammonia level and bmp in am, (4) AIDS Current Visit: No Status: Acute Plan to address problem: Supportive care, outpatient ID F/U care. (5) Ascites Current Visit: Yes Status: Acute Qualifiers: Ascites type: other type Qualified Code(s): R18.8 - Other ascites Plan to address problem: Ascites secondary to chronic liver disease: Poor prognosis. Protuberant abdomen, without signs of peritonitis, Will reassess need for paracentesis at later time. Pt will require dialysis and reassessment and further medical stabilization. (6) DVT prophylaxis Current Visit: Yes Status: Acute Plan to address problem: SCD to BLE while in bed, hold anticoagulation at this time due to chronic liver disease
[2018-12-15] MEDS ORDERED: PROVENTIL IH PRN (14:40)
[2018-12-15] MEDS ORDERED: SODIUM CHLORIDE FLUSH SYRINGE 10 ML IV PRN (14:40)
[2018-12-15] MEDS ORDERED: NACL 0.9% 100 ML IV PRN (15:31)
[2018-12-15] MEDS ORDERED: ALBURX 25% (ALBUMIN) IV PRN (15:31)
--- NOTE | 2018-12-15 15:59 | Consultation ---
History of Present Illness - Reason for Consult Consult date: 12/15/18 chronic renal failure, end stage renal disease - History of Present Illness This is a very pleasant 68-year-old -[place] male who is well known to our outpatient clinic, presented to the emergency department secondary to altered mental status. He was on the way to hemodialysis when the transportation found that he was acutely altered for which he was brought to the emergency department for further evaluation. He has a history of end-stage renal disease in the setting of hypertension, hepatitis C, HIV, end-stage liver disease and cirrhosis, who has required periodic paracentesis procedures. His ammonia level is acutely elevated over 200 likely accounting for his acute encephalopathy this morning. He was evaluated in the emergency department. We will set him up for hemodialysis this afternoon. He typically dialyzes on Monday schedule. He is dialyzed at [facility]. Past History Past Medical History: ESRD, hepatitis, HIV/AIDS, hypertension, hyperlipidemia, liver disease, PVD Past Surgical History: Other (permacath placement, paracentesis procedures) Social history: , lives with family Family history: diabetes, hypertension Medications and Allergies Allergies Allergy/AdvReac Type Severity Reaction Status Date / Time No Known Allergies Allergy Verified 11/13/18 15:50 Home Medications Medication Instructions Recorded Confirmed Last Taken Type Ferrous Sulfate [Feosol 325 MG tab] 325 mg PO QDAY #30 tablet 08/14/18 12/15/18 11/27/18 Rx 325mg Folic Acid [Folvite] 1 mg PO QDAY #30 tablet 08/14/18 12/15/18 11/27/18 Rx 1mg Furosemide [Lasix TAB] 40 mg PO QDAY #30 tablet 10/05/18 12/15/18 11/27/18 Rx 40mg Lactulose [Cephulac] 20 gm PO TID 30 Days oral.liqd 10/05/18 12/15/18 11/27/18 Rx 20GM Nadolol [Corgard] 20 mg PO QDAY #30 tablet 10/05/18 12/15/18 11/27/18 Rx 20mg Rifaximin [Xifaxan] 550 mg PO BID #60 tablet 10/05/18 12/15/18 11/27/18 Rx 530mg Spironolactone 25 mg PO DAILY #30 tablet 10/05/18 12/15/18 11/27/18 Rx 25mg Active Meds: Active Medications Albumin Human (Alburx 25% (Albumin)) 25 gm IV NANCY PRN PRN Reason: Hypotension Albuterol (Proventil) 2.5 mg IH Q3H PRN PRN Reason: Shortness Of Breath Sodium Chloride (Nacl 0.9%) 100 mls @ 999 mls/hr IV NANCY PRN PRN Reason: Hypotension Sodium Chloride (Sodium Chloride Flush Syringe 10 Ml) 10 ml IV BID OSCAR Sodium Chloride (Sodium Chloride Flush Syringe 10 Ml) 10 ml IV PRN PRN PRN Reason: LINE FLUSH Review of Systems ROS unobtainable: due to mental status Exam - Vital Signs Vital signs: Vital Signs Temp Pulse Resp BP Pulse Ox 98.6 F 63 16 104/67 100 12/15/18 12:10 12/15/18 12:10 12/15/18 12:10 12/15/18 12:10 12/15/18 12:10 - General Appearance General appearance: appears stated age, chronically ill, frail EENT: ATNC, PERRL Neck: Present: neck supple, trachea midline Respiratory: Clear to Ascultation Heart: regular Gastrointestinal: Present: normal, normoactive bowel sounds Integumentary: warm and dry, chronic venous stasis, hyperkeratosis Neurologic: confused, disoriented Musculoskeletal: Present: other (edema in bilateral lower extremities) Psychiatric: other (confused and altered) Results - Lab Results 12/15/18 13:22 12/15/18 13:22 Most recent lab results Calcium 7.4 mg/dL (8.4-10.2) L 12/15/18 13:22 Assessment and Plan - Patient Problems (1) End stage renal disease Current Visit: Yes Status: Chronic Plan to address problem: Maintain on inpatient Monday//Monday hemodialysis schedule. We'll plan for hemodialysis today. (2) Hyperammonemia Current Visit: Yes Status: Acute Plan to address problem: Management per primary team. Likely leading to his aforementioned hepatic encephalopathy. We'll continue to monitor closely. Continues on rifaximin. (3) Hepatic encephalopathy Current Visit: No Status: Acute Plan to address problem: In the setting of elevated ammonia levels. Management per primary team. (4) Anemia in end-stage renal disease Current Visit: No Status: Chronic Plan to address problem: Epogen with hemodialysis. (5) End stage liver disease Current Visit: No Status: Acute Plan to address problem: Likely evidence of hepatic encephalopathy noted. Hyperammonemia noted. Management per primary team and gastroenterology. (6) HTN (hypertension) Current Visit: No Status: Chronic Qualifiers: Hypertension type: essential hypertension Qualified Code(s): I10 - Essential (primary) hypertension Plan to address problem: At this time patient's blood pressure is in lower end. We'll continue to monitor closely. Maintain appropriate hemodynamics. Not on pressors at this time.
[2018-12-15] MEDS: SODIUM CHLORIDE FLUSH SYRINGE 10 ML IV SCH (23:24)
[2018-12-16] MEDS ORDERED: CEPHULAC PO SCH (06:00)
[2018-12-16 07:33] LABS: Basophils % (Auto) 1.3 % (0.0-1.8); Eosinophils # (Auto) 0.1 K/mm3 (0.0-0.4); Hematocrit 31.3 % (35.5-45.6); Hemoglobin 10.5 gm/dl (11.8-15.2); Lymphocytes # (Auto) 1.1 K/mm3 (1.2-5.4); Mean Corpuscular HGB Conc 34 % (32-34); Mean Corpuscular Volume 85 fl (84-94); Monocytes # (Auto) 0.3 K/mm3 (0.0-0.8); Monocytes % (Auto) 10.7 % (0.0-7.3); Red Blood Count 3.68 M/mm3 (3.65-5.03); Red Cell Distribution Width 19.7 % (13.2-15.2)
[2018-12-16 07:43] LABS: Platelet Count 53 K/mm3 (140-440)
[2018-12-16 08:03] LABS: Albumin 1.7 g/dL (3.9-5); Calcium 7.8 mg/dL (8.4-10.2)
--- NOTE | 2018-12-16 13:35 | Progress Note ---
Assessment and Plan - Patient Problems (1) End stage renal disease Current Visit: Yes Status: Chronic Plan to address problem: Maintain on inpatient Monday//Monday hemodialysis schedule. (2) Hyperammonemia Current Visit: Yes Status: Acute Plan to address problem: Management per primary team. Likely leading to his aforementioned hepatic ence phalopathy. We'll continue to monitor closely. Continues on lactulose therapy with improvement noted on follow up ammonia levels this am. (3) Hepatic encephalopathy Current Visit: No Status: Acute Plan to address problem: In the setting of elevated ammonia levels. Management per primary team. (4) Anemia in end-stage renal disease Current Visit: No Status: Chronic Plan to address problem: Epogen with hemodialysis. (5) End stage liver disease Current Visit: No Status: Acute Plan to address problem: Likely evidence of hepatic encephalopathy noted. Hyperammonemia noted. Management per primary team and gastroenterology. (6) HTN (hypertension) Current Visit: No Status: Chronic Qualifiers: Hypertension type: essential hypertension Qualified Code(s): I10 - Essential (primary) hypertension Plan to address problem: At this time patient's blood pressure is in lower end. We'll continue to monitor closely. Maintain appropriate hemodynamics. Not on pressors at this time. Subjective Date of service: 12/16/18 Interval history: No acute issues overnight. Overall mental status showing slow improvement. Is receiving lactulose therapy. Tolerated HD yesterday without any acute issues. Objective - Vital Signs Vital signs: Vital Signs - 12hr 12/16/18 12/16/18 12/16/18 01:40 01:50 02:00 Temperature Pulse Rate 62 62 63 Respiratory 6 L 7 L 8 L Rate Blood Pressure 101/48 101/47 95/52 O2 Sat by Pulse 100 100 100 Oximetry 12/16/18 12/16/18 12/16/18 02:10 02:20 02:30 Temperature Pulse Rate 62 62 61 Respiratory 8 L 7 L 8 L Rate Blood Pressure 106/48 93/43 83/41 O2 Sat by Pulse 100 100 100 Oximetry 12/16/18 12/16/18 12/16/18 02:40 02:50 03:00 Temperature Pulse Rate 62 61 62 Respiratory 7 L 8 L 7 L Rate Blood Pressure 92/45 98/45 87/48 O2 Sat by Pulse 100 100 100 Oximetry 05/12/16/18 12/16/18 03:10 03:20 03:30 Temperature Pulse Rate 62 63 64 Respiratory 7 L 10 L 11 L Rate Blood Pressure 100/49 103/49 108/63 O2 Sat by Pulse 100 100 100 Oximetry 12/16/18 12/16/18 12/16/18 03:40 03:50 04:00 Temperature 97.8 F Pulse Rate 63 64 64 Respiratory 8 L 10 L 10 L Rate Blood Pressure 103/49 102/54 112/63 O2 Sat by Pulse 100 100 100 Oximetry 12/16/18 12/16/18 12/16/18 04:10 04:20 04:30 Temperature Pulse Rate 61 61 60 Respiratory 8 L 10 L 8 L Rate Blood Pressure 97/51 100/51 84/50 O2 Sat by Pulse 100 100 100 Oximetry 12/16/18 12/16/18 12/16/18 04:40 04:50 05:00 Temperature Pulse Rate 60 60 60 Respiratory 9 L 9 L 9 L Rate Blood Pressure 97/41 88/48 87/45 O2 Sat by Pulse 100 100 100 Oximetry 12/16/18 12/16/18 12/16/18 05:10 05:20 05:30 Temperature Pulse Rate 60 60 60 Respiratory 9 L 12 9 L Rate Blood Pressure 90/45 95/48 90/41 O2 Sat by Pulse 100 100 100 Oximetry 12/16/18 12/16/18 12/16/18 05:40 05:50 06:00 Temperature Pulse Rate 62 62 63 Respiratory 8 L 9 L 9 L Rate Blood Pressure 98/51 97/47 103/51 O2 Sat by Pulse 100 100 100 Oximetry 12/16/18 12/16/18 12/16/18 06:10 06:20 06:30 Temperature Pulse Rate 62 63 64 Respiratory 9 L 11 L 11 L Rate Blood Pressure 96/42 103/49 104/52 O2 Sat by Pulse 100 100 100 Oximetry 12/16/18 12/16/18 12/16/18 06:40 06:50 07:00 Temperature Pulse Rate 62 63 61 Respiratory 10 L 9 L 9 L Rate Blood Pressure 103/49 109/46 100/43 O2 Sat by Pulse 100 100 100 Oximetry 12/16/18 12/16/18 12/16/18 07:10 07:20 07:30 Temperature Pulse Rate 61 62 63 Respiratory 10 L 10 L 10 L Rate Blood Pressure 100/51 102/49 102/52 O2 Sat by Pulse 100 100 100 Oximetry 12/16/18 12/16/18 12/16/18 07:40 07:51 08:00 Temperature 97.7 F Pulse Rate 61 62 62 Respiratory 10 L 9 L 10 L Rate Blood Pressure 98/41 107/66 94/52 O2 Sat by Pulse 100 95 Oximetry 12/16/18 12/16/18 12/16/18 08:10 08:20 08:30 Temperature Pulse Rate 62 62 61 Respiratory 12 12 10 L Rate Blood Pressure 98/48 96/48 93/43 O2 Sat by Pulse 100 100 100 Oximetry 12/16/18 08:40 Temperature Pulse Rate 69 Respiratory 11 L Rate Blood Pressure 94/45 O2 Sat by Pulse 100 Oximetry - General Appearance General appearance: chronically ill, frail EENT: ATNC Neck: no JVD, no thyromegaly Respiratory: Present: Decreased Breath Sounds Cardiology: regular, S1S2 Gastrointestinal: distended Integumentary: chronic venous stasis, hyperkeratosis Neurologic: other (lethargic, but easily arousable, flat affect ) Musculoskeletal: other (+edema ) - Lab 12/16/18 06:41 12/16/18 06:41 Most recent lab results Calcium 7.8 mg/dL (8.4-10.2) L 12/16/18 06:41 - Allied health notes Allied health notes reviewed: nursing Medications & Allergies - Medications Allergies/Adverse Reactions: Allergies No Known Allergies Allergy (Verified 11/13/18 15:50) Home Medications: Home Medications Medication Instructions Recorded Confirmed Last Taken Type Ferrous Sulfate [Feosol 325 MG tab] 325 mg PO QDAY #30 tablet 08/14/18 12/15/18 11/27/18 Rx 325mg Folic Acid [Folvite] 1 mg PO QDAY #30 tablet 08/14/18 12/15/18 11/27/18 Rx 1mg Furosemide [Lasix TAB] 40 mg PO QDAY #30 tablet 10/05/18 12/15/18 11/27/18 Rx 40mg Lactulose [Cephulac] 20 gm PO TID 30 Days oral.liqd 10/05/18 12/15/18 11/27/18 Rx 20GM Nadolol [Corgard] 20 mg PO QDAY #30 tablet 10/05/18 12/15/1811/27/19 Rx 20mg Rifaximin [Xifaxan] 550 mg PO BID #60 tablet 10/05/18 12/15/18 11/27/18 Rx 530mg Spironolactone 25 mg PO DAILY #30 tablet 10/05/18 12/15/18 11/27/18 Rx 25mg Active Medications: Generic Name Dose Route Start Last Admin Trade Name Freq PRN Reason Stop Dose Admin Albumin Human 25 gm 12/15/18 15:31 Alburx 25% (Albumin) IV NANCY PRN Hypotension Albuterol 2.5 mg 12/15/18 14:40 Proventil IH Q3H PRN Shortness Of Breath Enoxaparin Sodium 30 mg 12/16/18 22:00 Lovenox SUB-Q QDAY@2200 OSCAR Ferrous Sulfate 325 mg 12/17/18 10:00 Feosol PO QDAY OSCAR Folic Acid 1 mg 12/17/18 10:00 Folvite PO QDAY OSCAR Furosemide 40 mg 12/17/18 10:00 Lasix PO QDAY OSCAR Furosemide 40 mg 12/16/18 12:00 Lasix IV 12/17/18 00:01 Q12H OSCAR Sodium Chloride 100 mls @ 999 mls/hr 12/15/18 15:31 Nacl 0.9% IV NANCY PRN Hypotension Lactulose 20 gm 12/16/18 14:00 Cephulac PO TID OSCAR Nadolol 20 mg 12/17/18 10:00 Corgard PO QDAY OSCAR Rifaximin 550 mg 12/16/18 22:00 Xifaxan PO BID OSCAR Sodium Chloride 10 ml 12/15/18 22:00 12/15/18 23:24 Sodium Chloride Flush Syringe 10 Ml IV 10 ml BID OSCAR Administration Sodium Chloride 10 ml 12/15/18 14:40 Sodium Chloride Flush Syringe 10 Ml IV PRN PRN LINE FLUSH Spironolactone 25 mg 12/17/18 10:00 Aldactone PO DAILY OSCAR
--- NOTE | 2018-12-16 14:44 | Progress Note ---
Assessment and Plan Assessment and plan: 68 YO Male with HTN, DM, ESRD on HD(T,R,Sa), Noncompliance with Dialysis, HIV, HCV, PVD, Cirrhosis presents who was sent from HD due to ams Past History Past Medical History: diabetes, ESRD, HIV/AIDS?, hypertension, PVD, other (Cirrhosis) diagnosis Hepatic encephalopathy non adherence to treatment and medications Decompensated liver disease Ascites and fluid overload Plan Mentation is improved, continue lactulose, rifaximin Continue diuretics as tolerated was counseled on improved adherence, preventative health counseling performed for 17 minutes cont hd per nephrology History Interval history: mentation is improved today Review of systems Constitutional: No fevers, no malaise, no joint pains CVS: No chest pain, no orthopnea, no pedal edema GI: No abdominal pain, no diarrhea, no vomiting, no constipation Respiratory: No shortness of breath, no wheezing, no coughing Hospitalist Physical - Physical exam Narrative exam: General.: Appears well, no distress, nontoxic HEENT: Moist mucous membranes, extraocular muscles intact, no lymphadenopathy Neck: supple Cardiac: S1-S2 heard Lungs: clear to auscultation bilaterally Abdomen: soft , nontender, nondistended, bowel sounds positive Extremities: no edema clubbing or cyanosis Skin: no rash or lesions Neurologic: no gross focal deficits Psych: calm, and cooperative - Constitutional Vitals: Temp Pulse Resp BP Pulse Ox 97.7 F 69 11 L 94/45 100 12/16/18 08:00 12/16/18 08:40 12/16/18 08:40 12/16/18 08:40 12/16/18 08:40 General appearance: Present: mild distress Results - Labs CBC & Chem 7: 12/16/18 06:41 12/16/18 06:41 Labs: Laboratory Last Values WBC 3.0 K/mm3 (4.5-11.0) L 12/16/18 06:41 RBC 3.68 M/mm3 (3.65-5.03) 12/16/18 06:41 Hgb 10.5 gm/dl (11.8-15.2) L 12/16/18 06:41 Hct 31.3 % (35.5-45.6) L 12/16/18 06:41 MCV 85 fl (84-94) 12/16/18 06:41 MCH 29 pg (28-32) 12/16/18 06:41 MCHC 34 % (32-34) 12/16/18 06:41 RDW 19.7 % (13.2-15.2) H 12/16/18 06:41 Plt Count 53 K/mm3 (140-440) L 12/16/18 06:41 Lymph % (Auto) 38.0 % (13.4-35.0) H 12/16/18 06:41 [place] % (Auto) 10.7 % (0.0-7.3) H 12/16/18 06:41 Eos % (Auto) 2.0 % (0.0-4.3) 12/16/18 06:41 Baso % (Auto) 1.3 % (0.0-1.8) 12/16/18 06:41 Lymph # 1.1 K/mm3 (1.2-5.4) L 12/16/18 06:41 [place] # 0.3 K/mm3 (0.0-0.8) 12/16/18 06:41 Eos # 0.1 K/mm3 (0.0-0.4) 12/16/18 06:41 Baso # 0.0 K/mm3 (0.0-0.1) 12/16/18 06:41 Seg Neutrophils % 48.0 % (40.0-70.0) 12/16/18 06:41 Seg Neutrophils # 1.4 K/mm3 (1.8-7.7) L 12/16/18 06:41 PT 19.9 Sec. (12.2-14.9) H 12/15/18 13:22 INR 1.58 (0.87-1.13) H 12/15/18 13:22 APTT 20.9 Sec. (24.2-36.6) L 12/15/18 13:22 VBG pH 7.469 (7.320-7.420) H 12/15/18 13:22 Sodium 138 mmol/L (137-145) 12/16/18 06:41 Potassium 3.6 mmol/L (3.6-5.0) 12/16/18 06:41 Chloride 103.2 mmol/L (98-107) 12/16/18 06:41 Carbon Dioxide 21 mmol/L (22-30) L 12/16/18 06:41 17 mmol/L 12/16/18 06:41 BUN 24 mg/dL (9-20) H 12/16/18 06:41 3.3 mg/dL (0.8-1.5) H 12/16/18 06:41 Estimated GFR 23 ml/min 12/16/18 06:41 7 % 12/16/18 06:41 Glucose 86 mg/dL (75-100) 12/16/18 06:41 POC Glucose 117 (70-105) H 12/15/18 23:20 Lactic Acid 0.80 mmol/L (0.7-2.0) 12/15/18 20:24 Calcium 7.8 mg/dL (8.4-10.2) L 12/16/18 06:41 1.40 mg/dL (0.1-1.2) H 12/16/18 06:41 AST 40 units/L (5-40) 12/16/18 06:41 ALT 15 units/L (7-56) 12/16/18 06:41 53 units/L (35-129) 12/16/18 06:41 105.0 umol/L (25-60) H 12/16/18 06:41 8.0 g/dL (6.3-8.2) 12/16/18 06:41 1.7 g/dL (3.9-5) L 12/16/18 06:41 0.3 % 12/16/18 06:41 TSH 2.400 mlU/mL (0.270-4.200) 12/15/18 13:22 Salicylates < 0.3 mg/dL (2.8-20.0) L 12/15/18 13:22 Acetaminophen < 5.0 ug/mL (10.0-30.0) L 12/15/18 13:22 Plasma/Serum Alcohol < 0.01 % (0-0.07) 12/15/18 01:25 Active Medications - Current Medications Current Medications: Generic Name Dose Route Start Last Admin Trade Name Freq PRN Reason Stop Dose Admin Albumin Human 25 gm 12/15/18 15:31 Alburx 25% (Albumin) IV NANCY PRN Hypotension Albuterol 2.5 mg 12/15/18 14:40 Proventil IH Q3H PRN Shortness Of Breath Enoxaparin Sodium 30 mg 12/16/18 22:00 Lovenox SUB-Q QDAY@2200 REPLACED BY [facility] Ferrous Sulfate 325 mg 12/17/18 10:00 Feosol PO QDAY REPLACED BY [facility] Folic Acid 1 mg 12/17/18 10:00 Folvite PO QDAY REPLACED BY [facility] Furosemide 40 mg 12/17/18 10:00 Lasix PO QDAY REPLACED BY [facility] Furosemide 40 mg 12/16/18 12:00 Lasix IV 12/17/18 00:01 Q12H REPLACED BY [facility] Sodium Chloride 100 mls @ 999 mls/hr 12/15/18 15:31 Nacl 0.9% IV NANCY PRN Hypotension Lactulose 20 gm 12/16/18 14:00 Cephulac PO TID REPLACED BY [facility] Nadolol 20 mg 12/17/18 10:00 Corgard PO QDAY REPLACED BY [facility] Rifaximin 550 mg 12/16/18 22:00 Xifaxan PO BID REPLACED BY [facility] Sodium Chloride 10 ml 12/15/18 22:00 12/15/18 23:24 Sodium Chloride Flush Syringe 10 Ml IV 10 ml BID REPLACED BY [facility] Administration Sodium Chloride 10 ml 12/15/18 14:40 Sodium Chloride Flush Syringe 10 Ml IV PRN PRN LINE FLUSH Spironolactone 25 mg 12/17/18 10:00 Aldactone PO DAILY REPLACED BY [facility]
[2018-12-16] MEDS: LASIX IV SCH (14:57)
[2018-12-16] MEDS: CEPHULAC PO SCH ×2 (15:00→20:35)
[2018-12-16] MEDS: SODIUM CHLORIDE FLUSH SYRINGE 10 ML IV SCH ×2 (15:01→21:19)
[2018-12-16] MEDS: LOVENOX SUB-Q SCH (21:19)
[2018-12-16] MEDS: XIFAXAN PO SCH (21:19)
[2018-12-16] MEDS ORDERED: LOVENOX SUB-Q SCH (22:00)
[2018-12-17] MEDS: LASIX IV SCH ×5 (01:00→02:18)
--- NOTE | 2018-12-17 08:03 | Progress Note ---
Assessment and Plan Assessment and plan: 68 YO Male with HTN, DM, ESRD on HD(T,R,Sa), Noncompliance with Dialysis, HIV, HCV, PVD, Cirrhosis presents who was sent from HD due to ams Past History Past Medical History: diabetes, ESRD, HIV/AIDS?, hypertension, PVD, other (Cirrhosis) diagnosis Hepatic encephalopathy non adherence to treatment and medications Decompensated liver disease Ascites and fluid overload Plan Mentation is improved, continue lactulose, rifaximin Continue diuretics as tolerated was counseled on improved adherence, preventative health counseling performed for 17 minutes cont hd per nephrology -for therapeutic paracentesis today dvt [id number] History Interval history: mentation is improved today Review of systems Constitutional: No fevers, no malaise, no joint pains CVS: No chest pain, no orthopnea, no pedal edema GI: No abdominal pain, no diarrhea, no vomiting, no constipation c/o abdominal distenstion Respiratory: No shortness of breath, no wheezing, no coughing Hospitalist Physical - Physical exam Narrative exam: General.: Appears well, no distress, nontoxic HEENT: Moist mucous membranes, extraocular muscles intact, no lymphadenopathy Neck: supple Cardiac: S1-S2 heard Lungs: clear to auscultation bilaterally Abdomen: soft , nontender, distended with shifting dullness, bowel sounds positive Extremities: no edema clubbing or cyanosis Skin: no rash or lesions Neurologic: no gross focal deficits Psych: calm, and cooperative - Constitutional Vitals: Temp Pulse Resp BP Pulse Ox 99.2 F 61 12 110/61 100 12/17/18 04:00 12/17/18 06:00 12/17/18 06:00 12/17/18 06:00 12/17/18 06:00 General appearance: Present: mild distress Results - Labs CBC & Chem 7: 12/16/18 06:41 12/16/18 06:41 Labs: Laboratory Last Values WBC 3.0 K/mm3 (4.5-11.0) L 12/16/18 06:41 RBC 3.68 M/mm3 (3.65-5.03) 12/16/18 06:41 Hgb 10.5 gm/dl (11.8-15.2) L 12/16/18 06:41 Hct 31.3 % (35.5-45.6) L 12/16/18 06:41 MCV 85 fl (84-94) 12/16/18 06:41 MCH 29 pg (28-32) 12/16/18 06:41 MCHC 34 % (32-34) 12/16/18 06:41 RDW 19.7 % (13.2-15.2) H 12/16/18 06:41 Plt Count 53 K/mm3 (140-440) L 12/16/18 06:41 Lymph % (Auto) 38.0 % (13.4-35.0) H 12/16/18 06:41 [place] % (Auto) 10.7 % (0.0-7.3) H 12/16/18 06:41 Eos % (Auto) 2.0 % (0.0-4.3) 12/16/18 06:41 Baso % (Auto) 1.3 % (0.0-1.8) 12/16/18 06:41 Lymph # 1.1 K/mm3 (1.2-5.4) L 12/16/18 06:41 [place] # 0.3 K/mm3 (0.0-0.8) 12/16/18 06:41 Eos # 0.1 K/mm3 (0.0-0.4) 12/16/18 06:41 Baso # 0.0 K/mm3 (0.0-0.1) 12/16/18 06:41 Seg Neutrophils % 48.0 % (40.0-70.0) 12/16/18 06:41 Seg Neutrophils # 1.4 K/mm3 (1.8-7.7) L 12/16/18 06:41 PT 19.9 Sec. (12.2-14.9) H 12/15/18 13:22 INR 1.58 (0.87-1.13) H 12/15/18 13:22 APTT 20.9 Sec. (24.2-36.6) L 12/15/18 13:22 VBG pH 7.469 (7.320-7.420) H 12/15/18 13:22 Sodium 138 mmol/L (137-145) 12/16/18 06:41 Potassium 3.6 mmol/L (3.6-5.0) 12/16/18 06:41 Chloride 103.2 mmol/L (98-107) 12/16/18 06:41 Carbon Dioxide 21 mmol/L (22-30) L 12/16/18 06:41 17 mmol/L 12/16/18 06:41 BUN 24 mg/dL (9-20) H 12/16/18 06:41 3.3 mg/dL (0.8-1.5) H 12/16/18 06:41 Estimated GFR 23 ml/min 12/16/18 06:41 7 % 12/16/18 06:41 Glucose 86 mg/dL (75-100) 12/16/18 06:41 POC Glucose 117 (70-105) H 12/15/18 23:20 Lactic Acid 0.80 mmol/L (0.7-2.0) 12/15/18 20:24 Calcium 7.8 mg/dL (8.4-10.2) L 12/16/18 06:41 1.40 mg/dL (0.1-1.2) H 12/16/18 06:41 AST 40 units/L (5-40) 12/16/18 06:41 ALT 15 units/L (7-56) 12/16/18 06:41 53 units/L (35-129) 12/16/18 06:41 105.0 umol/L (25-60) H 12/16/18 06:41 8.0 g/dL (6.3-8.2) 12/16/18 06:41 1.7 g/dL (3.9-5) L 12/16/18 06:41 0.3 % 12/16/18 06:41 TSH 2.400 mlU/mL (0.270-4.200) 12/15/18 13:22 Salicylates < 0.3 mg/dL (2.8-20.0) L 12/15/18 13:22 Acetaminophen < 5.0 ug/mL (10.0-30.0) L 12/15/18 13:22 Plasma/Serum Alcohol < 0.01 % (0-0.07) 12/15/18 01:25 HIV 1&2 Antibody Rapid Non react (Non React) 12/17/18 05:45 Non react (Non React) 12/17/18 05:45 Active Medications - Current Medications Current Medications: Generic Name Dose Route Start Last Admin Trade Name Freq PRN Reason Stop Dose Admin Albumin Human 25 gm 12/15/18 15:31 Alburx 25% (Albumin) IV NANCY PRN Hypotension Albuterol 2.5 mg 12/15/18 14:40 Proventil IH Q3H PRN Shortness Of Breath Enoxaparin Sodium 30 mg 12/16/18 22:00 12/16/18 21:19 Lovenox SUB-Q 30 mg QDAY@2200 OSCAR Administration Ferrous Sulfate 325 mg 12/17/18 10:00 Feosol PO QDAY OSCAR Folic Acid 1 mg 12/17/18 10:00 Folvite PO QDAY OSCAR Furosemide 40 mg 12/17/18 10:00 Lasix PO QDAY OSCAR Sodium Chloride 100 mls @ 999 mls/hr 12/15/18 15:31 Nacl 0.9% IV NANCY PRN Hypotension Lactulose 20 gm 12/16/18 14:00 12/16/18 20:35 Cephulac PO 20 gm TID OSCAR Administration Nadolol 20 mg 12/17/18 10:00 Corgard PO QDAY OSCAR Rifaximin 550 mg 12/16/18 22:00 12/16/18 21:19 Xifaxan PO 550 mg BID OSCAR Administration Sodium Chloride 10 ml 12/15/18 22:00 12/16/18 21:19 Sodium Chloride Flush Syringe 10 Ml IV 10 ml BID OSCAR Administration Sodium Chloride 10 ml 12/15/18 14:40 Sodium Chloride Flush Syringe 10 Ml IV PRN PRN LINE FLUSH Spironolactone 25 mg 12/17/18 10:00 Aldactone PO DAILY OSCAR
[2018-12-17] MEDS: CEPHULAC PO SCH ×3 (09:23→20:19)
[2018-12-17] MEDS: CORGARD PO SCH (09:25)
[2018-12-17] MEDS: ALDACTONE PO SCH (09:25)
[2018-12-17] MEDS: FEOSOL PO SCH (09:25)
[2018-12-17] MEDS: XIFAXAN PO SCH ×2 (09:26→22:47)
[2018-12-17] MEDS: FOLVITE PO SCH (09:26)
[2018-12-17] MEDS: SODIUM CHLORIDE FLUSH SYRINGE 10 ML IV SCH ×2 (09:26→22:47)
[2018-12-17] MEDS: LASIX PO SCH (09:26)
--- NOTE | 2018-12-17 12:40 | Progress Note ---
Assessment and Plan - Patient Problems (1) End stage renal disease Current Visit: Yes Status: Chronic Plan to address problem: Maintain on inpatient Monday//Monday hemodialysis schedule. (2) Hyperammonemia Current Visit: Yes Status: Acute Plan to address problem: Management per primary team. Likely leading to his aforementioned hepatic ence phalopathy. We'll continue to monitor closely. Continues on lactulose therapy with improvement noted of overall mental status. (3) Hepatic encephalopathy Current Visit: No Status: Acute Plan to address problem: In the setting of elevated ammonia levels. Management per primary team. (4) Anemia in end-stage renal disease Current Visit: No Status: Chronic Plan to address problem: Epogen with hemodialysis. (5) End stage liver disease Current Visit: No Status: Acute Plan to address problem: Likely evidence of hepatic encephalopathy noted. Hyperammonemia noted. Management per primary team and gastroenterology. Patient is distended this am and may benefit from therapeutic paracentesis. (6) HTN (hypertension) Current Visit: No Status: Chronic Qualifiers: Hypertension type: essential hypertension Qualified Code(s): I10 - Essential (primary) hypertension Plan to address problem: At this time patient's blood pressure is in lower end. We'll continue to monitor closely. Maintain appropriate hemodynamics. Not on pressors at this time. Subjective Date of service: 12/17/18 Interval history: No acute issues overnight. Labs noted, tolerated HD well on Monday. Objective - Vital Signs Vital signs: Vital Signs - 12hr 12/17/18 12/17/18 12/17/18 00:41 00:50 01:00 Temperature Pulse Rate 64 62 61 Pulse Rate [ From Monitor] Respiratory 13 9 L 8 L Rate Blood Pressure 117/76 97/57 99/55 O2 Sat by Pulse 100 100 100 Oximetry 12/17/18 12/17/18 12/17/18 01:10 01:20 01:30 Temperature Pulse Rate 61 62 62 Pulse Rate [ From Monitor] Respiratory 15 19 18 Rate Blood Pressure 103/56 92/49 91/49 O2 Sat by Pulse 100 100 99 Oximetry 12/17/18 12/17/18 12/17/18 01:40 01:50 02:00 Temperature Pulse Rate 63 64 64 Pulse Rate [ From Monitor] Respiratory 9 L 9 L 9 L Rate Blood Pressure 96/55 95/54 97/51 O2 Sat by Pulse 100 100 100 Oximetry 12/17/18 12/17/18 12/17/18 02:06 02:11 02:21 Temperature Pulse Rate 62 65 65 Pulse Rate [ From Monitor] Respiratory 10 L 11 L Rate Blood Pressure 104/56 106/53 O2 Sat by Pulse 98 100 Oximetry 12/17/18 12/17/18 12/17/18 02:30 02:41 02:50 Temperature Pulse Rate 65 64 62 Pulse Rate [ From Monitor] Respiratory 16 11 L 12 Rate Blood Pressure 108/59 104/70 112/63 O2 Sat by Pulse 100 100 Oximetry 12/17/18 12/17/18 12/17/18 03:01 03:11 03:20 Temperature Pulse Rate 64 65 63 Pulse Rate [ From Monitor] Respiratory 13 13 14 Rate Blood Pressure 120/57 110/61 113/65 O2 Sat by Pulse 93 96 92 Oximetry 12/17/18 12/17/18 12/17/18 03:30 03:40 03:50 Temperature Pulse Rate 63 63 63 Pulse Rate [ From Monitor] Respiratory 9 L 19 17 Rate Blood Pressure 100/58 94/50 93/51 O2 Sat by Pulse 96 100 99 Oximetry 12/17/18 12/17/18 12/17/18 04:00 04:10 04:20 Temperature 99.2 F Pulse Rate 64 63 63 Pulse Rate [ 62 From Monitor] Respiratory 17 13 17 Rate Blood Pressure 105/58 102/50 88/46 O2 Sat by Pulse 100 100 100 Oximetry 12/17/18 12/17/18 12/17/18 04:30 04:40 04:50 Temperature Pulse Rate 62 63 63 Pulse Rate [ From Monitor] Respiratory 17 17 16 Rate Blood Pressure 91/47 89/49 94/45 O2 Sat by Pulse 100 99 Oximetry 12/17/18 12/17/18 12/17/18 05:00 05:10 05:20 Temperature Pulse Rate 63 63 63 Pulse Rate [ From Monitor] Respiratory 13 16 11 L Rate Blood Pressure 92/50 91/46 90/51 O2 Sat by Pulse 99 99 100 Oximetry 12/17/18 12/17/18 12/17/18 05:30 05:40 05:50 Temperature Pulse Rate 64 63 62 Pulse Rate [ From Monitor] Respiratory 12 12 9 L Rate Blood Pressure 103/64 108/67 103/57 O2 Sat by Pulse 68 L 100 100 Oximetry 12/17/18 12/17/18 12/17/18 06:00 08:55 09:25 Temperature 98.6 F Pulse Rate 61 57 L Pulse Rate [ From Monitor] Respiratory 12 Rate Blood Pressure 110/61 102/57 O2 Sat by Pulse 100 Oximetry - General Appearance General appearance: well-nourished, appears stated age, chronically ill EENT: ATNC, PERRL Neck: no JVD, no thyromegaly Respiratory: Present: Clear to Ascultation Cardiology: regular, S1S2 Gastrointestinal: distended Integumentary: chronic venous stasis, hyperkeratosis Neurologic: no focal deficit Musculoskeletal: other (+edema ) Psychiatric: cooperative - Lab 12/16/18 06:41 12/16/18 06:41 Most recent lab results Calcium 7.8 mg/dL (8.4-10.2) L 12/16/18 06:41 - Allied health notes Allied health notes reviewed: nursing Medications & Allergies - Medications Allergies/Adverse Reactions: Allergies No Known Allergies Allergy (Verified 11/13/18 15:50) Home Medications: Home Medications Medication Instructions Recorded Confirmed Last Taken Type Ferrous Sulfate [Feosol 325 MG tab] 325 mg PO QDAY #30 tablet 08/14/18 12/15/18 11/27/18 Rx 325mg Folic Acid [Folvite] 1 mg PO QDAY #30 tablet 08/14/18 12/15/18 11/27/18 Rx 1mg Furosemide [Lasix TAB] 40 mg PO QDAY #30 tablet 10/05/18 12/15/18 11/27/18 Rx 40mg Lactulose [Cephulac] 20 gm PO TID 30 Days oral.liqd 10/05/18 12/15/18 11/27/18 Rx 20GM Nadolol [Corgard] 20 mg PO QDAY #30 tablet 10/05/18 12/15/18 11/27/18 Rx 20mg Rifaximin [Xifaxan] 550 mg PO BID #60 tablet 10/05/18 12/15/18 11/27/18 Rx 530mg Spironolactone 25 mg PO DAILY #30 tablet 10/05/18 12/15/18 11/27/18 Rx 25mg Active Medications: Generic Name Dose Route Start Last Admin Trade Name Freq PRN Reason Stop Dose Admin Albumin Human 25 gm 12/15/18 15:31 Alburx 25% (Albumin) IV NANCY PRN Hypotension Albuterol 2.5 mg 12/15/18 14:40 Proventil IH Q3H PRN Shortness Of Breath Enoxaparin Sodium 30 mg 12/16/18 22:00 12/16/18 21:19 Lovenox SUB-Q 30 mg QDAY@2200 OSCAR Administration Ferrous Sulfate 325 mg 12/17/18 10:00 12/17/18 09:25 Feosol PO 325 mg QDAY OSCAR Administration Folic Acid 1 mg 12/17/18 10:00 12/17/18 09:26 Folvite PO 1 mg QDAY OSCAR Administration Furosemide 40 mg 12/17/18 10:00 12/17/18 09:26 Lasix PO 40 mg QDAY OSCAR Administration Sodium Chloride 100 mls @ 999 mls/hr 12/15/18 15:31 Nacl 0.9% IV NANCY PRN Hypotension Lactulose 20 gm 12/16/18 14:00 12/17/18 09:23 Cephulac PO 20 gm TID OSCAR Administration Nadolol 20 mg 12/17/18 10:00 12/17/18 09:25 Corgard PO 20 mg QDAY OSCAR Administration Rifaximin 550 mg 12/16/18 22:00 12/17/18 09:26 Xifaxan PO 550 mg BID OSCAR Administration Sodium Chloride 10 ml 12/15/18 22:00 12/17/18 09:26 Sodium Chloride Flush Syringe 10 Ml IV 10 ml BID OSCAR Administration Sodium Chloride 10 ml 12/15/18 14:40 Sodium Chloride Flush Syringe 10 Ml IV PRN PRN LINE FLUSH Spironolactone 25 mg 12/17/18 10:00 12/17/18 09:25 Aldactone PO 25 mg DAILY OSCAR Administration
[2018-12-17 16:14] LABS: Total Cells Counted 100 /mm3
[2018-12-17] MEDS: LOVENOX SUB-Q SCH (22:46)
[2018-12-18] MEDS: HEPARIN SUB-Q SCH ×2 (05:37→13:43)
[2018-12-18] MEDS: CEPHULAC PO SCH ×2 (07:26→13:43)
--- NOTE | 2018-12-18 07:37 | Ultrasound Report ---
ULTRASOUND PARACENTESIS HISTORY: Ascites. DESCRIPTION OF PROCEDURE: A time out was performed. Informed consent was obtained. Sterile technique was utilized. Using ultrasound guidance, a 5 Yoruba centesis needle was advanced into the peritoneal space. There was spontaneous return of clear yellow fluid. 9 L of fluid was drained. 120 cc of fluid was sent to laboratory for analysis. No complications. IMPRESSION: Successful ultrasound-guided paracentesis.
--- NOTE | 2018-12-18 07:44 | Procedure Note ---
Date of procedure: 12/17/18 Pre-op diagnosis: ascites Post-op diagnosis: same Procedure: US paracentesis Findings: large ascites Anesthesia: local Surgeon: NICOLE ANDREWS Estimated blood loss: none Pathology: list (120cc) Specimen disposition: to lab Condition: stable Disposition: floor
[2018-12-18] MEDS: XIFAXAN PO SCH (09:20)
[2018-12-18] MEDS: ALDACTONE PO SCH (09:20)
[2018-12-18] MEDS: LASIX PO SCH (09:20)
[2018-12-18] MEDS: FOLVITE PO SCH (09:21)
[2018-12-18] MEDS: SODIUM CHLORIDE FLUSH SYRINGE 10 ML IV SCH (09:21)
[2018-12-18] MEDS: FEOSOL PO SCH (09:21)
[2018-12-18] MEDS: CORGARD PO SCH (09:21)
--- NOTE | 2018-12-18 11:18 | Progress Note ---
Assessment and Plan - Patient Problems (1) End stage renal disease Current Visit: Yes Status: Chronic Plan to address problem: Maintain on inpatient Monday//Monday hemodialysis schedule. From nephrology standpoint patient is stable for discharge after hemodialysis today. (2) Hyperammonemia Current Visit: Yes Status: Acute Plan to address problem: Management per primary team. Likely leading to his aforementioned hepatic encephalopathy. We'll continue to monitor closely. Continues on lactulose therapy with improvement noted of overall mental status. (3) Hepatic encephalopathy Current Visit: No Status: Acute Plan to address problem: In the setting of elevated ammonia levels. Management per primary team. Mental status has improved back to baseline at this time. (4) Anemia in end-stage renal disease Current Visit: No Status: Chronic Plan to address problem: Epogen with hemodialysis. (5) End stage liver disease Current Visit: No Status: Acute Plan to address problem: Likely evidence of hepatic encephalopathy noted. Status post large volume paracentesis.. (6) HTN (hypertension) Current Visit: No Status: Chronic Qualifiers: Hypertension type: essential hypertension Qualified Code(s): I10 - Essential (primary) hypertension Plan to address problem: At this time patient's blood pressure is in lower end. We'll continue to monitor closely. Maintain appropriate hemodynamics. Not on pressors at this time. Subjective Date of service: 12/18/18 Interval history: No acute issues overnight. He did go for paracentesis with removal of 9 L yesterday. Plan for hemodialysis today. Objective - Vital Signs Vital signs: Vital Signs - 12hr 12/18/18 12/18/18 12/18/18 04:25 04:46 04:47 Temperature 98.5 F Pulse Rate 61 61 Pulse Rate [ From Monitor] Respiratory 22 22 22 Rate Blood Pressure 100/48 Blood Pressure 100/48 100/48 [Left] O2 Sat by Pulse 100 100 Oximetry 12/18/18 12/18/18 12/18/18 08:20 09:20 09:21 Temperature 98.3 F Pulse Rate 64 64 64 Pulse Rate [ From Monitor] Respiratory 20 Rate Blood Pressure 109/55 109/55 109/55 Blood Pressure [Left] O2 Sat by Pulse 100 Oximetry 12/18/18 09:59 Temperature Pulse Rate Pulse Rate [ 64 From Monitor] Respiratory Rate Blood Pressure Blood Pressure [Left] O2 Sat by Pulse 100 Oximetry - General Appearance General appearance: appears stated age, obese, chronically ill EENT: ATNC, PERRL Neck: no JVD, no thyromegaly Respiratory: Present: Clear to Ascultation, Normal Exam Cardiology: regular, S1S2 Gastrointestinal: normal, normoactive bowel sounds Integumentary: warm and dry, chronic venous stasis, hyperkeratosis Neurologic: no focal deficit, no asterixis Musculoskeletal: other (edema) Psychiatric: mood/affect appropriate, cooperative - Lab 12/16/18 06:41 12/16/18 06:41 Most recent lab results Calcium 7.8 mg/dL (8.4-10.2) L 12/16/18 06:41 Medications & Allergies - Medications Allergies/Adverse Reactions: Allergies No Known Allergies Allergy (Verified 11/13/18 15:50) Home Medications: Home Medications Medication Instructions Recorded Confirmed Last Taken Type Ferrous Sulfate [Feosol 325 MG tab] 325 mg PO QDAY #30 tablet 08/14/18 12/15/18 11/27/18 Rx 325mg Folic Acid [Folvite] 1 mg PO QDAY #30 tablet 08/14/18 12/15/18 11/27/18 Rx 1mg Furosemide [Lasix TAB] 40 mg PO QDAY #30 tablet 10/05/18 12/15/18 11/27/18 Rx 40mg Lactulose [Cephulac] 20 gm PO TID 30 Days oral.liqd 10/05/18 12/15/18 11/27/18 Rx 20GM Nadolol [Corgard] 20 mg PO QDAY #30 tablet 10/05/18 12/15/18 11/27/18 Rx 20mg Rifaximin [Xifaxan] 550 mg PO BID #60 tablet 10/05/18 12/15/18 11/27/18 Rx 530mg Spironolactone 25 mg PO DAILY #30 tablet 10/05/18 12/15/18 11/27/18 Rx 25mg Active Medications: Generic Name Dose Route Start Last Admin Trade Name Freq PRN Reason Stop Dose Admin Albumin Human 25 gm 12/15/18 15:31 Alburx 25% (Albumin) IV NANCY PRN Hypotension Albuterol 2.5 mg 12/15/18 14:40 Proventil IH Q3H PRN Shortness Of Breath Ferrous Sulfate 325 mg 12/17/18 10:00 12/18/18 09:21 Feosol PO 325 mg QDAY OSCAR Administration Folic Acid 1 mg 12/17/18 10:00 12/18/18 09:21 Folvite PO 1 mg QDAY OSCAR Administration Furosemide 40 mg 12/17/18 10:00 12/18/18 09:20 Lasix PO 40 mg QDAY OSCAR Administration Heparin Sodium (Porcine) 5,000 unit 12/18/18 06:00 12/18/18 05:37 Heparin SUB-Q 5,000 unit Q8HR OSCAR Administration Sodium Chloride 100 mls @ 999 mls/hr 12/15/18 15:31 Nacl 0.9% IV NANCY PRN Hypotension Lactulose 20 gm 12/16/18 14:00 12/18/18 07:26 Cephulac PO 20 gm TID OSCAR Administration Nadolol 20 mg 12/17/18 10:00 12/18/18 09:21 Corgard PO 20 mg QDAY OSCAR Administration Rifaximin 550 mg 12/16/18 22:00 12/18/18 09:20 Xifaxan PO 550 mg BID OSCAR Administration Sodium Chloride 10 ml 12/15/18 22:00 12/18/18 09:21 Sodium Chloride Flush Syringe 10 Ml IV 10 ml BID OSCAR Administration Sodium Chloride 10 ml 12/15/18 14:40 Sodium Chloride Flush Syringe 10 Ml IV PRN PRN LINE FLUSH Spironolactone 25 mg 12/17/18 10:00 12/18/18 09:20 Aldactone PO 25 mg DAILY OSCAR Administration
--- NOTE | 2018-12-18 14:46 | Discharge Summary ---
Providers - Providers Date of Admission: 12/15/18 14:40 Date of discharge: 12/18/18 Attending physician: IGOR GIRON 12/15/18 14:55 Consult to Physician [CONS] Routine Comment: Consulting Provider: DIONICIO ABEBE Physician Instructions: Reason For Exam: dialysis 12/17/18 13:51 Physical Therapy Evaluation and Treat [CONS] Routine Comment: Reason For Exam: loss of mobility Mode of Transport?: Walker Weight bearing status?: Full wt bearing Assistive devices?: Yes: walker 12/17/18 13:52 Occupational Therapy Evaluate and Treat [CONS] Routine Comment: Reason For Exam: loss of self care ability Primary care physician: TORNADO CHASER Hospitalization Condition: Fair Hospital course: Patient is 68 yo with hypertension, diabetes, ESRD on HD(T,R,Sa), Noncompliance with Dialysis, HIV, hepatitis C, PVD, Cirrhosis presented to ED for evaluation for altered mental status, confusion. As per staff, the patient was being transported to his routine dialysis appointment when the ups driver noticed that the patient was confused. He was transported to [facility]. Pt seen and evaluated in ED and found to have encephalopathy, hyperammonemia, ESRD with Fluid overload. He was admitted to [facility]. She was evaluated by nephrology and GI physician. Hemodialysis was done by nephrology. Mental status improved. Ultrasound thoracentesis was done on 12/18/18. By then, mental status was back to baseline and he was discharged home. Total time spent on discharge, 34 mins Disposition: DC/TX-06 HOME UNDER HOME HLTH - Discharge Diagnoses (1) Acute metabolic encephalopathy Status: Acute (2) ESRD (end stage renal disease) on dialysis Status: Acute (3) Chronic liver disease Status: Acute (4) Hyperammonemia Status: Acute (5) Peripheral vascular disease Status: Acute (6) Ascites Status: Acute (7) HTN (hypertension) Status: Acute Core Measure Documentation - Palliative Care Palliative Care/ Comfort Measures: Not Applicable - Core Measures Any of the following diagnoses?: none Exam - Constitutional Vitals: Temp Pulse Resp BP Pulse Ox 98.3 F 64 20 109/55 100 12/18/18 08:20 12/18/18 09:59 12/18/18 08:20 12/18/18 09:21 12/18/18 09:59 Plan Activity: advance as tolerated Diet: low fat, low cholesterol, low salt, renal Special Instructions: home health RN Additional Instructions: 1.Follow up with PCP in 1 week. 2.Contiue routine hemodialysis as scheduled. 3.Follow up wt TRE Luevano in 1 week Follow up with: PRIMARY CARE, [Primary Care Provider] - 3-5 Days Prescriptions: RX: Lactulose [Cephulac] 20 gm PO TID 30 Days oral.liqd RX: Nadolol [Corgard] 20 mg PO QDAY #30 tablet RX: Ferrous Sulfate [Feosol 325 MG tab] 325 mg PO QDAY #30 tablet RX: Folic Acid [Folvite] 1 mg PO QDAY #30 tablet RX: Furosemide [Lasix TAB] 40 mg PO QDAY #30 tablet RX: Rifaximin [Xifaxan] 550 mg PO BID #60 tablet
[2018-12-18] MEDS ORDERED: NACL 0.9 (PRIMING MACHINE ONLY DIALYSIS) MC ONE (16:29)
[2018-12-18 17:53] VITALS: BP 94/52
[2018-12-24 09:05] LABS: Total Protein,Body Fluid < 3.0 (15.0-45.0)
== END 2018-12-18 19:00 | disposition home health service (06) | DRG 441 ==
LOC: ED 11:46 → IMCU 14:40 → 2B-ACE 12-17 15:04
PROVIDERS: ADMIT Internal Medicine; ATTEND Internal Medicine
PROC: 5A1D70Z Performance of Urinary Filtration, Intermittent, Less than 6 Hours Per Day (ICD-10-PCS; principal; 2018-12-15)
PROC: 0W9G3ZZ Drainage of Peritoneal Cavity, Percutaneous Approach (ICD-10-PCS; 2018-12-17)
PROC: 5A1D70Z Performance of Urinary Filtration, Intermittent, Less than 6 Hours Per Day (ICD-10-PCS; 2018-12-18)
DX: K72.90 Hepatic failure, unspecified without coma (principal); N18.6 End stage renal disease; G93.41 Metabolic encephalopathy; B20 Human immunodeficiency virus [HIV] disease; E72.20 Disorder of urea cycle metabolism, unspecified; I12.0 Hypertensive chronic kidney disease with stage 5 chronic kidney disease or end stage renal disease; R18.8 Other ascites; G89.29 Other chronic pain; E11.22 Type 2 diabetes mellitus with diabetic chronic kidney disease; K74.60 Unspecified cirrhosis of liver; D63.1 Anemia in chronic kidney disease; E87.70 Fluid overload, unspecified; Z99.2 Dependence on renal dialysis; Z91.15 Patient's noncompliance with renal dialysis; Z83.3 Family history of diabetes mellitus; Z82.49 Family history of ischemic heart disease and other diseases of the circulatory system; Z79.84 Long term (current) use of oral hypoglycemic drugs
CPT/HCPCS: 36415; 49083; 70450; 80053; 80320; 82040; 82140; 82805; 82962; 84160; 84443; 85025; 85610; 85730; 87116; 87806; 88112; 88305; 89051; 93005; 93010; G0378; G0480; J1644; J1650; J1940; J7030

== ENCOUNTER 2019-01-09 08:49 | Day surgery (SDC) | payer MEDICARE ==
[2019-01-09 10:26] LABS: INR 1.82 (0.87-1.13)
[2019-01-09] MEDS ORDERED: ALBURX 25% (ALBUMIN) IV PRN (11:39)
--- NOTE | 2019-01-09 11:39 | Short Stay Summary ---
Short Stay Documentation Date of service: 01/09/19 - History Principal diagnosis: ascites Past Medical History: liver disease, renal failure - Allergies and Medications Current Medications: Allergies No Known Allergies Allergy (Verified 11/13/18 15:50) Home Medications Medication Instructions Recorded Confirmed Last Taken Type Spironolactone 25 mg PO DAILY #30 tablet 10/05/18 01/09/19 01/08/19 Rx 25mg Ferrous Sulfate [Feosol 325 MG tab] 325 mg PO QDAY #30 tablet 12/18/18 01/09/19 01/08/19 Rx 325mg Folic Acid [Folvite] 1 mg PO QDAY #30 tablet 12/18/18 01/09/19 01/08/19 Rx 1mg Furosemide [Lasix TAB] 40 mg PO QDAY #30 tablet 12/18/18 01/09/19 01/08/19 Rx 40mg Lactulose [Cephulac] 20 gm PO TID 30 Days oral.liqd 12/18/18 01/09/19 01/08/19 Rx 20mg Nadolol [Corgard] 20 mg PO QDAY #30 tablet 12/18/18 01/09/19 01/08/19 Rx 20mg Rifaximin [Xifaxan] 550 mg PO BID #60 tablet 12/18/18 01/09/19 01/08/19 Rx 550mg - Physical exam General appearance: no acute distress Gastrointestinal: distended - Brief post op/procedure progress note Date of procedure: 01/09/19 Pre-op diagnosis: ascites Post-op diagnosis: same Procedure: US paracentesis Anesthesia: local Findings: large ascites Surgeon: NICOLE ANDREWS Estimated blood loss: none Pathology: none Specimen disposition: discarded - Hospital course Hospital course: uneventful - Disposition Condition at discharge: Good Disposition: DC-01 TO HOME OR SELFCARE Short Stay Discharge Plan Follow up with: ERICK TOBIAS MD [Primary Care Provider] - 7 Days
--- NOTE | 2019-01-09 14:07 | Ultrasound Report ---
ULTRASOUND PARACENTESIS HISTORY: Ascites. DESCRIPTION OF PROCEDURE: A time out was performed. Informed consent was obtained. Sterile technique was utilized. Using ultrasound guidance, a 5 Sinhala centesis needle was advanced into the peritoneal space. There was spontaneous return of clear yellow fluid. 9.2 L of fluid was drained. No complications. IMPRESSION: Successful ultrasound-guided paracentesis.
[2019-01-09 16:30] VITALS: BP 86/46
== END 2019-01-09 14:30 | disposition home or self-care (01) ==
LOC: CATHLABREC 08:49 → EDSTATUS 09:00 → CATHLABREC 14:30
PROVIDERS: ATTEND Internal Medicine Nephrology
DX: R18.8 Other ascites (principal); B18.2 Chronic viral hepatitis C; I12.0 Hypertensive chronic kidney disease with stage 5 chronic kidney disease or end stage renal disease; N18.6 End stage renal disease; E11.22 Type 2 diabetes mellitus with diabetic chronic kidney disease; E11.51 Type 2 diabetes mellitus with diabetic peripheral angiopathy without gangrene; D50.0 Iron deficiency anemia secondary to blood loss (chronic); Z87.891 Personal history of nicotine dependence; Z79.899 Other long term (current) drug therapy; Z87.440 Personal history of urinary (tract) infections
CPT/HCPCS: 36415; 49083; 85610; 96365; P9047

== ENCOUNTER 2019-01-11 10:12 | Outpatient (CLI) | payer MEDICARE ==
[2019-01-11] MEDS ORDERED: XYLOCAINE TOPICAL 4% TP ONE (11:30)
[2019-01-11] MEDS ORDERED: AD OINTMENT TP SCH (11:30)
== END 2019-01-11 10:13 | disposition home or self-care (01) ==
LOC: WOUND 10:12
PROVIDERS: ATTEND Surgery
DX: L97.818 Non-pressure chronic ulcer of other part of right lower leg with other specified severity (principal); I89.0 Lymphedema, not elsewhere classified; I87.2 Venous insufficiency (chronic) (peripheral); I10 Essential (primary) hypertension; G62.9 Polyneuropathy, unspecified; B19.20 Unspecified viral hepatitis C without hepatic coma; Z86.718 Personal history of other venous thrombosis and embolism; Z87.891 Personal history of nicotine dependence
CPT/HCPCS: 99215; A6250; G0463

== ENCOUNTER 2019-02-04 13:18 | Outpatient (CLI) | payer MEDICARE ==
[2019-02-04] MEDS ORDERED: AD OINTMENT TP PRN (13:40)
[2019-02-04] MEDS ORDERED: XYLOCAINE TOPICAL 4% TP ONE (13:41)
== END 2019-02-04 13:19 | disposition home or self-care (01) ==
LOC: WOUND 13:18
PROVIDERS: ATTEND Surgery
DX: L89.312 Pressure ulcer of right buttock, stage 2 (principal); I89.0 Lymphedema, not elsewhere classified; I87.2 Venous insufficiency (chronic) (peripheral); I10 Essential (primary) hypertension; G62.9 Polyneuropathy, unspecified; B19.20 Unspecified viral hepatitis C without hepatic coma; Z86.718 Personal history of other venous thrombosis and embolism; Z87.891 Personal history of nicotine dependence
CPT/HCPCS: 99214; G0463

== ENCOUNTER 2019-02-13 08:22 | Day surgery (SDC) | payer MEDICARE ==
[2019-02-13] MEDS ORDERED: ALBURX 25% (ALBUMIN) IV PRN (12:16)
--- NOTE | 2019-02-13 12:16 | Short Stay Summary ---
Short Stay Documentation Date of service: 02/13/19 - History Principal diagnosis: ascites - Allergies and Medications Current Medications: Allergies No Known Allergies Allergy (Verified 11/13/18 15:50) Home Medications Medication Instructions Recorded Confirmed Last Taken Type Spironolactone 25 mg PO DAILY #30 tablet 10/05/18 02/13/19 02/13/19 Rx 25mg Ferrous Sulfate [Feosol 325 MG tab] 325 mg PO QDAY #30 tablet 12/18/18 02/13/19 02/13/19 Rx 325mg Folic Acid [Folvite] 1 mg PO QDAY #30 tablet 12/18/18 02/13/19 02/13/19 Rx 1mg Furosemide [Lasix TAB] 40 mg PO QDAY #30 tablet 12/18/18 02/13/19 02/13/19 Rx 40mg Lactulose [Cephulac] 20 gm PO TID 30 Days oral.liqd 12/18/18 02/13/19 02/13/19 Rx 20gm Nadolol [Corgard] 20 mg PO QDAY #30 tablet 12/18/18 02/13/19 02/13/19 Rx 20mg Rifaximin [Xifaxan] 550 mg PO BID #60 tablet 12/18/18 02/13/19 02/13/19 Rx 550mg - Physical exam General appearance: no acute distress Gastrointestinal: distended - Brief post op/procedure progress note Date of procedure: 02/13/19 Pre-op diagnosis: ascites Post-op diagnosis: same Procedure: US paracentesis Anesthesia: local Findings: moderate ascites Surgeon: NICOLE ANDREWS Estimated blood loss: none Pathology: none Specimen disposition: discarded Condition: stable - Hospital course Hospital course: uneventful - Disposition Condition at discharge: Good Disposition: DC-01 TO HOME OR SELFCARE Short Stay Discharge Plan Follow up with: ERICK TOBIAS MD [Primary Care Provider] - 7 Days
[2019-02-13 12:19] VITALS: BP 92/51
--- NOTE | 2019-02-13 14:59 | Ultrasound Report ---
LIMITED RUQ ABDOMINAL ULTRASOUND INDICATION: CHRONIC HEPATITIS, CIRRHOSIS. COMPARISON: No relevant prior imaging study available. FINDINGS: Pancreas: Visualized portions show no significant abnormality. Abdominal Aorta: No significant abnormality. IVC: No significant abnormality. Liver: The liver parenchyma demonstrates a slightly coarse echotexture with mild surface nodularity c onsistent with cirrhosis. No focal liver mass is detected. Normal hepatopedal blood flow in the main portal vein. Gallbladder: Cholecystectomy. Bile ducts: No significant abnormality. Common bile duct measures 5.5 mm. Right kidney: The right kidney is atrophic with increased echotexture measuring 6.9 cm. No focal jean l lesion or hydronephrosis.. Free fluid: Moderate ascites. Additional Findings: None. IMPRESSION: Cirrhotic changes in the liver. No liver mass is identified. Right renal atrophy. Ascites. Cholecystectomy. Signer Name: Callum Donovan Jr, MD Signed: 02/13/2019 2:55 PM Workstation Name: [id number]
--- NOTE | 2019-02-13 15:12 | Ultrasound Report ---
ULTRASOUND-GUIDED PARACENTESIS HISTORY: ascites. PROCEDURE: The risks (including but not limited to bleeding, infection, and bowel injury) and benefi ts were explained to the patient and informed consent was obtained. A time out procedure was perform ed. Ultrasound was used to evaluate the abdomen and locate the largest ascites fluid pocket. Once the sk in was marked, the procedure site was prepped and draped in the usual sterile fashion and lidocaine w as used for local anesthesia. A skin mikey was made and a 5-Panamanian paracentesis catheter was placed. The patient was monitored closely throughout the procedure, and a total of 8600 mL of clear yellow f luid was aspirated. No labs are ordered by the ordering physician. The patient tolerated the procedure well with no complications. IMPRESSION: Successful ultrasound-guided paracentesis as described. Signer Name: Callum Donovan Jr, MD Signed: 02/13/2019 3:08 PM Workstation Name: [id number]
== END 2019-02-13 12:50 | disposition home or self-care (01) ==
LOC: CATHLABREC 08:22 → EDSTATUS 09:00 → CATHLABREC 12:50
PROVIDERS: ATTEND Internal Medicine Nephrology
DX: K70.31 Alcoholic cirrhosis of liver with ascites (principal); B18.2 Chronic viral hepatitis C; D47.3 Essential (hemorrhagic) thrombocythemia; E11.51 Type 2 diabetes mellitus with diabetic peripheral angiopathy without gangrene; D50.0 Iron deficiency anemia secondary to blood loss (chronic); I12.0 Hypertensive chronic kidney disease with stage 5 chronic kidney disease or end stage renal disease; E11.22 Type 2 diabetes mellitus with diabetic chronic kidney disease; N18.6 End stage renal disease; B20 Human immunodeficiency virus [HIV] disease; Z90.49 Acquired absence of other specified parts of digestive tract; Z79.899 Other long term (current) drug therapy; Z87.891 Personal history of nicotine dependence; Z87.440 Personal history of urinary (tract) infections; Z98.890 Other specified postprocedural states
CPT/HCPCS: 49083; 76705; P9047

== ENCOUNTER 2019-02-18 10:50 | Outpatient (CLI) | payer MEDICARE ==
[2019-02-18] MEDS ORDERED: XYLOCAINE TOPICAL 4% TP ONE (10:57)
== END 2019-02-18 10:51 | disposition home or self-care (01) ==
LOC: WOUND 10:50
PROVIDERS: ATTEND Surgery
DX: L89.312 Pressure ulcer of right buttock, stage 2 (principal); I89.0 Lymphedema, not elsewhere classified; I87.2 Venous insufficiency (chronic) (peripheral); I10 Essential (primary) hypertension; G62.9 Polyneuropathy, unspecified; B19.20 Unspecified viral hepatitis C without hepatic coma; Z86.718 Personal history of other venous thrombosis and embolism; Z87.891 Personal history of nicotine dependence
CPT/HCPCS: 99214; G0463

== ENCOUNTER 2019-03-06 13:01 | Outpatient (CLI) | payer MEDICARE | END 2019-03-06 13:02 | disposition home or self-care (01) | LOC: WOUND 13:01 | PROVIDERS: ATTEND Surgery | DX: L89.312 Pressure ulcer of right buttock, stage 2 (principal); L89.629 Pressure ulcer of left heel, unspecified stage; I89.0 Lymphedema, not elsewhere classified; S80.811D Abrasion, right lower leg, subsequent encounter; G62.9 Polyneuropathy, unspecified; B19.20 Unspecified viral hepatitis C without hepatic coma; Z86.718 Personal history of other venous thrombosis and embolism; Z87.891 Personal history of nicotine dependence; X58.XXXD Exposure to other specified factors, subsequent encounter ==

== ENCOUNTER 2019-03-15 08:41 | Day surgery (SDC) | payer MEDICARE ==
[2019-03-15 10:58] LABS: INR 1.97 (0.87-1.13)
[2019-03-15 10:59] LABS: Partial Thromboplastin Time 32.7 Sec. (24.2-36.6)
[2019-03-15] MEDS ORDERED: XYLOCAINE 1% 20 mL ONE (12:36)
[2019-03-15] MEDS ORDERED: ALBURX 25% (ALBUMIN) IV PRN (14:09)
--- NOTE | 2019-03-15 14:09 | Short Stay Summary ---
Short Stay Documentation Date of service: 03/15/19 - History Principal diagnosis: ascites Past Medical History: liver disease - Allergies and Medications Current Medications: Allergies No Known Allergies Allergy (Verified 11/13/18 15:50) Home Medications Medication Instructions Recorded Confirmed Last Taken Type Spironolactone 25 mg PO DAILY #30 tablet 10/05/18 03/15/19 03/14/19 Rx Ferrous Sulfate [Feosol 325 MG tab] 325 mg PO QDAY #30 tablet 12/18/18 03/15/19 03/14/19 Rx Folic Acid [Folvite] 1 mg PO QDAY #30 tablet 12/18/18 03/15/19 03/14/19 Rx Furosemide [Lasix TAB] 40 mg PO QDAY #30 tablet 12/18/18 03/15/19 03/14/19 Rx Lactulose [Cephulac] 20 gm PO TID 30 Days oral.liqd 12/18/18 03/15/19 03/14/19 Rx Nadolol [Corgard] 20 mg PO QDAY #30 tablet 12/18/18 03/15/19 03/14/19 Rx Rifaximin [Xifaxan] 550 mg PO BID #60 tablet 12/18/18 03/15/19 03/14/19 Rx - Physical exam General appearance: no acute distress Gastrointestinal: distended - Brief post op/procedure progress note Date of procedure: 03/15/19 Pre-op diagnosis: ascites Post-op diagnosis: same Procedure: US paracentesis Anesthesia: local Findings: moderate ascites Surgeon: NICOLE ANDREWS Estimated blood loss: none Pathology: none Specimen disposition: discarded Condition: stable - Disposition Condition at discharge: Good Disposition: DC-01 TO HOME OR SELFCARE - Discharge Diagnoses (1) Ascites Status: Chronic Qualifiers: Short Stay Discharge Plan Follow up with: ERICK TOBIAS MD [Primary Care Provider] - 7 Days
--- NOTE | 2019-03-15 14:14 | Ultrasound Report ---
ULTRASOUND-GUIDED PARACENTESIS HISTORY: chronic hepatitis, ESRD. PROCEDURE: The risks (including but not limited to bleeding, infection, and bowel injury) and benefi ts were explained to the patient and informed consent was obtained. A time out procedure was perform ed. Ultrasound was used to evaluate the abdomen and locate the largest ascites fluid pocket. Once the sk in was marked, the procedure site was prepped and draped in the usual sterile fashion and lidocaine w as used for local anesthesia. A skin mikey was made and a 5 Sao [place]omean centesis catheter was placed. The patient was monitored closely throughout the procedure, and a total of 4000 mL of clear yellow fluid was aspirated. No labs were ordered. The patient tolerated the procedure well with no complications. IMPRESSION: Successful ultrasound-guided paracentesis as described. Signer Name: Callum Donovan Jr, MD Signed: 03/15/2019 2:10 PM Workstation Name: [id number]
[2019-03-15 14:31] VITALS: BP 111/67
== END 2019-03-15 15:00 | disposition home or self-care (01) ==
LOC: CATHLABREC 08:41 → EDSTATUS 09:00 → CATHLABREC 15:00
PROVIDERS: ATTEND Internal Medicine Gastroenterology
DX: K70.31 Alcoholic cirrhosis of liver with ascites (principal); I12.0 Hypertensive chronic kidney disease with stage 5 chronic kidney disease or end stage renal disease; E11.22 Type 2 diabetes mellitus with diabetic chronic kidney disease; N18.6 End stage renal disease; E11.42 Type 2 diabetes mellitus with diabetic polyneuropathy; E11.51 Type 2 diabetes mellitus with diabetic peripheral angiopathy without gangrene; B18.2 Chronic viral hepatitis C; D50.0 Iron deficiency anemia secondary to blood loss (chronic); M10.9 Gout, unspecified; Z98.890 Other specified postprocedural states; Z91.81 History of falling; Z79.899 Other long term (current) drug therapy; Z87.891 Personal history of nicotine dependence; Z87.440 Personal history of urinary (tract) infections
CPT/HCPCS: 36415; 49083; 82962; 85610; 85730

== ENCOUNTER 2019-03-20 12:41 | Outpatient (CLI) | payer MEDICARE | END 2019-03-20 12:42 | disposition home or self-care (01) | LOC: WOUND 12:41 | PROVIDERS: ATTEND Surgery | DX: L89.312 Pressure ulcer of right buttock, stage 2 (principal); L89.629 Pressure ulcer of left heel, unspecified stage; L89.152 Pressure ulcer of sacral region, stage 2; S80.811D Abrasion, right lower leg, subsequent encounter; I89.0 Lymphedema, not elsewhere classified; I87.2 Venous insufficiency (chronic) (peripheral); G62.9 Polyneuropathy, unspecified; Z86.718 Personal history of other venous thrombosis and embolism; Z87.891 Personal history of nicotine dependence; Z86.19 Personal history of other infectious and parasitic diseases; X58.XXXD Exposure to other specified factors, subsequent encounter ==

== ENCOUNTER 2019-04-03 12:53 | Outpatient (CLI) | payer MEDICARE ==
[2019-04-03] MEDS ORDERED: XYLOCAINE TOPICAL 4% TP ONE (12:59)
[2019-04-03] MEDS ORDERED: AD OINTMENT TP SCH (14:00)
== END 2019-04-03 12:54 | disposition home or self-care (01) ==
LOC: WOUND 12:53
PROVIDERS: ATTEND Surgery
DX: L89.312 Pressure ulcer of right buttock, stage 2 (principal); L89.629 Pressure ulcer of left heel, unspecified stage; L89.152 Pressure ulcer of sacral region, stage 2; S81.811D Laceration without foreign body, right lower leg, subsequent encounter; I89.0 Lymphedema, not elsewhere classified; I87.2 Venous insufficiency (chronic) (peripheral); G62.9 Polyneuropathy, unspecified; Z86.718 Personal history of other venous thrombosis and embolism; Z87.891 Personal history of nicotine dependence; Z86.19 Personal history of other infectious and parasitic diseases; X58.XXXD Exposure to other specified factors, subsequent encounter
CPT/HCPCS: A6250

== ENCOUNTER 2019-05-06 08:47 | Day surgery (SDC) | payer MEDICARE ==
[2019-05-06 09:23] VITALS: BP 103/60
[2019-05-06 09:59] LABS: INR 1.98 (0.87-1.13)
[2019-05-06] MEDS ORDERED: ALBUMIN HUMAN 25% (25 GM/100 ML) INJ IV PRN (11:25)
--- NOTE | 2019-05-06 11:25 | Short Stay Summary ---
Short Stay Documentation Date of service: 05/06/19 - History Principal diagnosis: ascites Past Medical History: liver disease - Allergies and Medications Current Medications: Allergies No Known Allergies Allergy (Verified 11/13/18 15:50) Home Medications Medication Instructions Recorded Confirmed Last Taken Type Spironolactone 25 mg PO DAILY #30 tablet 10/05/18 05/06/19 05/06/19 Rx 25 mg Ferrous Sulfate [Feosol 325 MG tab] 325 mg PO QDAY #30 tablet 12/18/18 05/06/19 05/06/19 Rx 325 mg Folic Acid [Folvite] 1 mg PO QDAY #30 tablet 12/18/18 05/06/19 05/06/19 Rx 1 mg Furosemide [Lasix TAB] 40 mg PO QDAY #30 tablet 12/18/18 05/06/19 05/06/19 Rx 40 mg Lactulose [Cephulac] 20 gm PO TID 30 Days oral.liqd 12/18/18 05/06/19 05/06/19 Rx 20 gm Nadolol [Corgard] 20 mg PO QDAY #30 tablet 12/18/18 05/06/19 05/06/19 Rx 20 mg Rifaximin [Xifaxan] 550 mg PO BID #60 tablet 12/18/18 05/06/19 05/06/19 Rx 550 mg Apixaban [Eliquis] 2.5 mg PO BID 04/29/19 05/06/19 05/03/19 History 2.5mg - Physical exam Gastrointestinal: distended - Brief post op/procedure progress note Date of procedure: 05/06/19 Pre-op diagnosis: ascites Post-op diagnosis: same Procedure: US paracentesis Anesthesia: local Findings: moderate ascites Surgeon: NICOLE ANDREWS Estimated blood loss: none Pathology: none Specimen disposition: discarded Condition: stable - Hospital course Hospital course: uneventful - Disposition Disposition: DC-01 TO HOME OR SELFCARE Short Stay Discharge Plan Follow up with: ERICK TOBIAS MD [Primary Care Provider] - 7 Days
--- NOTE | 2019-05-06 12:11 | Ultrasound Report ---
. ULTRASOUND-GUIDED PARACENTESIS HISTORY: ascites. PROCEDURE: The risks (including but not limited to bleeding, infection, and bowel injury) and benefi ts were explained to the patient and informed consent was obtained. A time out procedure was perform ed. Ultrasound was used to evaluate the abdomen and locate the largest ascites fluid pocket. Once the sk in was marked, the procedure site was prepped and draped in the usual sterile fashion and lidocaine w as used for local anesthesia. A skin mikey was made and a 5 Irish centesis catheter was placed. The patient was monitored closely throughout the procedure, and a total of 5100 mL of clear yellow fluid was aspirated. Samples were sent to the lab for further evaluation per the primary clinicians order s. The patient tolerated the procedure well with no complications. IMPRESSION: Successful ultrasound-guided paracentesis as described. Signer Name: Callum Donovan Jr, MD Signed: 05/06/2019 12:07 PM Workstation Name: [id number]
== END 2019-05-06 13:00 | disposition home or self-care (01) ==
LOC: CATHLABREC 08:47
PROVIDERS: ATTEND Internal Medicine Gastroenterology
DX: B18.2 Chronic viral hepatitis C (principal); D47.3 Essential (hemorrhagic) thrombocythemia; D50.0 Iron deficiency anemia secondary to blood loss (chronic); I12.0 Hypertensive chronic kidney disease with stage 5 chronic kidney disease or end stage renal disease; E11.22 Type 2 diabetes mellitus with diabetic chronic kidney disease; N18.6 End stage renal disease; I70.25 Atherosclerosis of native arteries of other extremities with ulceration; E11.51 Type 2 diabetes mellitus with diabetic peripheral angiopathy without gangrene; K70.31 Alcoholic cirrhosis of liver with ascites; E11.39 Type 2 diabetes mellitus with other diabetic ophthalmic complication; G62.9 Polyneuropathy, unspecified; Z98.890 Other specified postprocedural states; Z79.899 Other long term (current) drug therapy; Z87.891 Personal history of nicotine dependence; Z87.440 Personal history of urinary (tract) infections
CPT/HCPCS: 49083; 85610; 85730; C1729

== ENCOUNTER 2019-05-11 09:52 | Inpatient (IN) | payer MEDICAID, MEDICARE ==
[2019-05-11] MEDS ORDERED: NARCAN 0.4 MG/1 ML IV ONE (10:15)
[2019-05-11] MEDS ORDERED: NARCAN 2 MG/2 ML IV ONE (10:15)
[2019-05-11] MEDS ORDERED: NARCAN 0.4 MG/1 ML ONE (10:18)
--- NOTE | 2019-05-11 10:18 | Emergency Department Report ---
ED Altered Mental Status HPI - General Chief Complaint: Altered Mental Status Stated Complaint: AMS Time Seen by Provider: 05/11/19 10:05 Source: family, EMS Mode of arrival: Stretcher Limitations: Altered Mental Status - History of Present Illness Initial Comments: 68-year-old -[place] male patient with extensive medical history including HIV, ESRD on dialysis, chronic osteomyelitis of the neck, ascites, hepatic encephalopathy presents via EMS for altered mental status times today. EMS was called by patient's home health nurse who found patient in the basement soaked in his urine and altered. He is nonverbal and unable to give history due to AMS. Patient's states patient has known normal around 8 PM last night. Patient is due for dialysis today. Patient was seen in hospital on 05/06/2019 for a paracentesis. His son states patient has had similar episodes of altered mental status due to overdose on his oxycodone. Patient is on a blood thinner, L or course. MD Complaint: altered mental status, decreased responsiveness -: unknown Severity: severe Consistency of Symptoms: unknown Treatments Prior to Arrival: oxygen - Related Data Home Medications Medication Instructions Recorded Confirmed Last Taken Apixaban [Eliquis] 2.5 mg PO BID 04/29/19 05/06/19 05/03/19 2.5mg Previous Rx's Medication Instructions Recorded Last Taken Type Spironolactone 25 mg PO DAILY #30 tablet 10/05/18 05/06/19 Rx 25 mg Ferrous Sulfate [Feosol 325 MG tab] 325 mg PO QDAY #30 tablet 12/18/18 05/06/19 Rx 325 mg Folic Acid [Folvite] 1 mg PO QDAY #30 tablet 12/18/18 05/06/19 Rx 1 mg Furosemide [Lasix TAB] 40 mg PO QDAY #30 tablet 12/18/18 05/06/19 Rx 40 mg Lactulose [Cephulac] 20 gm PO TID 30 Days oral.liqd 12/18/18 05/06/19 Rx 20 gm Nadolol [Corgard] 20 mg PO QDAY #30 tablet 12/18/18 05/06/19 Rx 20 mg Rifaximin [Xifaxan] 550 mg PO BID #60 tablet 12/18/18 05/06/19 Rx 550 mg Allergies Allergy/AdvReac Type Severity Reaction Status Date / Time No Known Allergies Allergy Verified 11/13/18 15:50 ED Review of Systems ROS: Stated complaint: AMS Other details as noted in HPI Comment: Unobtainable due to pts medical conditions ED Past Medical Hx - Past Medical History Hx Hypertension: Yes Hx Diabetes: Yes Hx Deep Vein Thrombosis: No Hx Liver Disease: Yes Hx Renal Disease: Yes Hx HIV: Yes Additional medical history: Cervical osteomyelitis, C5,Hep C. peripheral vas cular disease (b/l leg ulcers). leg edema. Chronic pain. Patient states "my neck is broken in 2 places". Apparently this is being treated nonoperatively at this point. - Surgical History Hx Pacemaker: No Hx Internal Defibrillator: No Additional Surgical History: [place] filter. Right chest perm cath - Social History Smoking Status: Former Smoker - Medications Home Medications: Home Medications Medication Instructions Recorded Confirmed Last Taken Type Spironolactone 25 mg PO DAILY #30 tablet 10/05/18 05/06/19 05/06/19 Rx 25 mg Ferrous Sulfate [Feosol 325 MG tab] 325 mg PO QDAY #30 tablet 12/18/18 05/06/19 05/06/19 Rx 325 mg Folic Acid [Folvite] 1 mg PO QDAY #30 tablet 12/18/18 05/06/19 05/06/19 Rx 1 mg Furosemide [Lasix TAB] 40 mg PO QDAY #30 tablet 12/18/18 05/06/19 05/06/19 Rx 40 mg Lactulose [Cephulac] 20 gm PO TID 30 Days oral.liqd 12/18/18 05/06/19 05/06/19 Rx 20 gm Nadolol [Corgard] 20 mg PO QDAY #30 tablet 12/18/18 05/06/19 05/06/19 Rx 20 mg Rifaximin [Xifaxan] 550 mg PO BID #60 tablet 12/18/18 05/06/19 05/06/19 Rx 550 mg Apixaban [Eliquis] 2.5 mg PO BID 04/29/19 05/06/19 05/03/19 History 2.5mg ED Physical Exam - General Limitations: Altered Mental Status General appearance: lethargic, other (pt presents in clothes soaked in urine ) - Head Head exam: Present: atraumatic - Eye Eye exam: Present: normal appearance, PERRL - Neck Neck exam: Present: other (chronic right flexion of neck due to chronic osteomyelitis of the neck ) - Respiratory Respiratory exam: Present: rhonchi. Absent: respiratory distress, wheezes, rales, accessory muscle use - Cardiovascular Cardiovascular Exam: Present: regular rate, normal rhythm. Absent: irregular rhythm - GI/Abdominal GI/Abdominal exam: Present: soft, distended (ascites). Absent: rebound, rigid, normal bowel sounds - Rectal Rectal exam: Present: deferred - Skin Skin exam: Present: warm, dry, other (chronic skin changes noted bilaterally to legs ) ED Course Vital Signs 05/11/19 05/11/19 05/11/19 10:30 10:46 11:08 Temperature 97.9 F Pulse Rate 58 L 68 59 L Respiratory 19 18 21 Rate Blood Pressure 116/69 156/106 151/106 O2 Sat by Pulse 100 96 97 Oximetry 05/11/19 12:00 Temperature Pulse Rate 62 Respiratory 20 Rate Blood Pressure 144/81 O2 Sat by Pulse 97 Oximetry - Reevaluation(s) Reevaluation #1: Patient did not respond to verbal or painful stimuli upon arrival. After 2 mg of Narcan patient now responding to painful stimuli via IV stick and pushed nurse's hand away. 05/11/19 10:38 - Lab Data Result diagrams: 05/11/19 10:49 05/11/19 10:49 Lab Results 05/11/19 05/11/19 05/11/19 Range/Units 10:08 10:49 10:49 WBC 3.6 L (4.5-11.0) K/mm3 RBC 3.52 L (3.65-5.03) M/mm3 Hgb 10.1 L (11.8-15.2) gm/dl Hct 29.9 L (35.5-45.6) % MCV 85 (84-94) fl MCH 29 (28-32) pg MCHC 34 (32-34) % RDW 20.0 H (13.2-15.2) % Plt Count 68 L (140-440) K/mm3 Lymph % (Auto) 22.9 (13.4-35.0) % [place] % (Auto) 9.2 H (0.0-7.3) % Eos % (Auto) 1.8 (0.0-4.3) % Baso % (Auto) 1.1 (0.0-1.8) % Lymph # 0.8 L (1.2-5.4) K/mm3 [place] # 0.3 (0.0-0.8) K/mm3 Eos # 0.1 (0.0-0.4) K/mm3 Baso # 0.0 (0.0-0.1) K/mm3 Seg Neutrophils % 65.0 (40.0-70.0) % Seg Neutrophils # 2.4 (1.8-7.7) K/mm3 PT (12.2-14.9) Sec. INR (0.87-1.13) APTT (24.2-36.6) Sec. Sodium 137 (137-145) mmol/L Potassium 4.8 (3.6-5.0) mmol/L Chloride 103.0 (98-107) mmol/L Carbon Dioxide 19 L (22-30) mmol/L Anion Gap 20 mmol/L BUN 49 H (9-20) mg/dL Creatinine 4.7 H (0.8-1.5) mg/dL Estimated GFR 15 ml/min BUN/Creatinine Ratio 10 % Glucose 98 (75-100) mg/dL POC Glucose 93 (70-105) Calcium 6.6 L (8.4-10.2) mg/dL Total Bilirubin 1.60 H (0.1-1.2) mg/dL AST 54 H (5-40) units/L ALT 18 (7-56) units/L Alkaline Phosphatase 67 (35-129) units/L Ammonia (25-60) umol/L Total Creatine Kinase (55-170) units/L Troponin T < 0.010 (0.00-0.029) ng/mL Total Protein 8.2 (6.3-8.2) g/dL Albumin 1.5 L (3.9-5) g/dL Albumin/Globulin Ratio 0.2 % TSH (0.270-4.200) mlU/mL Plasma/Serum Alcohol (0-0.07) % 05/11/19 05/11/19 05/11/19 Range/Units 10:49 10:49 10:49 WBC (4.5-11.0) K/mm3 RBC (3.65-5.03) M/mm3 Hgb (11.8-15.2) gm/dl Hct (35.5-45.6) % MCV (84-94) fl MCH (28-32) pg MCHC (32-34) % RDW (13.2-15.2) % Plt Count (140-440) K/mm3 Lymph % (Auto) (13.4-35.0) % [place] % (Auto) (0.0-7.3) % Eos % (Auto) (0.0-4.3) % Baso % (Auto) (0.0-1.8) % Lymph # (1.2-5.4) K/mm3 [place] # (0.0-0.8) K/mm3 Eos # (0.0-0.4) K/mm3 Baso # (0.0-0.1) K/mm3 Seg Neutrophils % (40.0-70.0) % Seg Neutrophils # (1.8-7.7) K/mm3 PT (12.2-14.9) Sec. INR (0.87-1.13) APTT (24.2-36.6) Sec. Sodium (137-145) mmol/L Potassium (3.6-5.0) mmol/L Chloride (98-107) mmol/L Carbon Dioxide (22-30) mmol/L Anion Gap mmol/L BUN (9-20) mg/dL Creatinine (0.8-1.5) mg/dL Estimated GFR ml/min BUN/Creatinine Ratio % Glucose (75-100) mg/dL POC Glucose (70-105) Calcium (8.4-10.2) mg/dL Total Bilirubin (0.1-1.2) mg/dL AST (5-40) units/L ALT (7-56) units/L Alkaline Phosphatase (35-129) units/L Ammonia 179.0 H (25-60) umol/L Total Creatine Kinase 376 H (55-170) units/L Troponin T (0.00-0.029) ng/mL Total Protein (6.3-8.2) g/dL Albumin (3.9-5) g/dL Albumin/Globulin Ratio % TSH 1.660 (0.270-4.200) mlU/mL Plasma/Serum Alcohol (0-0.07) % 05/11/19 05/11/19 Range/Units 10:49 10:49 WBC (4.5-11.0) K/mm3 RBC (3.65-5.03) M/mm3 Hgb (11.8-15.2) gm/dl Hct (35.5-45.6) % MCV (84-94) fl MCH (28-32) pg MCHC (32-34) % RDW (13.2-15.2) % Plt Count (140-440) K/mm3 Lymph % (Auto) (13.4-35.0) % [place] % (Auto) (0.0-7.3) % Eos % (Auto) (0.0-4.3) % Baso % (Auto) (0.0-1.8) % Lymph # (1.2-5.4) K/mm3 [place] # (0.0-0.8) K/mm3 Eos # (0.0-0.4) K/mm3 Baso # (0.0-0.1) K/mm3 Seg Neutrophils % (40.0-70.0) % Seg Neutrophils # (1.8-7.7) K/mm3 PT 25.7 H (12.2-14.9) Sec. INR 2.40 H (0.87-1.13) APTT 34.1 (24.2-36.6) Sec. Sodium (137-145) mmol/L Potassium (3.6-5.0) mmol/L Chloride (98-107) mmol/L Carbon Dioxide (22-30) mmol/L Anion Gap mmol/L BUN (9-20) mg/dL Creatinine (0.8-1.5) mg/dL Estimated GFR ml/min BUN/Creatinine Ratio % Glucose (75-100) mg/dL POC Glucose (70-105) Calcium (8.4-10.2) mg/dL Total Bilirubin (0.1-1.2) mg/dL AST (5-40) units/L ALT (7-56) units/L Alkaline Phosphatase (35-129) units/L Ammonia (25-60) umol/L Total Creatine Kinase (55-170) units/L Troponin T (0.00-0.029) ng/mL Total Protein (6.3-8.2) g/dL Albumin (3.9-5) g/dL Albumin/Globulin Ratio % TSH (0.270-4.200) mlU/mL Plasma/Serum Alcohol < 0.01 (0-0.07) % - Radiology Data Radiology results: report reviewed CHEST 1 VIEW INDICATION: AMS. COMPARISON: None available. FINDINGS: Support devices: Right subclavian port tip projects over the right atrium. Heart: Stable. Lungs/Pleura: Mild increased reticular markings in both lungs may be chronic. No focal consolidation or effusion. No pneumothorax. IMPRESSION: 1. No acute findings. Mild increased interstitial markings may be chronic. Nonenhanced CT scan of the neck: HISTORY: Altered mental status COMPARISON: None. TECHNIQUE: Routine CT of the neck is performed without intravenous contrast. Sagittal and coronal All CT scans at this location are performed using CT dose reduction for ALARA by means of automated exposure control. CONTRAST: None FINDINGS: Severe reversal of cervical lordosis seen. C5 and C6 vertebral bodies are fused with significant angulation. C5-C6 interspinous space has expanded. Neuroforamina are not compromised. I do not see an acute fracture. Prevertebral space is normal. At C2-C3 disc level, marked facet joint hypertrophic changes are seen on the left side. Neuroforamina are normal. At C3-C4 disc level, moderate facet joint hypertrophic changes are seen on the left side. Neuroforamina are normal. At C4-C5 disc level, neuroforamina are normal. At C5-C6 disc level, interbody fusion is seen. Neuroforamina are normal. C6-C7 disc space is normal. C7-T1 disc space is normal. Airway is normal. Epiglottis is slightly prominent. It is not compromising the airway. Central skull base, pharyngeal mucosal space, parapharyngeal space and bus attendant space are normal. Salivary glands are normal. Oral cavity, floor of the mouth and oropharynx are normal. Larynx is normal Infrahyoid neck is normal. IMPRESSION: Airway is not compromised Bony remodeling from fusion of C5 and C6 vertebral bodies CT head/brain wo con INDICATION / CLINICAL INFORMATION: 68 years Male; altered mental status. TECHNIQUE: Routine CT head without contrast. All CT scans at this location are performed using CT dose reduction for ALARA by means of automated exposure control. COMPARISON: CT scan of the brain from 12/19/2018 FINDINGS: BRAIN / INTRACRANIAL CONTENTS: No acute hemorrhage, mass effect, midline shift, hydrocephalus, or acute, large territorial infarct. No chronic infarct or focal atrophy. Mild cortical involution is seen. Medial temporal lobes are normal. Volume loss is seen in the cerebellar vermis. Subtle low density areas seen in the justyna. Though this could be artifactual, chronic ischemia is another possibility justyna. Periventricular and deep hemispheric white matter are normal. Since craniovertebral junction is normal. Orbits are normal. Paranasal sinuses, mastoid air cells and middle ear cavity are normal. ORBITS: No significant abnormality of visualized orbits. IMPRESSION: I do not see acute hemorrhage or acute parenchymal lesion. - Medical Decision Making Patient was extensive medical history air or altered mental status. Patient's alertness did improve mildly after 2 mg of Narcan. However, patient still remains significantly altered. Workup shows elevated ammonia level at 179. Vit als have remained within normal limits. No other significant findings on her CT head/neck or labs. Creatinine 4.7 BUN 49, and potassium normal at 4.8. Patient is due for dialysis today. Discussed patient with Dr. King, supervisor fertilizer- agrees with admission. Patient discussed with Dr. Townsend, hospitalist, who agrees to admit patient for further evaluation and treatment. Critical care attestation.: If time is entered above; I have spent that time in minutes in the direct care of this critically ill patient, excluding procedure time. ED Disposition Clinical Impression: Hyperammonemia Altered mental status Qualifiers: Altered mental status type: unspecified Qualified Code(s): R41.82 - Altered mental status, unspecified Disposition: DC-09 OP ADMIT IP TO THIS HOSP Is pt being admited?: Yes Condition: Stable
[2019-05-11 10:56] LABS: Basophils % (Auto) 1.1 % (0.0-1.8); Eosinophils # (Auto) 0.1 K/mm3 (0.0-0.4); Eosinophils % (Auto) 1.8 % (0.0-4.3); Hematocrit 29.9 % (35.5-45.6); Hemoglobin 10.1 gm/dl (11.8-15.2); Lymphocytes # (Auto) 0.8 K/mm3 (1.2-5.4); Lymphocytes % (Auto) 22.9 % (13.4-35.0); Mean Corpuscular HGB Conc 34 % (32-34); Mean Corpuscular Volume 85 fl (84-94); Monocytes # (Auto) 0.3 K/mm3 (0.0-0.8); Monocytes % (Auto) 9.2 % (0.0-7.3); Red Blood Count 3.52 M/mm3 (3.65-5.03)
[2019-05-11 11:11] LABS: Platelet Count 68 K/mm3 (140-440)
[2019-05-11 11:16] LABS: Albumin 1.5 g/dL (3.9-5); BUN/Creatinine Ratio 10; Blood Urea Nitrogen 49 mg/dL (9-20); Calcium 6.6 mg/dL (8.4-10.2); Hemolysis Index 159
--- NOTE | 2019-05-11 11:19 | XRay Report ---
CHEST 1 VIEW INDICATION: AMS. COMPARISON: None available. FINDINGS: Support devices: Right subclavian port tip projects over the right atrium. Heart: Stable. Lungs/Pleura: Mild increased reticular markings in both lungs may be chronic. No focal consolidation or effusion. No pneumothorax. IMPRESSION: 1. No acute findings. Mild increased interstitial markings may be chronic. Signer Name: Wilman Lee MD Signed: 05/11/2019 11:15 AM Workstation Name: [id number]
[2019-05-11 11:23] LABS: INR 2.4 (0.87-1.13)
[2019-05-11 11:24] LABS: Partial Thromboplastin Time 34.1 Sec. (24.2-36.6)
[2019-05-11 11:35] LABS: Alanine Aminotransferase 18 units/L (7-56)
--- NOTE | 2019-05-11 11:56 | Cat Scan Report ---
CT head/brain wo con INDICATION / CLINICAL INFORMATION: 68 years Male; altered mental status. TECHNIQUE: Routine CT head without contrast. All CT scans at this location are performed using CT dos e reduction for ALARA by means of automated exposure control. COMPARISON: CT scan of the brain from 12/19/2018 FINDINGS: BRAIN / INTRACRANIAL CONTENTS: No acute hemorrhage, mass effect, midline shift, hydrocephalus, or acu te, large territorial infarct. No chronic infarct or focal atrophy. Mild cortical involution is seen. Medial temporal lobes are normal. Volume loss is seen in the cerebellar vermis. Subtle low density a reas seen in the justyna. Though this could be artifactual, chronic ischemia is another possibility justyna . Periventricular and deep hemispheric white matter are normal. Since craniovertebral junction is normal. Orbits are normal. Paranasal sinuses, mastoid air cells and middle ear cavity are normal. ORBITS: No significant abnorma lity of visualized orbits. IMPRESSION: I do not see acute hemorrhage or acute parenchymal lesion. Signer Name: Eugene Kaufman MD Signed: 05/11/2019 11:51 AM Workstation Name: [email or web address]
--- NOTE | 2019-05-11 12:03 | Cat Scan Report ---
Nonenhanced CT scan of the neck: HISTORY: Altered mental status COMPARISON: None. TECHNIQUE: Routine CT of the neck is performed without intravenous contrast. Sagittal and coronal All CT scans at this location are performed using CT dose reduction for ALARA by means of automated expo sure control. CONTRAST: None FINDINGS: Severe reversal of cervical lordosis seen. C5 and C6 vertebral bodies are fused with significant ang ulation. C5-C6 interspinous space has expanded. Neuroforamina are not compromised. I do not see an acute fracture. Prevertebral space is normal. At C2-C3 disc level, marked facet joint hypertrophic changes are seen on the left side. Neuroforamina are normal. At C3-C4 disc level, moderate facet joint hypertrophic changes are seen on the left side. Neuroforami na are normal. At C4-C5 disc level, neuroforamina are normal. At C5-C6 disc level, interbody fusion is seen. Neuroforamina are normal. C6-C7 disc space is normal. C7-T1 disc space is normal. Airway is normal. Epiglottis is slightly prominent. It is not compromising the airway. Central skull base, pharyngeal mucosal space, parapharyngeal space and health safety coordinator space are normal. Salivary glands are normal. Oral cavity, floor of the mouth and oropharynx are normal. Larynx is normal Infrahyoid neck is normal. IMPRESSION: Airway is not compromised Bony remodeling from fusion of C5 and C6 vertebral bodies Signer Name: Eugene Kaufman MD Signed: 05/11/2019 11:59 AM Workstation Name: [id number]
[2019-05-11] MEDS ORDERED: CEPHULAC PR ONE (12:36)
--- NOTE | 2019-05-11 20:50 | History and Physical Report ---
History of Present Illness Date of examination: 05/11/19 Date of admission: 05/11/19 12:28 Chief complaint: AMD 1 day History of present illness: 68-year-old -[place] male patient with extensive medical history including ESRD on dialysis, chronic osteomyelitis of the neck, ascites, hepatic encephalopathy presents via EMS for altered mental status times today. EMS was called by patient's home health nurse who found patient in the basement soaked in his urine and altered. He is nonverbal and unable to give history due to AMS. Patient's states patient has known normal around 8 PM last night. Patient is due for dialysis today. Patient was seen in hospital on 05/06/2019 for a paracentesis. His son states patient has had similar episodes of altered mental status due to overdose on his oxycodone???. Patient is on a blood thinner.Patient also on Lactulose and Xifaxin for Hyperammonemia Past Medical History HTN Diabetes: Yes Deep Vein Thrombosis: No Liver Disease: Yes Renal Disease: Yes Additional medical history: Cervical osteomyelitis, C5,Hep C. peripheral vascular disease (b/l leg ulcers). leg edema. Chronic pain. Patient states "my neck is broken in 2 places". Apparently this is being treated nonoperatively at this point. No HIV---per old medical records Surgical History Additional Surgical History: Angie filter. Right chest perm cath Social History Smoking Status: Former Smoker Family History HTN - Medications Home Medications: Home Medications Medication Instructions Recorded Confirmed Last Taken Type Spironolactone 25 mg PO DAILY #30 tablet 10/05/18 05/06/19 05/06/19 Rx 25 mg Ferrous Sulfate [Feosol 325 MG tab] 325 mg PO QDAY #30 tablet 12/18/18 05/06/19 05/06/19 Rx 325 mg Folic Acid [Folvite] 1 mg PO QDAY #30 tablet 12/18/18 05/06/19 05/06/19 Rx 1 mg Furosemide [Lasix TAB] 40 mg PO QDAY #30 tablet 12/18/18 05/06/19 05/06/19 Rx 40 mg Lactulose [Cephulac] 20 gm PO TID 30 Days oral.liqd 12/18/18 05/06/19 05/06/19 Rx 20 gm Nadolol [Corgard] 20 mg PO QDAY #30 tablet 0505/06/19 05/06/19 Rx 20 mg Rifaximin [Xifaxan] 550 mg PO BID #60 tablet 12/18/18 05/06/19 05/06/19 Rx 550 mg Apixaban [Eliquis] 2.5 mg PO BID 04/29/19 05/06/19 05/03/19 History 2.5mg Review of Systems ROS: Stated complaint: AMS Other details as noted in HPI Comment: Unobtainable due to pts medical conditions Medications and Allergies Allergies Allergy/AdvReac Type Severity Reaction Status Date / Time No Known Allergies Allergy Verified 11/13/18 15:50 Home Medications Medication Instructions Recorded Confirmed Last Taken Type Spironolactone 25 mg PO DAILY #30 tablet 10/05/18 05/06/19 05/06/19 Rx 25 mg Ferrous Sulfate [Feosol 325 MG tab] 325 mg PO QDAY #30 tablet 12/18/18 05/06/19 05/06/19 Rx 325 mg Folic Acid [Folvite] 1 mg PO QDAY #30 tablet 12/18/18 05/06/19 05/06/19 Rx 1 mg Furosemide [Lasix TAB] 40 mg PO QDAY #30 tablet 12/18/18 05/06/19 05/06/19 Rx 40 mg Lactulose [Cephulac] 20 gm PO TID 30 Days oral.liqd 12/18/18 05/06/19 05/06/19 Rx 20 gm Nadolol [Corgard] 20 mg PO QDAY #30 tablet 12/18/18 05/06/19 05/06/19 Rx 20 mg Rifaximin [Xifaxan] 550 mg PO BID #60 tablet 12/18/18 05/06/19 05/06/19 Rx 550 mg Apixaban [Eliquis] 2.5 mg PO BID 04/29/19 05/06/19 05/03/19 History 2.5mg Exam - Constitutional Vitals: Temp Pulse Resp BP Pulse Ox 98.4 F 59 L 20 150/78 100 05/11/19 20:36 05/11/19 20:36 05/11/19 20:36 05/11/19 20:36 05/11/19 20:36 General appearance: Present: mild distress, well-nourished - EENT Eyes: Present: PERRL ENT: hearing intact, clear oral mucosa - Neck Neck: Present: supple, normal ROM - Respiratory Respiratory effort: normal Respiratory: bilateral: CTA - Cardiovascular Heart rate: 78 Rhythm: regular Heart Sounds: Present: S1 & S2. Absent: rub, click - Extremities Extremities: pulses symmetrical, No edema Extremity abnormal: ulceration, black, pulses diminished, other (Both lower extremities black in color--No Gangrene.Ulcers present) Peripheral Pulses: within normal limits - Abdominal General gastrointestinal: Present: soft, non-tender, non-distended, normal bowel sounds Male genitourinary: Present: normal - Integumentary Integumentary: Present: clear, warm, dry - Musculoskeletal Musculoskeletal: gait normal, strength equal bilaterally - Psychiatric Psychiatric: appropriate mood/affect, intact judgment & insight - Neurologic Neurologic: CNII-XII intact, moves all extremities Results - Labs CBC & Chem 7: 05/12/19 04:45 05/12/19 04:45 Labs: Laboratory Last Values WBC 3.6 K/mm3 (4.5-11.0) L 05/11/19 10:49 RBC 3.52 M/mm3 (3.65-5.03) L 05/11/19 10:49 Hgb 10.1 gm/dl (11.8-15.2) L 05/11/19 10:49 Hct 29.9 % (35.5-45.6) L 05/11/19 10:49 MCV 85 fl (84-94) 05/11/19 10:49 MCH 29 pg (28-32) 05/11/19 10:49 MCHC 34 % (32-34) 05/11/19 10:49 RDW 20.0 % (13.2-15.2) H 05/11/19 10:49 Plt Count 68 K/mm3 (140-440) L 05/11/19 10:49 Lymph % (Auto) 22.9 % (13.4-35.0) 05/11/19 10:49 Leslie % (Auto) 9.2 % (0.0-7.3) H 05/11/19 10:49 Eos % (Auto) 1.8 % (0.0-4.3) 05/11/19 10:49 Baso % (Auto) 1.1 % (0.0-1.8) 05/11/19 10:49 Lymph # 0.8 K/mm3 (1.2-5.4) L 05/11/19 10:49 Leslie # 0.3 K/mm3 (0.0-0.8) 05/11/19 10:49 Eos # 0.1 K/mm3 (0.0-0.4) 05/11/19 10:49 Baso # 0.0 K/mm3 (0.0-0.1) 05/11/19 10:49 Seg Neutrophils % 65.0 % (40.0-70.0) 05/11/19 10:49 Seg Neutrophils # 2.4 K/mm3 (1.8-7.7) 05/11/19 10:49 PT 25.7 Sec. (12.2-14.9) H 05/11/19 10:49 INR 2.40 (0.87-1.13) H 05/11/19 10:49 APTT 34.1 Sec. (24.2-36.6) 05/11/19 10:49 Sodium 137 mmol/L (137-145) 05/11/19 10:49 Potassium 4.8 mmol/L (3.6-5.0) 05/11/19 10:49 Chloride 103.0 mmol/L (98-107) 05/11/19 10:49 Carbon Dioxide 19 mmol/L (22-30) L 05/11/19 10:49 Anion Gap 20 mmol/L 05/11/19 10:49 BUN 49 mg/dL (9-20) H 05/11/19 10:49 Creatinine 4.7 mg/dL (0.8-1.5) H 05/11/19 10:49 Estimated GFR 15 ml/min 05/11/19 10:49 BUN/Creatinine Ratio 10 % 05/11/19 10:49 Glucose 98 mg/dL (75-100) 05/11/19 10:49 POC Glucose 93 (70-105) 05/11/19 10:08 Calcium 6.6 mg/dL (8.4-10.2) L 05/11/19 10:49 Total Bilirubin 1.60 mg/dL (0.1-1.2) H 05/11/19 10:49 AST 54 units/L (5-40) H 05/11/19 10:49 ALT 18 units/L (7-56) 05/11/19 10:49 Alkaline Phosphatase 67 units/L (35-129) 05/11/19 10:49 Ammonia 179.0 umol/L (25-60) H 05/11/19 10:49 Total Creatine Kinase 376 units/L (55-170) H 05/11/19 10:49 Troponin T < 0.010 ng/mL (0.00-0.029) 05/11/19 10:49 Total Protein 8.2 g/dL (6.3-8.2) 05/11/19 10:49 Albumin 1.5 g/dL (3.9-5) L 05/11/19 10:49 Albumin/Globulin Ratio 0.2 % 05/11/19 10:49 TSH 1.660 mlU/mL (0.270-4.200) 05/11/19 10:49 Plasma/Serum Alcohol < 0.01 % (0-0.07) 05/11/19 10:49 Short CBC 05/11/19 05/12/19 Range/Units 10:49 04:45 WBC 3.6 L 3.5 L (4.5-11.0) K/mm3 Hgb 10.1 L 10.6 L (11.8-15.2) gm/dl Hct 29.9 L 32.0 L (35.5-45.6) % Plt Count 68 L 73 L (140-440) K/mm3 BMP 05/11/19 05/12/19 10:49 04:45 Sodium 137 141 Potassium 4.8 4.2 Chloride 103.0 107.2 H Carbon Dioxide 19 L 20 L BUN 49 H 53 H Creatinine 4.7 H 4.7 H Glucose 98 113 H Calcium 6.6 L 6.4 L Cardiac Enzymes 05/11/19 05/11/19 Range/Units 10:49 10:49 Total Creatine Kinase 376 H (55-170) units/L Troponin T < 0.010 (0.00-0.029) ng/mL Liver Function 05/11/19 05/12/19 Range/Units 10:49 04:45 Total Bilirubin 1.60 H 1.80 H (0.1-1.2) mg/dL AST 54 H 28 (5-40) units/L ALT 18 15 (7-56) units/L Alkaline Phosphatase 67 66 (35-129) units/L Albumin 1.5 L 1.7 L (3.9-5) g/dL - Imaging and Cardiology EKG: report reviewed Chest x-ray: report reviewed (NAF) CT Scan - head: report reviewed (NAF) Imaging and Cardiology: CT Cspine C5/6 fusion Assessment and Plan Advance Directives: Yes (Full code) VTE prophylaxis?: Chemical Plan of care discussed with patient/family: Yes - Patient Problems (1) Acute metabolic encephalopathy Current Visit: No Status: Acute Plan to address problem: Sec to Hyperammonemia and ESLD Cont Lactulose (2) ESRD (end stage renal disease) Current Visit: Yes Status: Chronic Plan to address problem: Cont HD Nephrology consulted (3) Hyperammonemia Current Visit: Yes Status: Acute Plan to address problem: Cont Lactulose and Xifaxin (4) Ascites Current Visit: No Status: Chronic Qualifiers: Ascites type: other type Qualified Code(s): R18.8 - Other ascites Plan to address problem: Paracentesis per IR (5) HTN (hypertension), benign Current Visit: No Status: Chronic Plan to address problem: Cont antihypertensives (6) PAD (peripheral artery disease) Current Visit: Yes Status: Chronic Plan to address problem: Ulcers and severe discoloration of both lower extremities Vascular surgery consult requested (7) DVT prophylaxis Current Visit: No Status: Acute Plan to address problem: On Eliquis and Gi prophylaxis
[2019-05-11] MEDS ORDERED: SODIUM CHLORIDE FLUSH SYRINGE 10 ML IV PRN (20:54)
[2019-05-11] MEDS ORDERED: PERCOCET 5/325 PO PRN (20:54)
[2019-05-11] MEDS ORDERED: ZOFRAN IV PRN (20:54)
[2019-05-11] MEDS ORDERED: TYLENOL PO PRN (20:54)
[2019-05-11] MEDS ORDERED: DILAUDID IV PRN (20:54)
[2019-05-11] MEDS ORDERED: CEPHULAC PO ONE (21:03)
[2019-05-11] MEDS: PEPCID PO SCH (23:52)
[2019-05-11] MEDS: XIFAXAN PO SCH (23:53)
[2019-05-11] MEDS: ELIQUIS PO SCH (23:53)
[2019-05-11] MEDS: SODIUM CHLORIDE FLUSH SYRINGE 10 ML IV SCH (23:54)
[2019-05-12] MEDS: ALDACTONE PO SCH ×2 (00:01→10:14)
[2019-05-12 05:37] LABS: Basophils % (Auto) 0.7 % (0.0-1.8); Eosinophils # (Auto) 0.1 K/mm3 (0.0-0.4); Eosinophils % (Auto) 1.8 % (0.0-4.3); Hemoglobin 10.6 gm/dl (11.8-15.2); Lymphocytes # (Auto) 0.8 K/mm3 (1.2-5.4); Lymphocytes % (Auto) 21.7 % (13.4-35.0); Mean Corpuscular HGB Conc 33 % (32-34); Mean Corpuscular Volume 85 fl (84-94); Monocytes # (Auto) 0.3 K/mm3 (0.0-0.8); Monocytes % (Auto) 9.6 % (0.0-7.3); Red Blood Count 3.78 M/mm3 (3.65-5.03); Red Cell Distribution Width 19.9 % (13.2-15.2)
[2019-05-12 05:41] LABS: Platelet Count 73 K/mm3 (140-440)
[2019-05-12 06:01] LABS: Albumin 1.7 g/dL (3.9-5); Calcium 6.4 mg/dL (8.4-10.2)
[2019-05-12] MEDS ORDERED: CEPHULAC PO SCH (08:00)
[2019-05-12] MEDS ORDERED: NACL 0.9% 100 ML IV PRN (08:56)
[2019-05-12] MEDS: FOLVITE PO SCH (10:13)
[2019-05-12] MEDS: PEPCID PO SCH ×2 (10:13→22:58)
[2019-05-12] MEDS: LASIX PO SCH (10:13)
[2019-05-12] MEDS: SODIUM CHLORIDE FLUSH SYRINGE 10 ML IV SCH ×2 (10:14→22:59)
[2019-05-12] MEDS: ELIQUIS PO SCH ×2 (10:14→22:58)
[2019-05-12] MEDS: CORGARD PO SCH (10:14)
[2019-05-12] MEDS: XIFAXAN PO SCH ×2 (10:14→23:01)
--- NOTE | 2019-05-12 10:51 | Progress Note ---
Assessment and Plan Assessment and plan: Acute metabolic encephalopathy Sec to Hyperammonemia and ESLD Increase dose of lactulose End stage kidney disease Cont HD Nephrology consulted Hyperammonemia Increase dose of lactulose to 30mg po q 6h actulose and Xifaxin Ascites Paracentesis per IR Hypertension Cont antihypertensives Peripheral artery disease Ulcers and severe discoloration of both lower extremities Vascular surgery consult requested DVT prophylaxis On Eliquis and Gi prophylaxis History Interval history: Altered mental status,improving No chest pain No fever Hospitalist Physical - Physical exam Narrative exam: Gen: Not in acute distress, lying in bed, HEENT: Normocephalic, atraumatic Neck: supple, no JVD Heart: S1 and S2 reg, no murmurs, rubs or gallop Lungs: Clear to auscultation, no rhonchi, no wheeze Abd: soft, non tender, distended with ascitis, normal BS, Ext: Bilateral edema lower ext and chronic changes,bilateral leg ulcers Neuro: Awake, alert, oriented in person, place, not in time, confused, - Constitutional Vitals: Temp Pulse Resp BP Pulse Ox 98.2 F 66 20 121/67 98 05/12/19 02:31 05/12/19 02:31 05/12/19 04:49 05/12/19 02:31 05/12/19 09:01 Results - Labs CBC & Chem 7: 05/12/19 04:45 05/12/19 04:45 Labs: Laboratory Last Values WBC 3.5 K/mm3 (4.5-11.0) L 05/12/19 04:45 RBC 3.78 M/mm3 (3.65-5.03) 05/12/19 04:45 Hgb 10.6 gm/dl (11.8-15.2) L 05/12/19 04:45 Hct 32.0 % (35.5-45.6) L 05/12/19 04:45 MCV 85 fl (84-94) 05/12/19 04:45 MCH 28 pg (28-32) 05/12/19 04:45 MCHC 33 % (32-34) 05/12/19 04:45 RDW 19.9 % (13.2-15.2) H 05/12/19 04:45 Plt Count 73 K/mm3 (140-440) L 05/12/19 04:45 Lymph % (Auto) 21.7 % (13.4-35.0) 05/12/19 04:45 [place] % (Auto) 9.6 % (0.0-7.3) H 05/12/19 04:45 Eos % (Auto) 1.8 % (0.0-4.3) 05/12/19 04:45 Baso % (Auto) 0.7 % (0.0-1.8) 05/12/19 04:45 Lymph # 0.8 K/mm3 (1.2-5.4) L 05/12/19 04:45 [place] # 0.3 K/mm3 (0.0-0.8) 05/12/19 04:45 Eos # 0.1 K/mm3 (0.0-0.4) 05/12/19 04:45 Baso # 0.0 K/mm3 (0.0-0.1) 05/12/19 04:45 Seg Neutrophils % 66.2 % (40.0-70.0) 05/12/19 04:45 Seg Neutrophils # 2.3 K/mm3 (1.8-7.7) 05/12/19 04:45 PT 25.7 Sec. (12.2-14.9) H 05/11/19 10:49 INR 2.40 (0.87-1.13) H 05/11/19 10:49 APTT 34.1 Sec. (24.2-36.6) 05/11/19 10:49 Sodium 141 mmol/L (137-145) 05/12/19 04:45 Potassium 4.2 mmol/L (3.6-5.0) 05/12/19 04:45 Chloride 107.2 mmol/L (98-107) H 05/12/19 04:45 Carbon Dioxide 20 mmol/L (22-30) L 05/12/19 04:45 Anion Gap 18 mmol/L 05/12/19 04:45 BUN 53 mg/dL (9-20) H 05/12/19 04:45 Creatinine 4.7 mg/dL (0.8-1.5) H 05/12/19 04:45 Estimated GFR 15 ml/min 05/12/19 04:45 BUN/Creatinine Ratio 11 % 05/12/19 04:45 Glucose 113 mg/dL (75-100) H 05/12/19 04:45 POC Glucose 93 (70-105) 05/11/19 10:08 Hemoglobin A1c 4.3 % (4-6) 05/11/19 10:49 Calcium 6.4 mg/dL (8.4-10.2) L 05/12/19 04:45 Total Bilirubin 1.80 mg/dL (0.1-1.2) H 05/12/19 04:45 AST 28 units/L (5-40) 05/12/19 04:45 ALT 15 units/L (7-56) 05/12/19 04:45 Alkaline Phosphatase 66 units/L (35-129) 05/12/19 04:45 Ammonia 176.0 umol/L (25-60) H 05/12/19 09:08 Total Creatine Kinase 376 units/L (55-170) H 05/11/19 10:49 Troponin T < 0.010 ng/mL (0.00-0.029) 05/11/19 10:49 Total Protein 7.6 g/dL (6.3-8.2) 05/12/19 04:45 Albumin 1.7 g/dL (3.9-5) L 05/12/19 04:45 Albumin/Globulin Ratio 0.3 % 05/12/19 04:45 TSH 1.660 mlU/mL (0.270-4.200) 05/11/19 10:49 Plasma/Serum Alcohol < 0.01 % (0-0.07) 05/11/19 10:49 Active Medications - Current Medications Current Medications: Generic Name Dose Route Start Last Admin Trade Name Freq PRN Reason Stop Dose Admin Acetaminophen 650 mg 05/11/19 20:54 Tylenol PO Q4H PRN Pain MILD(1-3)/Fever >100.5/RUIZ Apixaban 2.5 mg 05/11/19 22:00 05/12/19 10:14 Eliquis PO 2.5 mg BID OSCAR Administration Protocol Famotidine 10 mg 05/11/19 22:00 05/12/19 10:13 Pepcid PO 10 mg BID OSCAR Administration Folic Acid 1 mg 05/12/19 10:00 05/12/19 10:13 Folvite PO 1 mg QDAY OSCAR Administration Furosemide 40 mg 05/12/19 10:00 05/12/19 10:13 Lasix PO 40 mg QDAY OSCAR Administration Hydromorphone HCl 0.5 mg 05/11/19 20:54 Dilaudid IV Q3H PRN Pain , Severe (7-10) Sodium Chloride 100 mls @ 999 mls/hr 05/12/19 08:56 Nacl 0.9% IV NANCY PRN Hypotension Lactulose 20 gm 05/12/19 08:00 05/12/19 08:58 Cephulac PO 20 gm TID OSCAR Administration Nadolol 20 mg 05/12/19 10:00 05/12/19 10:14 Corgard PO 20 mg QDAY OSCAR Administration Ondansetron HCl 4 mg 05/11/19 20:54 Zofran IV Q8H PRN Nausea And Vomiting Oxycodone/Acetaminophen 1 tab 05/11/19 20:54 Percocet 5/325 PO Q6H PRN Pain, Moderate (4-6) Rifaximin 550 mg 05/11/19 22:00 05/12/19 10:14 Xifaxan PO 550 mg BID OSCAR Administration Sodium Chloride 10 ml 05/11/19 22:00 05/12/19 10:14 Sodium Chloride Flush Syringe 10 Ml IV 10 ml BID OSCAR Administration Sodium Chloride 10 ml 05/11/19 20:54 Sodium Chloride Flush Syringe 10 Ml IV PRN PRN LINE FLUSH Spironolactone 25 mg 05/11/19 21:00 05/12/19 10:14 Aldactone PO 25 mg DAILY OSCAR Administration
[2019-05-12] MEDS: CEPHULAC PO SCH ×2 (12:17→17:05)
--- NOTE | 2019-05-12 15:21 | Consultation ---
History of Present Illness - Reason for Consult Consult date: 05/12/19 end stage renal disease Requesting physician: CIRA MATHUR - History of Present Illness This is a 68 yo M with past medical history of hepatitis, liver cirrhosis, ESRD on HD, PVD, anemia of chronic illness, who presents to the [facility] ER, via EMS for altered mental status. EMS was called by patient's home health nurse who found patient in the basement soaked in his urine and altered. As per son patient has had similar episodes of altered mental status due to overdose on his oxycodone in the past. Labs showed significantly elevated ammonia level 176 and pt was admitted for treatment of hepatic encephalopathy. Renal consult requested for management of ESRD/HD. Past History Past Medical History: anemia, ESRD, hepatitis, liver disease Past Surgical History: Other (permcath, paracentesis ) Social history: , lives with family Family history: diabetes, hypertension Medications and Allergies Allergies Allergy/AdvReac Type Severity Reaction Status Date / Time No Known Allergies Allergy Verified 11/13/18 15:50 Home Medications Medication Instructions Recorded Confirmed Last Taken Type Spironolactone 25 mg PO DAILY #30 tablet 10/05/18 05/06/19 05/06/19 Rx 25 mg Ferrous Sulfate [Feosol 325 MG tab] 325 mg PO QDAY #30 tablet 12/18/18 05/06/19 05/06/19 Rx 325 mg Folic Acid [Folvite] 1 mg PO QDAY #30 tablet 12/18/18 05/06/19 05/06/19 Rx 1 mg Furosemide [Lasix TAB] 40 mg PO QDAY #30 tablet 12/18/18 05/06/19 05/06/19 Rx 40 mg Lactulose [Cephulac] 20 gm PO TID 30 Days oral.liqd 12/18/18 05/06/19 05/06/19 Rx 20 gm Nadolol [Corgard] 20 mg PO QDAY #30 tablet 12/18/18 05/06/19 05/06/19 Rx 20 mg Rifaximin [Xifaxan] 550 mg PO BID #60 tablet 12/18/18 05/06/19 05/06/19 Rx 550 mg Apixaban [Eliquis] 2.5 mg PO BID 04/29/19 05/06/19 05/03/19 History 2.5mg Active Meds: Active Medications Acetaminophen (Tylenol) 650 mg PO Q4H PRN PRN Reason: Pain MILD(1-3)/Fever >100.5/RUIZ Apixaban (Eliquis) 2.5 mg PO BID [facility]; Protocol Last Admin: 05/12/19 10:14 Dose: 2.5 mg Documented by: Famotidine (Pepcid) 10 mg PO BID [facility] Last Admin: 05/12/19 10:13 Dose: 10 mg Documented by: Folic Acid (Folvite) 1 mg PO QDAY [facility] Last Admin: 05/12/19 10:13 Dose: 1 mg Documented by: Furosemide (Lasix) 40 mg PO QDAY [facility] Last Admin: 05/12/19 10:13 Dose: 40 mg Documented by: Hydromorphone HCl (Dilaudid) 0.5 mg IV Q3H PRN PRN Reason: Pain , Severe (7-10) Sodium Chloride (Nacl 0.9%) 100 mls @ 999 mls/hr IV NANCY PRN PRN Reason: Hypotension Lactulose (Cephulac) 30 gm PO Q6HR [facility] Last Admin: 05/12/19 12:17 Dose: 30 gm Documented by: Nadolol (Corgard) 20 mg PO QDAY [facility] Last Admin: 05/12/19 10:14 Dose: 20 mg Documented by: Ondansetron HCl (Zofran) 4 mg IV Q8H PRN PRN Reason: Nausea And Vomiting Oxycodone/Acetaminophen (Percocet 5/325) 1 tab PO Q6H PRN PRN Reason: Pain, Moderate (4-6) Rifaximin (Xifaxan) 550 mg PO BID [facility] Last Admin: 05/12/19 10:14 Dose: 550 mg Documented by: Sodium Chloride (Sodium Chloride Flush Syringe 10 Ml) 10 ml IV BID [facility] Last Admin: 05/12/19 10:14 Dose: 10 ml Documented by: Sodium Chloride (Sodium Chloride Flush Syringe 10 Ml) 10 ml IV PRN PRN PRN Reason: LINE FLUSH Spironolactone (Aldactone) 25 mg PO DAILY [facility] Last Admin: 05/12/19 10:14 Dose: 25 mg Documented by: Review of Systems All systems: negative Constitutional: weakness, malaise Respiratory: dyspnea on exertion Neurological: change in mentation, confusion Exam - Vital Signs Vital signs: Vital Signs Pulse Resp BP Pulse Ox 58 L 16 116/69 96 05/11/19 10:30 05/11/19 10:30 05/11/19 10:30 05/11/19 10:30 - General Appearance General appearance: chronically ill EENT: ATNC, PERRL, mucous membranes moist Neck: Present: neck supple Respiratory: Decreased Breath Sounds Heart: regular, S1S2 Gastrointestinal: Present: normoactive bowel sounds, distended Integumentary: no rash, other (+ edema b/l LE ) Neurologic: confused, disoriented Results - Lab Results 05/12/19 04:45 05/12/19 04:45 Most recent lab results Calcium 6.4 mg/dL (8.4-10.2) L 05/12/19 04:45 Assessment and Plan - Patient Problems (1) Hepatic encephalopathy Current Visit: No Status: Acute Plan to address problem: mental status improving on lactulose/rifaximine (2) Altered mental state Current Visit: Yes Status: Acute Qualifiers: Altered mental status type: unspecified Qualified Code(s): R41.82 - Altered mental status, unspecified Plan to address problem: mostly secondary to hepatic encephalopathy. superimposed uremic encephalopathy possible, ordered HD for AM (3) ESRD (end stage renal disease) Current Visit: Yes Status: Chronic Plan to address problem: no emergent indication for hemodialysis at present. Arranged HD for tomorrow AM (4) Anemia in chronic illness Current Visit: No Status: Acute Plan to address problem: Hb at target, no further EPO needed.
[2019-05-12 18:06] LABS: Hepatitis B Surface Antigen Non-Reactive (Negative); Hepatitis C Virus Antibody Reactive (NonReactive)
[2019-05-13] MEDS: CEPHULAC PO SCH ×3 (02:47→23:33)
[2019-05-13 09:53] LABS: Albumin 1.8 g/dL (3.9-5); Calcium 6.7 mg/dL (8.4-10.2)
[2019-05-13 09:59] LABS: Hematocrit 26.7 % (35.5-45.6); Hemoglobin 8.8 gm/dl (11.8-15.2); Mean Corpuscular HGB Conc 33 % (32-34); Mean Corpuscular Volume 86 fl (84-94); Red Cell Distribution Width 19.8 % (13.2-15.2)
[2019-05-13 10:00] LABS: Platelet Count 70 K/mm3 (140-440)
--- NOTE | 2019-05-13 12:37 | Consultation ---
History of Present Illness - Reason for Consult Consult date: 05/13/19 LE ulcers - History of Present Illness 68-year-old -[place] male patient with extensive medical history including ESRD on dialysis, chronic osteomyelitis of the neck, ascites, hepatic encephalopathy presents via EMS for altered mental status times today. EMS was called by patient's home health nurse who found patient in the basement soaked in his urine and altered. He is nonverbal and unable to give history due to AMS. Patient's states patient has known normal around 8 PM last night. Patient is due for dialysis today. Patient was seen in hospital on 05/06/2019 for a paracentesis. His son states patient has had similar episodes of altered mental status due to overdose on his oxycodone???. Patient is on a blood thinner.Patient also on Lactulose and Xifaxin for Hyperammonemia Vascular consults it for lower extremity evaluation. Patient is alert and oriented 0, and is sleeping during the examination and does not wake up. He is being actively treated for hepatic encephalopathy. The patient has lymphedema of the bilateral lower extremities with multiple scars compatible with prior ulcerations which have healed. His arterial Doppler study demonstrates multiphasic flow to his feet, although he has nonpalpable pedal pulses. No active DVT on venous Doppler. Past History Past Medical History: anemia, ESRD, hepatitis, liver disease Past Surgical History: Other (permcath, paracentesis ) Social history: , lives with family Family history: diabetes, hypertension Medications and Allergies Allergies Allergy/AdvReac Type Severity Reaction Status Date / Time No Known Allergies Allergy Verified 11/13/18 15:50 Home Medications Medication Instructions Recorded Confirmed Last Taken Type Spironolactone 25 mg PO DAILY #30 tablet 10/05/18 05/06/19 05/06/19 Rx 25 mg Ferrous Sulfate [Feosol 325 MG tab] 325 mg PO QDAY #30 tablet 12/18/18 05/06/19 05/06/19 Rx 325 mg Folic Acid [Folvite] 1 mg PO QDAY #30 tablet 12/18/18 05/06/19 05/06/19 Rx 1 mg Furosemide [Lasix TAB] 40 mg PO QDAY #30 tablet 12/18/18 05/06/19 05/06/19 Rx 40 mg Lactulose [Cephulac] 20 gm PO TID 30 Days oral.liqd 12/18/18 05/06/19 05/06/19 Rx 20 gm Nadolol [Corgard] 20 mg PO QDAY #30 tablet 12/18/18 05/06/19 05/06/19 Rx 20 mg Rifaximin [Xifaxan] 550 mg PO BID #60 tablet 12/18/18 05/06/19 05/06/19 Rx 550 mg Apixaban [Eliquis] 2.5 mg PO BID 04/29/19 05/06/19 05/03/19 History 2.5mg Active Meds: Active Medications Acetaminophen (Tylenol) 650 mg PO Q4H PRN PRN Reason: Pain MILD(1-3)/Fever >100.5/RUIZ Apixaban (Eliquis) 2.5 mg PO BID [facility]; Protocol Last Admin: 05/12/19 22:58 Dose: Not Given Documented by: Famotidine (Pepcid) 10 mg PO BID [facility] Last Admin: 05/12/19 22:58 Dose: Not Given Documented by: Folic Acid (Folvite) 1 mg PO QDAY [facility] Last Admin: 05/12/19 10:13 Dose: 1 mg Documented by: Furosemide (Lasix) 40 mg PO QDAY [facility] Last Admin: 05/12/19 10:13 Dose: 40 mg Documented by: Hydromorphone HCl (Dilaudid) 0.5 mg IV Q3H PRN PRN Reason: Pain , Severe (7-10) Sodium Chloride (Nacl 0.9%) 100 mls @ 999 mls/hr IV NANCY PRN PRN Reason: Hypotension Lactulose (Cephulac) 30 gm PO Q6HR [facility] Last Admin: 05/13/19 02:47 Dose: 30 gm Documented by: Nadolol (Corgard) 20 mg PO QDAY [facility] Last Admin: 05/12/19 10:14 Dose: 20 mg Documented by: Ondansetron HCl (Zofran) 4 mg IV Q8H PRN PRN Reason: Nausea And Vomiting Oxycodone/Acetaminophen (Percocet 5/325) 1 tab PO Q6H PRN PRN Reason: Pain, Moderate (4-6) Rifaximin (Xifaxan) 550 mg PO BID [facility] Last Admin: 05/12/19 23:01 Dose: Not Given Documented by: Sodium Chloride (Sodium Chloride Flush Syringe 10 Ml) 10 ml IV BID [facility] Last Admin: 05/12/19 22:59 Dose: 10 ml Documented by: Sodium Chloride (Sodium Chloride Flush Syringe 10 Ml) 10 ml IV PRN PRN PRN Reason: LINE FLUSH Spironolactone (Aldactone) 25 mg PO DAILY [facility] Last Admin: 05/12/19 10:14 Dose: 25 mg Documented by: Review of Systems ROS unobtainable: due to mental status Exam - Constitutional Vitals: Temp Pulse Resp BP Pulse Ox 98.9 F 64 18 113/60 100 05/13/19 07:21 05/13/19 07:21 05/13/19 07:21 05/13/19 07:21 05/13/19 07:21 General appearance: Present: no acute distress, other (A&Ox3, sleeping) - Respiratory Respiratory effort: other (sleeping) - Extremities Extremity abnormal: other (see HPI) - Psychiatric Psychiatric: other (A&O x 3, sleeping) Results - Labs CBC & Chem 7: 05/13/19 09:02 05/13/19 09:02 Labs: Abnormal lab results 05/12/19 05/13/19 05/13/19 Range/Units 17:30 09:02 09:02 WBC 3.7 L (4.5-11.0) K/mm3 RBC 3.10 L (3.65-5.03) M/mm3 Hgb 8.8 L (11.8-15.2) gm/dl Hct 26.7 L (35.5-45.6) % RDW 19.8 H (13.2-15.2) % Plt Count 70 L (140-440) K/mm3 Carbon Dioxide 19 L (22-30) mmol/L BUN 55 H (9-20) mg/dL Creatinine 4.6 H (0.8-1.5) mg/dL Glucose 103 H (75-100) mg/dL Calcium 6.7 L (8.4-10.2) mg/dL Total Bilirubin 1.60 H (0.1-1.2) mg/dL Ammonia (25-60) umol/L Total Protein 8.7 H (6.3-8.2) g/dL Albumin 1.8 L (3.9-5) g/dL Hepatitis C Antibody Reactive A (NonReactive) 05/13/19 Range/Units 09:02 WBC (4.5-11.0) K/mm3 RBC (3.65-5.03) M/mm3 Hgb (11.8-15.2) gm/dl Hct (35.5-45.6) % RDW (13.2-15.2) % Plt Count (140-440) K/mm3 Carbon Dioxide (22-30) mmol/L BUN (9-20) mg/dL Creatinine (0.8-1.5) mg/dL Glucose (75-100) mg/dL Calcium (8.4-10.2) mg/dL Total Bilirubin (0.1-1.2) mg/dL Ammonia 68.0 H (25-60) umol/L Total Protein (6.3-8.2) g/dL Albumin (3.9-5) g/dL Hepatitis C Antibody (NonReactive) - Imaging and Cardiology Venous US: image reviewed Assessment and Plan 68 year old male with ESRD and ESLD with consult for lower extremity evaluation. Although nonpalpable pedal pulses, multiphasic arterial flow noted compatible with adequate blood flow. No DVT. Lymphedema present with signs of venous disease. Patient is completely encephalopathic. If his mental status improves, then he can followup with [facility].
--- NOTE | 2019-05-13 13:28 | Progress Note ---
Assessment and Plan - Patient Problems (1) ESRD (end stage renal disease) Current Visit: Yes Status: Chronic Plan to address problem: Plan for HD today. Will monitor. (2) Altered mental state Current Visit: Yes Status: Acute Qualifiers: Altered mental status type: unspecified Qualified Code(s): R41.82 - Altered mental status, unspecified Plan to address problem: In the setting of hepatic encephalopathy with elevated serum ammonium levels noted, further management per primary attending. (3) Hepatic encephalopathy Current Visit: No Status: Acute Plan to address problem: Management per primary attending. Continue on rifaxamin/lactulose therapy. (4) Anemia in chronic illness Current Visit: No Status: Acute Plan to address problem: REGINALD therapy with HD sessions. Subjective Date of service: 05/13/19 Interval history: No acute changes overnight. Remains lethargic this morning, with elevated serum ammonium levels. Plan for HD today. Objective - Vital Signs Vital signs: Vital Signs - 12hr 05/13/19 05/13/19 03:40 07:21 Temperature 98.9 F 98.9 F Pulse Rate 62 64 Respiratory 24 18 Rate Blood Pressure 127/78 113/60 O2 Sat by Pulse 94 100 Oximetry - General Appearance General appearance: appears stated age, obese, chronically ill EENT: ATNC, PERRL Neck: no JVD, no thyromegaly Respiratory: Present: Clear to Ascultation Cardiology: regular, S1S2 Gastrointestinal: normal Integumentary: hyperpigmentation, chronic venous stasis, hyperkeratosis Neurologic: confused, disoriented Musculoskeletal: other (+edema ) - Lab 05/13/19 09:02 05/13/19 09:02 Most recent lab results Calcium 6.7 mg/dL (8.4-10.2) L 05/13/19 09:02 - Allied health notes Allied health notes reviewed: nursing Medications & Allergies - Medications Allergies/Adverse Reactions: Allergies No Known Allergies Allergy (Verified 11/13/18 15:50) Home Medications: Home Medications Medication Instructions Recorded Confirmed Last Taken Type Spironolactone 25 mg PO DAILY #30 tablet 10/05/18 05/06/19 05/06/19 Rx 25 mg Ferrous Sulfate [Feosol 325 MG tab] 325 mg PO QDAY #30 tablet 12/18/18 05/06/19 05/06/19 Rx 325 mg Folic Acid [Folvite] 1 mg PO QDAY #30 tablet 12/18/18 05/06/19 05/06/19 Rx 1 mg Furosemide [Lasix TAB] 40 mg PO QDAY #30 tablet 12/18/18 05/06/19 05/06/19 Rx 40 mg Lactulose [Cephulac] 20 gm PO TID 30 Days oral.liqd 12/18/18 05/06/19 05/06/19 Rx 20 gm Nadolol [Corgard] 20 mg PO QDAY #30 tablet 12/18/18 05/06/19 05/06/19 Rx 20 mg Rifaximin [Xifaxan] 550 mg PO BID #60 tablet 12/18/18 05/06/19 05/06/19 Rx 550 mg Apixaban [Eliquis] 2.5 mg PO BID 04/29/19 05/06/19 05/03/19 History 2.5mg Active Medications: Generic Name Dose Route Start Last Admin Trade Name Freq PRN Reason Stop Dose Admin Acetaminophen 650 mg 05/11/19 20:54 Tylenol PO Q4H PRN Pain MILD(1-3)/Fever >100.5/RUIZ Apixaban 2.5 mg 05/11/19 22:00 05/12/19 22:58 Eliquis PO Not Given BID [facility] Protocol Famotidine 10 mg 05/11/19 22:00 05/12/19 22:58 Pepcid PO Not Given BID [facility] Folic Acid 1 mg 05/12/19 10:00 05/12/19 10:13 Folvite PO 1 mg QDAY [facility] Administration Furosemide 40 mg 05/12/19 10:00 05/12/19 10:13 Lasix PO 40 mg QDAY [facility] Administration Hydromorphone HCl 0.5 mg 05/11/19 20:54 Dilaudid IV Q3H PRN Pain , Severe (7-10) Sodium Chloride 100 mls @ 999 mls/hr 05/12/19 08:56 Nacl 0.9% IV NANCY PRN Hypotension Lactulose 30 gm 05/12/19 12:00 05/13/19 02:47 Cephulac PO 30 gm Q6HR [facility] Administration Nadolol 20 mg 05/12/19 10:00 05/12/19 10:14 Corgard PO 20 mg QDAY [facility] Administration Ondansetron HCl 4 mg 10/12/19 20:54 Zofran IV Q8H PRN Nausea And Vomiting Oxycodone/Acetaminophen 1 tab 05/11/19 20:54 Percocet 5/325 PO Q6H PRN Pain, Moderate (4-6) Rifaximin 550 mg 05/11/19 22:00 05/12/19 23:01 Xifaxan PO Not Given BID [facility] Sodium Chloride 10 ml 05/11/19 22:00 05/12/19 22:59 Sodium Chloride Flush Syringe 10 Ml IV 10 ml BID [facility] Administration Sodium Chloride 10 ml 05/11/19 20:54 Sodium Chloride Flush Syringe 10 Ml IV PRN PRN LINE FLUSH Spironolactone 25 mg 05/11/19 21:00 05/12/19 10:14 Aldactone PO 25 mg DAILY [facility] Administration
--- NOTE | 2019-05-13 13:56 | Vascular Lab Report ---
DUPLEX DOPPLER LOWER EXTREMITY ARTERIAL, BILATERAL INDICATION: Peripheral vascular disease. Bilateral lower extremity skin lesions TECHNIQUE: Arterial duplex examination of both lower extremities performed using B-mode, color flow and spectral Doppler assessment. FINDINGS: RIGHT: Common Femoral Artery: PSV 135 cm/sec. Triphasic waveform. Proximal SFA: PSV 123 cm/sec. Triphasic waveform. Mid SFA: PSV 112 cm/sec. Triphasic waveform. Distal SFA: PSV 87 cm/sec. Biphasic waveform. Popliteal artery: PSV 50 cm/sec. Biphasic waveform. Posterior tibial artery: PSV 63 cm/sec. Triphasic waveform. Anterior tibial artery: PSV: 56 cm/s. Biphasic waveform. Dorsalis Pedis Artery: PSV 32 cm/sec. Biphasic waveform waveform. LEFT: Common Femoral Artery: PSV 125 cm/sec. Triphasic waveform. Proximal SFA: PSV 122 cm/sec. Triphasic waveform. Mid SFA: PSV 121 cm/sec. Triphasic waveform. Distal SFA: Not visualized Popliteal artery: PSV 63 cm/sec. Triphasic waveform. Posterior tibial artery: PSV 33 cm/sec. Biphasic waveform. Anterior tibial artery: Not visualized Dorsalis Pedis Artery: PSV 51 cm/sec. Biphasic waveform. Additional findings: Minimal atherosclerotic plaques are noted throughout both lower extremities. IMPRESSION: Minimal atherosclerotic plaques. Arterial structures throughout both lower extremities appear patent although Doppler velocities in the distal superficial femoral artery and anterior tibial artery in th e left lower extremity were not visualized. Doppler Waveform: * Triphasic is normal. * Biphasic is abnormal if clear transition from triphasic signal along vascular tree. * Monophasic is abnormal. Signer Name: Callum Donovan Jr, MD Signed: 05/13/2019 1:51 PM Workstation Name: [id number]
--- NOTE | 2019-05-13 14:00 | Vascular Lab Report ---
ARJUN EVALUATION HISTORY: Peripheral vascular disease, bilateral lower extremity skin lesions COMPARISON: none TECHNIQUE: Lower extremity segmental arterial doppler pressure and PVR analysis were obtained at [facility] lower extremity levels bilaterally. FINDINGS: Normal arterial waveforms are seen within both lower extremities. RIGHT: Brachial artery peak-systolic pressure: Could not obtain Posterior tibialis: 142 mmHg Dorsalis pedis: 140 mmHg ARJUN: 1.16 LEFT: Brachial artery peak-systolic pressure: 127 mmHg Posterior tibialis: 147 mmHg Dorsalis pedis: 141 mmHg ARJUN: 1.12 IMPRESSION: 1. No sonographically significant arterial gradient is seen within either lower extremity. Signer Name: Callum Donovan Jr, MD Signed: 05/13/2019 1:56 PM Workstation Name: [id number]
[2019-05-13] MEDS: XIFAXAN PO SCH ×2 (14:02→23:34)
[2019-05-13] MEDS: FOLVITE PO SCH (14:03)
[2019-05-13] MEDS: PEPCID PO SCH ×2 (14:03→23:33)
[2019-05-13] MEDS: ELIQUIS PO SCH ×2 (14:04→23:33)
[2019-05-13] MEDS: SODIUM CHLORIDE FLUSH SYRINGE 10 ML IV SCH ×2 (14:04→23:35)
--- NOTE | 2019-05-13 14:04 | Vascular Lab Report ---
DUPLEX DOPPLER LOWER EXTREMITY VEINS, BILATERAL INDICATION: bilateral lower extremity swelling. TECHNIQUE: Duplex doppler imaging was performed through the veins of both lower extremities using ve nous compression and other maneuvers. COMPARISON: No relevant prior imaging study available. FINDINGS: Right Common femoral vein: Negative. Right Superficial femoral vein: Negative. Right Popliteal vein: Negative. Right Calf veins: Negative. Left Common femoral vein: Negative. Left Superficial femoral vein: Negative. Left Popliteal vein: Negative. Left Calf veins: Negative. Additional findings: None.. IMPRESSION: No sonographic evidence for DVT in either lower extremity. Signer Name: Callum Donovan Jr, MD Signed: 05/13/2019 2:00 PM Workstation Name: [id number]
--- NOTE | 2019-05-13 14:32 | Progress Note ---
Assessment and Plan Assessment and plan: Acute metabolic encephalopathy Secondary to Hyperammonemia and ESLD Increased dose of lactulose to 30g po q 6h, may decrease dose as Ammonia improves and encephalopathy resolves Acute metabolic encephalopathy due to hepatic encephalopathy On Lactulose End stage kidney disease Cont HD Nephrology following Hyperammonemia Increase dose of lactulose to 30mg po q 6h Cont Xifaxin Ascites Paracentesis per IR Hypertension Cont antihypertensives Peripheral artery disease Ulcers and severe discoloration of both lower extremities Vascular surgery consult requested - he was evaluated by Dr. Winslow DVT prophylaxis On Eliquis and Gi prophylaxis Poss dc tomorrow if Ammonia normal and mental status improved. History Interval history: Altered mental status,improving Chronic leg ulcers No chest pain Hospitalist Physical - Physical exam Narrative exam: Gen: Not in acute distress, lying in bed, HEENT: Normocephalic, atraumatic Neck: supple, no JVD Heart: S1 and S2 reg, no murmurs, rubs or gallop Lungs: Clear to auscultation, no rhonchi, no wheeze Abd: soft, non tender, distended with ascitis, normal BS, Ext: Bilateral edema lower ext and chronic changes,bilateral leg ulcers Neuro: Awake, alert, oriented in person, place, not in time, confused, - Constitutional Vitals: Temp Pulse Resp BP Pulse Ox 98.2 F 67 18 138/78 100 05/13/19 13:08 05/13/19 13:08 05/13/19 13:08 05/13/19 13:08 05/13/19 13:08 General appearance: Present: no acute distress Results - Labs CBC & Chem 7: 05/13/19 09:02 05/13/19 09:02 Labs: Laboratory Last Values WBC 3.7 K/mm3 (4.5-11.0) L 05/13/19 09:02 RBC 3.10 M/mm3 (3.65-5.03) L 05/13/19 09:02 Hgb 8.8 gm/dl (11.8-15.2) L 05/13/19 09:02 Hct 26.7 % (35.5-45.6) L 05/13/19 09:02 MCV 86 fl (84-94) 05/13/19 09:02 MCH 28 pg (28-32) 05/13/19 09:02 MCHC 33 % (32-34) 05/13/19 09:02 RDW 19.8 % (13.2-15.2) H 05/13/19 09:02 Plt Count 70 K/mm3 (140-440) L 05/13/19 09:02 Lymph % (Auto) 21.7 % (13.4-35.0) 05/12/19 04:45 Bureau % (Auto) 9.6 % (0.0-7.3) H 05/12/19 04:45 Eos % (Auto) 1.8 % (0.0-4.3) 05/12/19 04:45 Baso % (Auto) 0.7 % (0.0-1.8) 05/12/19 04:45 Lymph # 0.8 K/mm3 (1.2-5.4) L 05/12/19 04:45 Bureau # 0.3 K/mm3 (0.0-0.8) 05/12/19 04:45 Eos # 0.1 K/mm3 (0.0-0.4) 05/12/19 04:45 Baso # 0.0 K/mm3 (0.0-0.1) 05/12/19 04:45 Seg Neutrophils % 66.2 % (40.0-70.0) 05/12/19 04:45 Seg Neutrophils # 2.3 K/mm3 (1.8-7.7) 05/12/19 04:45 PT 25.7 Sec. (12.2-14.9) H 05/11/19 10:49 INR 2.40 (0.87-1.13) H 05/11/19 10:49 APTT 34.1 Sec. (24.2-36.6) 05/11/19 10:49 Sodium 141 mmol/L (137-145) 05/13/19 09:02 Potassium 4.3 mmol/L (3.6-5.0) 05/13/19 09:02 Chloride 106.1 mmol/L (98-107) 05/13/19 09:02 Carbon Dioxide 19 mmol/L (22-30) L 05/13/19 09:02 Anion Gap 20 mmol/L 05/13/19 09:02 BUN 55 mg/dL (9-20) H 05/13/19 09:02 Creatinine 4.6 mg/dL (0.8-1.5) H 05/13/19 09:02 Estimated GFR 15 ml/min 05/13/19 09:02 BUN/Creatinine Ratio 12 % 05/13/19 09:02 Glucose 103 mg/dL (75-100) H 05/13/19 09:02 POC Glucose 102 (70-105) 05/13/19 12:32 Hemoglobin A1c 4.3 % (4-6) 05/11/19 10:49 Calcium 6.7 mg/dL (8.4-10.2) L 05/13/19 09:02 Total Bilirubin 1.60 mg/dL (0.1-1.2) H 05/13/19 09:02 AST 38 units/L (5-40) 05/13/19 09:02 ALT 18 units/L (7-56) 05/13/19 09:02 Alkaline Phosphatase 69 units/L (35-129) 05/13/19 09:02 Ammonia 68.0 umol/L (25-60) H 05/13/19 09:02 Total Creatine Kinase 376 units/L (55-170) H 05/11/19 10:49 Troponin T < 0.010 ng/mL (0.00-0.029) 05/11/19 10:49 Total Protein 8.7 g/dL (6.3-8.2) H 05/13/19 09:02 Albumin 1.8 g/dL (3.9-5) L 05/13/19 09:02 Albumin/Globulin Ratio 0.3 % 05/13/19 09:02 TSH 1.660 mlU/mL (0.270-4.200) 05/11/19 10:49 Plasma/Serum Alcohol < 0.01 % (0-0.07) 05/11/19 10:49 Hepatitis A IgM Ab Non-reactive (NonReactive) 05/12/19 17:30 Hep Bs Antigen Non-reactive (Negative) 05/12/19 17:30 Hep B Core IgM Ab Non-reactive (NonReactive) 05/12/19 17:30 Hepatitis C Antibody Reactive (NonReactive) A 05/12/19 17:30 Active Medications - Current Medications Current Medications: Generic Name Dose Route Start Last Admin Trade Name Freq PRN Reason Stop Dose Admin Acetaminophen 650 mg 05/11/19 20:54 Tylenol PO Q4H PRN Pain MILD(1-3)/Fever >100.5/RUIZ Apixaban 2.5 mg 05/11/19 22:00 05/13/19 14:04 Eliquis PO 2.5 mg BID [facility] Administration Protocol Famotidine 10 mg 05/11/19 22:00 05/13/19 14:03 Pepcid PO 10 mg BID [facility] Administration Folic Acid 1 mg 05/12/19 10:00 05/13/19 14:03 Folvite PO 1 mg QDAY [facility] Administration Furosemide 40 mg 05/12/19 10:00 05/12/19 10:13 Lasix PO 40 mg QDAY [facility] Administration Hydromorphone HCl 0.5 mg 05/11/19 20:54 Dilaudid IV Q3H PRN Pain , Severe (7-10) Sodium Chloride 100 mls @ 999 mls/hr 05/12/19 08:56 Nacl 0.9% IV NANCY PRN Hypotension Lactulose 30 gm 05/12/19 12:00 05/13/19 14:01 Cephulac PO 30 gm Q6HR [facility] Administration Nadolol 20 mg 05/12/19 10:00 05/12/19 10:14 Corgard PO 20 mg QDAY [facility] Administration Ondansetron HCl 4 mg 05/11/19 20:54 Zofran IV Q8H PRN Nausea And Vomiting Oxycodone/Acetaminophen 1 tab 05/11/19 20:54 Percocet 5/325 PO Q6H PRN Pain, Moderate (4-6) Rifaximin 550 mg 05/11/19 22:00 05/13/19 14:02 Xifaxan PO 550 mg BID [facility] Administration Sodium Chloride 10 ml 05/11/19 22:00 05/13/19 14:04 Sodium Chloride Flush Syringe 10 Ml IV 10 ml BID [facility] Administration Sodium Chloride 10 ml 05/11/19 20:54 Sodium Chloride Flush Syringe 10 Ml IV PRN PRN LINE FLUSH Spironolactone 25 mg 05/11/19 21:00 05/12/19 10:14 Aldactone PO 25 mg DAILY [facility] Administration
[2019-05-13] MEDS: ALDACTONE PO SCH (14:46)
[2019-05-13] MEDS: CORGARD PO SCH (14:46)
[2019-05-13] MEDS: LASIX PO SCH (14:47)
[2019-05-14] MEDS: CEPHULAC PO SCH ×5 (00:27→23:16)
--- NOTE | 2019-05-14 09:05 | Progress Note ---
Assessment and Plan - Patient Problems (1) ESRD (end stage renal disease) Current Visit: Yes Status: Chronic Plan to address problem: Maintain on MWF inpatient HD schedule. (2) Altered mental state Current Visit: Yes Status: Acute Qualifiers: Altered mental status type: unspecified Qualified Code(s): R41.82 - Altered mental status, unspecified Plan to address problem: In the setting of hepatic encephalopathy with elevated serum ammonium levels noted, further management per primary attending. (3) Hepatic encephalopathy Current Visit: No Status: Acute Plan to address problem: Management per primary attending. Continue on rifaxamin/lactulose therapy. (4) Anemia in chronic illness Current Visit: No Status: Acute Plan to address problem: REGINALD therapy with HD sessions. Subjective Date of service: 05/14/19 Interval history: Patient remains confused this am, confused, encephalopathic, with elevated ammonia levels noted. Lactulose dose increased per primary attending. He tolerated HD well without any issues. Objective - Vital Signs Vital signs: Vital Signs - 12hr 05/13/19 05/13/19 05/14/19 21:49 22:00 01:00 Temperature 98.2 F Pulse Rate 65 65 Pulse Rate [ 90 From Monitor] Respiratory 20 18 Rate Blood Pressure 146/84 O2 Sat by Pulse 100 Oximetry 05/14/19 02:49 Temperature 98.8 F Pulse Rate 69 Pulse Rate [ From Monitor] Respiratory 18 Rate Blood Pressure 114/50 O2 Sat by Pulse 99 Oximetry - General Appearance General appearance: appears stated age, chronically ill, frail EENT: ATNC Neck: no JVD, no thyromegaly Respiratory: Present: Clear to Ascultation Cardiology: regular, S1S2 Gastrointestinal: normoactive bowel sounds, distended Integumentary: skin tear, hyperpigmentation, chronic venous stasis Neurologic: confused, disoriented Musculoskeletal: other (+edema ) - Lab 05/13/19 09:02 05/13/19 09:02 Most recent lab results Calcium 6.7 mg/dL (8.4-10.2) L 05/13/19 09:02 - Allied health notes Allied health notes reviewed: nursing Medications & Allergies - Medications Allergies/Adverse Reactions: Allergies No Known Allergies Allergy (Verified 11/13/18 15:50) Home Medications: Home Medications Medication Instructions Recorded Confirmed Last Taken Type Spironolactone 25 mg PO DAILY #30 tablet 10/05/18 05/13/19 05/06/19 Rx 25 mg Ferrous Sulfate [Feosol 325 MG tab] 325 mg PO QDAY #30 tablet 12/18/18 05/13/19 05/06/19 Rx 325 mg Folic Acid [Folvite] 1 mg PO QDAY #30 tablet 12/18/18 05/13/19 05/06/19 Rx 1 mg Furosemide [Lasix TAB] 40 mg PO QDAY #30 tablet 12/18/18 05/13/19 05/06/19 Rx 40 mg Lactulose [Cephulac] 20 gm PO TID 30 Days oral.liqd 12/18/18 05/13/19 05/06/19 Rx 20 gm Nadolol [Corgard] 20 mg PO QDAY #30 tablet 12/18/18 05/13/19 05/06/19 Rx 20 mg Rifaximin [Xifaxan] 550 mg PO BID #60 tablet 12/18/18 05/13/19 05/06/19 Rx 550 mg Apixaban [Eliquis] 2.5 mg PO BID 04/29/19 05/13/19 05/03/19 History 2.5mg Active Medications: Generic Name Dose Route Start Last Admin Trade Name Freq PRN Reason Stop Dose Admin Acetaminophen 650 mg 05/11/19 20:54 Tylenol PO Q4H PRN Pain MILD(1-3)/Fever >100.5/RUIZ Apixaban 2.5 mg 05/11/19 22:00 05/13/19 23:33 Eliquis PO 2.5 mg BID [facility] Administration Protocol Famotidine 10 mg 05/11/19 22:00 05/13/19 23:33 Pepcid PO 10 mg BID [facility] Administration Folic Acid 1 mg 05/12/19 10:00 05/13/19 14:03 Folvite PO 1 mg QDAY [facility] Administration Furosemide 40 mg 05/12/19 10:00 05/13/19 14:47 Lasix PO Not Given QDAY [facility] Hydromorphone HCl 0.5 mg 05/11/19 20:54 Dilaudid IV Q3H PRN Pain , Severe (7-10) Sodium Chloride 100 mls @ 999 mls/hr 05/12/19 08:56 Nacl 0.9% IV NANCY PRN Hypotension Lactulose 30 gm 05/12/19 12:00 05/14/19 05:24 Cephulac PO 30 gm Q6HR [facility] Administration Nadolol 20 mg 05/12/19 10:00 05/13/19 14:46 Corgard PO Not Given QDAY [facility] Ondansetron HCl 4 mg 05/11/19 20:54 Zofran IV Q8H PRN Nausea And Vomiting Oxycodone/Acetaminophen 1 tab 05/11/19 20:54 Percocet 5/325 PO Q6H PRN Pain, Moderate (4-6) Rifaximin 550 mg 05/11/19 22:00 05/13/19 23:34 Xifaxan PO 550 mg BID [facility] Administration Sodium Chloride 10 ml 05/11/19 22:00 05/13/19 23:35 Sodium Chloride Flush Syringe 10 Ml IV 10 ml BID [facility] Administration Sodium Chloride 10 ml 05/11/19 20:54 Sodium Chloride Flush Syringe 10 Ml IV PRN PRN LINE FLUSH Spironolactone 25 mg 05/11/19 21:00 05/13/19 14:46 Aldactone PO Not Given DAILY [facility]
[2019-05-14] MEDS: PEPCID PO SCH ×2 (09:32→22:46)
[2019-05-14] MEDS: LASIX PO SCH (09:33)
[2019-05-14] MEDS: FOLVITE PO SCH (09:33)
[2019-05-14] MEDS: ALDACTONE PO SCH (09:33)
[2019-05-14] MEDS: XIFAXAN PO SCH ×2 (09:33→22:46)
[2019-05-14] MEDS: ELIQUIS PO SCH ×2 (09:33→22:47)
[2019-05-14] MEDS: SODIUM CHLORIDE FLUSH SYRINGE 10 ML IV SCH ×2 (09:38→22:46)
[2019-05-14] MEDS: CORGARD PO SCH (09:39)
--- NOTE | 2019-05-14 15:03 | Gastroenterology Consultation ---
History of Present Illness - Reason for Consult Consult date: 05/14/19 hepatic encephalopathy Requesting physician: ROMMEL WASHINGTON - History of Present Illness Patient is a 68 y/o male with PMH of HTN, ESRD on HD, chronic anemia, PVD, chronic leg ulcers, DVT (s/p IVC filter), cervical osteomyelitis, Hepatitis C (s/p tx w/ Harvoni 05/[address] Carpenter; HCV RNA undetectable 08/31/2018), and cirrhosis who presented to ED with AMS. Ammonia level found to be elevated upon admission and he was admitted for hepatic encephalopathy to which GI has been consulted. Patient is well known to our service and is followed by Dr. Holman with last office visit 03/22/19. He has a hx of decompensated cirrhosis from remote ETOH abuse (no alcohol in 3-4 yrs) and Hep C complicated by ascites (requiring therapeutic paracentesis ~ Q weeks; last LVP just last week on 05/06/19 with 5100 ml removed), HE, and esophageal varices (last EGD 06/2018 showed portal hypertensive gastropathy and small non-bleeding distal esophageal varices). Last MELD score was 27 and he has been referred to [facility] for liver transplant evaluation but has not been seen as of yet. This afternoon patient was resting in bed w/o acute distress but remains confused. at bedside who assisted with providing history. She states he is more alert today than yesterday. Has been compliant with take home medications (lactulose, xifaxin, nadalol, and diuretics) but reports giving less doses of lactulose on dialysis days due to difficultly having assess to restroom. Has some c/o abdominal distention/discomfort but no significant pain. Denies fever, CP, SOB, N/v, jaundice, or signs of bleeding. Tolerating diet. Past History Past Medical History: other (as per HPI) Past Surgical History: Other (PermCath placement, paracentesis , IVC filter)) Social history: , lives with family, other (former somker, remote ETOH abuse (no alcohol in 3-4 yrs)) Family history: diabetes, hypertension Medications and Allergies Allergies Allergy/AdvReac Type Severity Reaction Status Date / Time No Known Allergies Allergy Verified 11/13/18 15:50 Home Medications Medication Instructions Recorded Confirmed Last Taken Type Spironolactone 25 mg PO DAILY #30 tablet 10/05/18 05/13/19 05/06/19 Rx 25 mg Ferrous Sulfate [Feosol 325 MG tab] 325 mg PO QDAY #30 tablet 12/18/18 05/13/19 05/06/19 Rx 325 mg Folic Acid [Folvite] 1 mg PO QDAY #30 tablet 12/18/18 05/13/19 05/06/19 Rx 1 mg Furosemide [Lasix TAB] 40 mg PO QDAY #30 tablet 12/18/18 05/13/19 05/06/19 Rx 40 mg Lactulose [Cephulac] 20 gm PO TID 30 Days oral.liqd 12/18/18 05/13/19 05/06/19 Rx 20 gm Nadolol [Corgard] 20 mg PO QDAY #30 tablet 12/18/18 05/13/19 05/06/19 Rx 20 mg Rifaximin [Xifaxan] 550 mg PO BID #60 tablet 12/18/18 05/13/19 05/06/19 Rx 550 mg Apixaban [Eliquis] 2.5 mg PO BID 04/29/19 05/13/19 05/03/19 History 2.5mg Active Meds: Active Medications Acetaminophen (Tylenol) 650 mg PO Q4H PRN PRN Reason: Pain MILD(1-3)/Fever >100.5/RUIZ Apixaban (Eliquis) 2.5 mg PO BID COUNT INCLUDES THE [facility]; Protocol Last Admin: 05/14/19 09:33 Dose: 2.5 mg Documented by: Famotidine (Pepcid) 10 mg PO BID COUNT INCLUDES THE [facility] Last Admin: 05/14/19 09:32 Dose: 10 mg Documented by: Folic Acid (Folvite) 1 mg PO QDAY COUNT INCLUDES THE [facility] Last Admin: 05/14/19 09:33 Dose: 1 mg Documented by: Furosemide (Lasix) 40 mg PO QDAY COUNT INCLUDES THE [facility] Last Admin: 05/14/19 09:33 Dose: 40 mg Documented by: Hydromorphone HCl (Dilaudid) 0.5 mg IV Q3H PRN PRN Reason: Pain , Severe (7-10) Sodium Chloride (Nacl 0.9%) 100 mls @ 999 mls/hr IV NANCY PRN PRN Reason: Hypotension Lactulose (Cephulac) 30 gm PO Q6HR COUNT INCLUDES THE [facility] Last Admin: 05/14/19 12:16 Dose: 30 gm Documented by: Nadolol (Corgard) 20 mg PO QDAY COUNT INCLUDES THE [facility] Last Admin: 05/14/19 09:39 Dose: 20 mg Documented by: Ondansetron HCl (Zofran) 4 mg IV Q8H PRN PRN Reason: Nausea And Vomiting Oxycodone/Acetaminophen (Percocet 5/325) 1 tab PO Q6H PRN PRN Reason: Pain, Moderate (4-6) Last Admin: 05/14/19 10:16 Dose: 1 tab Documented by: Rifaximin (Xifaxan) 550 mg PO BID COUNT INCLUDES THE [facility] Last Admin: 05/14/19 09:33 Dose: 550 mg Documented by: Sodium Chloride (Sodium Chloride Flush Syringe 10 Ml) 10 ml IV BID COUNT INCLUDES THE [facility] Last Admin: 05/14/19 09:38 Dose: 10 ml Documented by: Sodium Chloride (Sodium Chloride Flush Syringe 10 Ml) 10 ml IV PRN PRN PRN Reason: LINE FLUSH Spironolactone (Aldactone) 25 mg PO DAILY COUNT INCLUDES THE [facility] Last Admin: 05/14/19 09:33 Dose: 25 mg Documented by: medications reviewed/updated as required Review of Systems - Review of Systems ROS unobtainable: due to mental status Exam - Constitutional Vital Signs: Temp Pulse Resp BP Pulse Ox 98.5 F 69 20 118/64 100 05/14/19 07:40 05/14/19 09:39 05/14/19 10:16 05/14/19 09:39 05/14/19 09:38 General appearance: no acute distress, other (alert but confused) - EENT Eyes: PERRL, EOM intact ENT: hearing intact - Respiratory Respiratory effort: normal - Cardiovascular Rhythm: regular - Gastrointestinal General gastrointestinal: Present: soft, non-tender, distended (mild; ascites), normal bowel sounds - Neurologic Neurological: oriented to person - Labs CBC & Chem 7: 05/13/19 09:02 05/13/19 09:02 Lab Results: Laboratory Results - last 24 hr 05/14/19 06:17 Ammonia 139.0 H Assessment and Plan 1.hepatic encephalopathy 2.cirrhosis 3.ascites 4.esophageal varices -afebrile -WBC 3.7 -H/H 8.8/26.7 -plt count 70 -INR 2.40 and LFTs (1.60, AST 38, ALT 18, alk phos 69) stable compared to previous -ammonia 139 -abd U/S 01/2019 showed cirrhosis and ascites but no distinct lesions -last paracentesis 05/06/19 with 5100 ml removed -last EGD 06/2018 showed portal hypertensive gastropathy and small non-bleeding distal esophageal varices -etiology-patient has hx of decompensated cirrhosis 2/2 remote ETOH abuse (no alcohol in 3-4 years) and Hep C (s/p treatment; HCV RNA 08/31/18 undetectable) complicated with ascites, HE, and varices -last MELD 27 and was referred to [facility] for liver transplant evaluation but has not been seen as of yet -clinically, patient is alert but remains confused. Has c/o chronic abdominal distention/discomfort w/o change but no significant pain. No N/v or signs of bleeding. Tolerating diet. -continue lactulose (titrate dose to goal of BMs x 2-3/day) and xifaxan -resume home nadalol and diuretics -LVP PRN -low sodium diet -avoid sedatives or hepatotoxic agents -continue to trend labs and supportive care -will follow 5.chronic anemia 6.thrombocytopenia 7.ESRD on HD 8.HTN
--- NOTE | 2019-05-14 18:42 | Progress Note ---
Assessment and Plan Assessment and plan: 68-year-old -[place] male patient with extensive medical history including ESRD on dialysis, chronic osteomyelitis of the neck, ascites, hepatic encephalopathy presents via EMS for altered mental status times today. EMS was called by patient's home health nurse who found patient in the basement soaked in his urine and altered. He is nonverbal and unable to give history due to AMS. Patient's states patient has known normal around 8 PM last night. Patient is due for dialysis today. Patient was seen in hospital on 05/06/2019 for a paracentesis. His son states patient has had similar episodes of altered mental status due to overdose on his oxycodone???. Patient is on a blood thin ner.Patient also on Lactulose and Xifaxin for Hyperammonemia Per GI Last EGD 06/2018 showed portal hypertensive gastropathy and small non-bleeding distal esophageal varices -etiology-patient has hx of decompensated cirrhosis 2/2 remote ETOH abuse (no alcohol in 3-4 years) and Hep C (s/p treatment; HCV RNA 08/31/18 undetectable) complicated with ascites, HE, and varices -last MELD 27 and was referred to [facility] for liver transplant evaluation but has not been seen as of yet -continue lactulose (titrate dose to goal of BMs x 2-3/day) and xifaxan -resume home nadalol and diuretics -LVP PRN -low sodium diet -avoid sedatives or hepatotoxic agents Acute metabolic/Hepatic encephalopathy Secondary to Hyperammonemia and ESLD Increased dose of lactulose to 30g po q 6h, may decrease dose as Ammonia improves and encephalopathy resolves Obtain GI eval Chronic ABdominal Pain Continue supportive care Acute metabolic encephalopathy due to hepatic encephalopathy On Lactulose End stage kidney disease Cont HD Nephrology following Hyperammonemia Increase dose of lactulose to 30mg po q 6h Cont Xifaxin Ascites Paracentesis per IR last paracentesis 05/06/19 with 5100 ml removed Hypertension Cont antihypertensives Peripheral artery disease Ulcers and severe discoloration of both lower extremities Vascular surgery consult requested - he was evaluated by Dr. Winslow Bilateral lower ext ulcers Wound care consult Eosphageal Varicies Stable Chronic Anemia Thrombocytpenia Discussed with the spouse. Will Obtain PT/OT eval. Per spouse patient is ambulatory at home, while he appears very lethargic and unable to move his foot in assisting DVT prophylaxis On Eliquis and Gi prophylaxis Poss dc tomorrow if Ammonia normal and mental status improved. History Interval history: Patient seen and examined, at bedside, Patient is still lethargic, but insist that patient was ambulatory prior to this admission. He denies any pain a t this time Hospitalist Physical - Physical exam Narrative exam: Gen: Not in acute distress, lying in bed,noted with diarrhea, bedsheets being changed during my exam HEENT: Normocephalic, atraumatic Neck: supple, no JVD Heart: S1 and S2 reg, no murmurs, rubs or gallop Lungs: Clear to auscultation, no rhonchi, no wheeze Abd: soft, non tender, distended with ascitis, normal BS, Ext: Bilateral edema lower ext and chronic changes, bilateral leg ulcers Neuro: Awake, alert, oriented in person, place, not in time, confused, - Constitutional Vitals: Temp Pulse Resp BP Pulse Ox 98.8 F 68 18 107/51 100 05/14/19 13:51 05/14/19 13:51 05/14/19 13:51 05/14/19 13:51 05/14/19 13:51 General appearance: Present: no acute distress Results - Labs CBC & Chem 7: 05/13/19 09:02 05/13/19 09:02 Labs: Laboratory Last Values WBC 3.7 K/mm3 (4.5-11.0) L 05/13/19 09:02 RBC 3.10 M/mm3 (3.65-5.03) L 05/13/19 09:02 Hgb 8.8 gm/dl (11.8-15.2) L 05/13/19 09:02 Hct 26.7 % (35.5-45.6) L 05/13/19 09:02 MCV 86 fl (84-94) 05/13/19 09:02 MCH 28 pg (28-32) 05/13/19 09:02 MCHC 33 % (32-34) 05/13/19 09:02 RDW 19.8 % (13.2-15.2) H 05/13/19 09:02 Plt Count 70 K/mm3 (140-440) L 05/13/19 09:02 Lymph % (Auto) 21.7 % (13.4-35.0) 05/12/19 04:45 [place] % (Auto) 9.6 % (0.0-7.3) H 05/12/19 04:45 Eos % (Auto) 1.8 % (0.0-4.3) 05/12/19 04:45 Baso % (Auto) 0.7 % (0.0-1.8) 05/12/19 04:45 Lymph # 0.8 K/mm3 (1.2-5.4) L 05/12/19 04:45 [place] # 0.3 K/mm3 (0.0-0.8) 05/12/19 04:45 Eos # 0.1 K/mm3 (0.0-0.4) 05/12/19 04:45 Baso # 0.0 K/mm3 (0.0-0.1) 05/12/19 04:45 Seg Neutrophils % 66.2 % (40.0-70.0) 05/12/19 04:45 Seg Neutrophils # 2.3 K/mm3 (1.8-7.7) 05/12/19 04:45 PT 25.7 Sec. (12.2-14.9) H 05/11/19 10:49 INR 2.40 (0.87-1.13) H 05/11/19 10:49 APTT 34.1 Sec. (24.2-36.6) 05/11/19 10:49 Sodium 141 mmol/L (137-145) 05/13/19 09:02 Potassium 4.3 mmol/L (3.6-5.0) 05/13/19 09:02 Chloride 106.1 mmol/L (98-107) 05/13/19 09:02 Carbon Dioxide 19 mmol/L (22-30) L 05/13/19 09:02 Anion Gap 20 mmol/L 05/13/19 09:02 BUN 55 mg/dL (9-20) H 05/13/19 09:02 Creatinine 4.6 mg/dL (0.8-1.5) H 05/13/19 09:02 Estimated GFR 15 ml/min 05/13/19 09:02 BUN/Creatinine Ratio 12 % 05/13/19 09:02 Glucose 103 mg/dL (75-100) H 05/13/19 09:02 POC Glucose 102 (70-105) 05/13/19 12:32 Hemoglobin A1c 4.3 % (4-6) 05/11/19 10:49 Calcium 6.7 mg/dL (8.4-10.2) L 05/13/19 09:02 Total Bilirubin 1.60 mg/dL (0.1-1.2) H 05/13/19 09:02 AST 38 units/L (5-40) 05/13/19 09:02 ALT 18 units/L (7-56) 05/13/19 09:02 Alkaline Phosphatase 69 units/L (35-129) 05/13/19 09:02 Ammonia 139.0 umol/L (25-60) H 05/14/19 06:17 Total Creatine Kinase 376 units/L (55-170) H 05/11/19 10:49 Troponin T < 0.010 ng/mL (0.00-0.029) 05/11/19 10:49 Total Protein 8.7 g/dL (6.3-8.2) H 05/13/19 09:02 Albumin 1.8 g/dL (3.9-5) L 05/13/19 09:02 Albumin/Globulin Ratio 0.3 % 05/13/19 09:02 TSH 1.660 mlU/mL (0.270-4.200) 05/11/19 10:49 Plasma/Serum Alcohol < 0.01 % (0-0.07) 05/11/19 10:49 Hepatitis A IgM Ab Non-reactive (NonReactive) 05/12/19 17:30 Hep Bs Antigen Non-reactive (Negative) 05/12/19 17:30 Hep B Core IgM Ab Non-reactive (NonReactive) 05/12/19 17:30 Hepatitis C Antibody Reactive (NonReactive) A 05/12/19 17:30 Active Medications - Current Medications Current Medications: Generic Name Dose Route Start Last Admin Trade Name Freq PRN Reason Stop Dose Admin Acetaminophen 650 mg 05/11/19 20:54 Tylenol PO Q4H PRN Pain MILD(1-3)/Fever >100.5/RUIZ Apixaban 2.5 mg 05/11/19 22:00 05/14/19 09:33 Eliquis PO 2.5 mg BID OSCAR Administration Protocol Famotidine 10 mg 05/11/19 22:00 05/14/19 09:32 Pepcid PO 10 mg BID OSCAR Administration Folic Acid 1 mg 05/12/19 10:00 05/14/19 09:33 Folvite PO 1 mg QDAY OSCAR Administration Furosemide 40 mg 05/12/19 10:00 05/14/19 09:33 Lasix PO 40 mg QDAY OSCAR Administration Hydromorphone HCl 0.5 mg 05/11/19 20:54 Dilaudid IV Q3H PRN Pain , Severe (7-10) Sodium Chloride 100 mls @ 999 mls/hr 05/12/19 08:56 Nacl 0.9% IV NANCY PRN Hypotension Lactulose 30 gm 05/12/19 12:00 05/14/19 18:01 Cephulac PO 30 gm Q6HR OSCAR Administration Nadolol 20 mg 05/12/19 10:00 05/14/19 09:39 Corgard PO 20 mg QDAY OSCAR Administration Ondansetron HCl 4 mg 05/11/19 20:54 Zofran IV Q8H PRN Nausea And Vomiting Oxycodone/Acetaminophen 1 tab 05/11/19 20:54 05/14/19 10:16 Percocet 5/325 PO 1 tab Q6H PRN Administration Pain, Moderate (4-6) Rifaximin 550 mg 05/11/19 22:00 05/14/19 09:33 Xifaxan PO 550 mg BID OSCAR Administration Sodium Chloride 10 ml 05/11/19 22:00 05/14/19 09:38 Sodium Chloride Flush Syringe 10 Ml IV 10 ml BID OSCAR Administration Sodium Chloride 10 ml 05/11/19 20:54 Sodium Chloride Flush Syringe 10 Ml IV PRN PRN LINE FLUSH Spironolactone 25 mg 05/11/19 21:00 05/14/19 09:33 Aldactone PO 25 mg DAILY OSCAR Administration Nutrition/Malnutrition Assess - Dietary Evaluation Nutrition/Malnutrition Findings: Nutrition Notes Start: 05/13/19 16:18 Freq: Status: Active Protocol: Document 05/13/19 16:18 RM (Rec: 05/13/19 16:26 RM [id number]) Nutrition Notes Need for Assessment generated from: grape cutter Initial or Follow up Assessment Current Diagnosis Diabetes,Hypertension Other Pertinent Diagnosis ESRD on HD, Ascites, ESLD Current Diet Renal Labs/Tests Reviewed Pertinent Medications Reviewed Height 6 ft 4 in Weight 106.5 kg [place] Body Weight (kg) 91.81 BMI 28.5 Subjective/Other Information Screened for chewing difficulty. Pt confused and not responding to questions at time of visit . Per tech pt has not been eating his meals. Burn Absent Trauma Absent #1 Nutrition Diagnosis Inadequate oral intake Etiology ascites, metabolic encephalopathy, ESRD on HD As Evidenced by Signs and Symptoms pt tech statement that pt is not eating his meals Is patient on ventilator? No Is Patient Ambulatory and/or Out of Bed No REE-([place]-confined to bed) 2334.960 Kcal/Kg value to use for calculation 17 Approximate Energy Requirements Using 1811 kcal/Kg Calculation Used for Recommendations Kcal/kg Additional Notes Protein Needs: 128g (>1.2g/kg) Fluid Needs: 1 ml/kcal Nutrition Intervention Change Diet Order: Continue current Add Supplement/Snack (indicate name/kcal Nepro BID /protein ) Provides kCal: 850 Provides Protein (gm) 38 Goal #1 Meet at least 75% of calorie and protein needs via PO and ONS intakes Anticipated Discharge Needs: Renal diet Follow-Up By: 05/15/19 Additional Comments Follow for PO and ONS intakes
[2019-05-15] MEDS: CEPHULAC PO SCH ×3 (05:26→18:45)
--- NOTE | 2019-05-15 09:24 | Progress Note ---
Assessment and Plan - Patient Problems (1) ESRD (end stage renal disease) Current Visit: Yes Status: Chronic Plan to address problem: Maintain on MWF inpatient HD schedule. Upon discharge he can go back to his [facility] outpatient HD schedule. (2) Altered mental state Current Visit: Yes Status: Acute Qualifiers: Altered mental status type: unspecified Qualified Code(s): R41.82 - Altered mental status, unspecified Plan to address problem: In the setting of hepatic encephalopathy with elevated serum ammonium levels noted, further management per primary attending. (3) Hepatic encephalopathy Current Visit: No Status: Acute Plan to address problem: Management per primary attending. Continue on rifaxamin/lactulose therapy. GI recommendations reviewed. (4) Anemia in chronic illness Current Visit: No Status: Acute Plan to address problem: REGINALD therapy with HD sessions. Subjective Date of service: 05/15/19 Interval history: No acute changes overnight. He remains lethargic this am but he is a bit more responsive compared to yesterday. Plan for HD today, Labs pending this am Objective - Vital Signs Vital signs: Vital Signs - 12hr 05/15/19 05/15/19 05/15/19 02:38 02:39 07:07 Temperature 98.3 F 98.0 F Pulse Rate 68 68 69 Respiratory 20 20 Rate Blood Pressure 124/64 134/72 O2 Sat by Pulse 97 100 99 Oximetry - General Appearance General appearance: well-nourished, appears stated age, obese, chronically ill EENT: ATNC, PERRL Neck: no JVD, no thyromegaly Respiratory: Present: Clear to Ascultation Cardiology: regular, S1S2 Gastrointestinal: normal Integumentary: hyperpigmentation, chronic venous stasis Neurologic: other (lethargic but answering questions ) Psychiatric: cooperative - Lab 05/13/19 09:02 05/13/19 09:02 Most recent lab results Calcium 6.7 mg/dL (8.4-10.2) L 05/13/19 09:02 - Allied health notes Allied health notes reviewed: nursing Medications & Allergies - Medications Allergies/Adverse Reactions: Allergies No Known Allergies Allergy (Verified 11/13/18 15:50) Home Medications: Home Medications Medication Instructions Recorded Confirmed Last Taken Type Spironolactone 25 mg PO DAILY #30 tablet 10/05/18 05/13/19 05/06/19 Rx 25 mg Ferrous Sulfate [Feosol 325 MG tab] 325 mg PO QDAY #30 tablet 12/18/18 05/13/19 05/06/19 Rx 325 mg Folic Acid [Folvite] 1 mg PO QDAY #30 tablet 12/18/18 05/13/19 05/06/19 Rx 1 mg Furosemide [Lasix TAB] 40 mg PO QDAY #30 tablet 12/18/18 05/13/19 05/06/19 Rx 40 mg Lactulose [Cephulac] 20 gm PO TID 30 Days oral.liqd 12/18/18 05/13/19 05/06/19 Rx 20 gm Nadolol [Corgard] 20 mg PO QDAY #30 tablet 12/18/18 05/13/19 05/06/19 Rx 20 mg Rifaximin [Xifaxan] 550 mg PO BID #60 tablet 12/18/18 05/13/19 05/06/19 Rx 550 mg Apixaban [Eliquis] 2.5 mg PO BID 04/29/19 05/13/19 05/03/19 History 2.5mg Active Medications: Generic Name Dose Route Start Last Admin Trade Name Freq PRN Reason Stop Dose Admin Acetaminophen 650 mg 05/11/19 20:54 Tylenol PO Q4H PRN Pain MILD(1-3)/Fever >100.5/RUIZ Apixaban 2.5 mg 05/11/19 22:00 05/14/19 22:47 Eliquis PO 2.5 mg BID OSCAR Administration Protocol Famotidine 10 mg 05/11/19 22:00 05/14/19 22:46 Pepcid PO 10 mg BID OSCAR Administration Folic Acid 1 mg 05/12/19 10:00 05/14/19 09:33 Folvite PO 1 mg QDAY OSCAR Administration Furosemide 40 mg 05/12/19 10:00 05/14/19 09:33 Lasix PO 40 mg QDAY OSCAR Administration Hydromorphone HCl 0.5 mg 05/11/19 20:54 Dilaudid IV Q3H PRN Pain , Severe (7-10) Sodium Chloride 100 mls @ 999 mls/hr 05/12/19 08:56 Nacl 0.9% IV NANCY PRN Hypotension Lactulose 30 gm 05/12/19 12:00 05/15/19 05:26 Cephulac PO 30 gm Q6HR OSCAR Administration Nadolol 20 mg 05/12/19 10:00 05/14/19 09:39 Corgard PO 20 mg QDAY OSCAR Administration Ondansetron HCl 4 mg 05/11/19 20:54 Zofran IV Q8H PRN Nausea And Vomiting Oxycodone/Acetaminophen 1 tab 05/11/19 20:54 05/14/19 10:16 Percocet 5/325 PO 1 tab Q6H PRN Administration Pain, Moderate (4-6) Rifaximin 550 mg 05/11/19 22:00 05/14/19 22:46 Xifaxan PO 550 mg BID OSCAR Administration Sodium Chloride 10 ml 05/11/19 22:00 05/14/19 22:46 Sodium Chloride Flush Syringe 10 Ml IV 10 ml BID OSCAR Administration Sodium Chloride 10 ml 05/11/19 20:54 Sodium Chloride Flush Syringe 10 Ml IV PRN PRN LINE FLUSH Spironolactone 25 mg 05/11/19 21:00 05/14/19 09:33 Aldactone PO 25 mg DAILY OSCAR Administration
[2019-05-15 10:15] LABS: Basophils % (Auto) 0.5 % (0.0-1.8); Eosinophils % (Auto) 1.3 % (0.0-4.3); Hematocrit 29.9 % (35.5-45.6); Hemoglobin 9.8 gm/dl (11.8-15.2); Lymphocytes # (Auto) 0.9 K/mm3 (1.2-5.4); Lymphocytes % (Auto) 26.3 % (13.4-35.0); Mean Corpuscular HGB Conc 33 % (32-34); Mean Corpuscular Volume 86 fl (84-94); Monocytes # (Auto) 0.3 K/mm3 (0.0-0.8); Monocytes % (Auto) 10.1 % (0.0-7.3); Red Blood Count 3.49 M/mm3 (3.65-5.03); Red Cell Distribution Width 19.7 % (13.2-15.2)
[2019-05-15 10:23] LABS: Platelet Count 75 K/mm3 (140-440)
[2019-05-15 10:34] LABS: Albumin 1.7 g/dL (3.9-5); Calcium 6.7 mg/dL (8.4-10.2)
[2019-05-15 10:35] LABS: INR 2.41 (0.87-1.13)
[2019-05-15] MEDS: XIFAXAN PO SCH (10:45)
[2019-05-15] MEDS: ELIQUIS PO SCH (10:47)
[2019-05-15] MEDS: CORGARD PO SCH (10:47)
[2019-05-15] MEDS: ALDACTONE PO SCH (10:47)
[2019-05-15] MEDS: PEPCID PO SCH (10:48)
[2019-05-15] MEDS: LASIX PO SCH (10:48)
[2019-05-15] MEDS: FOLVITE PO SCH (10:48)
--- NOTE | 2019-05-15 11:07 | Discharge Summary ---
Providers - Providers Date of Admission: 05/11/19 12:28 Attending physician: ROMMEL WASHINGTON MD 05/11/19 Consult to Case Management [CONS] Routine Services Needed at Discharge: Home Health Services Notified:: TANISHA 05/11/19 20:54 Consult to Physician [CONS] Routine Comment: called answering serv./ nallely Consulting Provider: STERLING GALAN Physician Instructions: Reason For Exam: ESRD 05/12/19 07:53 Consult to Physician [CONS] Routine Comment: called answ. service/ nallely Consulting Provider: DRAKE HODGE Physician Instructions: Reason For Exam: Ascites and PAD 05/12/19 14:43 Consult to Wound/ET Nurse [CONS] Routine Reason For Exam: wound eval 05/13/19 10:44 Physical Therapy Evaluation and Treat [CONS] Routine Comment: Reason For Exam: Weakness 05/14/19 10:54 Consult to Physician [CONS] Routine Comment: Consulting Provider: LEXUS BARFIELD Physician Instructions: Reason For Exam: recurrent hepatic encephalopathy Primary care physician: ERICK TOBIAS Hospitalization Condition: Stable Hospital course: 68-year-old -[place] male patient with extensive medical history including ESRD on dialysis, chronic osteomyelitis of the neck, ascites, hepatic encephalopathy presents via EMS for altered mental status times today. EMS was called by patient's home health nurse who found patient in the basement soaked in his urine and altered. He is nonverbal and unable to give history due to AMS. Patient's states patient has known normal around 8 PM last night. Patient is due for dialysis today. Patient was seen in hospital on 05/06/2019 for a paracentesis. His son states patient has had similar episodes of altered mental status due to overdose on his oxycodone???. Patient is on a blood thinner.Patient also on Lactulose and Xifaxin for Hyperammonemia Per GI Last EGD 06/2018 showed portal hypertensive gastropathy and small non-bleeding distal esophageal varices -etiology-patient has hx of decompensated cirrhosis 2/2 remote ETOH abuse (no alcohol in 3-4 years) and Hep C (s/p treatment; HCV RNA 08/31/18 undetectable) complicated with ascites, HE, and varices -last MELD 27 and was referred to [facility] for liver transplant evaluation but has not been seen as of yet -continue lactulose (titrate dose to goal of BMs x 2-3/day) and xifaxan -resume home nadalol and diuretics -LVP PRN -low sodium diet -avoid sedatives or hepatotoxic agents * Mental status is improved * Still lethargic recommend SNF which is acceptable Acute metabolic/Hepatic encephalopathy Secondary to Hyperammonemia and ESLD Increased dose of lactulose to 30g po q 6h, may decrease dose as Ammonia improves and encephalopathy resolves Obtain GI eval Chronic ABdominal Pain Continue supportive care Acute metabolic encephalopathy due to hepatic encephalopathy On Lactulose End stage kidney disease Cont HD Nephrology following Hyperammonemia Increase dose of lactulose to 30mg po q 6h Cont Xifaxin Ascites Paracentesis per IR last paracentesis 05/06/19 with 5100 ml removed Hypertension Cont antihypertensives Peripheral artery disease Ulcers and severe discoloration of both lower extremities Vascular surgery consult requested - he was evaluated by Dr. Tavarez Bilateral lower ext ulcers Wound care consult Eosphageal Varicies Stable Chronic Anemia Thrombocytpenia Discussed with the spouse. Will Obtain PT/OT eval. Per spouse patient is ambulatory at home, while he appears very lethargic and unable to move his foot in assisting Disposition: DC/[place]-03 SNF [facility] Time spent for discharge: 35 mins Exam - Constitutional Vitals: Temp Pulse Resp BP Pulse Ox 98.3 F 68 16 134/70 99 05/15/19 09:45 05/15/19 10:45 05/15/19 09:45 05/15/19 10:45 05/15/19 07:07 Plan Activity: advance as tolerated, fall precautions Diet: low fat, renal Special Instructions: record daily weights, record daily BP diary, record blood sugar diary, physical therapy, occupational therapy Follow up with: ERICK TOBIAS MD [Primary Care Provider] - 3-5 Days ARACELI WARD MD [Staff Physician] - 7 Days DRAKE TAVAREZ MD [Staff Physician] - 7 Days
--- NOTE | 2019-05-15 11:50 | Gastroenterology Progress Note ---
Assessment and Plan 1.hepatic encephalopathy 2.cirrhosis 3.ascites 4.esophageal varices -afebrile -WBC 3.3 -H/H 9.8/29.9 -plt count 75 -INR and LFTs-stable -ammonia 139 -abd U/S 01/2019 showed cirrhosis and ascites but no distinct lesions -last paracentesis 05/06/19 with 5100 ml removed -last EGD 06/2018 showed portal hypertensive gastropathy and small non-bleeding distal esophageal varices -etiology-patient has hx of decompensated cirrhosis 2/2 remote ETOH abuse (no alcohol in 3-4 years) and Hep C (s/p treatment; HCV RNA 08/31/18 undetectable) complicated with ascites, HE, and varices -last MELD 27 and was referred to [place] [facility] for liver transplant evaluation but has not been seen as of yet -clinically, patient's encephalopathy has significantly improved (A & O x 3 this am). Denies abd pain, N/V, or signs of bleeding. Tolerating diet. -continue lactulose (titrate dose to goal of BMs x 2-3/day), xifaxan, nadalol, and diuretics -LVP PRN -low sodium diet -avoid sedatives or hepatotoxic agents -continue to trend labs and supportive care -patient okay to be d/c per GI standpoint on current medication with f/u in clinic in ~2-3 weeks (already has appt scheduled) -will sign off, please call if needed 5.chronic anemia 6.thrombocytopenia 7.ESRD on HD 8.HTN Subjective Date of service: 05/15/19 Principal diagnosis: hepatic encephalopathy Interval history: Patient resting in bed this am w/o acute distress. Noted to be alert and oriente d x 3. No abd pain, N/V, or signs of bleeding. Tolerating diet. Objective - Constitutional Vitals: Temp Pulse Resp BP Pulse Ox 98.3 F 67 16 99/64 99 05/15/19 09:45 05/15/19 11:15 05/15/19 09:45 05/15/19 11:15 05/15/19 07:07 General appearance: no acute distress - EENT Eyes: PERRL, EOM intact ENT: hearing intact - Respiratory Respiratory effort: normal - Cardiovascular Rhythm: regular - Gastrointestinal General gastrointestinal: Present: soft, non-tender, distended (mild (ascites)), normal bowel sounds - Neurologic Neurological: alert and oriented x3 - Labs CBC & Chem 7: 05/15/19 09:34 05/15/19 09:34 Labs: Laboratory Results - last 24 hr 05/15/19 05/15/19 05/15/19 09:34 09:34 09:34 WBC 3.3 L RBC 3.49 L Hgb 9.8 L Hct 29.9 L MCV 86 MCH 28 MCHC 33 RDW 19.7 H Plt Count 75 L Lymph % (Auto) 26.3 Kingfisher % (Auto) 10.1 H Eos % (Auto) 1.3 Baso % (Auto) 0.5 Lymph # 0.9 L King[place]isher # 0.3 Eos # 0.0 Baso # 0.0 Seg Neutrophils % 61.8 Seg Neutrophils # 2.1 PT 25.8 H INR 2.41 H Sodium 141 Potassium 3.6 Chloride 106.2 Carbon Dioxide 19 L Anion Gap 19 BUN 42 H Creatinine 4.1 H Estimated GFR 18 BUN/Creatinine Ratio 10 Glucose 155 H Calcium 6.7 L Total Bilirubin 1.90 H AST 37 ALT 17 Alkaline Phosphatase 65 Ammonia Total Protein 8.4 H Albumin 1.7 L Albumin/Globulin Ratio 0.3 05/15/19 09:34 WBC RBC Hgb Hct MCV MCH MCHC RDW Plt Count Lymph % (Auto) Kingfisher % (Auto) Eos % (Auto) Baso % (Auto) Lymph # Kingfisher # Eos # Baso # Seg Neutrophils % Seg Neutrophils # PT INR Sodium Potassium Chloride Carbon Dioxide Anion Gap BUN Creatinine Estimated GFR BUN/Creatinine Ratio Glucose Calcium Total Bilirubin AST ALT Alkaline Phosphatase Ammonia 139.0 H Total Protein Albumin Albumin/Globulin Ratio
[2019-05-15] MEDS ORDERED: NACL 0.9 (PRIMING MACHINE ONLY DIALYSIS) MC ONE (13:20)
[2019-05-15 15:34] VITALS: BP 123/72
[2019-05-15] MEDS: SODIUM CHLORIDE FLUSH SYRINGE 10 ML IV SCH (15:49)
== END 2019-05-15 19:00 | disposition home health service (06) | DRG 441 ==
LOC: ED 09:52 → 2B-ACE 12:28
PROVIDERS: ADMIT Internal Medicine; ATTEND Internal Medicine
PROC: 5A1D70Z Performance of Urinary Filtration, Intermittent, Less than 6 Hours Per Day (ICD-10-PCS; principal; 2019-05-13)
PROC: 5A1D70Z Performance of Urinary Filtration, Intermittent, Less than 6 Hours Per Day (ICD-10-PCS; 2019-05-15)
DX: K72.90 Hepatic failure, unspecified without coma (principal); N18.6 End stage renal disease; G93.41 Metabolic encephalopathy; I85.11 Secondary esophageal varices with bleeding; E72.20 Disorder of urea cycle metabolism, unspecified; L97.828 Non-pressure chronic ulcer of other part of left lower leg with other specified severity; I12.0 Hypertensive chronic kidney disease with stage 5 chronic kidney disease or end stage renal disease; K70.31 Alcoholic cirrhosis of liver with ascites; D69.6 Thrombocytopenia, unspecified; G89.29 Other chronic pain; L97.818 Non-pressure chronic ulcer of other part of right lower leg with other specified severity; D63.1 Anemia in chronic kidney disease; Z99.2 Dependence on renal dialysis; Z82.49 Family history of ischemic heart disease and other diseases of the circulatory system; Z87.891 Personal history of nicotine dependence; Z79.01 Long term (current) use of anticoagulants; Z79.899 Other long term (current) drug therapy; Z83.3 Family history of diabetes mellitus
CPT/HCPCS: 36415; 70450; 70490; 71045; 80053; 80074; 80320; 82140; 82550; 82962; 83036; 84443; 84484; 85025; 85027; 85610; 85730; 93005; 93010; 93922; 93925; 93970; 96374; G0378; G0480; J2310; J7030

== ENCOUNTER 2019-06-14 10:19 | Emergency (ER) | payer MEDICARE ==
[2019-06-14] MEDS ORDERED: CALCIUM CHLORIDE 1,000 MG/10 ML SYRINGE IV ONE (10:35)
[2019-06-14] MEDS ORDERED: DEXTROSE 50% IN WATER (25GM) 50 ML SYRINGE IV ONE ×3 (10:35→12:28)
[2019-06-14] MEDS ORDERED: SODIUM BICARB 8.4% 50 MEQ/50 ML SYRINGE IV ONE (10:35)
[2019-06-14] MEDS ORDERED: EPINEPHrine 1:10,000 1 MG/10 ML SYRINGE ONE (10:35)
--- NOTE | 2019-06-14 10:56 | Emergency Department Report ---
HPI - General Chief Complaint: Cardiac Arrest/CPR - HPI HPI: Room 1 The patient is a 68-year-old male presented with a chief complaint of cardiac arrest. EMS states they arrived on scene at 09:39 to find the patient in asystole. A Quintanilla protocols were initiated. EMS attempted to intubate was complicated by emesis/blood in the airway. A Goyo airway was placed by EMS. Upon the patient's arrival to the ED the patient's Goyo airway was removed and the patient was intubated by myself using an 8.0 ETT. Patient was protocols were continued and there was no return of spontaneous circulation Location: [See above] Duration: [See above] Quality: [See above] Severity: [See above] Timing: [See above] Context: [See above] Modifying factors: [See above] Associated signs and symptoms: [see above] ED Past Medical Hx - Past Medical History Hx Hypertension: Yes Hx Diabetes: Yes Hx Liver Disease: Yes Hx Renal Disease: Yes Hx HIV: Yes Additional medical history: Cervical osteomyelitis, C5,Hep C. peripheral vascular disease (b/l leg ulcers). leg edema. Chronic pain. Patient states "my neck is broken in 2 places". Apparently this is being treated nonoperatively at this point. - Surgical History Additional Surgical History: Spring filter. Right chest perm cath - Family History Family history: no significant - Social History Smoking Status: Never Smoker Substance Use Type: None - Medications Home Medications: Home Medications Medication Instructions Recorded Confirmed Last Taken Type Ferrous Sulfate [Feosol 325 MG tab] 325 mg PO QDAY #30 tablet 12/18/18 05/28/19 05/06/19 Rx 325 mg Folic Acid [Folvite] 1 mg PO QDAY #30 tablet 12/18/18 05/28/19 05/06/19 Rx 1 mg Rifaximin [Xifaxan] 550 mg PO BID #60 tablet 12/18/18 05/28/19 05/06/19 Rx 550 mg Lactulose [Cephulac] 20 gm PO TID #1.89 l 06/12/19 Unknown Rx Midodrine [Proamatine] 15 mg PO TID@0800,1200,1600 #90 06/12/19 Unknown Rx tablet oxyCODONE [roxiCODONE] 5 mg PO Q8H PRN #20 tablet 06/12/19 Unknown Rx ED Review of Systems ROS: Stated complaint: CARDIAC ARREST Other details as noted in HPI Comment: Unobtainable due to pts medical conditions Physical Exam - Physical Exam Physical Exam: GENERAL: The patient is well-developed well-nourished male lying on stretcher receiving chest compressions. Dark-colored emesis surrounding face. [] HEENT: Normocephalic. Atraumatic. Dark blood in oropharynx NECK: Supple. Trachea midline CHEST/LUNGS: No spontaneous respirations. Breath sounds equal bilaterally with bagging after intubation by myself HEART/CARDIOVASCULAR: No heart sounds. Asystole on monitor ABDOMEN: Abdomen is soft, nontender. Patient has normal bowel sounds. There is no abdominal distention. SKIN: There is no rash. There is no edema. There is no diaphoresis. NEURO: GCS 3T MUSCULOSKELETAL: There is no evidence of acute injury. - Intubation Time Out Performed: No Sedative: none Laryngoscope: Franci Size: 3 ET Tube Size: 8 (as oriented) Tube Secured Depth (cm): 24 Tube Secured Location: lips Tube Placement Confirmation: equal breath sounds bilat, no breath sounds over epi Patient Tolerated Procedure: no complications Intubation Complications: none ED Medical Decision Making - Differential Diagnosis GI bleed, ACS, aspiration Critical care attestation.: If time is entered above; I have spent that time in minutes in the direct care of this critically ill patient, excluding procedure time. ED Disposition Clinical Impression: Cardiac arrest Disposition: DC-20 Is pt being admited?: No Does the pt Need Aspirin: No Condition: Poor Time of Disposition: 11:00 (patient )
== END 2019-06-14 13:44 ==
LOC: ED 10:19
DX: I46.9 Cardiac arrest, cause unspecified (principal); I12.9 Hypertensive chronic kidney disease with stage 1 through stage 4 chronic kidney disease, or unspecified chronic kidney disease; E11.22 Type 2 diabetes mellitus with diabetic chronic kidney disease; N18.9 Chronic kidney disease, unspecified; I73.9 Peripheral vascular disease, unspecified; Z79.899 Other long term (current) drug therapy; Z86.19 Personal history of other infectious and parasitic diseases
CPT/HCPCS: 31500; 82962; 96374; 99285; J0171; 92950